=== PATIENT | male | born 1990 | race Caucasian/White ===

== ENCOUNTER → 2016-08-09 | Outpatient (CLI) | payer OTHER ==
[~2016-08-09] MED LIST: ACET-1256 PO; ARIP30TA3 PO; BENZ-88 PO; BENZ0.5T2 PO; CHLO100T8 PO; DIVA125T18 PO; DIVA500T5 PO; DOCU-94 PO; DOCU100C31 PO; IBUP200T80 PO; IMD/2 PO; MRLP527 PO; MULT-506 PO; NAPR-1169 PO; ONDA4TAB10 SL; OXYC-57 PO; POLY335019 PO; SENN1TAB77 PO; TOPI100T45 PO; [UNRECOGNIZED DRUG - CODE] PO; [UNRECOGNIZED DRUG - CODE] PO
[2016-08-09 13:14] LABS: BASO % 0.5 %; BASO ABS # 0.03 K/uL (0-0.2); COMPLETE YES; EOS % 1.7 %; HEMATOCRIT 47.2 % (42-52); IG% 0.2 %; LYMPH % 29.4 %; LYMPH ABS # 1.85 K/uL (1.2-3.4); MEAN CELL VOLUME 90.6 fL (80-100); MEAN CORPUSCULAR HEMOGLOBIN 31.1 pg (25-34); MEAN CORPUSCULAR HGB CONC 34.3 g/dl (32-36); MEAN PLATELET VOLUME 12.5 fL (7.4-10.4); MONO % 10.3 %; NEUT % 57.9 %; PLATELET COUNT 144 K/uL (130-400); RED BLOOD COUNT 5.21 M/uL (4.7-6.1); WHITE BLOOD COUNT 6.29 K/uL (4.8-10.8)
[2016-08-09 13:42] LABS: ALT/SGPT 29 U/L (12-78); AST/SGOT 19 U/L (15-37); BLOOD UREA NITROGEN 16 mg/dl (7-18); BUN/CREATININE RATIO 16.3 (10-20); CALCIUM 8.6 mg/dl (8.5-10.1); CARBON DIOXIDE 25 mmol/L (21-32); CHLORIDE 108 mmol/L (98-107); GLUCOSE 90 mg/dl (70-99); SODIUM 141 mmol/L (136-145)
[2016-08-09 13:50] LABS: ALB/GLOB RATIO 1.1 (0.9-2); ALKALINE PHOSPHATASE 39 U/L (45-117); CHOLESTEROL 150 mg/dl (0-200); CHOLESTEROL/HDL RATIO 3.1; ESTIMATED AVERAGE GLUCOSE 100 mg/dl; HA1C FLAG Normal (Normal); HDL CHOLESTEROL 49 mg/dl; LDL CHOLESTEROL CALCULATED 90 mg/dl; TRIGLYCERIDES 55 mg/dl (0-150); VERY LOW DENSITY LIPOPROT CALC 11 mg/dl
== END | disposition home or self-care (01) ==
LOC: C.LAB1850 11:38
PROVIDERS: ATTEND Urology
DX: Z79.899 Other long term (current) drug therapy (principal)

== ENCOUNTER 2016-09-09 13:48 | Emergency (ER) | payer OTHER ==
[~2016-09-09] VITALS: Ht 193 cm; Wt 96.1 kg
[~2016-09-09 13:48] MED LIST changes: -ACET-1256 PO; -BENZ-88 PO; -BENZ0.5T2 PO; +CGN1X PO; +CGN5X PO; -CHLO100T8 PO; -DIVA500T5 PO; -DOCU-94 PO; -DOCU100C31 PO; -IBUP200T80 PO; -IMD/2 PO; -MRLP527 PO; -MULT-506 PO; -NAPR-1169 PO; -ONDA4TAB10 SL; -OXYC-57 PO; -POLY335019 PO; -SENN1TAB77 PO; -[UNRECOGNIZED DRUG - CODE] PO
[2016-09-09 13:50] VITALS: TEMP 36.9; Ht 193 cm; Wt 96.1 kg
--- NOTE | 2016-09-09 14:38 | DIAGNOSTIC IMAGING REPORT ---
RIGHT FINGER(S) MIN 2 VIEWS ROUTINE CLINICAL HISTORY: eval for fx right 5th Right trauma COMPARISON: None. DISCUSSION: Nondisplaced cortical fracture base distal phalanx fifth finger. Mild soft tissue edema. All remaining osseous structures are unremarkable. IMPRESSION: Nondisplaced cortical fracture base distal phalanx right fifth finger Electronically signed by: Mu Harris M.D. 09/09/2016 2:37 PM Dictated Date/Time: 09/09/2016 2:36 PM
[2016-09-09] MEDS ORDERED: MULT-506 PO (14:47)
[2016-09-09] MEDS ORDERED: IBUP200T80 PO (15:01)
[2016-09-09 15:11] VITALS: BP 110/68; PULSE 82; O2SAT 98
--- NOTE | 2016-09-09 20:14 | EMERGENCY ROOM VISIT NOTE ---
History Report prepared by Maksimibe: Marion Menjivar Under the Supervision of: Dr. Karlos Salmon M.D. First contact with patient: 13:58 Chief Complaint: FINGER PAIN Stated Complaint: FINGER PAIN, FELL ON ICE History of Present Illness The patient is a 26 year old male who presents to the Emergency Room with complaints of right fifth digit pain that has been constant since a fall this morning around 9AM. The pain is worse with movement of the finger. The patient states that he slipped on ice and landed directly on his right arm. He did not hit his head. Since then, he has had finger pain but denies any other trauma from the accident. He does not have any other complaints. Source of History: patient Onset: 9AM Position: finger(s) (right fifth digit) Timing: constant Modifying Factors (Worsening): movement Review of Systems See HPI for pertinent positives & negatives. A total of 4 systems reviewed and were otherwise negative. Past Medical & Surgical Medical Problems: (1) Anxiety (2) Autistic disorder (3) Depression (4) Homicidal ideation (5) Hypothyroidism (6) Learning difficulties (7) Mental retardation (8) Suicidal ideation (9) Tonic-clonic epilepsy Family History FH: heart disease Hypertension Social History Smoking Status: Never Smoker Alcohol Use: none Drug Use: none Marital Status: single Housing Status: lives with family Occupation Status: unemployed, disabled Current/Historical Medications Scheduled Aripiprazole (Abilify), 30 MG PO QAM Benztropine Mesylate (Benztropine Mesylate), 0.5 MG PO QA Benztropine Mesylate (Benztropine Mesylate), 1 MG PO HS Chlorpromazine HCl (Chlorpromazine HCl), 100 MG PO QPM Divalproex Sodium (Depakote), 250 MG PO BID Multivitamin (Multivitamin), 1 TAB PO DAILY Topiramate (Topamax), 100 MG PO BID Scheduled PRN Ibuprofen (Ibu-200), 2 TAB PO Q6 PRN for Pain Allergies Coded Allergies: Phenytoin (Unverified Allergy, Mild, RASH, 09/09/16) Chocolate (Verified Allergy, Unknown, 09/09/16) Red Dye (Verified Allergy, Unknown, ., 09/09/16) Sulfa Drugs (Verified Allergy, Unknown, 09/09/16) Adhesives (Unverified Adverse Reaction, Unknown, RASH, 09/09/16) Physical Exam Vital Signs Date Time Temp Pulse Resp B/P Pulse Ox O2 Delivery O2 Flow Rate FiO2 09/09/16 15:11 82 110/68 98 Room Air 09/09/16 13:50 36.9 96 18 127/78 98 Room Air Physical Exam Constitutional: Vital signs reviewed. Musculoskeletal: No peripheral edema. No lower extremity tenderness. No CVA tenderness. No tenderness over the shoulder, elbow, or wrist. He had tenderness over the distal phalanx and DIP joint of the right fifth digit. Normal pulses and distal capillary refill. Normal flexion and extension of the fifth digit at the MCP, DIP and PIP. Integumentary: No cyanosis. No ecchymosis. Neurological: The patient is awake and alert. No focal deficits. Normal motor and sensation in the fingers. Psychiatric: Normal affect. Medical Decision & Procedures ER Provider Diagnostic Interpretation: X-ray results as stated below per interpretation by me and the radiologist: RIGHT FINGER(S) MIN 2 VIEWS ROUTINE CLINICAL HISTORY: eval for fx right 5th Right trauma COMPARISON: None. DISCUSSION: Nondisplaced cortical fracture base distal phalanx fifth finger. Mild soft tissue edema. All remaining osseous structures are unremarkable. IMPRESSION: Nondisplaced cortical fracture base distal phalanx right fifth finger Electronically signed by: Mu Harris M.D. 09/09/2016 2:37 PM Dictated Date/Time: 09/09/2016 2:36 PM ED Course 1400: The patient was evaluated in room D3. A complete history and physical exam was performed. 1455: I reassessed the patient and talked to him about test results. On reexamination, he had good tendon function throughout the joints of the fifth digit. The patient will be discharged home. Medical Decision This is a 26-year-old male who presents with a finger injury. Differential diagnosis includes fracture, dislocation, closed tendon injury. I did perform a limited focused review of portions of the patient's old chart on the electronic medical record. The patient has had no recent pertinent visits to this hospital. I did evaluate the patient as noted above. The patient has good tendon function and is neurovascularly intact. He is tender over the distal right fifth digit. He denies any other injuries and does not appear to have any other injuries on examination. I did order and personally review the patient' s right fifth digit x-rays as described above. He does have a distal phalanx fracture. I did discuss the test results with the patient and his family. He was placed in a metal finger splint. He was given a prescription for ibuprofen for pain. Impression Primary Impression: Fracture of distal phalanx of right little finger Scribe Attestation The scribe's documentation has been prepared under my direct and personally reviewed by me in its entirety. I confirm that the note above accurately reflects all work, treatment, procedures, and medical decision making performed by me. Departure Information Dispostion Home / Self-Care Prescriptions Ibuprofen (Ibu-200) 200 Mg Tab 2 TAB PO Q6 Y for Pain, #20 TAB Prov: Karlos Salmon M.D. 09/09/16 Referrals Rogelio Donaldson M.D. (PCP) Patient Instructions ED Fx Finger Closed, My [facility] Additional Instructions You have been examined and treated today on an emergency basis only. This is not a substitute for, or an effort to provide, complete comprehensive medical care. It is impossible to recognize and treat all injuries or illnesses in a single emergency department visit. It is therefore important that you follow up closely with your physician. Call as soon as possible for an appointment. Return for worsening symptoms or if you develop numbness or weakness in your finger any other concerning symptoms. Problem Qualifiers Primary Impression: Fracture of distal phalanx of right little finger Encounter type: initial encounter Fracture type: closed Fracture alignment : nondisplaced Qualified Codes: S62.666A - Nondisplaced fracture of distal phalanx of right little finger, initial encounter for closed fracture
== END 2016-09-09 15:18 | disposition home or self-care (01) ==
LOC: C.EDB 13:50 → C.EDD 15:18
DX: S62.666A Nondisplaced fracture of distal phalanx of right little finger, initial encounter for closed fracture (principal); W00.9XXA Unspecified fall due to ice and snow, initial encounter; F41.9 Anxiety disorder, unspecified; F84.0 Autistic disorder; F32.9 Major depressive disorder, single episode, unspecified; E03.9 Hypothyroidism, unspecified; F79 Unspecified intellectual disabilities; G40.409 Other generalized epilepsy and epileptic syndromes, not intractable, without status epilepticus; I10 Essential (primary) hypertension

== ENCOUNTER 2016-09-15 16:25 | Emergency (ER) | payer OTHER ==
[~2016-09-15] VITALS: Ht 193 cm; Wt 92.7 kg
[~2016-09-15 16:25] MED LIST changes: +IBUP200T80 PO; +MULT-506 PO
[2016-09-15 16:33] VITALS: Ht 193 cm; Wt 92.7 kg
[2016-09-15] MEDS ORDERED: KETOROLAC TROMETHAMINE 30 MG/ML VIAL IV STA (16:41)
[2016-09-15] MEDS ORDERED: SODIUM CHLORIDE 0.9% 1000ML 1,000 ML IV STA (16:41)
[2016-09-15] MEDS ORDERED: ONDANSETRON INJ 2 MG/ML 2 ML VIAL IV STA (16:41)
[2016-09-15] MEDS ORDERED: METOCLOPRAMIDE HCL INJ 5 MG/ML 2 ML VIAL IV PRN (16:45)
--- NOTE | 2016-09-15 16:52 | EMERGENCY ROOM VISIT NOTE ---
History Report prepared by Javed: Ryan Mcknight Under the Supervision of: Dr. Consuelo Layton M.D. First contact with patient: 16:39 Chief Complaint: VOMITING Stated Complaint: VOMITING,WEAK, SHIVERING, SHAKING History of Present Illness The patient is a 26 year old male who presents to the Emergency Room with complaints of multiple episodes of vomiting starting around 0800 this morning. The patient states that he was vomiting every 15 minutes. The patient additionally complains of diarrhea and abdominal pain. Source of History: patient Onset: 0800 Position: other (global) Quality: other (vomiting) Timing: other (every 15 mintues) Associated Symptoms: + abdominal pain, + diarrhea Review of Systems See HPI for pertinent positives & negatives. A total of 10 systems reviewed and were otherwise negative. Past Medical & Surgical Medical Problems: (1) Anxiety (2) Autistic disorder (3) Depression (4) Homicidal ideation (5) Hypothyroidism (6) Learning difficulties (7) Mental retardation (8) Suicidal ideation (9) Tonic-clonic epilepsy Family History FH: heart disease Hypertension Social History Smoking Status: Never Smoker Alcohol Use: none Drug Use: none Marital Status: single Housing Status: lives with family Occupation Status: unemployed, disabled Current/Historical Medications Scheduled Aripiprazole (Abilify), 30 MG PO QAM Benztropine Mesylate (Benztropine Mesylate), 0.5 MG PO QA Benztropine Mesylate (Benztropine Mesylate), 1 MG PO HS Chlorpromazine HCl (Chlorpromazine HCl), 100 MG PO QPM Chlorpromazine Hcl (Thorazine), 100 MG PO HS Divalproex Sodium (Depakote Delay Rel), 500 MG PO AMHS Multivitamin (Multivitamin), 1 TAB PO DAILY Ondasetron Odt (Zofran Odt), 4 MG SL Q6H Topiramate (Topamax), 100 MG PO BID Scheduled PRN Ibuprofen (Ibu-200), 2 TAB PO Q6 PRN for Pain Loperamide Hcl (Imodium), 2 MG PO UNKNOWN PRN for ALLERGIC REACTION Allergies Coded Allergies: Phenytoin (Verified Allergy, Mild, RASH, 09/15/16) Chocolate (Verified Allergy, Unknown, 09/09/16) Red Dye (Verified Allergy, Unknown, ., 09/09/16) Sulfa Drugs (Verified Allergy, Unknown, 09/09/16) Adhesives (Verified Adverse Reaction, Unknown, RASH, 09/15/16) Physical Exam Vital Signs Date Time Temp Pulse Resp B/P Pulse Ox O2 Delivery O2 Flow Rate FiO2 09/15/16 18:06 95 20 122/69 100 Room Air 09/15/16 16:33 104 16 119/67 98 Room Air Physical Exam CONSTITUTIONAL: Moderate distress. HEENT: No icterus, moist mucous membranes NECK: No meningismus, trachea is midline. CARDIOVASCULAR: Regular rate, normal perfusion RESPIRATORY: Unlabored breathing. Clear to auscultation. GASTROINTESTINAL: Diffuse abdominal tenderness. GENITOURINARY: No flank tenderness MUSCULOSKELETAL: Full range of motion NEUROLOGIC: No acute gross focal deficits. PSYCHIATRIC: Normal affect SKIN: Normal for ethnicity. Medical Decision & Procedures Laboratory Results 09/15/16 17:40 Red Blood Count 5.10, Mean Corpuscular Volume 92.0, Mean Corpuscular Hemoglobin 31.6, Mean Corpuscular Hemoglobin Concent 34.3, Mean Platelet Volume 12.7, Neutrophils (%) (Auto) 90.6, Lymphocytes (%) (Auto) 4.7, Monocytes (%) (Auto) 4.2, Eosinophils (%) (Auto) 0.1, Basophils (%) (Auto) 0.1, Neutrophils # (Auto) 9.29, Lymphocytes # (Auto) 0.48, Monocytes # (Auto) 0.43, Eosinophils # (Auto) 0.01, Basophils # (Auto) 0.01 09/15/16 17:40 Test 09/15/16 17:40 White Blood Count 10.25 K/uL (4.8-10.8) Red Blood Count 5.10 M/uL (4.7-6.1) Hemoglobin 16.1 g/dL (14.0-18.0) Hematocrit 46.9 % (42-52) Mean Corpuscular Volume 92.0 fL (80-100) Mean Corpuscular Hemoglobin 31.6 pg (25-34) Mean Corpuscular Hemoglobin Concent 34.3 g/dl (32-36) Platelet Count 107 K/uL (130-400) Mean Platelet Volume 12.7 fL (7.4-10.4) Neutrophils (%) (Auto) 90.6 % Lymphocytes (%) (Auto) 4.7 % Monocytes (%) (Auto) 4.2 % Eosinophils (%) (Auto) 0.1 % Basophils (%) (Auto) 0.1 % Neutrophils # (Auto) 9.29 K/uL (1.4-6.5) Lymphocytes # (Auto) 0.48 K/uL (1.2-3.4) Monocytes # (Auto) 0.43 K/uL (0.11-0.59) Eosinophils # (Auto) 0.01 K/uL (0-0.5) Basophils # (Auto) 0.01 K/uL (0-0.2) RDW Standard Deviation 44.2 fL (36.4-46.3) RDW Coefficient of Variation 13.2 % (11.5-14.5) Immature Granulocyte % (Auto) 0.3 % Immature Granulocyte # (Auto) 0.03 K/uL (0.00-0.02) Large Platelets 1+ Anion Gap 12.0 mmol/L (3-11) Est Creatinine Clear Calc Drug Dose 124.9 ml/min Estimated GFR () 106.8 Estimated GFR (Non- 92.2 BUN/Creatinine Ratio 22.4 (10-20) Calcium Level 8.6 mg/dl (8.5-10.1) Total Bilirubin 0.6 mg/dl (0.2-1) Direct Bilirubin 0.2 mg/dl (0-0.2) Aspartate Amino Transf (AST/SGOT) 22 U/L (15-37) Alanine Aminotransferase (ALT/SGPT) 27 U/L (12-78) Alkaline Phosphatase 39 U/L (45-117) Total Protein 7.5 gm/dl (6.4-8.2) Albumin 3.7 gm/dl (3.4-5.0) Lipase 160 U/L (73-393) Labs reviewed by ED physician. Medications Administered Medications (Trade) Dose Ordered Sig/Jose Alberto Route Start Time Stop Time Status Last Admin Dose Admin Sodium Chloride (Nss 1000ml) 1,000 ml @ 0 mls/hr Q0M STAT IV 09/15/16 16:41 09/15/16 16:44 DC 09/15/16 16:53 0 MLS/HR Ondansetron HCl (Zofran Inj) 4 mg NOW STAT IV 09/15/16 16:41 09/15/16 16:44 DC 09/15/16 16:57 4 MG Ketorolac Tromethamine (Toradol Inj) 30 mg NOW STAT IV 09/15/16 16:41 09/15/16 16:44 DC 09/15/16 16:58 30 MG Metoclopramide HCl (Reglan Inj) 10 mg Q6H PRN IV 09/15/16 16:45 10/15/16 16:44 09/15/16 18:03 10 MG ED Course 1639: Past medical records reviewed. The patient was evaluated in room C7. A complete history and physical examination was performed. 1641: Toradol Inj 30mg IV, Zofran Inj 4mg IV, Sodium Chloride 1000 ml @ 0 mls/ hr wide open IV 1645: Reglan Inj 10mg IV Medical Decision Differential diagnoses include but are not limited to; Gastroenteritis, pancreatitis, gall bladder disease, obstruction. 26-year-old presents into the emergency room and one day of vomiting and diarrhea with crampy abdominal pain. Moderate abdominal pain disproportionate to a obvious viral gastroenteritis was identified and subsequent CT scan was negative. Patient appeared well time of discharge 8pm. Zofran home pack and prescription. Impression Primary Impression: Gastroenteritis Scribe Attestation The scribe's documentation has been prepared under my direction and personally reviewed by me in its entirety. I confirm that the note above accurately reflects all work, treatment, procedures, and medical decision making performed by me. Departure Information Dispostion Home / Self-Care Prescriptions Ondasetron Odt (ZOFRAN ODT) 4 Mg Tab 4 MG SL Q6H for Nausea, #20 TAB Prov: Consuelo Layton MD 09/15/16 Referrals Rogelio Donaldson M.D. (PCP) Patient Instructions My [facility]
[2016-09-15] MEDS ORDERED: CHLO100T8 PO (17:58)
[2016-09-15] MEDS ORDERED: DIVA500T5 PO (17:58)
[2016-09-15] MEDS ORDERED: IMD/2 PO (18:02)
[2016-09-15 18:05] LABS: BUN/CREATININE RATIO 22.4 (10-20); CALCIUM 8.6 mg/dl (8.5-10.1); CREATININE 1.1 mg/dl (0.60-1.40); POTASSIUM 4.2 mmol/L (3.5-5.1)
[2016-09-15 18:26] LABS: BASO % 0.1 %; BASO ABS # 0.01 K/uL (0-0.2); COMPLETE YES; EOS % 0.1 %; HEMATOCRIT 46.9 % (42-52); IG% 0.3 %; LARGE PLATELETS 1+; LYMPH % 4.7 %; LYMPH ABS # 0.48 K/uL (1.2-3.4); MEAN CORPUSCULAR HEMOGLOBIN 31.6 pg (25-34); MEAN CORPUSCULAR HGB CONC 34.3 g/dl (32-36); MEAN PLATELET VOLUME 12.7 fL (7.4-10.4); MONO % 4.2 %; NEUT % 90.6 %; PLATELET COUNT 107 K/uL (130-400); WHITE BLOOD COUNT 10.25 K/uL (4.8-10.8)
[2016-09-15] MEDS ORDERED: OPTIRAY 320 IV PRN (19:00)
--- NOTE | 2016-09-15 19:45 | DIAGNOSTIC IMAGING REPORT ---
CT SCAN OF THE ABDOMEN AND PELVIS WITH IV CONTRAST CLINICAL HISTORY: Generalized abdominal pain. Vomiting and diarrhea. COMPARISON STUDY: Abdominal CT dated 11/19/2012. Abdominal radiographs dated . TECHNIQUE: Following the IV administration of 115 cc of Optiray 320, CT scan of the abdomen and pelvis is performed from the lung bases to the proximal femora. Images are reviewed in the axial, sagittal, and coronal planes. IV contrast was administered without complication. Automated dose control exposure was utilized. CT DOSE: 494.83 mGy.cm FINDINGS: Lung bases: The heart is normal in size and without pericardial effusion. The lung bases are clear noting dependent atelectasis. Liver: The contrast-enhanced liver is normal in size, contour, and attenuation. There is no intrahepatic biliary ductal dilatation. The hepatic veins and portal veins are patent. Gallbladder: Unremarkable. Spleen: Normal in size and attenuation. Pancreas: Unremarkable. Adrenal glands: Unremarkable. Kidneys: The contrast enhanced kidneys are normal in size and without hydronephrosis. The kidneys enhance symmetrically. Abdominal vasculature: The abdominal aorta is normal in course and caliber. Bowel: The small bowel and colon are normal in course and caliber. Liquid stool is noted in the colon. There is no colonic wall thickening or pericolonic inflammation. The appendix is well-visualized and normal. Peritoneum: There is no intraperitoneal free air or abdominal ascites. There is a small fat-containing umbilical hernia. Lymphadenopathy: None. Pelvic viscera: The bladder wall appears slightly thickened. The prostate and seminal vesicles are normal as visualized. Skeletal structures: No lytic or blastic lesions are seen. IMPRESSION: 1. Liquid stool is noted in the colon. There is no colonic wall thickening or pericolonic inflammation. Correlate clinically for evidence of a diarrheal illness. 2. There is nonspecific bladder wall thickening. Correlation with clinical findings and urinalysis will be required. Electronically signed by: Navjot Del Angel M.D. 09/15/2016 7:44 PM Dictated Date/Time: 09/15/2016 7:38 PM
[2016-09-15] MEDS ORDERED: ONDA4TAB10 SL (20:01)
[2016-09-15 20:14] VITALS: BP 126/68; PULSE 103; O2SAT 100
[2016-09-15] MEDS ORDERED: ONDANSETRON HOME PACK 4MG OD TAB PO ONE (20:15)
== END 2016-09-15 20:14 | disposition home or self-care (01) ==
LOC: C.EDB 16:26 → C.EDC 20:14
DX: K52.9 Noninfective gastroenteritis and colitis, unspecified (principal); E03.9 Hypothyroidism, unspecified; F32.9 Major depressive disorder, single episode, unspecified; F41.9 Anxiety disorder, unspecified; F79 Unspecified intellectual disabilities; G40.409 Other generalized epilepsy and epileptic syndromes, not intractable, without status epilepticus; F84.0 Autistic disorder; Z79.899 Other long term (current) drug therapy; Z88.2 Allergy status to sulfonamides; Z88.8 Allergy status to other drugs, medicaments and biological substances; Z91.018 Allergy to other foods; Z82.49 Family history of ischemic heart disease and other diseases of the circulatory system

== ENCOUNTER 2016-10-26 10:27 | Emergency (ER) | payer OTHER ==
[~2016-10-26] VITALS: Ht 193 cm; Wt 94.6 kg
[~2016-10-26 10:27] MED LIST changes: +CHLO100T8 PO; -DIVA125T18 PO; +DIVA500T5 PO; +IMD/2 PO; +ONDA4TAB10 SL
[2016-10-26 10:41] VITALS: TEMP 36.6; Ht 193 cm; Wt 94.6 kg
[2016-10-26] MEDS ORDERED: MoRPHine SULFATE 10 MG/ML CARP/VIAL IV STA (11:30)
[2016-10-26] MEDS ORDERED: METOCLOPRAMIDE HCL INJ 5 MG/ML 2 ML VIAL IV STA (11:30)
[2016-10-26] MEDS ORDERED: SODIUM CHLORIDE 0.9% 1000ML 1,000 ML IV STA (11:30)
[2016-10-26 11:33] LABS: URINE APPEARANCE TURBID (CLEAR); URINE BILIRUBIN NEG (NEG); URINE COLOR YELLOW; URINE EPITHELIAL CELL AUTO 0-5 /lpf (0-5); URINE NITRITE NEG (NEG); URINE SPECIFIC GRAVITY 1.017 (1.000-1.030); UROBILINOGEN POS (NEG)
[2016-10-26 11:40] LABS: MANUAL MICROSCOPIC REQUIRED? NO; REVIEW REQ? NO
[2016-10-26] MEDS ORDERED: OPTIRAY 320 IV PRN (11:45)
[2016-10-26 11:53] LABS: ISTAT CREATININE 1.1 mg/dl (0.6-1.3); ISTAT HEMOGLOBIN 13.9 g/dl (14.0-18.0); ISTAT IONIZED CALCIUM 1.26 mmol/l (1.12-1.32)
[2016-10-26 11:54] VITALS: O2SAT 99
--- NOTE | 2016-10-26 12:11 | EMERGENCY ROOM VISIT NOTE ---
History Report prepared by Javed: Celeste Miranda Under the Supervision of: Dr. Dillon Urena M.D. First contact with patient: 10:58 Chief Complaint: SEIZURE Stated Complaint: STOMACH ACHE, SEIZURE History of Present Illness The patient is a 26 year old male who presents to the Emergency Room from [facility] with complaints of constant left upper quadrant abdominal pain starting about 2-3 days ago. The patient also complains of nausea. He denies fevers, chills, chest pain, shortness of breath, urinary symptoms, or any other complaints. Source of History: patient Onset: about 2-3 days ago Position: abdomen (LUQ) Timing: constant Associated Symptoms: + nausea, No SOB, No chest pain, No fevers, No urinary symptoms Review of Systems See HPI for pertinent positives & negatives. A total of 10 systems reviewed and were otherwise negative. Past Medical & Surgical Medical Problems: (1) Anxiety (2) Autistic disorder (3) Depression (4) Homicidal ideation (5) Hypothyroidism (6) Learning difficulties (7) Mental retardation (8) Suicidal ideation (9) Tonic-clonic epilepsy Family History FH: heart disease Hypertension Social History Smoking Status: Never Smoker Alcohol Use: none Drug Use: none Marital Status: single Housing Status: lives with family Occupation Status: unemployed, disabled Current/Historical Medications Scheduled Aripiprazole (Abilify), 30 MG PO QAM Benztropine Mesylate (Benztropine Mesylate), 0.5 MG PO QA Benztropine Mesylate (Benztropine Mesylate), 1 MG PO HS Chlorpromazine HCl (Chlorpromazine HCl), 100 MG PO QPM Chlorpromazine Hcl (Thorazine), 100 MG PO HS Divalproex Sodium (Depakote Delay Rel), 500 MG PO AMHS Docusate Sodium (Colace), 1 CAP PO BID Multivitamin (Multivitamin), 1 TAB PO DAILY Ondasetron Odt (Zofran Odt), 4 MG SL Q6H Ondasetron Odt (Zofran Odt), 4 MG SL Q6H Polyethylene Glycol 3350 (Miralax), 17 GM PO DAILY Sennosides (Senokot), 8.6 MG PO HS Topiramate (Topamax), 100 MG PO BID Scheduled PRN Ibuprofen (Ibu-200), 2 TAB PO Q6 PRN for Pain Loperamide Hcl (Imodium), 2 MG PO UNKNOWN PRN for ALLERGIC REACTION Oxycodone/Acetaminophen 5MG/325MG (Percocet 5MG/325MG), 1-2 TAB PO Q4H PRN for Pain Allergies Coded Allergies: Phenytoin (Verified Allergy, Mild, RASH, 09/15/16) Chocolate (Verified Allergy, Unknown, 09/09/16) Red Dye (Verified Allergy, Unknown, ., 09/09/16) Sulfa Drugs (Verified Allergy, Unknown, 09/09/16) Adhesives (Verified Adverse Reaction, Unknown, RASH, 09/15/16) Physical Exam Vital Signs Date Time Temp Pulse Resp B/P Pulse Ox O2 Delivery O2 Flow Rate FiO2 10/26/16 13:57 79 20 120/68 98 10/26/16 12:55 79 18 125/73 98 Room Air 10/26/16 11:54 72 17 116/66 100 Room Air 10/26/16 11:54 99 Room Air 10/26/16 11:10 84 10/26/16 11:00 97 Room Air 10/26/16 10:41 36.6 106 18 122/78 97 Room Air Physical Exam GENERAL: Patient is a healthy-appearing well-nourished HEAD: Normocephalic atraumatic EYES: Ocular movements intact pupils equal and react to light OROPHARYNX mucous membranes are moist no exudates present no erythema or edema present NECK: Supple no nuchal rigidity CHEST: Good equal expansion LUNGS: Clear and equal to auscultation CARDIAC: Normal S1 and S2 ABDOMEN: Soft nontender no guarding BACK: No CVA tenderness EXTREMITIES: No pain upon palpation normal muscle strength in all groups no clubbing cyanosis or edema NEURO: Patient is following commands is answering questions appropriately. Alert and oriented x3 Cranial Nerves 2-12 grossly intact Medical Decision & Procedures ER Provider Diagnostic Interpretation: CT results as stated below per my review and radiologist interpretation: CT ABD/PELVIS IV CONTRAST ONLY CLINICAL HISTORY: Left upper quadrant abdominal pain. COMPARISON STUDY: 09/15/2016 TECHNIQUE: Following the IV administration of 116 mL of Optiray-320, CT scan of the abdomen and pelvis was performed from the lung bases to the proximal femurs. Images are reviewed in the axial, sagittal, and coronal planes. IV contrast was administered without complication. CT DOSE: 538.57 mGy.cm FINDINGS: Lower chest: There are mild bibasal atelectatic changes present. Liver: The contrast-enhanced liver is normal in size, contour, and attenuation. There is no intrahepatic biliary ductal dilatation. The hepatic veins and portal veins are patent. Gallbladder: Unremarkable. Spleen: Normal in size and attenuation. Pancreas: Unremarkable. Adrenal glands: Unremarkable. Kidneys: There is symmetric renal cortical enhancement. The kidneys are normal in size without hydronephrosis. Bowel: There are no transition zones indicate bowel obstruction. There is no evidence of acute appendicitis. There is no evidence of acute diverticulitis. There are fluid-filled small bowel loops with scattered air-fluid levels. There is fecal is age and of distal small bowel. There is borderline bowel wall thickening involving the terminal ileum. Peritoneum: There is no intraperitoneal free air or abdominal ascites. Vasculature: The abdominal aorta is normal in course and caliber. Adenopathy: None. Pelvic viscera: The bladder, and pelvic viscera are unremarkable. Skeletal structures: No destructive osseous lesions are seen. IMPRESSION: 1. Prominent fluid-filled distal loops of ileum with a small bowel feces sign. There are no transition zones to indicate a significant bowel obstruction. There is borderline bowel wall thickening involving the terminal ileum. The findings may represent a nonspecific enteritis 2. Normal appendix. No evidence of acute diverticulitis 3. No evidence of free air Electronically signed by: Dell Garnica M.D. 10/26/2016 1:07 PM Dictated Date/Time: 10/26/2016 1:00 PM Laboratory Results 10/26/16 11:00 Red Blood Count 4.80, Mean Corpuscular Volume 91.5, Mean Corpuscular Hemoglobin 31.3, Mean Corpuscular Hemoglobin Concent 34.2, Mean Platelet Volume 12.6, Neutrophils (%) (Auto) 52.1, Lymphocytes (%) (Auto) 32.1, Monocytes (%) (Auto) 13.6, Eosinophils (%) (Auto) 1.6, Basophils (%) (Auto) 0.4, Neutrophils # (Auto ) 2.96, Lymphocytes # (Auto) 1.82, Monocytes # (Auto) 0.77, Eosinophils # (Auto ) 0.09, Basophils # (Auto) 0.02 10/26/16 11:00 Test 10/26/16 10:55 10/26/16 11:00 10/26/16 11:31 10/26/16 11:37 Urine Color YELLOW Urine Appearance TURBID (CLEAR) Urine pH 7.0 (4.5-7.5) Urine Specific [place] 1.017 (1.000-1.030) Urine Protein NEG (NEG) Urine Glucose (UA) NEG (NEG) Urine Ketones NEG (NEG) Urine Occult Blood NEG (NEG) Urine Nitrite NEG (NEG) Urine Bilirubin NEG (NEG) Urine Urobilinogen POS (NEG) Urine Leukocyte Esterase NEG (NEG) Urine WBC (Auto) 0 /hpf (0-5) Urine RBC (Auto) 0-4 /hpf (0-4) Urine Hyaline Casts (Auto) 0 /lpf (0-5) Urine Epithelial Cells (Auto) 0-5 /lpf (0-5) Urine Bacteria (Auto) NEG (NEG) White Blood Count 5.67 K/uL (4.8-10.8) Red Blood Count 4.80 M/uL (4.7-6.1) Hemoglobin 15.0 g/dL (14.0-18.0) Hematocrit 43.9 % (42-52) Mean Corpuscular Volume 91.5 fL (80-100) Mean Corpuscular Hemoglobin 31.3 pg (25-34) Mean Corpuscular Hemoglobin Concent 34.2 g/dl (32-36) Platelet Count 109 K/uL (130-400) Mean Platelet Volume 12.6 fL (7.4-10.4) Neutrophils (%) (Auto) 52.1 % Lymphocytes (%) (Auto) 32.1 % Monocytes (%) (Auto) 13.6 % Eosinophils (%) (Auto) 1.6 % Basophils (%) (Auto) 0.4 % Neutrophils # (Auto) 2.96 K/uL (1.4-6.5) Lymphocytes # (Auto) 1.82 K/uL (1.2-3.4) Monocytes # (Auto) 0.77 K/uL (0.11-0.59) Eosinophils # (Auto) 0.09 K/uL (0-0.5) Basophils # (Auto) 0.02 K/uL (0-0.2) RDW Standard Deviation 45.1 fL (36.4-46.3) RDW Coefficient of Variation 13.5 % (11.5-14.5) Immature Granulocyte % (Auto) 0.2 % Immature Granulocyte # (Auto) 0.01 K/uL (0.00-0.02) Large Platelets 1+ Prothrombin Time 11.7 SECONDS (9.0-12.0) Prothromb Time International Ratio 1.1 (0.9-1.1) Activated Partial Thromboplast Time 31.0 SECONDS (21.0-31.0) Partial Thromboplastin Ratio 1.2 Est Creatinine Clear Calc Drug Dose 124.9 ml/min Estimated GFR () 106.8 Estimated GFR (Non- 92.2 BUN/Creatinine Ratio 14.8 (10-20) Calcium Level 8.7 mg/dl (8.5-10.1) Phosphorus Level 2.5 mg/dl (2.5-4.9) Magnesium Level 2.1 mg/dl (1.8-2.4) Thyroid Stimulating Hormone (TSH) 3.410 uIu/ml (0.300-4.500) Bedside Glucose 104 mg/dl (70-99) Bedside Hemoglobin 13.9 g/dl (14.0-18.0) Bedside Hematocrit 41 % (42-52) Bedside Sodium 145 mEq/L (135-144) Bedside Potassium 3.8 mEq/L (3.3-5.0) Bedside Chloride 109 mEq/L (101-112) Bedside Total CO2 23 mEq/l (24-31) Anion Gap 18.0 mmol/L (16-25) Bedside Blood Urea Nitrogen 17 mg/dl (7-18) Bedside Creatinine 1.1 mg/dl (0.6-1.3) Bedside Glucose (other) 103 mg/dl (70-99) Bedside Ionized Calcium (Paula) 1.26 mmol/l (1.12-1.32) Labs reviewed by ED physician. Medications Administered Medications (Trade) Dose Ordered Sig/Jose Alberto Route Start Time Stop Time Status Last Admin Dose Admin Sodium Chloride (Nss 1000ml) 1,000 ml @ 999 mls/hr Q1H1M STAT IV 10/26/16 11:30 10/26/16 12:30 DC 10/26/16 11:30 999 MLS/HR Metoclopramide HCl (Reglan Inj) 10 mg NOW STAT IV 10/26/16 11:30 10/26/16 11:32 DC 10/26/16 11:55 10 MG Morphine Sulfate (MoRPHine SULFATE INJ) 8 mg NOW STAT IV 10/26/16 11:30 10/26/16 11:32 DC 10/26/16 11:56 8 MG ECG Indication: abdominal pain Rate (beats per minute): 82 Rhythm: normal sinus Findings: no acute ischemic change, no ectopy ED Course 1058: Past medical records reviewed. The patient was evaluated in room C08. A complete history and physical examination was performed. 1130: Morphine Sulfate 8 mg IV, Reglan Inj 10 mg IV, Sodium Chloride 1000 ml @ 999 mls/hr IV 1325: Upon reexamination the patient is resting comfortably. I discussed results and treatment plan with the patient. He verbalizes agreement and understanding. The patient is ready for discharge. Medical Decision Differential diagnosis: Etiologies such as appendicitis, diverticulitis, PUD, biliary pathology, UTI, pancreatitis, obstruction, mesenteric ischemia, aortic pathology, infections, inflammatory bowel disease, renal colic, as well as others were entertained. This is a 26-year-old male who presents emergency department for left upper quadrant abdominal pain. Serial abdominal examinations were performed in the patient's emergency department and at no time did the patient exhibit a surgical abdomen. In addition the patient also has a normal white blood count. He has a normal renal profile normal liver profile normal lipase. I do believe that the patient is able to be discharged home. Impression Primary Impression: LUQ abdominal pain Scribe Attestation The scribe's documentation has been prepared under my direction and personally reviewed by me in its entirety. I confirm that the note above accurately reflects all work, treatment, procedures, and medical decision making performed by me. Departure Information Dispostion Home / Self-Care Prescriptions Polyethylene Glycol 3350 (MIRALAX) 1 Pow Pow 17 GM PO DAILY, #527 GM Prov: Dillon Urena MD 10/26/16 Docusate Sodium (COLACE) 100 Mg Cap 1 CAP PO BID for 10 Days, #20 CAP Prov: Dillon Urena MD 10/26/16 Sennosides (SENOKOT) 8.6 Mg Tab 8.6 MG PO HS for 10 Days, #10 TAB Prov: Dillon Urena MD 10/26/16 Ondasetron Odt (ZOFRAN ODT) 4 Mg Tab 4 MG SL Q6H for Nausea, #6 TAB Prov: Dillon Urena MD 10/26/16 Oxycodone/Acetaminophen 5MG/325MG (PERCOCET 5MG/325MG) Tab 1-2 TAB PO Q4H Y for Pain, #14 TAB Prov: Dillon Urena MD 10/26/16 Referrals Rogelio Donaldson M.D. (PCP) Forms HOME CARE DOCUMENTATION FORM, IMPORTANT VISIT INFORMATION Patient Instructions ED Diet Clear Liquid, My [facility] Additional Instructions Take 10 oz bottle of Miralax, add to 16 oz of gatorade, drink continuously until moving creamy stools Clear liquid diet next 48 hours You received narcotic or benzodiazepene medication while in the emergency room today. Do not drive, operate heavy machinery, or drink alcohol under the influence of this medication. Take 600 mg Ibuprofen every 6 hours Take Percocet for breakthrough pain You have been examined and treated today on an emergency basis only. This is not a substitute for, or an effort to provide, complete comprehensive medical care. It is impossible to recognize and treat all injuries or illnesses in a single emergency department visit. It is therefore important that you follow up closely with DR Donaldson. Call as soon as possible for an appointment. Thank you for your time and consideration. I look forward to speaking with you again soon. Please don't hesitate to call us if you have any questions.
[2016-10-26 12:14] LABS: HEMATOCRIT 43.9 % (42-52); MEAN CELL VOLUME 91.5 fL (80-100); MEAN CORPUSCULAR HEMOGLOBIN 31.3 pg (25-34); MEAN CORPUSCULAR HGB CONC 34.2 g/dl (32-36); MEAN PLATELET VOLUME 12.6 fL (7.4-10.4); PLATELET COUNT 109 K/uL (130-400); WHITE BLOOD COUNT 5.67 K/uL (4.8-10.8)
[2016-10-26 12:16] LABS: CREATININE 1.1 mg/dl (0.60-1.40)
[2016-10-26 12:21] LABS: POTASSIUM 3.8 mmol/L (3.5-5.1)
[2016-10-26 12:22] LABS: MAGNESIUM 2.1 mg/dl (1.8-2.4)
[2016-10-26 12:25] LABS: BUN/CREATININE RATIO 14.8 (10-20); CALCIUM 8.7 mg/dl (8.5-10.1); PHOSPHORUS 2.5 mg/dl (2.5-4.9); THYROID STIMULATING HORMONE 3.41 uIu/ml (0.300-4.500)
[2016-10-26 12:58] LABS: BASO % 0.4 %; BASO ABS # 0.02 K/uL (0-0.2); COMPLETE YES; EOS % 1.6 %; IG% 0.2 %; LARGE PLATELETS 1+; LYMPH % 32.1 %; LYMPH ABS # 1.82 K/uL (1.2-3.4); MONO % 13.6 %; NEUT % 52.1 %
--- NOTE | 2016-10-26 13:08 | DIAGNOSTIC IMAGING REPORT ---
CT ABD/PELVIS IV CONTRAST ONLY CLINICAL HISTORY: Left upper quadrant abdominal pain. COMPARISON STUDY: 09/15/2016 TECHNIQUE: Following the IV administration of 116 mL of Optiray-320, CT scan of the abdomen and pelvis was performed from the lung bases to the proximal femurs. Images are reviewed in the axial, sagittal, and coronal planes. IV contrast was administered without complication. CT DOSE: 538.57 mGy.cm FINDINGS: Lower chest: There are mild bibasal atelectatic changes present. Liver: The contrast-enhanced liver is normal in size, contour, and attenuation. There is no intrahepatic biliary ductal dilatation. The hepatic veins and portal veins are patent. Gallbladder: Unremarkable. Spleen: Normal in size and attenuation. Pancreas: Unremarkable. Adrenal glands: Unremarkable. Kidneys: There is symmetric renal cortical enhancement. The kidneys are normal in size without hydronephrosis. Bowel: There are no transition zones indicate bowel obstruction. There is no evidence of acute appendicitis. There is no evidence of acute diverticulitis. There are fluid-filled small bowel loops with scattered air-fluid levels. There is fecal is age and of distal small bowel. There is borderline bowel wall thickening involving the terminal ileum. Peritoneum: There is no intraperitoneal free air or abdominal ascites. Vasculature: The abdominal aorta is normal in course and caliber. Adenopathy: None. Pelvic viscera: The bladder, and pelvic viscera are unremarkable. Skeletal structures: No destructive osseous lesions are seen. IMPRESSION: 1. Prominent fluid-filled distal loops of ileum with a small bowel feces sign. There are no transition zones to indicate a significant bowel obstruction. There is borderline bowel wall thickening involving the terminal ileum. The findings may represent a nonspecific enteritis 2. Normal appendix. No evidence of acute diverticulitis 3. No evidence of free air Electronically signed by: Dell Garnica M.D. 10/26/2016 1:07 PM Dictated Date/Time: 10/26/2016 1:00 PM
[2016-10-26] MEDS ORDERED: OXYC-57 PO (13:24)
[2016-10-26] MEDS ORDERED: SENN1TAB77 PO (13:25)
[2016-10-26] MEDS ORDERED: DOCU-94 PO (13:25)
[2016-10-26] MEDS ORDERED: ONDA4TAB10 SL (13:25)
[2016-10-26] MEDS ORDERED: POLY335019 PO (13:26)
[2016-10-26 13:53] LABS: INR 1.1 (0.9-1.1); PARTIAL THROMBOPLASTIN RATIO 1.2; PROTHROMBIN TIME (PATIENT) 11.7 SECONDS (9.0-12.0)
[2016-10-26 13:57] VITALS: BP 120/68; PULSE 79; O2SAT 98
== END 2016-10-26 13:59 | disposition home or self-care (01) ==
LOC: C.EDB 10:29 → C.EDC 13:59
DX: R10.12 Left upper quadrant pain (principal); R11.0 Nausea; F84.0 Autistic disorder; F41.9 Anxiety disorder, unspecified; F32.9 Major depressive disorder, single episode, unspecified; E03.9 Hypothyroidism, unspecified; F79 Unspecified intellectual disabilities; G40.409 Other generalized epilepsy and epileptic syndromes, not intractable, without status epilepticus; Z82.49 Family history of ischemic heart disease and other diseases of the circulatory system

== ENCOUNTER → 2016-11-28 | Outpatient (CLI) | payer OTHER ==
[~2016-11-28] MED LIST changes: +ACET-1256 PO; +BENZ-88 PO; +BENZ0.5T2 PO; -CGN1X PO; -CGN5X PO; +DOCU100C31 PO; +MRLP527 PO; +NAPR-1169 PO; +OXYC-57 PO; +POLY335019 PO; +[UNRECOGNIZED DRUG - CODE] PO
[2016-11-28 09:58] LABS: HEMATOCRIT 45.8 % (42-52); MEAN CELL VOLUME 93.9 fL (80-100); MEAN CORPUSCULAR HEMOGLOBIN 31.1 pg (25-34); MEAN CORPUSCULAR HGB CONC 33.2 g/dl (32-36); RED BLOOD COUNT 4.88 M/uL (4.7-6.1); WHITE BLOOD COUNT 7.02 K/uL (4.8-10.8)
[2016-11-28 10:36] LABS: BASO % 0.3 %; BASO ABS # 0.02 K/uL (0-0.2); COMPLETE YES; EOS % 2.6 %; IG% 0.3 %; LYMPH % 18.4 %; LYMPH ABS # 1.29 K/uL (1.2-3.4); MEAN PLATELET VOLUME 11.5 fL (7.4-10.4); MONO % 12.5 %; NEUT % 65.9 %; PLATELET COUNT 98 K/uL (130-400)
== END | disposition home or self-care (01) ==
LOC: C.LAB1850 09:20
PROVIDERS: ATTEND Physician Assistant
DX: Z51.81 Encounter for therapeutic drug level monitoring (principal); Z79.899 Other long term (current) drug therapy

== ENCOUNTER 2016-12-16 17:37 | Emergency (ER) | payer OTHER ==
[~2016-12-16] VITALS: Ht 193 cm; Wt 96.3 kg
[~2016-12-16 17:37] MED LIST changes: -ACET-1256 PO; -DOCU100C31 PO; -MRLP527 PO; -NAPR-1169 PO; -[UNRECOGNIZED DRUG - CODE] PO
[2016-12-16 17:40] VITALS: TEMP 36.5; Ht 193 cm; Wt 96.3 kg
[2016-12-16] MEDS ORDERED: DIVA500T5 PO (17:57)
--- NOTE | 2016-12-16 18:14 | EMERGENCY ROOM VISIT NOTE ---
ED Visit Note First contact with patient: 17:46 I have seen and examined this patient with Andie Stewart and generally agree with the treatment plan as discussed. Problem List Medical Problems: (1) Anxiety Status: Chronic (2) Autistic disorder Status: Chronic (3) Depression Status: Chronic (4) Homicidal ideation Status: Resolved (5) Hypothyroidism Status: Chronic (6) Learning difficulties Status: Chronic (7) Mental retardation Status: Chronic (8) Suicidal ideation Status: Resolved (9) Tonic-clonic epilepsy Status: Chronic Current/Historical Medications Scheduled Aripiprazole (Abilify), 30 MG PO QAM Benztropine Mesylate (Benztropine Mesylate), 0.5 MG PO QA Benztropine Mesylate (Benztropine Mesylate), 1 MG PO HS Chlorpromazine HCl (Chlorpromazine HCl), 100 MG PO QPM Chlorpromazine Hcl (Thorazine), 100 MG PO HS Divalproex Sodium (Depakote Delay Rel), 1,000 MG PO QAM Divalproex Sodium (Depakote Delay Rel), 500 MG PO HS Multivitamin (Multivitamin), 1 TAB PO DAILY Polyethylene Glycol 3350 (Miralax), 17 GM PO DAILY Topiramate (Topamax), 100 MG PO BID Scheduled PRN Ibuprofen (Ibu-200), 2 TAB PO Q6 PRN for Pain Allergies Coded Allergies: Phenytoin (Verified Allergy, Mild, RASH, 12/16/16) Chocolate (Verified Allergy, Unknown, 12/16/16) Red Dye (Verified Allergy, Unknown, ., 12/16/16) Sulfa Drugs (Verified Allergy, Unknown, 12/16/16) Adhesives (Verified Adverse Reaction, Unknown, RASH, 12/16/16) Vital Signs Date Time Temp Pulse Resp B/P Pulse Ox O2 Delivery O2 Flow Rate FiO2 12/16/16 17:40 36.5 97 20 131/83 99 Room Air Departure Information Referrals Rogelio Donaldson M.D. (PCP) Patient Instructions My [facility]
--- NOTE | 2016-12-16 18:35 | DIAGNOSTIC IMAGING REPORT ---
LEFT FOOT 3 VIEWS HISTORY: Left foot pain. COMPARISON: None. FINDINGS: There is no fracture or dislocation. Soft tissues are unremarkable. No radiopaque foreign bodies. IMPRESSION: No fractures. Electronically signed by: Delfino Reyes M.D. 12/16/2016 6:33 PM Dictated Date/Time: 12/16/2016 6:32 PM
[2016-12-16] MEDS ORDERED: NAPR-1169 PO (19:36)
--- NOTE | 2016-12-16 19:36 | EMERGENCY ROOM VISIT NOTE ---
ED Visit Note First contact with patient: 17:46 CHIEF COMPLAINT: Foot pain HISTORY OF PRESENT ILLNESS: This 26-year-old male patient presents to the emergency department ambulatory complaining of pain in the left foot. The patient states that he has been standing a lot lately, and has pain in the bottom of the foot, especially when standing. The patient rates the pain as sharp and 8/10. The patient has taken ibuprofen with some relief of the pain. The patient is able to walk. No numbness or weakness. No ankle pain. The patient is able to move all of their toes and their ankle without pain. No previous injuries to this foot. REVIEW OF SYSTEMS: GENERAL: A 6 system review of systems was completed with positives and pertinent negatives in the HPI. ALLERGIES: Adhesives, chocolate, phenytoin, red dye, sulfa drugs MEDICATIONS: See med list PMH: See problem list SOCIAL HISTORY: The patient lives at [facility]. PHYSICAL EXAM: Vital Signs: Reviewed Nurse's notes, vital signs stable. GENERAL : This is a 26-year-old male, in no acute distress, but appears in pain, well- developed, well-nourished. MUSCULOSKELETAL: There is no visual deformity of the left foot. There is tenderness over the plantar fascia. There is no erythema or ecchymosis. There is no warmth. There is no tenderness over the lateral or medial malleolus. No tenderness of the tib/fib. The range of motion of the foot and ankle is full. There is no tenderness over the plantar fascia. The skin is intact and there are no lacerations or puncture wounds. Dorsalis pedis pulse 2+. Capillary refill less than 2 seconds. RADIOGRAPHIC FINDINGS: LEFT FOOT 3 VIEWS HISTORY: Left foot pain. COMPARISON: None. FINDINGS: There is no fracture or dislocation. Soft tissues are unremarkable. No radiopaque foreign bodies. IMPRESSION: No fractures. EMERGENCY DEPARTMENT COURSE: I examined the patient. An X-ray of the left foot was reviewed by myself and radiology and reveals no acute findings. Clinically , the patient appears to have a plantar fasciitis. He really placed on Naprosyn and follow-up with orthopedics as needed. The patient was placed in a postoperative shoe. The patient verbalized understanding of my assessment and treatment plan. The patient was discharged home in good condition. The patient was independently evaluated by Dr. Urena, ED attending physician , who agreed with my assessment and treatment plan. DIAGNOSIS: Plantar fasciitis Problem List Medical Problems: (1) Anxiety Status: Chronic (2) Autistic disorder Status: Chronic (3) Depression Status: Chronic (4) Homicidal ideation Status: Resolved (5) Hypothyroidism Status: Chronic (6) Learning difficulties Status: Chronic (7) Mental retardation Status: Chronic (8) Suicidal ideation Status: Resolved (9) Tonic-clonic epilepsy Status: Chronic Current/Historical Medications Scheduled Aripiprazole (Abilify), 30 MG PO QAM Benztropine Mesylate (Benztropine Mesylate), 0.5 MG PO QA Benztropine Mesylate (Benztropine Mesylate), 1 MG PO HS Chlorpromazine HCl (Chlorpromazine HCl), 100 MG PO QPM Chlorpromazine Hcl (Thorazine), 100 MG PO HS Divalproex Sodium (Depakote Delay Rel), 1,000 MG PO QAM Divalproex Sodium (Depakote Delay Rel), 500 MG PO HS Multivitamin (Multivitamin), 1 TAB PO DAILY Naproxen (Naprosyn), 500 MG PO BID Polyethylene Glycol 3350 (Miralax), 17 GM PO DAILY Topiramate (Topamax), 100 MG PO BID Scheduled PRN Ibuprofen (Ibu-200), 2 TAB PO Q6 PRN for Pain Allergies Coded Allergies: Phenytoin (Verified Allergy, Mild, RASH, 12/16/16) Chocolate (Verified Allergy, Unknown, 12/16/16) Red Dye (Verified Allergy, Unknown, ., 12/16/16) Sulfa Drugs (Verified Allergy, Unknown, 12/16/16) Adhesives (Verified Adverse Reaction, Unknown, RASH, 12/16/16) Vital Signs Date Time Temp Pulse Resp B/P Pulse Ox O2 Delivery O2 Flow Rate FiO2 12/16/16 19:50 75 16 131/71 100 12/16/16 17:40 36.5 97 20 131/83 99 Room Air Departure Information Impression Primary Impression: Plantar fasciitis of left foot Dispostion Home / Self-Care Condition GOOD Prescriptions Naproxen (Naprosyn) 500 Mg Tab 500 MG PO BID for 10 Days, #20 TAB Prov: Andie Bartlett ., FRANCISCO 12/16/16 Referrals Rogelio Donaldson M.D. (PCP) Patient Instructions My [facility] Additional Instructions You have been treated in the Emergency Department for foot pain. Naprosyn twice a day as prescribed. - Regular strength (325mg/tab) Tylenol (acetaminophen) 2 tabs every 4-6 hours as needed. Do not exceed 12 tablets in a 24 hour period. Avoid taking more than 4 grams (4000 mg) of Tylenol per day. This includes any other sources of acetaminophen you may take on a regular basis. If this is a recent injury (<24 hrs), ice can be applied to the area of pain for the first 3 days to help decrease pain and inflammation. Wear the boot for the next 1 week, then as needed. If the pain persists in 5-6 days, call orthopedics to schedule follow-up. Return to the Emergency Department if your current symptoms worsen despite treatment course outlined above, or if you develop any of the following symptoms : intractable pain despite aforementioned treatment course or new onset of numbness or tingling of the foot.
[2016-12-16 19:50] VITALS: BP 131/71; PULSE 75; O2SAT 100
== END 2016-12-16 19:50 | disposition home or self-care (01) ==
LOC: C.EDB 17:38 → C.EDD 19:50
DX: M72.2 Plantar fascial fibromatosis (principal); F41.9 Anxiety disorder, unspecified; F32.9 Major depressive disorder, single episode, unspecified; E03.9 Hypothyroidism, unspecified; G40.409 Other generalized epilepsy and epileptic syndromes, not intractable, without status epilepticus; F79 Unspecified intellectual disabilities; F84.0 Autistic disorder; Z79.899 Other long term (current) drug therapy; Z88.2 Allergy status to sulfonamides; Z88.8 Allergy status to other drugs, medicaments and biological substances; Z91.018 Allergy to other foods; Z91.09 Other allergy status, other than to drugs and biological substances

== ENCOUNTER 2017-02-17 17:09 | Emergency (ER) | payer OTHER ==
[~2017-02-17 17:09] MED LIST changes: -BENZ-88 PO; -BENZ0.5T2 PO; +CGN1X PO; +CGN5X PO; -IMD/2 PO; -ONDA4TAB10 SL; -OXYC-57 PO
[2017-02-17 17:14] VITALS: TEMP 36.3; Ht 193 cm
[2017-02-17] MEDS ORDERED: SODIUM CHLORIDE 0.9% 1000ML 1,000 ML IV STA (17:21)
[2017-02-17] MEDS ORDERED: KETOROLAC TROMETHAMINE 30 MG/ML VIAL IV STA (17:21)
[2017-02-17] MEDS ORDERED: METOCLOPRAMIDE HCL INJ 5 MG/ML 2 ML VIAL IV STA (17:21)
[2017-02-17 18:03] LABS: URINE APPEARANCE TURBID (CLEAR); URINE BILIRUBIN NEG (NEG); URINE COLOR YELLOW; URINE NITRITE NEG (NEG); URINE SPECIFIC GRAVITY 1.015 (1.000-1.030); UROBILINOGEN NEG (NEG)
[2017-02-17 18:04] LABS: MANUAL MICROSCOPIC REQUIRED? NO; REVIEW REQ? YES
[2017-02-17] MEDS ORDERED: ACET-1256 PO (18:17)
[2017-02-17 18:29] LABS: BASO % 0.9 %; BASO ABS # 0.06 K/uL (0-0.2); COMPLETE YES; EOS % 1.6 %; HEMATOCRIT 39.7 % (42-52); LYMPH % 34.3 %; MEAN CELL VOLUME 92.5 fL (80-100); MEAN CORPUSCULAR HEMOGLOBIN 32.2 pg (25-34); MEAN CORPUSCULAR HGB CONC 34.8 g/dl (32-36); MEAN PLATELET VOLUME 11.3 fL (7.4-10.4); MONO % 10.9 %; NEUT % 52.3 %; PLATELET COUNT 166 K/uL (130-400); RED BLOOD COUNT 4.29 M/uL (4.7-6.1); WHITE BLOOD COUNT 6.42 K/uL (4.8-10.8)
--- NOTE | 2017-02-17 18:39 | DIAGNOSTIC IMAGING REPORT ---
ABDOMEN 2VIEW W/PA CHEST RTN CLINICAL HISTORY: Pt c/o abd pain pain COMPARISON STUDY: No previous studies for comparison. FINDINGS: The soft tissues, psoas shadows, renal outlines and intestinal gas pattern appear normal. There is no evidence for bowel obstruction. There is no evidence for free intraperitoneal air. No abnormal abdominal calcifications are seen. A frontal view of the chest was performed and is unremarkable. Increase in fecal load within the a sending and descending colonic regions. No obstructive characteristics. IMPRESSION: 1. Negative chest. 2. Moderate increase in fecal load within the a sending as well as descending colonic regions suggesting fecal stasis The above report was generated using voice recognition software. It may contain grammatical, syntax or spelling errors. Electronically signed by: Mu Harris M.D. 02/17/2017 6:38 PM Dictated Date/Time: 02/17/2017 6:37 PM
[2017-02-17] MEDS ORDERED: MAGNESIUM CITRATE 296 ML/BTL PO STA (18:43)
[2017-02-17 18:44] LABS: ALT/SGPT 16 U/L (12-78); BLOOD UREA NITROGEN 12 mg/dl (7-18); BUN/CREATININE RATIO 9.8 (10-20); CALCIUM 8.2 mg/dl (8.5-10.1); CARBON DIOXIDE 23 mmol/L (21-32); CHLORIDE 112 mmol/L (98-107); GLUCOSE 99 mg/dl (70-99); POTASSIUM 3.5 mmol/L (3.5-5.1); SODIUM 144 mmol/L (136-145)
[2017-02-17 18:47] LABS: ALKALINE PHOSPHATASE 39 U/L (45-117); AST/SGOT 11 U/L (15-37)
--- NOTE | 2017-02-17 18:54 | EMERGENCY ROOM VISIT NOTE ---
History Report prepared by Javed: Damien Arvizu Under the Supervision of: Dr. Dillon Urena M.D. First contact with patient: 17:17 Chief Complaint: ABDOMINAL PAIN Stated Complaint: ABD PAIN History of Present Illness The patient is a 26 year old male who presents to the Emergency Room with complaints of constant centralized abdominal pain beginning today. He describes his pain as stabbing. He states that he has not defecated in two weeks. Per mother, the patient's urine has appeared "black". The patient denies any known fevers. Source of History: patient Onset: Today Position: abdomen (centralized) Quality: stabbing Timing: constant Associated Symptoms: + urinary symptoms (appears "black"), No fevers Review of Systems See HPI for pertinent positives & negatives. A total of 10 systems reviewed and were otherwise negative. Past Medical & Surgical Medical Problems: (1) Anxiety (2) Autistic disorder (3) Depression (4) Homicidal ideation (5) Hypothyroidism (6) Learning difficulties (7) Mental retardation (8) Suicidal ideation (9) Tonic-clonic epilepsy Family History FH: heart disease Hypertension Social History Smoking Status: Never Smoker Alcohol Use: none Drug Use: none Marital Status: single Housing Status: lives with family Occupation Status: unemployed, disabled Current/Historical Medications Scheduled Acetaminophen (Tylenol), 500 MG PO DIRECTED PER PKG Aripiprazole (Abilify), 30 MG PO QAM Benztropine Mesylate (Benztropine Mesylate), 0.5 MG PO QA Benztropine Mesylate (Benztropine Mesylate), 1 MG PO HS Chlorpromazine HCl (Chlorpromazine HCl), 100 MG PO QAM Chlorpromazine Hcl (Thorazine), 100 MG PO HS Multivitamin (Multivitamin), 2 TAB PO DAILY Polyethylene Glycol 3350 (Miralax), 17 GM PO DAILY Topiramate (Topamax), 100 MG PO BID Scheduled PRN Ibuprofen (Ibu-200), 2 TAB PO Q6 PRN for Pain Allergies Coded Allergies: Phenytoin (Verified Allergy, Mild, RASH, 12/16/16) Chocolate (Verified Allergy, Unknown, 12/16/16) Red Dye (Verified Allergy, Unknown, ., 12/16/16) Sulfa Drugs (Verified Allergy, Unknown, 12/16/16) Adhesives (Verified Adverse Reaction, Unknown, RASH, 12/16/16) Physical Exam Vital Signs Date Time Temp Pulse Resp B/P (MAP) Pulse Ox O2 Delivery O2 Flow Rate FiO2 02/17/17 17:14 36.3 91 20 114/73 97 Room Air Physical Exam GENERAL: Patient is a healthy-appearing well-nourished [] HEAD: Normocephalic atraumatic EYES: Ocular movements intact pupils equal and react to light OROPHARYNX mucous membranes are moist no exudates present no erythema or edema present NECK: Supple no nuchal rigidity CHEST: Good equal expansion LUNGS: Clear and equal to auscultation CARDIAC: Normal S1 and S2 ABDOMEN: Soft nontender no guarding BACK: No CVA tenderness EXTREMITIES: No pain upon palpation normal muscle strength in all groups no clubbing cyanosis or edema NEURO: Patient is following commands and answering questions appropriately. Alert and oriented x3 Cranial Nerves 2-12 grossly intact Medical Decision & Procedures ER Provider Diagnostic Interpretation: X-ray results as stated below per interpretation by me and the radiologist: ABDOMEN 2VIEW W/PA CHEST RTN FINDINGS: The soft tissues, psoas shadows, renal outlines and intestinal gas pattern appear normal. There is no evidence for bowel obstruction. There is no evidence for free intraperitoneal air. No abnormal abdominal calcifications are seen. A frontal view of the chest was performed and is unremarkable. Increase in fecal load within the a sending and descending colonic regions. No obstructive characteristics. IMPRESSION: 1. Negative chest. 2. Moderate increase in fecal load within the a sending as well as descending colonic regions suggesting fecal stasis The above report was generated using voice recognition software. It may contain grammatical, syntax or spelling errors. Electronically signed by: Mu Harris M.D. Laboratory Results 02/17/17 18:13 Red Blood Count 4.29, Mean Corpuscular Volume 92.5, Mean Corpuscular Hemoglobin 32.2, Mean Corpuscular Hemoglobin Concent 34.8, Mean Platelet Volume 11.3, Neutrophils (%) (Auto) 52.3, Lymphocytes (%) (Auto) 34.3, Monocytes (%) (Auto) 10.9, Eosinophils (%) (Auto) 1.6, Basophils (%) (Auto) 0.9, Neutrophils # (Auto ) 3.36, Lymphocytes # (Auto) 2.20, Monocytes # (Auto) 0.70, Eosinophils # (Auto ) 0.10, Basophils # (Auto) 0.06 02/17/17 18:13 Test 02/17/17 17:23 02/17/17 18:13 Urine Color YELLOW Urine Appearance TURBID (CLEAR) Urine pH 7.0 (4.5-7.5) Urine Specific [place] 1.015 (1.000-1.030) Urine Protein NEG (NEG) Urine Glucose (UA) NEG (NEG) Urine Ketones NEG (NEG) Urine Occult Blood NEG (NEG) Urine Nitrite NEG (NEG) Urine Bilirubin NEG (NEG) Urine Urobilinogen NEG (NEG) Urine Leukocyte Esterase TRACE (NEG) Urine WBC (Auto) 1-5 /hpf (0-5) Urine RBC (Auto) 0-4 /hpf (0-4) Urine Hyaline Casts (Auto) /lpf (0-5) Urine Epithelial Cells (Auto) 10-20 /lpf (0-5) Urine Bacteria (Auto) NEG (NEG) Urine Renal Epithelial Cells /lpf (0-5) Urine Crystals (NONE PRSENT) Urine Pathogenic Casts /lpf (0) White Blood Count 6.42 K/uL (4.8-10.8) Red Blood Count 4.29 M/uL (4.7-6.1) Hemoglobin 13.8 g/dL (14.0-18.0) Hematocrit 39.7 % (42-52) Mean Corpuscular Volume 92.5 fL (80-100) Mean Corpuscular Hemoglobin 32.2 pg (25-34) Mean Corpuscular Hemoglobin Concent 34.8 g/dl (32-36) Platelet Count 166 K/uL (130-400) Mean Platelet Volume 11.3 fL (7.4-10.4) Neutrophils (%) (Auto) 52.3 % Lymphocytes (%) (Auto) 34.3 % Monocytes (%) (Auto) 10.9 % Eosinophils (%) (Auto) 1.6 % Basophils (%) (Auto) 0.9 % Neutrophils # (Auto) 3.36 K/uL (1.4-6.5) Lymphocytes # (Auto) 2.20 K/uL (1.2-3.4) Monocytes # (Auto) 0.70 K/uL (0.11-0.59) Eosinophils # (Auto) 0.10 K/uL (0-0.5) Basophils # (Auto) 0.06 K/uL (0-0.2) RDW Standard Deviation 41.8 fL (36.4-46.3) RDW Coefficient of Variation 12.4 % (11.5-14.5) Immature Granulocyte % (Auto) 0.0 % Immature Granulocyte # (Auto) 0.00 K/uL (0.00-0.02) Anion Gap 9.0 mmol/L (3-11) Estimated GFR () 96.1 Estimated GFR (Non- 83.0 BUN/Creatinine Ratio 9.8 (10-20) Calcium Level 8.2 mg/dl (8.5-10.1) Total Bilirubin 0.4 mg/dl (0.2-1) Direct Bilirubin 0.1 mg/dl (0-0.2) Aspartate Amino Transf (AST/SGOT) 11 U/L (15-37) Alanine Aminotransferase (ALT/SGPT) 16 U/L (12-78) Alkaline Phosphatase 39 U/L (45-117) Total Protein 6.4 gm/dl (6.4-8.2) Albumin 3.4 gm/dl (3.4-5.0) Lipase 220 U/L (73-393) Labs reviewed by ED physician. Medications Administered Medications (Trade) Dose Ordered Sig/Jose Alberto Route Start Time Stop Time Status Last Admin Dose Admin Sodium Chloride 1,000 ml @ 999 mls/hr Q1H1M STAT IV 02/17/17 17:21 02/17/17 18:21 DC 02/17/17 18:01 999 MLS/HR Ketorolac Tromethamine (Toradol Inj) 30 mg NOW STAT IV 02/17/17 17:21 02/17/17 17:23 DC 02/17/17 18:01 30 MG Metoclopramide HCl (Reglan Inj) 10 mg NOW STAT IV 02/17/17 17:21 02/17/17 17:23 DC 02/17/17 18:01 10 MG ED Course 1719: Past medical records reviewed. The patient was evaluated in room C12B. A complete history and physical examination was performed. 1721: Ordered Reglan Inj 10 mg IV, Toradol Inj 30 mg IV, Sodium Chloride 1000 ml @ 999 mls/hr. 1843: Ordered Citrate of Magnesia Soln 296 mL PO. 1850: Upon reexamination the patient is resting comfortably. I discussed results and treatment plan with the patient. He verbalizes agreement and understanding. The patient is ready for discharge. Medical Decision Differential diagnosis: Etiologies such as appendicitis, diverticulitis, PUD, biliary pathology, UTI, pancreatitis, obstruction, mesenteric ischemia, aortic pathology, infections, inflammatory bowel disease, renal colic, as well as others were entertained. This is a 26-year-old male who presents emergency department complaining of abdominal pain. The patient is well-known to me and has already had 2 CAT scans for abdominal pain this year. Based on this and using shared medical decision making, we felt that the patient did not need any further imaging along with the patient's benign abdominal examination. In addition the patient does not have an elevation in his white blood count cell count. Serial abdominal examinations were performed on the patient in the emergency department and at no time did the patient exhibit abdominal tenderness or surgical abdomen. We are going to try magnesium citrate for the patient's constipation and I strongly recommended that the patient follow-up with gastroenterology. Patient and guardians were in agreement with the treatment plan. Impression Primary Impression: Constipation Scribe Attestation The scribe's documentation has been prepared under my direction and personally reviewed by me in its entirety. I confirm that the note above accurately reflects all work, treatment, procedures, and medical decision making performed by me. Departure Information Dispostion Home / Self-Care Referrals Rogelio Donaldson M.D. (PCP) Forms HOME CARE DOCUMENTATION FORM, IMPORTANT VISIT INFORMATION Patient Instructions ED Constipation, ED Constipation , [facility] Additional Instructions Follow up with Dr Stark Take 1/2 bottle of Mag Citrate Repeat second half in six hours CLear liquid diet next 48 hours You have been examined and treated today on an emergency basis only. This is not a substitute for, or an effort to provide, complete comprehensive medical care. It is impossible to recognize and treat all injuries or illnesses in a single emergency department visit. It is therefore important that you follow up closely with Dr Donaldson. Call as soon as possible for an appointment. Thank you for your time and consideration. I look forward to speaking with you again soon. Please don't hesitate to call us if you have any questions. Problem Qualifiers Primary Impression: Constipation Constipation type: unspecified constipation type Qualified Codes: K59.00 - Constipation, unspecified
[2017-02-17 19:10] VITALS: BP 124/73; PULSE 103; O2SAT 100
== END 2017-02-17 19:10 | disposition home or self-care (01) ==
LOC: C.EDB 17:12 → C.EDC 19:10
DX: K59.00 Constipation, unspecified (principal); F84.0 Autistic disorder; F79 Unspecified intellectual disabilities; G40.409 Other generalized epilepsy and epileptic syndromes, not intractable, without status epilepticus; Z82.49 Family history of ischemic heart disease and other diseases of the circulatory system; Z79.899 Other long term (current) drug therapy

== ENCOUNTER 2017-02-20 12:50 | Emergency (ER) | payer OTHER ==
[~2017-02-20 12:50] MED LIST changes: +ACET-1256 PO; -DIVA500T5 PO
[2017-02-20 12:57] VITALS: Ht 193 cm
[2017-02-20] MEDS ORDERED: SODIUM CHLORIDE 0.9% 1000ML 1,000 ML IV STA (13:19)
--- NOTE | 2017-02-20 13:44 | EMERGENCY ROOM VISIT NOTE ---
History First contact with patient: 13:02 Chief Complaint: CONSTIPATION Stated Complaint: CONSTIPATION History of Present Illness The patient is a 26 year old male who presents to the Emergency Room with complaints of constipation. The patient was seen here 3 days ago with same complaints. At that time, the patient did have a negative workup including abdominal x-ray with no obstruction. The patient was discharged with magnesium citrate and a clear liquid diet, which she has not been following. The patient states he was unable to tolerate magnesium citrate, so has not been taking this medication. He states "I don't do well with diets" this has been eating his normal regular food. The patient states since Saturday, he has had 2 Fleet enemas , and on Saturday he did have a small bowel movement. She is on Saturday, he did take 3 Dulcolax laxatives, however has not had a bowel movement since then. The patient does have history of constipation, and has been told to use MiraLAX in the past. The patient has not been taking this medication. He does report abdominal pain throughout his abdomen, which he rates as discomfort and a fullness sensation. The patient does rate his pain 10/10. The patient does report occasional burning with urination over the past few days. He denies polyuria or urinary frequency. The patient denies fever, chills, nausea, vomiting, diarrhea, body aches, or other associated symptoms. The patient has not followed up with his PCP, and states he was unaware that he was supposed to do this, despite previous instructions. Review of Systems A complete 10 point review of systems was reviewed with the patient with pertinent positives and negatives as per history of present illness. All else were negative. Past Medical/Surgical History Medical Problems: (1) Anxiety (2) Autistic disorder (3) Depression (4) Homicidal ideation (5) Hypothyroidism (6) Learning difficulties (7) Mental retardation (8) Suicidal ideation (9) Tonic-clonic epilepsy Family History FH: heart disease Hypertension Social History Smoking Status: Former Smoker Alcohol Use: none Drug Use: none Marital Status: single Housing Status: lives with family Occupation Status: unemployed, disabled Current/Historical Medications Scheduled Acetaminophen (Tylenol), 500 MG PO DIRECTED PER PKG Aripiprazole (Abilify), 30 MG PO QAM Benztropine Mesylate (Benztropine Mesylate), 0.5 MG PO QAM Benztropine Mesylate (Benztropine Mesylate), 1 MG PO HS Chlorpromazine HCl (Chlorpromazine HCl), 100 MG PO QAM Chlorpromazine Hcl (Thorazine), 100 MG PO HS Ibuprofen (Sm Ibuprofen), 200 MG PO UD Multivitamin (Multivitamin), 2 TAB PO QAM Topiramate (Topamax), 100 MG PO BID Scheduled PRN Polyethylene (Polyethylene Glycol 3350), 17 GM PO QAM PRN for Constipation Physical Exam Vital Signs Date Time Temp Pulse Resp B/P (MAP) Pulse Ox O2 Delivery O2 Flow Rate FiO2 02/20/17 15:29 37.0 78 20 129/83 100 Room Air 02/20/17 14:26 78 20 112/77 100 Room Air 02/20/17 12:57 37.0 99 16 103/66 98 Room Air Physical Exam VITALS: Vitals are noted on the nurse's note and reviewed by myself. Vital signs stable. GENERAL: 26 yo male, in no acute distress, nondiaphoretic, well-developed well- nourished. SKIN: The skin was without rashes, erythema, edema, or bruising. There is no tenting of the skin. Capillary reflex less than 2 seconds. HEAD: Normocephalic atraumatic. EARS: External auditory canals clear, tympanic membranes pearly peña without erythema or effusion bilaterally. EYES: Pupils equal round and reactive to light and accommodation. Conjunctivae without injection, sclerae without icterus. Extraocular movements intact. NOSE: Patent, turbinates without inflammation or discharge. No sinus tenderness. MOUTH: Mucous membranes moist. Tonsils are not enlarged. Pharynx without erythema or exudate. Uvula midline. Airway patent. Tongue does not deviate. NECK: Supple without nuchal rigidity. No lymphadenopathy. No thyromegaly. Cervical spine is nontender. No JVD. HEART: Regular rate and rhythm without murmurs gallops or rubs. LUNGS: Clear to auscultation bilaterally without wheezes, rales or rhonchi. No dullness to percussion. No retractions or accessory muscle use. ABDOMEN: Abdominal contour normal without pulsations or visible masses. Negative Lamberton's or Grimaldo Peoples's Signs. Positive bowel sounds x 4. Normal tympanic percussion. Mild tenderness noted on palpation throughout. Soft, without masses or organomegaly. Velazquez sign negative. No guarding or rebound tenderness. No ascites or hepatosplenomegaly noted. MUSCULOSKELETAL: No muscle atrophy, erythema, or edema noted. Full range of motion without joint tenderness in all extremities. No tenderness to palpation. Normal gait. Strength 5/5 throughout. NEURO: Patient was alert and oriented to person place and time. Normal sensation to light and sharp touch. Deep tendon reflexes 2+ throughout. No focal neurological deficits. Medical Decision & Procedures ER Provider Diagnostic Interpretation: X-Ray of abdomen was reviewed by myself and interpreted by radiologist. Results as follows: FINDINGS: The erect chest reveals no free air. There is no focal pulmonary consolidation. Erect and supine views the abdomen reveal moderate stool within the colon. There are no transition zones indicate bowel obstruction. There is no conventional radiographic evidence organomegaly. There are no abnormal abdominal calcifications. IMPRESSION: Moderate fecal retention, similar to the preceding study. No conventional radiographic evidence of bowel obstruction. No evidence of free air. Labs without leukocytosis, anemia, or thrombocytopenia. Lipase negative, and CMP without concern. Laboratory Results 02/20/17 13:50 Red Blood Count 4.96, Mean Corpuscular Volume 91.3, Mean Corpuscular Hemoglobin 30.6, Mean Corpuscular Hemoglobin Concent 33.6, Mean Platelet Volume 11.6, Neutrophils (%) (Auto) 70.3, Lymphocytes (%) (Auto) 20.4, Monocytes (%) (Auto) 7.9, Eosinophils (%) (Auto) 0.6, Basophils (%) (Auto) 0.5, Neutrophils # (Auto) 5.54, Lymphocytes # (Auto) 1.61, Monocytes # (Auto) 0.62, Eosinophils # (Auto) 0.05, Basophils # (Auto) 0.04 02/20/17 13:50 Test 02/20/17 13:50 White Blood Count 7.88 K/uL (4.8-10.8) Red Blood Count 4.96 M/uL (4.7-6.1) Hemoglobin 15.2 g/dL (14.0-18.0) Hematocrit 45.3 % (42-52) Mean Corpuscular Volume 91.3 fL (80-100) Mean Corpuscular Hemoglobin 30.6 pg (25-34) Mean Corpuscular Hemoglobin Concent 33.6 g/dl (32-36) Platelet Count 180 K/uL (130-400) Mean Platelet Volume 11.6 fL (7.4-10.4) Neutrophils (%) (Auto) 70.3 % Lymphocytes (%) (Auto) 20.4 % Monocytes (%) (Auto) 7.9 % Eosinophils (%) (Auto) 0.6 % Basophils (%) (Auto) 0.5 % Neutrophils # (Auto) 5.54 K/uL (1.4-6.5) Lymphocytes # (Auto) 1.61 K/uL (1.2-3.4) Monocytes # (Auto) 0.62 K/uL (0.11-0.59) Eosinophils # (Auto) 0.05 K/uL (0-0.5) Basophils # (Auto) 0.04 K/uL (0-0.2) RDW Standard Deviation 41.4 fL (36.4-46.3) RDW Coefficient of Variation 12.3 % (11.5-14.5) Immature Granulocyte % (Auto) 0.3 % Immature Granulocyte # (Auto) 0.02 K/uL (0.00-0.02) Anion Gap 7.0 mmol/L (3-11) Estimated GFR () 87.3 Estimated GFR (Non- 75.3 BUN/Creatinine Ratio 12.9 (10-20) Calcium Level 9.2 mg/dl (8.5-10.1) Total Bilirubin 0.3 mg/dl (0.2-1) Aspartate Amino Transf (AST/SGOT) 12 U/L (15-37) Alanine Aminotransferase (ALT/SGPT) 16 U/L (12-78) Alkaline Phosphatase 43 U/L (45-117) Total Protein 7.4 gm/dl (6.4-8.2) Albumin 3.8 gm/dl (3.4-5.0) Globulin 3.6 gm/dl (2.5-4.0) Albumin/Globulin Ratio 1.1 (0.9-2) Lipase 235 U/L (73-393) Thyroid Stimulating Hormone (TSH) 2.800 uIu/ml (0.300-4.500) Medications Administered Medications (Trade) Dose Ordered Sig/Jose Alberto Route Start Time Stop Time Status Last Admin Dose Admin Sodium Chloride 1,000 ml @ 999 mls/hr Q1H1M STAT IV 02/20/17 13:19 02/20/17 14:19 DC 02/20/17 14:28 999 MLS/HR Miscellaneous (Soap Suds Enema) 1 ea NOW STAT LA 02/20/17 14:41 02/20/17 14:43 DC 02/20/17 14:58 1 EA ED Course The patient was seen and evaluated as above. I did review his labs and abdominal x-ray, without acute findings. The patient was given 1 L NSS via IV. The patient continues to complain of abdominal pain and constipation, so soapsuds enema given to the patient by nursing staff. The patient did successfully have one large bowel movement, and does report complete resolution of his symptoms. I discussed discharge instructions with the patient, and he was discharged home in good condition. Medical Decision Throughout the course of the patient's care, I considered etiologies including: Bowel obstruction, chronic constipation, constipation related to medications, cholecystitis, appendicitis, diverticulitis, cholangitis, acute pancreatitis, acute gastroenteritis, malignancy, and others. Based on the patient's workup, I do suspect this is a flare-up of his chronic constipation, possibly related to medications. Medication Reconcilliation Current Medication List: was personally reviewed by me Blood Pressure Screening Patient's blood pressure: Low blood pressure Blood pressure disposition: Referred to PCP I did discuss with the patient his [id number] blood pressure. I encouraged him to continue to monitor and follow-up closely with his other providers. Impression Primary Impression: Constipation Departure Information Dispostion Home / Self-Care Condition GOOD Referrals Rogelio Donaldson M.D. (PCP) Nitin Newsome MD Patient Instructions ED Constipation, My [facility] Additional Instructions Please drink plenty of fluids. I do recommend a clear liquid diet for the next 24-48 hours. Eat a high fiber diet full of fresh fruits and vegetables. Please get regular exercise. Even walking regularly can help to keep the bowels active. Avoid foods which may worsen your constipation such as cheese and processed foods. Please use MiraLAX as directed. He may continue to take stool softeners OTC. Follow-up with your primary care provider in one to 2 days for further evaluation and management of your chronic constipation. Please also follow-up with your psychiatrist, if they are prescribing some of your medications. Sometimes, medications could be the cause of constipation. Please follow up with GI for further evaluation of your constipation. You have been provided with contact information for a local shipping and receiving associate. Return to the emergency department if you experience worsening constipation, abdominal pain, fever, chills, nausea, vomiting, or other concerning symptoms. Problem Qualifiers Primary Impression: Constipation Constipation type: unspecified constipation type Qualified Codes: K59.00 - Constipation, unspecified
[2017-02-20] MEDS ORDERED: MRLP527 PO (14:03)
[2017-02-20] MEDS ORDERED: [UNRECOGNIZED DRUG - CODE] PO (14:03)
[2017-02-20 14:04] LABS: BASO % 0.5 %; BASO ABS # 0.04 K/uL (0-0.2); COMPLETE YES; EOS % 0.6 %; HEMATOCRIT 45.3 % (42-52); IG% 0.3 %; LYMPH % 20.4 %; LYMPH ABS # 1.61 K/uL (1.2-3.4); MEAN CELL VOLUME 91.3 fL (80-100); MEAN CORPUSCULAR HEMOGLOBIN 30.6 pg (25-34); MEAN CORPUSCULAR HGB CONC 33.6 g/dl (32-36); MEAN PLATELET VOLUME 11.6 fL (7.4-10.4); MONO % 7.9 %; NEUT % 70.3 %; PLATELET COUNT 180 K/uL (130-400); RED BLOOD COUNT 4.96 M/uL (4.7-6.1); WHITE BLOOD COUNT 7.88 K/uL (4.8-10.8)
[2017-02-20 14:24] LABS: ALT/SGPT 16 U/L (12-78); BLOOD UREA NITROGEN 17 mg/dl (7-18); BUN/CREATININE RATIO 12.9 (10-20); CALCIUM 9.2 mg/dl (8.5-10.1); CARBON DIOXIDE 23 mmol/L (21-32); CHLORIDE 112 mmol/L (98-107); GLUCOSE 97 mg/dl (70-99); POTASSIUM 3.9 mmol/L (3.5-5.1); SODIUM 142 mmol/L (136-145)
--- NOTE | 2017-02-20 14:31 | DIAGNOSTIC IMAGING REPORT ---
ABDOMEN 2VIEW W/PA CHEST RTN CLINICAL HISTORY: constipation, abdominal pain COMPARISON STUDY: 02/17/2017 FINDINGS: The erect chest reveals no free air. There is no focal pulmonary consolidation. Erect and supine views the abdomen reveal moderate stool within the colon. There are no transition zones indicate bowel obstruction. There is no conventional radiographic evidence organomegaly. There are no abnormal abdominal calcifications. IMPRESSION: Moderate fecal retention, similar to the preceding study. No conventional radiographic evidence of bowel obstruction. No evidence of free air. Electronically signed by: Dell Garnica M.D. 02/20/2017 2:29 PM Dictated Date/Time: 02/20/2017 2:28 PM
[2017-02-20 14:35] LABS: ALB/GLOB RATIO 1.1 (0.9-2); ALKALINE PHOSPHATASE 43 U/L (45-117); AST/SGOT 12 U/L (15-37)
[2017-02-20] MEDS ORDERED: SOAP SUDS ENEMA PR STA (14:41)
[2017-02-20 15:29] VITALS: BP 129/83; PULSE 78; TEMP 37; O2SAT 100
== END 2017-02-20 15:35 | disposition home or self-care (01) ==
LOC: C.EDB 12:51
DX: K59.00 Constipation, unspecified (principal); F41.9 Anxiety disorder, unspecified; F84.0 Autistic disorder; F32.9 Major depressive disorder, single episode, unspecified; E03.9 Hypothyroidism, unspecified; F79 Unspecified intellectual disabilities; Z82.49 Family history of ischemic heart disease and other diseases of the circulatory system; Z87.891 Personal history of nicotine dependence

== ENCOUNTER → 2017-03-21 | Outpatient (CLI) | payer OTHER ==
[~2017-03-21] MED LIST changes: +DOCU100C31 PO; -IBUP200T80 PO; +IMD/2 PO; +MRLP527 PO; -POLY335019 PO; +[UNRECOGNIZED DRUG - CODE] PO
[2017-03-21 12:18] LABS: BASO % 0.8 %; BASO ABS # 0.04 K/uL (0-0.2); COMPLETE YES; EOS % 1.4 %; HEMATOCRIT 43.4 % (42-52); IG% 0.2 %; LYMPH % 28.9 %; LYMPH ABS # 1.49 K/uL (1.2-3.4); MEAN CELL VOLUME 91.6 fL (80-100); MEAN CORPUSCULAR HEMOGLOBIN 30.6 pg (25-34); MEAN CORPUSCULAR HGB CONC 33.4 g/dl (32-36); NEUT % 57.7 %; PLATELET COUNT 173 K/uL (130-400); RED BLOOD COUNT 4.74 M/uL (4.7-6.1); WHITE BLOOD COUNT 5.16 K/uL (4.8-10.8)
[2017-03-21 12:44] LABS: ESTIMATED AVERAGE GLUCOSE 94 mg/dl; HA1C FLAG Normal (Normal)
[2017-03-21 12:57] LABS: ALT/SGPT 23 U/L (12-78); BLOOD UREA NITROGEN 13 mg/dl (7-18); BUN/CREATININE RATIO 10.5 (10-20); CALCIUM 8.6 mg/dl (8.5-10.1); CARBON DIOXIDE 24 mmol/L (21-32); CHLORIDE 111 mmol/L (98-107); CHOLESTEROL 98 mg/dl (0-200); GLUCOSE 94 mg/dl (70-99); POTASSIUM 3.8 mmol/L (3.5-5.1); SODIUM 140 mmol/L (136-145)
[2017-03-21 13:06] LABS: ALB/GLOB RATIO 1.2 (0.9-2); ALKALINE PHOSPHATASE 42 U/L (45-117); AST/SGOT 16 U/L (15-37); CHOLESTEROL/HDL RATIO 3.3; HDL CHOLESTEROL 30 mg/dl; LDL CHOLESTEROL CALCULATED 44 mg/dl; TRIGLYCERIDES 118 mg/dl (0-150); VERY LOW DENSITY LIPOPROT CALC 24 mg/dl
== END | disposition home or self-care (01) ==
LOC: C.LABBFT 10:29
PROVIDERS: ATTEND Physician Assistant
DX: Z79.899 Other long term (current) drug therapy (principal)

== ENCOUNTER 2017-05-05 18:35 | Emergency (ER) | payer OTHER ==
[~2017-05-05] VITALS: Ht 190.5 cm; Wt 90.3 kg
[~2017-05-05 18:35] MED LIST changes: -DOCU100C31 PO; -IMD/2 PO
[2017-05-05 18:39] VITALS: TEMP 36.7; Ht 190.5 cm; Wt 90.3 kg
[2017-05-05] MEDS ORDERED: ACETAMINOPHEN 500 MG TAB PO STA (18:59)
[2017-05-05] MEDS ORDERED: SODIUM CHLORIDE 0.9% 1000ML 1,000 ML IV STA ×2 (18:59)
[2017-05-05] MEDS ORDERED: IBUPROFEN 600 MG TAB PO STA (18:59)
[2017-05-05] MEDS ORDERED: COUGH DROP (SUGAR FREE) LOZ 24 LOZ/1 BOX PO STA (18:59)
--- NOTE | 2017-05-05 19:03 | EMERGENCY ROOM VISIT NOTE ---
History Report prepared by Javed: Clayton Randall Under the Supervision of: Dr. Rico Jorge M.D. First contact with patient: 18:43 Chief Complaint: DIZZY Stated Complaint: DIZZY,LEMON,TOE AND HEART HURT History of Present Illness The patient is a 27 year old white male with a past medical history of autism and seizures who presents to the ED with a cc of dizziness beginning earlier today. Positive sore throat, chest pain, and left knee pain. Negative abdominal pain. Earlier today, the patient had two seizures, one of which resulting in a fall. Since then, he has been feeling lightheaded and dizzy. He states that he has been taking his medications and there have not been any changes to them. He did not take any medications prior to arrival. He notes that he has not been drinking enough water recently. Source of History: patient Onset: this morning Position: other (global) Symptom Intensity: moderate Quality: other (Dizziness) Timing: constant Associated Symptoms: + chest pain, No abdominal pain Note: He had two seizures today and is experiencing left knee pain. Review of Systems See HPI for pertinent positives and negatives. A total of ten systems were reviewed and were otherwise negative. Past Medical & Surgical Medical Problems: (1) Anxiety (2) Autistic disorder (3) Depression (4) Homicidal ideation (5) Hypothyroidism (6) Learning difficulties (7) Mental retardation (8) Suicidal ideation (9) Tonic-clonic epilepsy Family History FH: heart disease Hypertension Social History Smoking Status: Never Smoker Smokeless Tobacco Use: No Alcohol Use: none Drug Use: none Marital Status: single Housing Status: lives with family Occupation Status: employed, disabled Current/Historical Medications Scheduled Aripiprazole (Abilify), 30 MG PO QAM Benztropine Mesylate (Benztropine Mesylate), 0.5 MG PO QAM Benztropine Mesylate (Benztropine Mesylate), 1 MG PO HS Chlorpromazine HCl (Chlorpromazine HCl), 100 MG PO QAM Chlorpromazine Hcl (Thorazine), 100 MG PO HS Multivitamin (Multivitamin), 2 TAB PO QAM Topiramate (Topamax), 100 MG PO BID Scheduled PRN Docusate Sodium (Docusate Sodium), 1 CAP PO HS PRN for Constipation Ibuprofen (Sm Ibuprofen), 200 MG PO UD PRN for Pain Loperamide Hcl (Imodium), 2 MG PO HS PRN for Diarrhea Polyethylene (Polyethylene Glycol 3350), 17 GM PO QAM PRN for Constipation Allergies Coded Allergies: Phenytoin (Verified Allergy, Mild, RASH, 05/05/17) Chocolate (Verified Allergy, Unknown, 05/05/17) Red Dye (Verified Allergy, Unknown, ., 05/05/17) Sulfa Drugs (Verified Allergy, Unknown, 05/05/17) Adhesives (Verified Adverse Reaction, Unknown, RASH, 05/05/17) Physical Exam Vital Signs Date Time Temp Pulse Resp B/P (MAP) Pulse Ox O2 Delivery O2 Flow Rate FiO2 05/05/17 21:14 78 20 128/74 98 05/05/17 19:38 81 114/68 87 119/72 105 134/86 05/05/17 19:36 83 20 116/77 98 Room Air 05/05/17 19:21 94 05/05/17 19:18 98 Room Air 05/05/17 18:39 36.7 109 20 122/75 98 Room Air Physical Exam GENERAL: Awake, alert, well-appearing, NAD HENT: Normocephalic, atraumatic. Posterior oropharynx is clear without exudate or pharyngeal swelling. EYES: Normal conjunctiva. Sclera non-icteric. NECK: Supple. No nuchal rigidity. FROM. RESPIRATORY: CTAB, no rhonchi, wheezing, crackles CARDIAC: RRR, no MRG ABDOMEN: Soft, NTND, BS+ MSK: Trace reproducible chest pain, no LE edema. No obvious trauma to the chest. No crepitus or ecchymosis. Mild reproducible left anterior knee pain. NEURO: GCS 15, CN 2-12 intact, moves all 4s on command. 5/5 strength to all 4 extremities. SKIN: No rash or jaundice noted. Medical Decision & Procedures ER Provider Diagnostic Interpretation: Radiology results as stated below per my review and radiologist interpretation: CHEST ONE VIEW PORTABLE HISTORY: 27 years-old Male EVALUATE ALTERED MENTAL STATUS/WEAKNESS acute altered mental status with weakness COMPARISON: Chest radiograph 02/20/2017 TECHNIQUE: Portable upright AP view of the chest FINDINGS: Cardiomediastinal and hilar silhouettes are within normal limits. No pneumothorax, pleural effusion or focal airspace consolidation. Bones are grossly intact. IMPRESSION: No acute cardiopulmonary process. The above report was generated using voice recognition software. It may contain grammatical, syntax or spelling errors. Electronically signed by: Lincoln Carlson M.D. 05/05/2017 7:27 PM Dictated Date/Time: 05/05/2017 7:26 PM Laboratory Results 05/05/17 19:10 Red Blood Count 5.30, Mean Corpuscular Volume 88.5, Mean Corpuscular Hemoglobin 30.0, Mean Corpuscular Hemoglobin Concent 33.9, Mean Platelet Volume 11.9, Neutrophils (%) (Auto) 61.7, Lymphocytes (%) (Auto) 25.2, Monocytes (%) (Auto) 11.4, Eosinophils (%) (Auto) 1.0, Basophils (%) (Auto) 0.5, Neutrophils # (Auto ) 5.19, Lymphocytes # (Auto) 2.12, Monocytes # (Auto) 0.96, Eosinophils # (Auto ) 0.08, Basophils # (Auto) 0.04 05/05/17 19:10 Test 05/05/17 19:10 05/05/17 19:30 White Blood Count 8.41 K/uL (4.8-10.8) Red Blood Count 5.30 M/uL (4.7-6.1) Hemoglobin 15.9 g/dL (14.0-18.0) Hematocrit 46.9 % (42-52) Mean Corpuscular Volume 88.5 fL (80-100) Mean Corpuscular Hemoglobin 30.0 pg (25-34) Mean Corpuscular Hemoglobin Concent 33.9 g/dl (32-36) Platelet Count 182 K/uL (130-400) Mean Platelet Volume 11.9 fL (7.4-10.4) Neutrophils (%) (Auto) 61.7 % Lymphocytes (%) (Auto) 25.2 % Monocytes (%) (Auto) 11.4 % Eosinophils (%) (Auto) 1.0 % Basophils (%) (Auto) 0.5 % Neutrophils # (Auto) 5.19 K/uL (1.4-6.5) Lymphocytes # (Auto) 2.12 K/uL (1.2-3.4) Monocytes # (Auto) 0.96 K/uL (0.11-0.59) Eosinophils # (Auto) 0.08 K/uL (0-0.5) Basophils # (Auto) 0.04 K/uL (0-0.2) RDW Standard Deviation 40.3 fL (36.4-46.3) RDW Coefficient of Variation 12.6 % (11.5-14.5) Immature Granulocyte % (Auto) 0.2 % Immature Granulocyte # (Auto) 0.02 K/uL (0.00-0.02) Anion Gap 8.0 mmol/L (3-11) Est Creatinine Clear Calc Drug Dose 102.0 ml/min Estimated GFR () 86.7 Estimated GFR (Non- 74.8 BUN/Creatinine Ratio 9.5 (10-20) Calcium Level 9.4 mg/dl (8.5-10.1) Phosphorus Level 2.5 mg/dl (2.5-4.9) Magnesium Level 2.0 mg/dl (1.8-2.4) Thyroid Stimulating Hormone (TSH) 2.920 uIu/ml (0.300-4.500) Chemistry Specimen Hemolysis Bedside Troponin I < 0.030 ng/ml (0-0.045) Laboratory results reviewed by me Medications Administered Medications (Trade) Dose Ordered Sig/Jose Alberto Route Start Time Stop Time Status Last Admin Dose Admin Sodium Chloride 1,000 ml @ 999 mls/hr Q1H1M STAT IV 05/05/17 18:59 05/05/17 19:59 DC 05/05/17 19:32 999 MLS/HR Sodium Chloride 1,000 ml @ 999 mls/hr Q1H1M STAT IV 05/05/17 18:59 05/05/17 19:59 DC 05/05/17 19:32 999 MLS/HR Ibuprofen (Motrin Tab) 600 mg NOW STAT PO 05/05/17 18:59 05/05/17 19:02 DC 05/05/17 19:33 600 MG Acetaminophen (Tylenol Tab) 1,000 mg NOW STAT PO 05/05/17 18:59 05/05/17 19:02 DC 05/05/17 19:33 1,000 MG Menthol (Nice Liz) 1 liz NOW STAT PO 05/05/17 18:59 05/05/17 19:02 DC 05/05/17 19:33 1 LIZ ECG Indication: other (Dizzy) Rate (beats per minute): 83 Rhythm: normal sinus Findings: no ectopy, other (Normal intervals, normal axis, benign early repolarization, no other STS changes or t-wave inversions) ED Course 1842: The patient was evaluated in room A9B. A complete history and physical exam was performed. 2115: I reevaluated the patient. Discussed results and discharge instructions: He verbalized understanding and agreement. The patient is ready for discharge. Medical Decision The patient is a 27 year old white male with a past medical history of autism and seizures who presents to the ED with a cc of dizziness beginning earlier today. Positive sore throat, chest pain, and left knee pain. Negative abdominal pain. Differential diagnosis: Etiologies such as infection, hypoglycemia, electrolyte abnormalities, cardiac sources, intracerebral event, trauma, toxicologic, neurologic, as well as others were entertained. Patient was seen and evaluated at the bedside. Patient purportedly had questionable syncope versus seizure. 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 Patient does take Topamax Cogentin as well as Abilify. Patient states that he does not see a neurologist for management of seizures. 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 Patient does have some decreased sleep and does drink some caffeinated beverages but denies any alcohol, tobacco, or drugs. He states he has not missed any doses. Patient had blood work as well as an EKG and a chest x-ray that were completed. Patient also had a troponin. Patient's EKG troponin fairly unremarkable less likely ACS. Patient chest x- ray clear. Less likely P&A. Patient is Wells PE 1, low risk and tachycardia resolved w/ IVF and pain control. Patient was told to continue his medications and follow-up with his psychiatrist for medication management. Given the history of non-epileptiform seizures no additional medications were given at this time. Furthermore, patient has h/o of seizure like episodes and w/o focal neuro deficit, no CT was obtained at this time in light of no other presenting signs of obvious trauma to the head or neck. Patient was feeling much improved. Patient was told to work on his stress, avoid alcohol, tobacco, drugs, or stimulants. Patient was also told to improve sleep hygiene. Patient was also told not to drive. Patient was given strict follow-up, discharge, and return precautions and was discharged home. Medication Reconcilliation Current Medication List: was personally reviewed by me Blood Pressure Screening Patient's blood pressure: Normal blood pressure Blood pressure disposition: Did not require urgent referral Impression Primary Impression: Chest pain Additional Impressions: Seizure Sore throat Scribe Attestation The scribe's documentation has been prepared under my direction and personally reviewed by me in its entirety. I confirm that the note above accurately reflects all work, treatment, procedures, and medical decision making performed by me. Departure Information Dispostion Home / Self-Care Referrals Rogelio Donaldson M.D. (PCP) Forms HOME CARE DOCUMENTATION FORM, IMPORTANT VISIT INFORMATION Patient Instructions Chest Pain - [facility], Epilepsy How Seizures Affect Body, My [facility] Additional Instructions Please return to the emergency department if you have worsening or recurrent symptoms not amenable to at-home treatment. Please call for a follow-up appointment with her primary care physician. Please take your medications as prescribed. If you have other concerns and/or complaints please feel free to also call your primary care physician's office or return the ED for further evaluation, management, and treatment. You were found to have an elevated blood pressure today (>120 sytolic or >90 diastolic). Per medicare guidelines, you need to follow up with this blood pressure screening with your Primary Care Physician (PCP). For a new PCP call [phone]. You received narcotic or benzodiazepene medication while in the emergency room today. This is an addictive medication that may cause drowziness as well as constipation. Do not drive, operate heavy machinery, or drink alcohol under the influence of this medication. You may take 600 mg Ibuprofen every 6 hours as needed for pain with food for no more than 2 consecutive days. You may take tylenol 1000mg every 6 hours as needed for pain. You may take motrin and tylenol separately or at the same time. Consider docusate and senna to help w/ bowel movements. You can also try lactulose and/or enemas as needed for constipation. Consider leafy greens and a diet with more fiber. You have been examined and treated today on an emergency basis only. This is not a substitute for, or an effort to provide, complete comprehensive medical care. It is impossible to recognize and treat all injuries or illnesses in a single emergency department visit. It is therefore important that you follow up closely with [facility]. Call as soon as possible for an appointment. Thank you for your time and consideration. I look forward to speaking with you again soon. Please don't hesitate to call us if you have any questions. Problem Qualifiers Primary Impression: Chest pain Chest pain type: unspecified Qualified Codes: R07.9 - Chest pain, unspecified
[2017-05-05 19:18] VITALS: O2SAT 98
--- NOTE | 2017-05-05 19:28 | DIAGNOSTIC IMAGING REPORT ---
CHEST ONE VIEW PORTABLE HISTORY: 27 years-old Male EVALUATE ALTERED MENTAL STATUS/WEAKNESS acute altered mental status with weakness COMPARISON: Chest radiograph 02/20/2017 TECHNIQUE: Portable upright AP view of the chest FINDINGS: Cardiomediastinal and hilar silhouettes are within normal limits. No pneumothorax, pleural effusion or focal airspace consolidation. Bones are grossly intact. IMPRESSION: No acute cardiopulmonary process. The above report was generated using voice recognition software. It may contain grammatical, syntax or spelling errors. Electronically signed by: Lincoln Carlson M.D. 05/05/2017 7:27 PM Dictated Date/Time: 05/05/2017 7:26 PM
[2017-05-05 19:29] LABS: BASO % 0.5 %; BASO ABS # 0.04 K/uL (0-0.2); COMPLETE YES; HEMATOCRIT 46.9 % (42-52); IG% 0.2 %; LYMPH % 25.2 %; LYMPH ABS # 2.12 K/uL (1.2-3.4); MEAN CELL VOLUME 88.5 fL (80-100); MEAN CORPUSCULAR HGB CONC 33.9 g/dl (32-36); MEAN PLATELET VOLUME 11.9 fL (7.4-10.4); MONO % 11.4 %; NEUT % 61.7 %; PLATELET COUNT 182 K/uL (130-400); WHITE BLOOD COUNT 8.41 K/uL (4.8-10.8)
[2017-05-05] MEDS ORDERED: IMD/2 PO (19:31)
[2017-05-05] MEDS ORDERED: DOCU100C31 PO (19:31)
[2017-05-05 19:58] LABS: BUN/CREATININE RATIO 9.5 (10-20); CALCIUM 9.4 mg/dl (8.5-10.1); CREATININE 1.3 mg/dl (0.60-1.40); PHOSPHORUS 2.5 mg/dl (2.5-4.9); POTASSIUM 3.5 mmol/L (3.5-5.1); THYROID STIMULATING HORMONE 2.92 uIu/ml (0.300-4.500)
[2017-05-05 21:14] VITALS: BP 128/74; PULSE 78; O2SAT 98
== END 2017-05-05 21:16 | disposition home or self-care (01) ==
LOC: C.EDB 18:36 → C.EDA 21:16
DX: R07.9 Chest pain, unspecified (principal); R56.9 Unspecified convulsions; J02.9 Acute pharyngitis, unspecified; R41.9 Unspecified symptoms and signs involving cognitive functions and awareness; F84.0 Autistic disorder; F32.9 Major depressive disorder, single episode, unspecified; E03.9 Hypothyroidism, unspecified; F79 Unspecified intellectual disabilities; Z82.49 Family history of ischemic heart disease and other diseases of the circulatory system

== ENCOUNTER 2017-09-01 14:45 | Emergency (ER) | payer OTHER ==
[~2017-09-01] VITALS: Ht 193 cm; Wt 87.0 kg
[~2017-09-01 14:45] MED LIST changes: -ACET-1256 PO; +BENZ-88 PO; +BENZ0.5T2 PO; -CGN1X PO; -CGN5X PO; +DOCU100C31 PO; +IMD/2 PO
[2017-09-01 15:09] VITALS: TEMP 36.7; Ht 193 cm; Wt 87.0 kg
--- NOTE | 2017-09-01 16:12 | EMERGENCY ROOM VISIT NOTE ---
History Report prepared by Javed: Ryan Mcknight Under the Supervision of: Dr. Lisseth Diaz D.O. First contact with patient: 15:59 Chief Complaint: CONSTIPATION Stated Complaint: ABD PAIN, BOUND UP IN STOMACH? Nursing Triage Summary: patient c/o no bowel movement for 1 week. patient states he has been taking miralax for 2-3 days with no relief. patient lives in a snf. History of Present Illness The patient is a 27 year old male who presents to the Emergency Room with complaints of constant constipation for the past week. The patient states that he usually has a bowel movement daily. He additionally states that he has been having on and off upper abdominal pain and is becoming more frequent, and he has been nauseous. The patient states that he has been passing gas, and he has taken MiraLAX and Colace. He states that he notes that he has had something similar happen in the past, and he had an enema which helped. The patient denies any fevers. He additionally states that he had a recent medication change , though he is unsure which one. Source of History: patient Onset: a week ago Position: other (global) Quality: other (constipation) Timing: constant Associated Symptoms: + nausea, + abdominal pain, No fevers Review of Systems See HPI for pertinent positives & negatives. A total of 10 systems reviewed and were otherwise negative. Past Medical & Surgical Medical Problems: (1) Anxiety (2) Autistic disorder (3) Depression (4) Homicidal ideation (5) Hypothyroidism (6) Learning difficulties (7) Mental retardation (8) Suicidal ideation (9) Tonic-clonic epilepsy Family History FH: heart disease Hypertension Social History Smoking Status: Never Smoker Alcohol Use: none Drug Use: none Marital Status: single Housing Status: lives with family Occupation Status: employed, disabled Current/Historical Medications Scheduled Aripiprazole (Aripiprazole), 15 MG PO DAILY Benztropine Mesylate (Benztropine Mesylate), 1 MG PO HS Benztropine Mesylate (Cogentin), 0.5 MG PO QAM Chlorpromazine Hcl (Thorazine), 50 MG PO HS Fluoxetine HCl (Fluoxetine HCl), 10 MG PO DAILY Inulin (Fiber Choice), 3 GM PO DAILY Multivitamin (Multivitamin), 2 TAB PO QAM Topiramate (Topamax), 100 MG PO BID Scheduled PRN Docusate Sodium (Docusate Sodium), 1 CAP PO HS PRN for Constipation Fexofenadine HCl (Mucinex Allergy), 180 MG PO UD PRN for Allergic Reaction Loperamide Hcl (Imodium), 2 MG PO HS PRN for Diarrhea Ondasetron Odt (Zofran Odt), 4 MG SL UD PRN for Nausea Oxycodone/Acetaminophen 5MG/325MG (Percocet 5MG/325MG), 1 TABLET PO UD PRN for Pain Polyethylene (Polyethylene Glycol 3350), 17 GM PO QAM PRN for Constipation Sumatriptan Succinate (Imitrex), 100 MG PO PRN PRN for Migraine Allergies Coded Allergies: Phenytoin (Verified Allergy, Mild, RASH, 09/01/17) Chocolate (Verified Allergy, Unknown, 09/01/17) Red Dye (Verified Allergy, Unknown, ., 09/01/17) Sulfa Drugs (Verified Allergy, Unknown, 09/01/17) Adhesives (Verified Adverse Reaction, Unknown, RASH, 09/01/17) Physical Exam Vital Signs Date Time Temp Pulse Resp B/P (MAP) Pulse Ox O2 Delivery O2 Flow Rate FiO2 09/01/17 18:04 82 18 119/73 100 09/01/17 15:09 36.7 106 20 115/61 97 Room Air Physical Exam GENERAL: alert, well appearing, well nourished, no distress, non-toxic EYE EXAM: normal conjunctiva, PERRL and EOM's grossly intact OROPHARYNX: no exudate, no erythema, lips, buccal mucosa, and tongue normal and mucous membranes are dry NECK: supple, no nuchal rigidity, no adenopathy, non-tender LUNGS: Clear to auscultation. Normal chest wall mechanics HEART: no murmurs, S1 normal and S2 normal ABDOMEN: Mild upper abdominal discomfort with palpation. Dull to percussion. Not distended. abdomen soft, normo-active bowel sounds, no masses, no rebound or guarding. BACK: Back is symmetrical on inspection and there is no deformity, no midline tenderness, no CVA tenderness. SKIN: no rashes and no bruising UPPER EXTREMITIES: upper extremities are grossly normal. LOWER EXTREMITIES: No pitting edema. NEURO EXAM: Developmental delay but able to give history and answer questions. Normal sensorium, cranial nerves II-XII grossly intact, normal speech, no gross weakness of arms, no gross weakness of legs. Gross sensation intact. Medical Decision & Procedures ER Provider Diagnostic Interpretation: Radiology results have been interpreted by the radiologist and reviewed by me. KUB HISTORY: constipation COMPARISON: Chest and abdominal series 02/20/2017. FINDINGS: The bowel gas pattern is unremarkable. There are no dilated loops of small bowel to suggest an obstruction. No renal calculi. No ureteral calculi. No pneumoperitoneum or pneumatosis. Moderate to large amount well-formed throughout the colon. IMPRESSION: Moderate to large amount of well-formed stool seen throughout the colon. Electronically signed by: Delfino Reyes M.D. 09/01/2017 4:32 PM Dictated Date/Time: 09/01/2017 4:30 PM ED Course 1559: The patient was evaluated in room B3. A complete history and physical exam was performed. 1731: I went to reevaluate the patient, and he was in the bathroom. 1801: Upon reevaluation, the patient is feeling better. I discussed the findings and the treatment plan with the patient. He verbalizes agreement and understanding. He was discharged home. Medical Decision Differential diagnosis: Etiologies such as appendicitis, diverticulitis, PUD, biliary pathology, UTI, pancreatitis, obstruction, mesenteric ischemia, aortic pathology, infections, inflammatory bowel disease, renal colic, as well as others were entertained. Pt with hx of intermittent constipation. Pt with successful enema and feeling improved here. Doubt sbo, perf, occult infectious etiology, GI bleed, aaa. Pt well appearing here, VS stable. Medication Reconcilliation Current Medication List: was personally reviewed by me Blood Pressure Screening Patient's blood pressure: Normal blood pressure Impression Primary Impression: Constipation Scribe Attestation The scribe's documentation has been prepared under my direction and personally reviewed by me in its entirety. I confirm that the note above accurately reflects all work, treatment, procedures, and medical decision making performed by me. Departure Information Dispostion Home / Self-Care Referrals Rogelio Donaldson M.D. (PCP) Forms HOME CARE DOCUMENTATION FORM, IMPORTANT VISIT INFORMATION Patient Instructions ED Constipation, My [facility] Additional Instructions Please take any routine medications as prescribed. Please make sure you're drinking plenty of water and getting enough fiber in your diet to help prevent any recurrent constipation. If you have any recurrent abdominal pain, develop fevers, vomiting, noticed blood with the bowel movement, or you've any other new concerns, please return the emergency room. Problem Qualifiers Primary Impression: Constipation Constipation type: unspecified constipation type Qualified Codes: K59.00 - Constipation, unspecified
--- NOTE | 2017-09-01 16:33 | DIAGNOSTIC IMAGING REPORT ---
KUB HISTORY: constipation COMPARISON: Chest and abdominal series 02/20/2017. FINDINGS: The bowel gas pattern is unremarkable. There are no dilated loops of small bowel to suggest an obstruction. No renal calculi. No ureteral calculi. No pneumoperitoneum or pneumatosis. Moderate to large amount well-formed throughout the colon. IMPRESSION: Moderate to large amount of well-formed stool seen throughout the colon. Electronically signed by: Delfino Reyes M.D. 09/01/2017 4:32 PM Dictated Date/Time: 09/01/2017 4:30 PM
[2017-09-01] MEDS ORDERED: BENZ-89 PO (16:48)
[2017-09-01] MEDS ORDERED: FLUO10CA24 PO (16:48)
[2017-09-01] MEDS ORDERED: SUMA100T16 PO (16:48)
[2017-09-01] MEDS ORDERED: INUL1CHW2 PO (16:48)
[2017-09-01] MEDS ORDERED: ARIP1TAB16 PO (16:48)
[2017-09-01] MEDS ORDERED: OXYC-57 PO (16:48)
[2017-09-01] MEDS ORDERED: ONDA4TAB10 SL (16:48)
[2017-09-01] MEDS ORDERED: FEXO3TAB PO (16:48)
[2017-09-01] MEDS ORDERED: CHLO50TA6 PO (16:48)
[2017-09-01 18:04] VITALS: BP 119/73; PULSE 82; O2SAT 100
== END 2017-09-01 18:05 | disposition home or self-care (01) ==
LOC: C.EDB 14:46
DX: K59.00 Constipation, unspecified (principal); F41.9 Anxiety disorder, unspecified; F84.0 Autistic disorder; F32.9 Major depressive disorder, single episode, unspecified; E03.9 Hypothyroidism, unspecified; G40.409 Other generalized epilepsy and epileptic syndromes, not intractable, without status epilepticus; F79 Unspecified intellectual disabilities; Z82.49 Family history of ischemic heart disease and other diseases of the circulatory system; Z79.899 Other long term (current) drug therapy

== ENCOUNTER 2017-10-30 13:59 | Emergency (ER) | payer OTHER ==
[~2017-10-30] VITALS: Ht 193 cm; Wt 84.0 kg
[~2017-10-30 13:59] MED LIST changes: +ARIP1TAB16 PO; -ARIP30TA3 PO; +BENZ-89 PO; -BENZ0.5T2 PO; -CHLO100T8 PO; +CHLO50TA6 PO; +FEXO3TAB PO; +FLUO10CA24 PO; +INUL1CHW2 PO; +ONDA4TAB10 SL; +OXYC-57 PO; +SUMA100T16 PO; -[UNRECOGNIZED DRUG - CODE] PO; -[UNRECOGNIZED DRUG - CODE] PO
[2017-10-30 14:06] VITALS: TEMP 36.4; Ht 193 cm; Wt 84.0 kg
--- NOTE | 2017-10-30 15:02 | DIAGNOSTIC IMAGING REPORT ---
RIGHT KNEE 2 VIEWS CLINICAL HISTORY: Right knee injury. FINDINGS: AP and crosstable lateral views of the right knee are obtained. No prior studies are available for comparison at the time of dictation. The skeletal structures are well mineralized. No fracture is seen. The joint spaces of the knee are well-maintained. There is no large joint effusion. The overlying soft tissues are within normal limits. IMPRESSION: Unremarkable radiographic assessment of the right knee. Electronically signed by: Navjot Del Angel M.D. 10/30/2017 3:01 PM Dictated Date/Time: 10/30/2017 2:59 PM
[2017-10-30] MEDS ORDERED: ACETAMINOPHEN 325 MG TAB PO STA (15:22)
--- NOTE | 2017-10-30 15:39 | DIAGNOSTIC IMAGING REPORT ---
L KNEE 3 VIEWS CLINICAL HISTORY: injury trauma. Pain. COMPARISON: None. DISCUSSION: The bones and joint spaces appear intact. There is no evidence of fracture, dislocation or bony disease. There is no evidence for soft tissue swelling. IMPRESSION: Negative study. The above report was generated using voice recognition software. It may contain grammatical, syntax or spelling errors. Electronically signed by: Mu Harris M.D. 10/30/2017 3:38 PM Dictated Date/Time: 10/30/2017 3:37 PM
[2017-10-30 16:43] VITALS: BP 131/62; PULSE 76; O2SAT 95
--- NOTE | 2017-10-31 13:34 | EMERGENCY ROOM VISIT NOTE ---
ED Visit Note First contact with patient: 14:25 Chief Complaint: I fell and hurt my knees. History of Present Illness: Mr. Coppola is a 27-year-old white male who ambulates into the ED accompanied by his mobile worker complaining of bilateral anterior knee pain. Patient reports approximately 4 hours ago he tripped and fell while walking and landed on his knees he reports before the fall he was not experiencing lightheaded or dizziness and he did not strike his fall at the time of the injury. Currently he is complaining of bilateral anterior knee pain. He describes his pain as a burning sensation. He rates his discomfort 9/10. Pain is nonradiating. His pain worsens with palpation and knee flexion. Is not identified any alleviating factors related to the pain. He reports she has not had a medication for pain prior to arrival at the hospital. He denies any associated hip pain, thigh pain, lower leg pain, ankle pain, foot pain, leg weakness/numbness/tingling. Review of Systems: As noted above in history of present illness. Past Medical History: (1) Anxiety (2) Autistic disorder (3) Depression (4) Homicidal ideation (5) Hypothyroidism (6) Learning difficulties (7) Mental retardation/Autism (8) Suicidal ideation (9) Tonic-clonic epilepsy Current Medications: Medications Dose Route/Sig Max Daily Dose Days Date Category Dose Instructions Zofran Odt (Ondansetron HCl) 4 Mg Tab 4 Mg SL UD PRN 09/01/17 Reported Percocet 5MG/325MG (Oxycodone/Acetaminophen) Tab 1 Tablet PO UD PRN 09/01/17 Reported PAIN Mucinex Allergy (Fexofenadine HCl) 180 Mg Tab 180 Mg PO UD PRN 09/01/17 Reported Imitrex (Sumatriptan Succinate) 100 Mg Tab 100 Mg PO PRN PRN 09/01/17 Reported Fiber Choice (Inulin) 1.5 Gm Chw 3 Gm PO DAILY 09/01/17 Reported Thorazine (Chlorpromazine Hcl) 50 Mg Tab 50 Mg PO HS 09/01/17 Reported Cogentin (Benztropine Mesylate) 1 Mg Tab 0.5 Mg PO QAM 09/01/17 Reported Fluoxetine HCl 10 Mg Cap 10 Mg PO DAILY 09/01/17 Reported Aripiprazole 15 Mg Tab 15 Mg PO DAILY 1/28/18 Reported Imodium (Loperamide HCl) 2 Mg Cap 2 Mg PO HS PRN 05/05/17 Reported Docusate Sodium 100 Mg Cap 1 Cap PO HS PRN 05/05/17 Reported Polyethylene Glycol 3350 (Polyethylene) 527 Gm Soln 17 Gm PO QAM PRN 02/20/17 Reported Multivitamin (Multivitamins) Tab 2 Tab PO QAM 09/09/16 Reported Benztropine Mesylate 1 Mg Tab 1 Mg PO HS 02/25/16 Reported Topamax (Topiramate) 100 Mg Tab 100 Mg PO BID 11/06/13 Reported Allergies to Medications: Sulfa, phenytoin. Social History: Patient is not employed, he currently lives in a [place] [facility] and feels safe in his home environment; he admits to tobacco and alcohol use. Physical Examination: Vital Signs: Date Time Temp Pulse Resp B/P (MAP) Pulse Ox O2 Delivery O2 Flow Rate FiO2 10/30/17 16:43 76 18 131/62 95 10/30/17 14:06 36.4 85 20 108/70 94 GENERAL: 27-year-old male in mild distress due to pain, nontoxic-appearing, afebrile and hemodynamically stable. NEUROLOGICAL: Awake, alert and oriented to person, place and time. Answering questions appropriately and following commands. Normal gait. Good hand eye coordination. SKIN: Warm, dry and pink. Knees: Very superficial abrasion over the anterior aspect of both patellas. HEENT: Atraumatic and normocephalic. LOWER EXTREMITIES: No gross bony deformity. No shortening or malrotation. No tenderness in the hips, thighs, lower legs, ankles or feet. Mild tenderness over the both anterior patellas. I do not appreciate any bony deformity or crepitus. Negative patellar apprehension test. Negative ballottement test. No laxity of the collateral or cruciate ligaments. Full range of motion in flexion and extension of the knees against resistance. Moves all extremities well on command and with purpose. All distal neurovascular statuses are intact and equal bilaterally. ED Course: Patient is assessed as noted above. Patient's medication list was reviewed. Patient was given 650 mg of acetaminophen by mouth and ice for pain. Left Knee X-Rays: Were read by myself and the radiologist showing no acute fractures or joint effusions. Right Knee X-Rays: Were read by myself and the radiologist showing no acute fractures or joint effusions. Patient was given a walker for ambulatory assistance. Patient and mobile worker were educated about today's findings and instructed on his treatment plan; they verbalized understanding and agreement with this plan. Clinical Impression: Fall. Bilateral knee pain. Disposition: Patient discharged home in stable condition; prior to departure he was reassessed and subjectively reported he was feeling better and rated his discomfort 6/10. Plan: Comfort measures including 650 mg of acetaminophen, rest, ice and walker use were discussed with the patient and his helper. Was encouraged that the patient be followed up with orthopedic physician if no better in 6-7 days. Was encouraged that the patient be brought back to the emergency department for worsening/uncontrolled pain, uncontrolled swelling, complaints of leg weakness/ numbness/tingling or any new/concerning symptoms.
== END 2017-10-30 16:44 | disposition home or self-care (01) ==
LOC: C.EDB 14:01 → C.EDD 16:44
DX: M25.561 Pain in right knee (principal); M25.562 Pain in left knee; W01.198A Fall on same level from slipping, tripping and stumbling with subsequent striking against other object, initial encounter; Y93.01 Activity, walking, marching and hiking; Y99.8 Other external cause status; F84.0 Autistic disorder; F32.9 Major depressive disorder, single episode, unspecified; G40.409 Other generalized epilepsy and epileptic syndromes, not intractable, without status epilepticus; Z72.0 Tobacco use; Z88.2 Allergy status to sulfonamides; Z88.8 Allergy status to other drugs, medicaments and biological substances; Z79.899 Other long term (current) drug therapy

== ENCOUNTER 2018-03-23 17:28 | Emergency (ER) | payer OTHER ==
[~2018-03-23] VITALS: Ht 190.5 cm; Wt 89.3 kg
[2018-03-23] MEDS ORDERED: SODIUM CHLORIDE 0.9% 1000ML 1,000 ML IV STA (17:39)
[2018-03-23] MEDS ORDERED: KETOROLAC TROMETHAMINE 30 MG/ML VIAL IV STA (17:39)
[2018-03-23 17:40] VITALS: Ht 190.5 cm; Wt 89.3 kg
--- NOTE | 2018-03-23 17:48 | EMERGENCY ROOM VISIT NOTE ---
History Report prepared by Javed: Sultana Porter Under the Supervision of: Dr. Prieto Wang D.O. First contact with patient: 17:31 Stated Complaint: SORE THROAT / [place] History of Present Illness The patient is a 27 year old male who presents to the Emergency Room with complaints of worsening sore throat starting 3 days ago. The patient states that sometimes the pain becomes so bad he feels like he is going to vomit, but doesn't. He reports that when that happens it feels like there is hot lava in his throat. He reports that when he touches his throat, it hurts worse. The patient complains of intermittent headache. He notes that he has still been able to eat and drink. He notes that he had ear pain, but no longer does. The patient denies cough, runny nose, abdominal pain, vomiting, nausea, urinary symptoms, chest pain, and fever. Source of History: patient Onset: 3 days ago Position: throat Quality: other (sore, like lava) Timing: worsening Modifying Factors (Worsening): other (touch) Associated Symptoms: + headache (intermittent), No fevers, No cough, No chest pain, No nausea, No vomiting, No abdominal pain, No urinary symptoms Note: The patient complains of feeling like he is going to vomit. The patient denies ear pain and a runny nose. Review of Systems See HPI for pertinent positives & negatives. A total of 10 systems reviewed and were otherwise negative. Past Medical & Surgical Medical Problems: (1) Anxiety (2) Autistic disorder (3) Depression (4) Homicidal ideation (5) Hypothyroidism (6) Learning difficulties (7) Mental retardation (8) Suicidal ideation (9) Tonic-clonic epilepsy Family History FH: heart disease Hypertension Social History Smoking Status: Never Smoker Alcohol Use: none Drug Use: none Marital Status: single Housing Status: assisted living Occupation Status: employed, disabled Current/Historical Medications Scheduled Aripiprazole (Aripiprazole), 15 MG PO DAILY Benztropine Mesylate (Benztropine Mesylate), 1 MG PO HS Benztropine Mesylate (Cogentin), 0.5 MG PO QAM Chlorpromazine Hcl (Thorazine), 50 MG PO HS Fluoxetine HCl (Fluoxetine HCl), 10 MG PO DAILY Inulin (Fiber Choice), 3 GM PO DAILY Multivitamin (Multivitamin), 2 TAB PO QAM Penicillin V Potassium (Veetids), 500 MG PO BID Topiramate (Topamax), 100 MG PO BID Scheduled PRN Docusate Sodium (Docusate Sodium), 1 CAP PO HS PRN for Constipation Fexofenadine HCl (Mucinex Allergy), 180 MG PO UD PRN for Allergic Reaction Loperamide Hcl (Imodium), 2 MG PO HS PRN for Diarrhea Ondasetron Odt (Zofran Odt), 4 MG SL UD PRN for Nausea Oxycodone/Acetaminophen 5MG/325MG (Percocet 5MG/325MG), 1 TABLET PO UD PRN for Pain Polyethylene (Polyethylene Glycol 3350), 17 GM PO QAM PRN for Constipation Sumatriptan Succinate (Imitrex), 100 MG PO PRN PRN for Migraine Allergies Coded Allergies: Phenytoin (Verified Allergy, Mild, RASH, 01/14/18) Chocolate (Verified Allergy, Unknown, 01/14/18) Red Dye (Verified Allergy, Unknown, ., 01/14/18) Sulfa Drugs (Verified Allergy, Unknown, 01/14/18) Adhesives (Verified Adverse Reaction, Unknown, RASH, 01/14/18) Physical Exam Vital Signs Date Time Temp Pulse Resp B/P (MAP) Pulse Ox O2 Delivery O2 Flow Rate FiO2 03/23/18 19:24 37.1 79 18 137/79 98 03/23/18 17:40 37.0 71 20 119/90 99 Room Air 03/23/18 17:40 Room Air 99 Physical Exam GENERAL: Sitting up in bed, no acute distress, nontoxic, talking in full sentences. EYE EXAM: normal conjunctiva. OROPHARYNX: Posterior oropharynx is erythematous with exudates. Lips, buccal mucosa, and tongue normal and mucous membranes are moist NECK: supple, no nuchal rigidity, non-tender, positive anterior cervical lymphadenopathy. LUNGS: Clear to auscultation. Normal chest wall mechanics HEART: no murmurs, S1 normal and S2 normal ABDOMEN: abdomen soft, non-tender, normo-active bowel sounds, no masses, no rebound or guarding. BACK: Back is symmetrical on inspection and there is no deformity, no midline tenderness, no CVA tenderness. SKIN: no rashes and no bruising UPPER EXTREMITIES: upper extremities are grossly normal. LOWER EXTREMITIES: No pitting edema. NEURO EXAM: Cranial nerves II-XII grossly intact, normal speech, no gross weakness of arms, no gross weakness of legs. Oriented to person, place, and time. Appears autistic. Medical Decision & Procedures Laboratory Results 03/23/18 17:45 Red Blood Count 4.94, Mean Corpuscular Volume 88.7, Mean Corpuscular Hemoglobin 30.8, Mean Corpuscular Hemoglobin Concent 34.7, Mean Platelet Volume 12.2, Neutrophils (%) (Auto) 69.6, Lymphocytes (%) (Auto) 20.0, Monocytes (%) (Auto) 9.3, Eosinophils (%) (Auto) 0.6, Basophils (%) (Auto) 0.3, Neutrophils # (Auto) 6.46, Lymphocytes # (Auto) 1.86, Monocytes # (Auto) 0.86, Eosinophils # (Auto) 0.06, Basophils # (Auto) 0.03 03/23/18 17:45 Test 03/23/18 17:45 03/23/18 18:00 White Blood Count 9.29 K/uL (4.8-10.8) Red Blood Count 4.94 M/uL (4.7-6.1) Hemoglobin 15.2 g/dL (14.0-18.0) Hematocrit 43.8 % (42-52) Mean Corpuscular Volume 88.7 fL (80-100) Mean Corpuscular Hemoglobin 30.8 pg (25-34) Mean Corpuscular Hemoglobin Concent 34.7 g/dl (32-36) Platelet Count 160 K/uL (130-400) Mean Platelet Volume 12.2 fL (7.4-10.4) Neutrophils (%) (Auto) 69.6 % Lymphocytes (%) (Auto) 20.0 % Monocytes (%) (Auto) 9.3 % Eosinophils (%) (Auto) 0.6 % Basophils (%) (Auto) 0.3 % Neutrophils # (Auto) 6.46 K/uL (1.4-6.5) Lymphocytes # (Auto) 1.86 K/uL (1.2-3.4) Monocytes # (Auto) 0.86 K/uL (0.11-0.59) Eosinophils # (Auto) 0.06 K/uL (0-0.5) Basophils # (Auto) 0.03 K/uL (0-0.2) RDW Standard Deviation 42.4 fL (36.4-46.3) RDW Coefficient of Variation 13.1 % (11.5-14.5) Immature Granulocyte % (Auto) 0.2 % Immature Granulocyte # (Auto) 0.02 K/uL (0.00-0.02) Anion Gap 7.0 mmol/L (3-11) Est Creatinine Clear Calc Drug Dose 109.6 ml/min Estimated GFR () 94.5 Estimated GFR (Non- 81.6 BUN/Creatinine Ratio 15.7 (10-20) Calcium Level 8.8 mg/dl (8.5-10.1) Total Bilirubin 0.3 mg/dl (0.2-1) Direct Bilirubin 0.1 mg/dl (0-0.2) Aspartate Amino Transf (AST/SGOT) 21 U/L (15-37) Alanine Aminotransferase (ALT/SGPT) 21 U/L (12-78) Alkaline Phosphatase 57 U/L (45-117) Total Protein 7.9 gm/dl (6.4-8.2) Albumin 4.0 gm/dl (3.4-5.0) Lipase 260 U/L (73-393) Urine Color YELLOW Urine Appearance CLEAR (CLEAR) Urine pH 5.5 (4.5-7.5) Urine Specific [place] 1.013 (1.000-1.030) Urine Protein NEG (NEG) Urine Glucose (UA) NEG (NEG) Urine Ketones NEG (NEG) Urine Occult Blood NEG (NEG) Urine Nitrite NEG (NEG) Urine Bilirubin NEG (NEG) Urine Urobilinogen NEG (NEG) Urine Leukocyte Esterase NEG (NEG) Urine WBC (Auto) 1-5 /hpf (0-5) Urine RBC (Auto) 0-4 /hpf (0-4) Urine Hyaline Casts (Auto) 0 /lpf (0-5) Urine Epithelial Cells (Auto) 0-5 /lpf (0-5) Urine Bacteria (Auto) NEG (NEG) Laboratory results per my review. Medications Administered Medications (Trade) Dose Ordered Sig/Jose Alberto Route Start Time Stop Time Status Last Admin Dose Admin Sodium Chloride 1,000 ml @ 999 mls/hr Q1H1M STAT IV 03/23/18 17:39 8/19/18 18:39 DC 03/23/18 17:58 999 MLS/HR Ketorolac Tromethamine (Toradol Inj) 30 mg NOW STAT IV 03/23/18 17:39 03/23/18 17:40 DC 03/23/18 17:58 30 MG Penicillin V Potassium (Veetids Tab) 500 mg NOW ONCE PO 03/23/18 19:00 03/23/18 19:01 DC 03/23/18 19:11 500 MG ED Course ED COURSE: Vital signs were reviewed and showed that they were normal. The patients medical record was reviewed The above diagnostic studies were performed and reviewed. ED treatments and interventions as stated above. 173: The patient was evaluated in room C11B. A complete history and physical examination was performed. 173: Ordered Toradol Inj 30 mg IV, NSS 1000 ml @ 999 mls/hr IV. 1859: Upon reevaluation, the patient is resting comfortably and feels better. I discussed my findings with the patient and he understands and agrees with the treatment plan. Based on the patients age, coexisting illnesses, exam and lab findings the decision to treat as an outpatient was made. The patient remained stable while under my care. The patient appeared well at the time of discharge. 1900: Ordered Penicillin V Potassium 500 mg PO. Medical Decision Differential diagnosis includes etiologies such as viral syndrome, tonsillitis, streptococcal pharyngitis, mononucleosis, peritonsillar abscess, retropharyngeal abscess, otitis, pneumonia, influenza, as well as others were entertained. Patient is a 27-year-old male who presents the ER for sore throat. He notes this is been present for the past 3 days. He has no other complaints. He is eating and drinking. No fevers. No cough or runny nose. On exam he does have positive lymphadenopathy. CBC along with BMP, LFTs, bilirubin lipase is unremarkable. Rapid strep was negative. Patient was updated at bedside. He was given fluids and Toradol. He did have improvement of the sore throat. He was given penicillin and discharged follow-up with PCP as outpatient. Discussed with Pt concerning signs and symptoms to watch out for. Pt was instructed to follow up with their PCP and discussed with the patient their option to return to the ED at anytime for persistent or worsening symptoms. The appropriate anticipatory guidance and out-patient management, including indications for return to the emergency department, were explained at length to the patient and understood. Medication Reconcilliation Current Medication List: was personally reviewed by me Blood Pressure Screening Patient's blood pressure: Normal blood pressure Blood pressure disposition: Did not require urgent referral Impression Primary Impression: Sore throat Scribe Attestation The scribe's documentation has been prepared under my direction and personally reviewed by me in its entirety. I confirm that the note above accurately reflects all work, treatment, procedures, and medical decision making performed by me. Departure Information Dispostion Home / Self-Care Prescriptions Penicillin V Potassium (Veetids) 500 Mg Tab 500 MG PO BID, #20 TAB Prov: Prieto Wang, DO 03/23/18 Referrals No Doctor, Assigned (PCP) Forms HOME CARE DOCUMENTATION FORM, IMPORTANT VISIT INFORMATION Additional Instructions Please follow up with your primary care doctor with in the next 24 hours. Any worsening of your symptoms, please return to the ED immediately. This includes any fevers greater than 100.4, worsening pain, chest pain, shortness breath, persistent nausea, vomiting, unable to eat or drink, or any other concerning signs or symptoms from your standpoint. Please take antibiotics as prescribed.
[2018-03-23 17:59] LABS: BASO % 0.3 %; BASO ABS # 0.03 K/uL (0-0.2); EOS % 0.6 %; EOS ABS # 0.06 K/uL (0-0.5); HEMATOCRIT 43.8 % (42-52); HEMOGLOBIN 15.2 g/dL (14.0-18.0); IG# 0.02 K/uL (0.00-0.02); LYMPH ABS # 1.86 K/uL (1.2-3.4); MEAN CELL VOLUME 88.7 fL (80-100); MEAN CORPUSCULAR HEMOGLOBIN 30.8 pg (25-34); MEAN CORPUSCULAR HGB CONC 34.7 g/dl (32-36); MEAN PLATELET VOLUME 12.2 fL (7.4-10.4); MONO % 9.3 %; MONO ABS # 0.86 K/uL (0.11-0.59); NEUT % 69.6 %; NEUT ABS # 6.46 K/uL (1.4-6.5); PLATELET COUNT 160 K/uL (130-400); RED CELL DISTRIBUTION WIDTH CV 13.1 % (11.5-14.5); RED CELL DISTRIBUTION WIDTH SD 42.4 fL (36.4-46.3); WHITE BLOOD COUNT 9.29 K/uL (4.8-10.8)
[2018-03-23 18:30] LABS: CALCIUM 8.8 mg/dl (8.5-10.1); CREATININE 1.21 mg/dl (0.60-1.40); POTASSIUM 3.7 mmol/L (3.5-5.1); TOTAL PROTEIN 7.9 gm/dl (6.4-8.2)
[2018-03-23] MEDS ORDERED: PENI-82 PO (18:59)
[2018-03-23] MEDS ORDERED: PENICILLIN V POTASSIUM 250 MG TAB PO ONE (19:00)
[2018-03-23 19:24] VITALS: BP 137/79; PULSE 79; TEMP 37.1; O2SAT 98
== END 2018-03-23 19:30 | disposition home or self-care (01) ==
LOC: EDBD 17:28 → C.EDC 17:29
DX: J02.9 Acute pharyngitis, unspecified (principal); F41.9 Anxiety disorder, unspecified; F84.0 Autistic disorder; F32.9 Major depressive disorder, single episode, unspecified; E03.9 Hypothyroidism, unspecified; F79 Unspecified intellectual disabilities; G40.909 Epilepsy, unspecified, not intractable, without status epilepticus; Z82.49 Family history of ischemic heart disease and other diseases of the circulatory system; Z79.899 Other long term (current) drug therapy; Z88.2 Allergy status to sulfonamides; Z91.048 Other nonmedicinal substance allergy status; Z91.018 Allergy to other foods; Z88.8 Allergy status to other drugs, medicaments and biological substances

== ENCOUNTER 2019-05-05 17:28 | Inpatient (IN) ==
[2019-05-05] MEDS ORDERED: ACETAMINOPHEN 1,000 MG/100 ML VIAL IV STA (18:28)
[2019-05-05] MEDS ORDERED: cefTRIAXone SODIUM 2,000 MG/70 ML BAG IV STA (18:28)
[2019-05-05] MEDS ORDERED: SODIUM CHLORIDE 0.9% 1000ML 1,000 ML IV ONE (18:28)
--- NOTE | 2019-05-05 19:12 | XRay Report ---
XR chest 1V portable CLINICAL HISTORY: Fever. Evaluate for pneumonia. COMPARISON STUDY: Chest x-ray May 05, 2017. FINDINGS: Lung volumes are normal. Lungs are clear. There is no pneumothorax or pleural effusion. Car diac size is normal. Mediastinal contours are normal. There is no evidence for pulmonary edema. IMPRESSION: No acute cardiopulmonary findings. Electronically signed by: Torsten Flores M.D. 05/05/2019 7:11 PM
[2019-05-05 19:21] LABS: Appearance Urine Cloudy (Clear); Bacteria Urine Automated Negative (Negative); Bilirubin Urine Negative (Negative); Blood Urine Negative (Negative); Cast Urine Automated 0 /lpf (0-5); Color Urine Yellow; Glucose Urine UA Negative (Negative); Ketones Urine Negative (Negative); Leukocyte Esterase Urine Negative (Negative); Nitrite Urine Negative (Negative); Protein Urine Negative (Negative); RBC Urine Automated 0-4 /hpf (0-4); Urobilinogen Urine Negative (Negative)
[2019-05-05] MEDS ORDERED: DEXTROSE 50% 50 ML SYRINGE IV ONE ×2 (19:23→19:24)
[2019-05-05 19:56] LABS: Hematocrit (blood only) 42.9 % (42-52); Hemoglobin 14.7 g/dL (14.0-18.0); Mean Corpuscular Hgb Conc 34.3 g/dL (32-36); Mean Corpuscular Volume 90.5 fL (80-100); Mean Platelet Volume 12.4 fL (7.4-10.4); Platelet Count 143 K/uL (130-400); RDW Standard Deviation 43.3 fL (36.4-46.3); Red Blood Count 4.74 M/uL (4.7-6.1); White Blood Count 13.39 K/uL (4.8-10.8)
[2019-05-05 20:11] LABS: INR 1.1 (0.9-1.1); Partial Thromboplastin Time 27.3 Seconds (21.0-31.0); Prothrombin Time 11.5 Seconds (9.0-12.0)
[2019-05-05 20:15] LABS: Basophils # (auto) 0.03 K/uL (0-0.2); Basophils % (auto) 0.2 %; Eosinophils # (auto) 0.03 K/uL (0-0.5); Eosinophils % (auto) 0.2 %; Immature Granulocytes # (auto) 0.02 K/uL (0.00-0.02); Immature Granulocytes % (auto) 0.1 %; Lymphocytes # (auto) 0.86 K/uL (1.2-3.4); Lymphocytes % (auto) 6.4 %; Monocytes # (auto) 1.24 K/uL (0.11-0.59); Monocytes % (auto) 9.3 %; Neutrophils # (auto) 11.21 K/uL (1.4-6.5); Neutrophils % (auto) 83.8 %
[2019-05-05 20:21] LABS: Alanine Aminotransferase 22 U/L (12-78); Albumin Level 4.1 gm/dl (3.4-5.0); Aspartate Aminotransferase 19 U/L (15-37); BUN Creatinine Ratio 9.6 (10-20); Bilirubin Direct 0.2 mg/dl (0-0.2); Blood Urea Nitrogen 13 mg/dl (7-18); Calcium 8.8 mg/dl (8.5-10.1); Carbon Dioxide 23 mmol/L (21-32); Chloride 108 mmol/L (98-107); Est GFR (African American) 83.1; Est GFR (Non-African American) 71.7; Glucose 98 mg/dl (70-99); Lipase 168 U/L (73-393); Magnesium 1.8 mg/dl (1.8-2.4); Potassium 3.3 mmol/L (3.5-5.1); Sodium 138 mmol/L (136-145)
[2019-05-05 20:24] LABS: Alkaline Phosphatase 64 U/L (45-117); Bilirubin,Total 0.6 mg/dl (0.2-1); Creatine Kinase 162 U/L (39-308); Total Protein 7.2 gm/dl (6.4-8.2)
[2019-05-05 20:25] LABS: Influenza A virus by PCR Neg for Influ A (Neg); Influenza B virus by PCR Neg for Influ B (Neg)
[2019-05-05 20:36] LABS: Lyme Ab IgG w/WB Rflx Negative (Negative); Lyme Ab IgM w/WB Rflx Negative (Negative)
[2019-05-05] MEDS ORDERED: IOVERSOL 100ml IV PRN (21:17)
--- NOTE | 2019-05-05 21:55 | CT Scan Report ---
CT OF THE HEAD WITHOUT CONTRAST CLINICAL HISTORY: Headache. Seizure. COMPARISON STUDY: Head CT June 22, 2018. TECHNIQUE: Helical axial images of the head were obtained without IV contrast. Automated exposure con trol was utilized for the study. A dose lowering technique was utilized adhering to the principles o f ALARA. FINDINGS: No acute intracranial hemorrhage, midline shift or mass effect is present. The ventricular system is unremarkable. The basilar cisterns are patent. Bilateral basal ganglia calcification is unc hanged. No extra-axial collections are present. There are no findings to suggest acute dural sinus th rombosis or acute territorial infarct. No significant calvarial abnormalities are present. Visualized portions of the sinuses and mastoid air cells are clear. IMPRESSION: No acute intracranial findings. No change in appearance of the brain. Electronically signed by: Torsten Flores M.D. 05/05/2019 9:54 PM
--- NOTE | 2019-05-05 22:17 | CT Scan Report ---
CT OF THE ABDOMEN AND PELVIS WITH CONTRAST CLINICAL HISTORY: Left lower quadrant pain. Fever. COMPARISON STUDY: CT of the abdomen and pelvis January 14, 2018. TECHNIQUE: Following IV administration of 89 mL of Optiray-320, axial images of the abdomen and pelvi s were obtained from the lung bases to the proximal femurs. Images were reviewed in the axial, sagitt al, and coronal planes. IV contrast was administered without complication. Automated exposure contro l was utilized for the study. A dose lowering technique was utilized adhering to the principles of A TIGRE. CT DOSE: 1224.94 mGy.cm FINDINGS: No pneumatosis, free air or portal venous gas is present. There is bilateral gynecomastia. The liver, spleen, adrenal glands, kidneys and pancreas are normal. There is no biliary or pancreatic ductal dilatation. A 4 mm left renal calculus is noted. There are no ureteral calculi. There is no h ydronephrosis or hydroureter. Bladder is moderately distended. A moderate amount stool within the col on is noted. The right colon is fluid-filled. Small bowel is fluid-filled. There is no evidence for a bowel obstruction. No lymphadenopathy or ascites is noted. There are no suspicious osseous lesions. The appendix is normal. Major vasculature is patent. IMPRESSION: 1. Normal appendix. No bowel obstruction. 2. Moderate amount of stool within the colon. 3. Fluid-filled small bowel and right colon with no evidence for a bowel obstruction. 4. Moderate distention of the bladder. Electronically signed by: Torsten Flores M.D. 05/05/2019 10:16 PM
[2019-05-05] MEDS ORDERED: BENZTROPINE MESYLATE 1 MG TAB PO SCH (23:47)
[2019-05-05] MEDS ORDERED: CHLORPROMAZINE HCL 25 MG TABLET PO SCH (23:47)
[2019-05-06] MEDS: TOPIRAMATE 100 MG TAB PO SCH ×2 (01:15→09:17)
--- NOTE | 2019-05-06 01:44 | Emergency Department Note ---
Entered by Cecy Brannon acting as a scribe for aRy Perez History of Present Illness General Chief complaint: Seizure Stated complaint: SEIZURE, DEHYDRATED Time Seen by Provider: 05/05/19 18:22 Source: patient and family History of Present Illness Provider complaint: seizure Onset (ago): hour(s) ([employer]) Location: head Severity: similar to prior episodes Maximum Pain Intensity: 9 Relieved By: + none Associated symptoms: + headaches and + other (+abdominal pain) The patient is a 29 year old male who presents to the Emergency Room with complaints of reported seizure prior to arrival. She reports that the patient has a history of seizures and usually loses consciousness and shakes during his episodes. She mentions that the patient is from [employer]. The patient notes that he was at work today and was trying to walk home to his ride when he lied on the grass and started shaking. He states he thinks he had a seizure. He states he was outside in the heat working and thinks he is dehydrated. He states he has not urinated yet today. 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 Currently, the patient is reporting headache as well as left lower quadrant abdominal pain. No nausea or vomiting. No urinary incontinence. No bite of tongue. Home Medications Home Medications Medication Instructions Recorded Confirmed Type aripiprazole 15 mg PO QAM 06/22/18 05/05/19 History benztropine 0.5 mg PO QAM 06/22/18 05/05/19 History benztropine 1 mg PO HS 06/22/18 05/05/19 History docusate sodium 100 mg PO BID 06/22/18 05/05/19 History fluoxetine 10 mg PO QAM 06/22/18 05/05/19 History multivitamin 2 tab PO QAM 06/22/18 05/05/19 History polyethylene glycol 3350 [Miralax] 17 g PO QAM PRN 06/22/18 05/05/19 History topiramate 100 mg PO BID 06/22/18 05/05/19 History ibuprofen 200 mg PO QID PRN 08/17/18 05/05/19 History omeprazole 20 mg capsule,delayed 20 mg PO QAM #90 cap 06/27/19 10/01/19 Rx release acetaminophen 500 mg PO Q6H PRN 05/05/19 05/05/19 History chlorpromazine 50 mg PO HS 05/05/19 05/05/19 History inulin [Fiber Gummies] 4 g PO QAM 05/05/19 05/05/19 History Allergies Allergy/AdvReac Type Severity Reaction Status Date / Time phenytoin Allergy Mild RASH Verified 05/05/19 18:49 cat dander Allergy Unknown Allergy Verified 05/05/19 19:00 type symptoms chocolate flavor Allergy Unknown Unknown Verified 05/05/19 18:49 dog dander Allergy Unknown Allergy Verified 05/05/19 19:00 type symptoms red dye Allergy Unknown Unknown Verified 05/05/19 18:49 Sulfa (Sulfonamide Allergy Unknown Unknown Verified 05/05/19 18:49 Antibiotics) adhesive AdvReac Unknown RASH Verified 05/05/19 18:49 Past Med/Surg History Medical History Autistic disorder (Chronic 11/23/12) Hypothyroidism (Chronic) Learning difficulties (Chronic 11/23/12) Mental retardation (Chronic 05/12/13) 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 and A total of 10 systems reviewed and were otherwise negative Physical Exam Vital Signs Vital Signs - 24 hr 05/05/19 17:49 05/05/19 19:28 05/05/19 19:40 Temperature 38.1 C H Temperature Source Oral Sepsis Recent Fever Within 48 Hours No Sepsis New/Unexplained Change in Mental Status No Sepsis Action Taken by Nursing No Action Required Pulse Rate 95 H Pulse Rate [Left] 93 H Respiratory Rate 20 27 H Respiratory Effort / Characteristics Non-Labored Spontaneous Non-Labored Respiratory Depth Normal Normal Respiratory Pattern Regular Regular Blood Pressure 112/70 Blood Pressure [Right Arm] 124/73 Blood Pressure Mean 84 Blood Pressure Mean [Right Arm] 90 Blood Pressure Position Sitting Pulse Oximetry 99 95 98 Oxygen Delivery Method Room Air Room Air Room Air 05/05/19 19:42 05/05/19 20:39 05/05/19 21:49 Temperature Temperature Source Sepsis Recent Fever Within 48 Hours Sepsis New/Unexplained Change in Mental Status Sepsis Action Taken by Nursing Pulse Rate Pulse Rate [Left] 100 H 91 H Respiratory Rate 20 20 Respiratory Effort / Characteristics Non-Labored Non-Labored Respiratory Depth Normal Normal Respiratory Pattern Regular Regular Blood Pressure Blood Pressure [Right Arm] 131/62 112/45 L Blood Pressure Mean Blood Pressure Mean [Right Arm] 85 67 Blood Pressure Position Pulse Oximetry 95 99 96 Oxygen Delivery Method Room Air Room Air Room Air 05/05/19 22:24 05/05/19 22:39 05/05/19 23:21 Temperature 36.8 C Temperature Source Oral Sepsis Recent Fever Within 48 Hours Sepsis New/Unexplained Change in Mental Status Sepsis Action Taken by Nursing Pulse Rate Pulse Rate [Left] 91 H 87 Respiratory Rate 25 H 20 Respiratory Effort / Characteristics Non-Labored Respiratory Depth Normal Respiratory Pattern Regular Blood Pressure Blood Pressure [Right Arm] 119/67 113/66 Blood Pressure Mean Blood Pressure Mean [Right Arm] 84 81 Blood Pressure Position Pulse Oximetry 98 100 Oxygen Delivery Method Room Air Room Air Physical Exam GENERAL: He is oriented to person, place, and time. He appears well-developed and well-nourished. He does not appear distressed. ____ HENT: Exam performed. - Head: Normocephalic and atraumatic. - Right Ear: External ear normal. No mastoid tenderness. - Left Ear: External ear normal. No mastoid tenderness. - Mouth/Throat: Dry mucous membranes. No evidence of tongue bite. The oropharynx is clear. No trismus in the jaw. No dental abscesses or uvula swelling. No oropharyngeal exudate or tonsillar abscesses. ____ EYES: Conjunctivae and EOM are normal. Pupils are equal, round, and reactive to light. Right eye exhibits no discharge. Left eye exhibits no discharge. No scleral icterus. ____ NECK: Normal range of motion. Neck supple. No JVD present. No spinous process tenderness present. No carotid bruit present. No rigidity. No tracheal deviation and normal range of motion present. No Brudzinski's sign and no Kernig's sign noted. ____ CV: Normal rate, regular rhythm, normal heart sounds and intact distal pulses. There is no peripheral edema. Palpable radial pulses bue. ____ PULM/CHEST: Effort normal and breath sounds normal. No respiratory distress. No stridor. He has no wheezes. He has no rales. - Chest Wall: He exhibits no tenderness. ____ ABD: The abdomen is soft. Bowel sounds are normal. He has no distension. No mass is present. Pain on palpation of left lower quadrant. There is no rebound, no guarding, no Velazquez's sign and no tenderness at McBurney's point. Rovsig negative MUSC/SKEL: Normal range of motion. There is no peripheral edema, tenderness or deformity. LYMPH: No cervical adenopathy. ____ NEURO: He is alert and oriented to person, place, and time. He has normal st rength. No cranial nerve deficit or sensory deficit. Coordination and gait normal. GCS eye subscore is 4. GCS verbal subscore is 5. GCS motor subscore is 6. cerbellar tests wnl. ____ SKIN: Skin is warm and dry. He is not diaphoretic. ____ PSYCH: Baseline mental status. He has a normal mood and affect. His behavior is normal. Judgment and thought content normal. ____ Course 1822: The patient was evaluated in room A2, and a complete history and physical examination were performed. The patient was found to be febrile in the emergency department. Currently, the patient is not displaying any meningeal signs. Given the patient's fever, reported headache, and left lower quadrant abdominal pain, Rocephin 2 g was implemented empirically. It is thought extremely low likelihood that the patient has meningitis given his physical exam findings. Patient's mother has a video of the patient displaying which she reports to be seizure-like activity while he was waiting in the waiting room for bed in our emergency department during this time of extreme volume and extreme acuity. On the video on the patient's mother cell phone, the patient was s haking his head but not having any tonic-clonic movements. 191: Patient's glucose was found to be low. Patient was given 1 amp of D50. Patient reports he did not eat anything today. It is unclear if the patient truly had any seizures today, however his hypoglycemia could be a possible reason for seizure. 2014: I reevaluated the patient and he reports that he feeling better at 1 amp of D50. He is currently laughing with his parents at bedside watching television. On repeat physical exam there are no meningeal signs. No pain on palpation of the abdomen. The patient has not had a seizure in the ED. 2144: I was called to bedside by the nursing staff. The patient's family stated that the patient was having a seizure. On arrival, the patient was shaking his head side to side and saying "no". I applied noxious stimuli to the patient and he immediately stopped shaking his head and said, "what is going on". It is not thought that the patient had a seizure at this time. 2254: Upon reevaluation, the patient's vital signs are stable, labs are within normal limits with the exception of mild leukocytosis of 13.39. Imagining are within normal limits. The patient will be admitted to the hospital service, for the possibility of seizure. It is unclear if the patient truly had a seizure today given that the videos that the mother showed and his behavior in the emergency department that the family was concerned about a seizure did not appear to be a true seizure. The patient's symptoms stopped when noxious stimuli were pointed to him in the emergency department. The reported seizure today was resolved without pharmaceutical intervention. It is thought that the patient's initial reported possible seizure was due to hypoglycemia which was corrected in the ED. Rocephin 2g was given to the patient empirically. The patient is currently in no abdominal pain or has a headache. Given the patient's physical exam findings consistent with no meningeal signs throughout his emergency department stay, the resolvment of his headache, is feeling better after receiving 1 amp of D50, no true seizure in the emergency department, it is not thought that the patient is currently suffering from meningitis or encephalitis. I discussed the patient's case with Dr. Munguia- [facility] ist, who will evaluate for admission. Administered Medications Benztropine Mesylate (Cogentin) 1 mg PO HS PINKY Stop: 06/04/19 23:46 Last Admin: 05/06/19 01:14 Dose: 1 mg Documented by: [id number] Chlorpromazine HCl (Thorazine) 50 mg PO HS PINKY Stop: 06/04/19 23:46 Last Admin: 05/06/19 01:13 Dose: 50 mg Documented by: [id number] Ioversol (Optiray 320 100ml) 89 ml IV ONCE PRN PRN Reason: Interaction Checking Stop: 05/09/19 21:16 Last Admin: 05/05/19 21:17 Dose: 89 ml Documented by: [id number] Topiramate (Topamax) 100 mg PO BID PINKY Stop: 06/04/19 23:46 Last Admin: 05/06/19 01:15 Dose: 100 mg Documented by: [id number] Discontinued Medications Dextrose (Dextrose 50%) 50 ml IV NOW ONE Stop: 05/05/19 19:24 Last Admin: 05/05/19 19:33 Dose: 50 ml Documented by: [id number] Dextrose (Dextrose 50%) Confirm Administered Dose 50 ml IV .STK-MED ONE Stop: 05/05/19 19:25 Last Admin: 05/05/19 19:34 Dose: Not Given Documented by: [id number] Ceftriaxone Sodium (Rocephin) 2,000 mg in 70 mls @ 140 mls/hr IV NOW STA Stop: 05/05/19 18:57 Last Infusion: 05/05/19 20:52 Dose: 0 mls/hr Documented by: [id number] Admin: 05/05/19 20:20 Dose: 140 mls/hr Documented by: [id number] Sodium Chloride (Nss 1000ml) 1,000 mls @ 999 mls/hr IV .Q1H1M ONE Stop: 05/05/19 19:28 Last Infusion: 05/05/19 20:52 Dose: 0 mls/hr Documented by: [id number] Admin: 05/05/19 19:38 Dose: 999 mls/hr Documented by: [id number] Acetaminophen (Ofirmev) 1,000 mg in 100 mls @ 400 mls/hr IV NOW STA Stop: 05/05/19 18:42 Last Infusion: 05/05/19 20:52 Dose: 0 mls/hr Documented by: [id number] Admin: 05/05/19 19:45 Dose: 400 mls/hr Documented by: [id number] Medical Decision Making Medical Records Attestation: I reviewed the patient's medical records. Home Medications Current Medication List: was personally reviewed by me Laboratory Data Attestation: I reviewed the patient's lab results. Result diagrams: 05/05/19 19:29 05/05/19 19:29 Lab Results 05/05/19 05/05/19 05/05/19 Range/Units 19:00 19:08 19:25 WBC (4.8-10.8) K/uL RBC (4.7-6.1) M/uL Hgb (14.0-18.0) g/dL Hct (42-52) % MCV (80-100) fL MCH (25-34) pg MCHC (32-36) g/dL RDW Std Deviation (36.4-46.3) fL RDW Coeff of Abilio (11.5-14.5) % Plt Count (130-400) K/uL MPV (7.4-10.4) fL Immature Gran % (Auto) % Neut % (Auto) % Lymph % (Auto) % [place] % (Auto) % Eos % (Auto) % Baso % (Auto) % Immature Gran # (Auto) (0.00-0.02) K/uL Neut # (Auto) (1.4-6.5) K/uL Lymph # (Auto) (1.2-3.4) K/uL [place] # (Auto) (0.11-0.59) K/uL Eos # (Auto) (0-0.5) K/uL Baso # (Auto) (0-0.2) K/uL PT (9.0-12.0) Seconds INR (0.9-1.1) APTT (21.0-31.0) Seconds PTT Ratio Sodium (136-145) mmol/L Potassium (3.5-5.1) mmol/L Chloride (98-107) mmol/L Carbon Dioxide (21-32) mmol/L Anion Gap (3-11) BUN (7-18) mg/dl Creatinine (0.6-1.4) mg/dl Est Cr Clr Drug Dosing Est GFR ( Amer) Est GFR (Non-Af Amer) BUN/Creatinine Ratio (10-20) Glucose (70-99) mg/dl POC Glucose 58 L* (70-99) Lactate (0.4-2.0) mmol/L Calcium (8.5-10.1) mg/dl Magnesium (1.8-2.4) mg/dl Total Bilirubin (0.2-1) mg/dl Direct Bilirubin (0-0.2) mg/dl AST (15-37) U/L ALT (12-78) U/L Alkaline Phosphatase (45-117) U/L Total Creatine Kinase (39-308) U/L Total Protein (6.4-8.2) gm/dl Albumin (3.4-5.0) gm/dl Lipase (73-393) U/L Urine Color Yellow Urine Appearance Cloudy A (Clear) Urine pH 7.0 (4.5-7.5) Ur Specific [place] 1.020 (1.000-1.030) Urine Protein Negative (Negative) Urine Glucose (UA) Negative (Negative) Urine Ketones Negative (Negative) Urine Blood Negative (Negative) Urine Nitrite Negative (Negative) Urine Bilirubin Negative (Negative) Urine Urobilinogen Negative (Negative) Ur Leukocyte Esterase Negative (Negative) Urine WBC (Auto) 1-5 (0-5) /hpf Urine RBC (Auto) 0-4 (0-4) /hpf U Hyaline Cast (Auto) 0 (0-5) /lpf U Epithel Cells (Auto) 5-10 H (0-5) /lpf Urine Bacteria (Auto) Negative (Negative) Lyme Disease IgG Ab (Negative) Lyme Disease IgM Ab (Negative) Influenza Type A (PCR) Neg for Influ A (Neg) Influenza Type B (PCR) Neg for Influ B (Neg) 05/05/19 05/05/19 05/05/19 Range/Units 19:29 19:29 19:29 WBC 13.39 H (4.8-10.8) K/uL RBC 4.74 (4.7-6.1) M/uL Hgb 14.7 (14.0-18.0) g/dL Hct 42.9 (42-52) % MCV 90.5 (80-100) fL MCH 31.0 (25-34) pg MCHC 34.3 (32-36) g/dL RDW Std Deviation 43.3 (36.4-46.3) fL RDW Coeff of Abilio 13.0 (11.5-14.5) % Plt Count 143 (130-400) K/uL MPV 12.4 H (7.4-10.4) fL Immature Gran % (Auto) 0.1 % Neut % (Auto) 83.8 % Lymph % (Auto) 6.4 % [place] % (Auto) 9.3 % Eos % (Auto) 0.2 % Baso % (Auto) 0.2 % Immature Gran # (Auto) 0.02 (0.00-0.02) K/uL Neut # (Auto) 11.21 H (1.4-6.5) K/uL Lymph # (Auto) 0.86 L (1.2-3.4) K/uL [place] # (Auto) 1.24 H (0.11-0.59) K/uL Eos # (Auto) 0.03 (0-0.5) K/uL Baso # (Auto) 0.03 (0-0.2) K/uL PT 11.5 (9.0-12.0) Seconds INR 1.1 (0.9-1.1) APTT 27.3 (21.0-31.0) Seconds PTT Ratio 1.0 Sodium 138 (136-145) mmol/L Potassium 3.3 L (3.5-5.1) mmol/L Chloride 108 H (98-107) mmol/L Carbon Dioxide 23 (21-32) mmol/L Anion Gap 7.0 (3-11) BUN 13 (7-18) mg/dl Creatinine 1.33 (0.6-1.4) mg/dl Est Cr Clr Drug Dosing Not Reportable Est GFR ( Amer) 83.1 Est GFR (Non-Af Amer) 71.7 BUN/Creatinine Ratio 9.6 L (10-20) Glucose 98 (70-99) mg/dl POC Glucose (70-99) Lactate (0.4-2.0) mmol/L Calcium 8.8 (8.5-10.1) mg/dl Magnesium 1.8 (1.8-2.4) mg/dl Total Bilirubin 0.6 (0.2-1) mg/dl Direct Bilirubin 0.2 (0-0.2) mg/dl AST 19 (15-37) U/L ALT 22 (12-78) U/L Alkaline Phosphatase 64 (45-117) U/L Total Creatine Kinase 162 (39-308) U/L Total Protein 7.2 (6.4-8.2) gm/dl Albumin 4.1 (3.4-5.0) gm/dl Lipase 168 (73-393) U/L Urine Color Urine Appearance (Clear) Urine pH (4.5-7.5) Ur Specific [place] (1.000-1.030) Urine Protein (Negative) Urine Glucose (UA) (Negative) Urine Ketones (Negative) Urine Blood (Negative) Urine Nitrite (Negative) Urine Bilirubin (Negative) Urine Urobilinogen (Negative) Ur Leukocyte Esterase (Negative) Urine WBC (Auto) (0-5) /hpf Urine RBC (Auto) (0-4) /hpf U Hyaline Cast (Auto) (0-5) /lpf U Epithel Cells (Auto) (0-5) /lpf Urine Bacteria (Auto) (Negative) Lyme Disease IgG Ab (Negative) Lyme Disease IgM Ab (Negative) Influenza Type A (PCR) (Neg) Influenza Type B (PCR) (Neg) 05/05/19 05/05/19 05/05/19 Range/Units 19:29 19:29 19:52 WBC (4.8-10.8) K/uL RBC (4.7-6.1) M/uL Hgb (14.0-18.0) g/dL Hct (42-52) % MCV (80-100) fL MCH (25-34) pg MCHC (32-36) g/dL RDW Std Deviation (36.4-46.3) fL RDW Coeff of Abilio (11.5-14.5) % Plt Count (130-400) K/uL MPV (7.4-10.4) fL Immature Gran % (Auto) % Neut % (Auto) % Lymph % (Auto) % [place] % (Auto) % Eos % (Auto) % Baso % (Auto) % Immature Gran # (Auto) (0.00-0.02) K/uL Neut # (Auto) (1.4-6.5) K/uL Lymph # (Auto) (1.2-3.4) K/uL [place] # (Auto) (0.11-0.59) K/uL Eos # (Auto) (0-0.5) K/uL Baso # (Auto) (0-0.2) K/uL PT (9.0-12.0) Seconds INR (0.9-1.1) APTT (21.0-31.0) Seconds PTT Ratio Sodium (136-145) mmol/L Potassium (3.5-5.1) mmol/L Chloride (98-107) mmol/L Carbon Dioxide (21-32) mmol/L Anion Gap (3-11) BUN (7-18) mg/dl Creatinine (0.6-1.4) mg/dl Est Cr Clr Drug Dosing Est GFR ( Amer) Est GFR (Non-Af Amer) BUN/Creatinine Ratio (10-20) Glucose (70-99) mg/dl POC Glucose 139 H (70-99) Lactate 1.4 (0.4-2.0) mmol/L Calcium (8.5-10.1) mg/dl Magnesium (1.8-2.4) mg/dl Total Bilirubin (0.2-1) mg/dl Direct Bilirubin (0-0.2) mg/dl AST (15-37) U/L ALT (12-78) U/L Alkaline Phosphatase (45-117) U/L Total Creatine Kinase (39-308) U/L Total Protein (6.4-8.2) gm/dl Albumin (3.4-5.0) gm/dl Lipase (73-393) U/L Urine Color Urine Appearance (Clear) Urine pH (4.5-7.5) Ur Specific [place] (1.000-1.030) Urine Protein (Negative) Urine Glucose (UA) (Negative) Urine Ketones (Negative) Urine Blood (Negative) Urine Nitrite (Negative) Urine Bilirubin (Negative) Urine Urobilinogen (Negative) Ur Leukocyte Esterase (Negative) Urine WBC (Auto) (0-5) /hpf Urine RBC (Auto) (0-4) /hpf U Hyaline Cast (Auto) (0-5) /lpf U Epithel Cells (Auto) (0-5) /lpf Urine Bacteria (Auto) (Negative) Lyme Disease IgG Ab Negative (Negative) Lyme Disease IgM Ab Negative (Negative) Influenza Type A (PCR) (Neg) Influenza Type B (PCR) (Neg) Imaging Data Radiologist's Impression: Radiology results as stated below per my review and the radiologist's interpretation: CT OF THE ABDOMEN AND PELVIS WITH CONTRAST CLINICAL HISTORY: Left lower quadrant pain. Fever. COMPARISON STUDY: CT of the abdomen and pelvis January 14, 2018. TECHNIQUE: Following IV administration of 89 mL of Optiray-320, axial images of the abdomen and pelvis were obtained from the lung bases to the proximal femurs. Images were reviewed in the axial, sagittal, and coronal planes. IV contrast was administered without complication. Automated exposure control was utilized for the study. A dose lowering technique was utilized adhering to the principles of ALARA. CT DOSE: 1224.94 mGy.cm FINDINGS: No pneumatosis, free air or portal venous gas is present. There is bilateral gynecomastia. The liver, spleen, adrenal glands, kidneys and pancreas are normal. There is no biliary or pancreatic ductal dilatation. A 4 mm left renal calculus is noted. There are no ureteral calculi. There is no hydronephrosis or hydroureter. Bladder is moderately distended. A moderate amou nt stool within the colon is noted. The right colon is fluid-filled. Small bowel is fluid-filled. There is no evidence for a bowel obstruction. No lymphadenopathy or ascites is noted. There are no suspicious osseous lesions. The appendix is normal. Major vasculature is patent. IMPRESSION: 1. Normal appendix. No bowel obstruction. 2. Moderate amount of stool within the colon. 3. Fluid-filled small bowel and right colon with no evidence for a bowel obstruction. 4. Moderate distention of the bladder. Electronically signed by: Torsten Flores M.D. 05/05/2019 10:[address] OF THE HEAD WITHOUT CONTRAST CLINICAL HISTORY: Headache. Seizure. COMPARISON STUDY: Head CT June 22, 2018. TECHNIQUE: Helical axial images of the head were obtained without IV contrast. Automated exposure control was utilized for the study. A dose lowering techniqu e was utilized adhering to the principles of ALARA. FINDINGS: No acute intracranial hemorrhage, midline shift or mass effect is present. The ventricular system is unremarkable. The basilar cisterns are patent. Bilateral basal ganglia calcification is unchanged. No extra-axial collections are present. There are no findings to suggest acute dural sinus thrombosis or acute territorial infarct. No significant calvarial abnormalities are present. Visualized portions of the sinuses and mastoid air cells are clear. IMPRESSION: No acute intracranial findings. No change in appearance of the brain. Electronically signed by: Torsten Flores M.D. 05/05/2019 9:54 PM XR chest 1V portable CLINICAL HISTORY: Fever. Evaluate for pneumonia. COMPARISON STUDY: Chest x-ray May 05, 2017. FINDINGS: Lung volumes are normal. Lungs are clear. There is no pneumothorax or pleural effusion. Cardiac size is normal. Mediastinal contours are normal. There is no evidence for pulmonary edema. IMPRESSION: No acute cardiopulmonary findings. Electronically signed by: Torsten Flores M.D. 05/05/2019 7:11 PM ECG Data Attestation: I personally reviewed and interpreted this ECG as follows: Indication: weakness Rate (beats per minute): 89 Rhythm: sinus rhythm Findings: + other ([place] QR and QTC are within normal limits); no ST depression and no ST elevation Blood Pressure Blood Pressure Findings: Normal blood pressure Blood Pressure Disposition: did not require urgent referral MDM Narrative 1823: The patient was evaluated in room A2, and a complete history and physical examination were performed. The patient was found to be febrile in the emergency department. Currently, the patient is not displaying any meningeal signs. Given the patient's fever, reported headache, and left lower quadrant abdominal pain, Rocephin 2 g was implemented empirically. It is thought extremely low likelihood that the patient has meningitis given his physical exam findings. Patient's mother has a video of the patient displaying which she reports to be seizure-like activity while he was waiting in the waiting room for bed in our emergency department during this time of extreme volume and extreme acuity. On the video on the patient's mother cell phone, the patient was shaking his head but not having any tonic-clonic movements. 1914: Patient's glucose was found to be low. Patient was given 1 amp of D50. Patient reports he did not eat anything today. It is unclear if the patient truly had any seizures today, however his hypoglycemia could be a possible reason for seizure. 2014: I reevaluated the patient and he reports that he feeling better at 1 amp of D50. He is currently laughing with his parents at bedside watching television. On repeat physical exam there are no meningeal signs. No pain on palpation of the abdomen. The patient has not had a seizure in the ED. 2144: I was called to bedside by the nursing staff. The patient's family stated that the patient was having a seizure. On arrival, the patient was shaking his head side to side and saying "no". I applied noxious stimuli to the patient and he immediately stopped shaking his head and said, "what is going on". It is not thought that the patient had a seizure at this time. 2255: Upon reevaluation, the patient's vital signs are stable, labs are within normal limits with the exception of mild leukocytosis of 13.39. Imagining are within normal limits. The patient will be admitted to the hospital service, for the possibility of seizure. It is unclear if the patient truly had a seizure today given that the videos that the mother showed and his behavior in the emergency department that the family was concerned about a seizure did not gildardo ear to be a true seizure. The patient's symptoms stopped when noxious stimuli were pointed to him in the emergency department. The reported seizure today was resolved without pharmaceutical intervention. It is thought that the patient's initial reported possible seizure was due to hypoglycemia which was corrected in the ED. Rocephin 2g was given to the patient empirically. The patient is current ly in no abdominal pain or has a headache. Given the patient's physical exam findings consistent with no meningeal signs throughout his emergency department stay, the resolvment of his headache, is feeling better after receiving 1 amp of D50, no true seizure in the emergency department, it is not thought that the patient is currently suffering from meningitis or encephalitis. I discussed the patient's case with Dr. Munguia- [facility] Hospitalist, who will evaluate for admission. Impression & Plan Hypoglycemia, Autistic disorder Discharge Plan Visit Data *Final* Discharge Date/Time: 05/06/19 00:22 Chief Complaint: Seizure Stated Complaint: SEIZURE, DEHYDRATED ED Provider: Ray Perez Discharge Problem: Hypoglycemia, Autistic disorder Patient Disposition: Admitted As Inpatient Discharge Instructions Interventions: ED Discharge Assessment Last Done: 05/06/19 00:22 The scribe's documentation has been prepared under my direction and personally reviewed by me in its entirety. I confirm that the note above accurately reflects all work, treatment, procedures, and medical decision making performed by me.
[2019-05-06] MEDS ORDERED: ACETAMINOPHEN 325 MG TAB PO PRN (02:53)
--- NOTE | 2019-05-06 03:12 | History & Physical Report ---
Date of Service May 06, 2019 Assessment & Plan (1) Hypoglycemia: Admit to tele Give D5 IVF overnight check BMP in am (2) Dehydration: IVF will be given overnight. (3) Seizure-like activity: I do not know if patient had seizure or not. Given that he remembers the event without losing consciousness I doubt, however he does appear dehydrated and did have low sugar which could predispose him to seizure breakthrough. (4) Autistic disorder: Patient is at baseline. (5) Tonic-clonic epilepsy: Continue topiramate (6) Headache: I see no signs of meningitis or encephalitis. CT head was negative Patient is at baseline mentation Headache has resolved completely Initially had elevated temp to 38.1 but was only one documented that was high. He was given dose of Rocephin in the ED, I did not feel there was evidence to continue at this time. History of Present Illness 29 y/o male presented to the ED concerned that he had a seizure. The patient reports a history of seizure disorder. He explains that he was walking home to which it was "very hot" when he felt need to lay on grass and proceeded to shake. He remembers shaking and does not report losing consciousness. He had no loss of bowel or bladder function, no N/V, and did not bite tongue. He felt that he was dehydrated. Upon evaluation in the ED his sugar was low at 58. There was no witness to the seizure activity only the patients report. Primary Care Provider: JILLIAN Olivarez Allergies Allergy/AdvReac Type Severity Reaction Status Date / Time phenytoin Allergy Mild RASH Verified 05/05/19 18:49 cat dander Allergy Unknown Allergy Verified 05/05/19 19:00 type symptoms chocolate flavor Allergy Unknown Unknown Verified 05/05/19 18:49 dog dander Allergy Unknown Allergy Verified 05/05/19 19:00 type symptoms red dye Allergy Unknown Unknown Verified 05/05/19 18:49 Sulfa (Sulfonamide Allergy Unknown Unknown Verified 05/05/19 18:49 Antibiotics) adhesive AdvReac Unknown RASH Verified 05/05/19 18:49 Home Medications Home Medications Medication Instructions Recorded Confirmed Type aripiprazole 15 mg PO QAM 06/22/18 05/05/19 History benztropine 0.5 mg PO QAM 06/22/18 05/05/19 History benztropine 1 mg PO HS 06/22/18 05/05/19 History docusate sodium 100 mg PO BID 06/22/18 05/05/19 History fluoxetine 10 mg PO QAM 06/22/18 05/05/19 History multivitamin 2 tab PO QAM 06/22/18 05/05/19 History polyethylene glycol 3350 [Miralax] 17 g PO QAM PRN 06/22/18 05/05/19 History topiramate 100 mg PO BID 06/22/18 05/05/19 History ibuprofen 200 mg PO QID PRN 08/17/18 05/05/19 History omeprazole 20 mg capsule,delayed 20 mg PO QAM #90 cap 01/29/19 05/05/19 Rx release acetaminophen 500 mg PO Q6H PRN 05/05/19 05/05/19 History chlorpromazine 50 mg PO HS 05/05/19 05/05/19 History inulin [Fiber Gummies] 4 g PO QAM 05/05/19 05/05/19 History Past Med/Surg History Medical History Autistic disorder (Chronic 11/23/12) Hypothyroidism (Chronic) Learning difficulties (Chronic 11/23/12) Mental retardation (Chronic 05/12/13) Tonic-clonic epilepsy (Chronic 11/23/12) Family History Other FH: brain cancer Social History Preferred Language: Irish Osha Inspector Required: No Beliefs That Will Affect Care: None marital status: Single Current Living Situation: Personal Care Facility Current Living Situation Comment: with 2 roommates current occupation: Volunte[employer] Other Information That Helps Us Care for You: No Feels Safe at Home: Yes Safety Concerns: Feels Safe At This Time Smoking Status: Never smoker Hx Alcohol Use: No Hx Substance Use: No Review of Systems Review of Systems: NEEDS EDITING Constitutional- no fever reported; no weight loss Eyes- no acute visual changes ENT- no sinus drainage; no pharyngitis Pulmonary- no cough, no wheezing, no shortness of breath Cardiac- no chest pain, no palpitations, no orthopnea, no dependent edema GI- no nausea, no vomiting, no diarrhea. - no dysuria, no hematuria Musculoskeletal- no arthralgias, no myalgias Derm- no rashes, no new skin lesions, no changing skin lesions Hematologic- no unusual bruising, no unusual bleeding Lymphatics- no adenopathy Endocrine- no polyuria or polydipsia; no heat or cold intolerance Neuro- + mild headache upon arrival to the ED had since resolved. no focal neurologic symptoms Psych- no anxiety, no depression Physical Exam Physical Exam: NEEDS EDITING General- adult, male, NAD Head- atraumatic Eyes- PERRL, EOMI, anicteric ENT- oropharynx clear, lips are dry and cracked. Neck- supple, no meningeal signs, no JVD, no adenopathy, no thyromegaly. Lungs- clear to auscultation, No rales, rhonchi or wheezes. Heart- regular rhythm; no murmur, no gallop. Abdomen- normal bowel sounds, soft, nontender. Extremities- no pretibial edema, no calf tenderness; peripheral pulses intact Neuro- alert, oriented x 3; PERRL, EOMI; Non-focal, creative guru II-XII grossly intact. Skin- warm & dry Results & Data Vital Signs (Past 12 Hours) Vital Signs Temp Pulse Pulse Resp BP BP Pulse Ox 05/06/19 01:00 37.0 C 75 84 16 100/67 98 05/06/19 00:22 81 20 113/67 100 05/05/19 23:21 87 20 113/66 100 05/05/19 22:39 36.8 C 05/05/19 22:24 91 H 25 H 119/67 98 05/05/19 21:49 91 H 20 112/45 L 96 05/05/19 20:39 100 H 20 131/62 99 05/05/19 19:42 95 05/05/19 19:40 98 05/05/19 19:28 93 H 27 H 124/73 95 05/05/19 17:49 38.1 C H 95 H 20 112/70 99 Laboratory Results Laboratory Results WBC 13.39 K/uL (4.8-10.8) H 05/05/19 19:29 RBC 4.74 M/uL (4.7-6.1) 05/05/19 19:29 Hgb 14.7 g/dL (14.0-18.0) 05/05/19: Hct 42.9 % (42-52) 05/05/19: MCV 90.5 fL (80-100) 05/05/19 19: MCH 31.0 pg (25-34) 05/05/19: MCHC 34.3 g/dL (32-36) 05/05/19: RDW Std Deviation 43.3 fL (36.4-46.3) 05/05/19: RDW Coeff of Abilio 13.0 % (11.5-14.5) 05/05/19 Plt Count 143 K/uL (130-400) 05/05/19 MPV 12.4 fL (7.4-10.4) H 05/05/19: Immature Gran % (Auto) 0.1 % 05/05/19 Neut % (Auto) 83.8 % 05/05/19: Lymph % (Auto) 6.4 % 05/05/19: [place] % (Auto) 9.3 % 05/05/19: Eos % (Auto) 0.2 % 05/05/19 Baso % (Auto) 0.2 % 05/05/19 Immature Gran # (Auto) 0.02 K/uL (0.00-0.02) 05/05/19 Neut # (Auto) 11.21 K/uL (1.4-6.5) H 05/05/19: Lymph # (Auto) 0.86 K/uL (1.2-3.4) L 05/05/19: [place] # (Auto) 1.24 K/uL (0.11-0.59) H 05/05/19: Eos # (Auto) 0.03 K/uL (0-0.5) 05/05/19 Baso # (Auto) 0.03 K/uL (0-0.2) 05/05/19: PT 11.5 Seconds (9.0-12.0) 05/05/19: INR 1.1 (0.9-1.1) 05/05/19 19: APTT 27.3 Seconds (21.0-31.0) 05/05/19: PTT Ratio 1.0 05/05/19 19: Sodium 138 mmol/L (136-145) 05/05/19 19: Potassium 3.3 mmol/L (3.5-5.1) L 05/05/19: Chloride 108 mmol/L (98-107) H 05/05/19: Carbon Dioxide 23 mmol/L (21-32) 05/05/19: Anion Gap 7.0 (3-11) 05/05/19: BUN 13 mg/dl (7-18) 05/05/19: Creatinine 1.33 mg/dl (0.6-1.4) 05/05/19: Est Cr Clr Drug Dosing Not Reportable 05/05/19: Est GFR ( Amer) 83.1 05/05/19: Est GFR (Non-Af Amer) 71.7 05/05/19: BUN/Creatinine Ratio 9.6 (10-20) L 05/05/19 19: Glucose 98 mg/dl (70-99) 05/05/19: POC Glucose 88 (70-99) 05/06/19 00:50 Lactate 1.4 mmol/L (0.4-2.0) 05/05/19: Calcium 8.8 mg/dl (8.5-10.1) 05/05/19: Magnesium 1.8 mg/dl (1.8-2.4) 05/05/19: Total Bilirubin 0.6 mg/dl (0.2-1) 05/05/19: Direct Bilirubin 0.2 mg/dl (0-0.2) 05/05/19 19: AST 19 U/L (15-37) 05/05/19: ALT 22 U/L (12-78) 05/05/19: Alkaline Phosphatase 64 U/L (45-117) 05/05/19 19: Total Creatine Kinase 162 U/L (39-308) 05/05/19: Total Protein 7.2 gm/dl (6.4-8.2) 05/05/19: Albumin 4.1 gm/dl (3.4-5.0) 05/05/19: Lipase 168 U/L (73-393) 05/05/19: Urine Color Yellow 05/05/19 19: Urine Appearance Cloudy (Clear) A 05/05/19 19: Urine pH 7.0 (4.5-7.5) 05/05/19: Ur Specific [place] 1.020 (1.000-1.030) 05/05/19 19: Urine Protein Negative (Negative) 05/05/19: Urine Glucose (UA) Negative (Negative) 05/05/19: Urine Ketones Negative (Negative) 05/05/19: Urine Blood Negative (Negative) 05/05/19: Urine Nitrite Negative (Negative) 05/05/19: Urine Bilirubin Negative (Negative) 05/05/19: Urine Urobilinogen Negative (Negative) 05/05/19: Ur Leukocyte Esterase Negative (Negative) 05/05/19 19: Urine WBC (Auto) 1-5 /hpf (0-5) 05/05/19: Urine RBC (Auto) 0-4 /hpf (0-4) 05/05/19: U Hyaline Cast (Auto) 0 /lpf (0-5) 05/05/19 19: U Epithel Cells (Auto) 5-10 /lpf (0-5) H 05/05/19: Urine Bacteria (Auto) Negative (Negative) 05/05/19 19: Lyme Disease IgG Ab Negative (Negative) 05/05/19: Lyme Disease IgM Ab Negative (Negative) 05/05/19 19: Influenza Type A (PCR) Neg for Influ A (Neg) 05/05/19 19: Influenza Type B (PCR) Neg for Influ B (Neg) 05/05/19 19: Code Status & VTE Plan VTE Prophylaxis Plan VTE Prophylaxis will be ordered: Yes PG Care Time/CCT Total # of Minutes Spent Total Time Spent: 55 Total Time Spent with Patient: Total time spent is greater than 50% in coordination of care (as documented) at patient's floor/unit and/or counseling patient:
[2019-05-06] MEDS: D5W AND 1/2NSS + 20MEQ KCL 20 MEQ/1,000 ML BAG IV SCH ×2 (03:38→12:24)
[2019-05-06] MEDS ORDERED: PANTOprazole 40 MG TAB PO SCH (09:00)
[2019-05-06] MEDS ORDERED: DOCUSATE SODIUM 100 MG CAP PO SCH (09:00)
[2019-05-06] MEDS ORDERED: ARIPiprazole 15 MG TAB PO SCH (09:00)
[2019-05-06] MEDS ORDERED: MAGNESIUM OXIDE 400 MG TAB PO SCH (09:00)
[2019-05-06] MEDS ORDERED: FLUOXETINE HCL 10 MG CAP PO SCH (09:00)
[2019-05-06] MEDS ORDERED: BENZTROPINE MESYLATE 1 MG TAB PO SCH (09:00)
[2019-05-06] MEDS: POTASSIUM CHLORIDE 10 MEQ TABCR PO SCH ×3 (09:17→18:06)
--- NOTE | 2019-05-06 11:42 | Discharge Summary ---
Date of Service May 06, 2019 Admission HPI Per Admitting Provider 29 y/o male presented to the ED concerned that he had a seizure. The patient reports a history of seizure disorder. He explains that he was walking home to which it was "very hot" when he felt need to lay on grass and proceeded to shake. He remembers shaking and does not report losing consciousness. He had no loss of bowel or bladder function, no N/V, and did not bite tongue. He felt that he was dehydrated. Upon evaluation in the ED his sugar was low at 58. There was no witness to the seizure activity only the patients report. Primary Care Provider: JILLIAN Olivarez Admission Exam Per Admitting Provider General- adult, male, NAD Head- atraumatic Eyes- PERRL, EOMI, anicteric ENT- oropharynx clear, lips are dry and cracked. Neck- supple, no meningeal signs, no JVD, no adenopathy, no thyromegaly. Lungs- clear to auscultation, No rales, rhonchi or wheezes. Heart- regular rhythm; no murmur, no gallop. Abdomen- normal bowel sounds, soft, nontender. Extremities- no pretibial edema, no calf tenderness; peripheral pulses intact Neuro- alert, oriented x 3; PERRL, EOMI; Non-focal, inside upholsterer II-XII grossly intact. Skin- warm & dry Principal Diagnosis Dehydration Discharge Exam General: A&Ox3. NAD. Cooperative. Cranial nerves grossly intact. Skin warm and dry. HEENT: Atraumatic, normocephalic. Pulm: CTAB A&P. -wheezes, -rales, -rhonchi. Symmetrical chest rise. No increased work of breathing. No respiratory distress. Cardiac: RRR, -mrg. Radial pulses intact and symmetrical. Abdominal: Nontender, nondistended, soft. BS present. Discharge Data Allergies Allergy/AdvReac Type Severity Reaction Status Date / Time phenytoin Allergy Mild RASH Verified 05/05/19 18:49 cat dander Allergy Unknown Allergy Verified 05/05/19 19:00 type symptoms chocolate flavor Allergy Unknown Unknown Verified 05/05/19 18:49 dog dander Allergy Unknown Allergy Verified 05/05/19 19:00 type symptoms red dye Allergy Unknown Unknown Verified 05/05/19 18:49 Sulfa (Sulfonamide Allergy Unknown Unknown Verified 05/05/19 18:49 Antibiotics) adhesive AdvReac Unknown RASH Verified 05/05/19 18:49 Consultations 05/05/19 22:52 ED Decision to Admit Stat Ordered Studies 05/05/19 18:28 CT abd pelvis IV con only Stat CT head/brain wo con Stat Hospital Course (1) Seizure-like activity: Yehuda is a 29-year-old male with a past medical history of tonic-clonic epilepsy and autistic disorder who presented to the emergency department with concerns that he had a seizure. Seizure-like activity Yehuda presented to the emergency room with concern for having a seizure. He reported that when he was walking home he felt very hot, and felt need to lay on the grass and had a shaking episode during which she did not lose consciousness, did not have loss of bladder or bladder function, did not bite his tongue, and did not feel he had focal or generalized weakness afterwards. Forwarded to the emergency physician that he was working outside in the heat, and also smoke something with a coworker which he thought was a menthol cigarette but was unsure. On arrival to the emergency department he was hypoglycemic. He was treated with IV fluids and dextrose, and clinically improved. Head CT showed no acute intracranial findings.EKG showed a normal sinus rhythm. History of seizures Yehuda has a past medical history of tonic-clonic seizures with no recent seizures in the past few months. He was continued on his prior to admission topiramate in addition to aripiprazole, benztropine, chlorpromazine, and fluoxe milli during admission. He did not have any observable seizure activity during admission treated for his to admission seizure-like activity as noted above. Leukocytosis Yehuda had a leukocytosis to 13.4 without bandemia and a temperature of 38.1 degrees on admission. His temperature resolved with IV fluid support and following a single empiric dose of Rocephin in the emergency department. Blood cultures were drawn and were negative at time of discharge. Chest x-ray and CT of the abdomen and pelvis did not show any acute findings or changes suspicious for infectious etiology. He did not have any recurrent fevers over admission. Lyme serology was drawn, IgG antibody was negative with Western blot pending. He was negative for influenza. Discharged with further follow-up to his primary care physician.It was thought that his leukocytosis was secondary to demargination versus viral etiology. He appeared clinically well and in no distress at time of discharge with stable vitals. DVT prophylaxis: Early ambulation/SCDs were used for DVT prophylaxis. Pharmacologic prophylaxis was deferred. (2) Dehydration: (3) Hypoglycemia: (4) Autistic disorder: (5) Headache: Total Time Total Time Spent Total Time Spent (In Minutes): Less than 30 Discharge Plan Discharge Items Patient Disposition: Home - Self-Care Reason For Visit: SEIZURE, FEBRILE ILLNESS Discharge Diagnosis: Hypoglycemia Volume Depletion Activity: Resume your previous activity Non-emergency contact: Primary Care Provider Call non-emergency contact if: you have any medication questions Follow-up/Referrals: Carolyn Casas CRNP [Primary Care Provider] - Diet: Regular Addtl Attending Provider Instructions: You were seen in the hospital for concern of seizure-like activity. He did not show any signs of seizures during your admission, and had no loss of consciousness or incontinence. It is unlikely that your presentation was due to a seizure. Your blood sugar was noted to be low at 58 and you are mildly dehydrated. He felt clinically improved with IV fluids and additional sugar overnight. We will follow back to her normal baseline, and if not had medication changes made at this time. Your chest x-ray and CAT scan of your abdomen and pelvis did not show any signs of infection. Your CAT scan of your head did not show any concerning changes. You have not had any medication changes at this time. A follow-up appointment is being scheduled for you with your primary care provider Carolyn Casas. You should receive a call to confirm your appointment within 48 hours. If you do not receive a call, or need to cancel/change your appointment, please call her office at [phone]. If you develop any fevers, chills, sweats, abdominal pain, nausea, vomiting, diarrhea, inability to tolerate food or drink, passing out or nearly passing out, episodes of shaking, episodes of weakness, urinary or bladder incontinence, chest pain, chest pressure, shortness of breath, difficulty breathing or other concerning symptoms please contact your primary care provider, or call 911 for transport to an evaluation in the emergency department if you are very concerned. Pending Studies at Discharge: No Stand-Alone Forms: My [facility] Medications and DC Order Prescriptions: Continued omeprazole 20 mg capsule,delayed release(DR/EC) 20 mg PO QAM Qty: 90 RF: 3 ibuprofen 200 mg Tablet 200 mg PO QID PRN (Reason: Fever Or Pain) RF: 0 multivitamin Tablet 2 tab PO QAM RF: 0 benztropine 1 mg tablet 0.5 mg PO QAM RF: 0 benztropine 1 mg tablet 1 mg PO HS RF: 0 fluoxetine 10 mg capsule 10 mg PO QAM RF: 0 polyethylene glycol 3350 [Miralax] 17 gram/dose Powder 17 g PO QAM PRN (Reason: Constipation) RF: 0 topiramate 100 mg tablet 100 mg PO BID RF: 0 docusate sodium 100 mg Tablet 100 mg PO BID RF: 0 aripiprazole 15 mg tablet 15 mg PO QAM RF: 0 chlorpromazine 50 mg tablet 50 mg PO HS RF: 0 Fiber Gummies 2 gram Tablet,Chewable 4 g PO QAM RF: 0 acetaminophen 500 mg Tablet 500 mg PO Q6H PRN (Reason: Fever Or Pain) RF: 0 Discharge Orders: Discharge Order (Routine); Ordered 05/06/19 Ordered By: Grant Mcknight Admission Data Admit Date/Time: 05/05/19 23:47 Attending Provider: Prieto Richardson Admit Provider: Cristo Pabon Primary Care Provider: Carolyn Casas I Other Providers: Cristo Pabon Other Interventions: Discharge Summary Assessment (RN) Last Done: 05/06/19 15:53 DC Date/Time DO NOT enter until pt leaves facility: 05/06/19 18:08 Supervising Physician Co-Signing Physician Notes I personally examined the patient and verified all zheng points of history and exam, discussed case, and agree with decision making with Dr Mcknight. Feeling better and wants to go home. Vitals noted, in general he is awake and alert pleasant no distress. HEENT normal cephalic atraumatic mucous membranes moist. Breathing unlabored no accessory muscle use good effort. Weakness/dehydration/hypoglycemiaappears to have all related to poor oral intake and exertion. Improved with IV fluids. Discussed appropriate hydration standards. Stable for home. Resident Activity Tracking Resident Involvement: Resident Care Provided Care Provided: Adult Hospital Medicine
[2019-05-06 14:24] LABS: Amphetamines+Metham, Urine Neg (Neg); Barbiturates, Urine Neg (Neg); Benzodiazepine, Urine Neg (Neg); Cocaine, Urine Neg (Neg); MDMA (Ecstacy), Urine Neg (Neg); Methadone, Urine Neg (Neg); Opiate, Urine Neg (Neg); Phencyclidine, Urine Neg (Neg)
[2019-05-13 20:21] LABS: 18KDIGG Band REACTIVE (NONREACTIVE); 23KDIGG Band NONREACTIVE (NONREACTIVE); 23KDIGM Band NONREACTIVE (NONREACTIVE); 28KDIGG Band NONREACTIVE (NONREACTIVE); 30KDIGG Band REACTIVE (NONREACTIVE); 39KDIGG Band NONREACTIVE (NONREACTIVE); 39KDIGM Band NONREACTIVE (NONREACTIVE); 41KDIGG Band REACTIVE (NONREACTIVE); 41KDIGM Band REACTIVE (NONREACTIVE); 45KDIGG Band REACTIVE (NONREACTIVE); 58KDIGG Band NONREACTIVE (NONREACTIVE); 66KDIGG Band NONREACTIVE (NONREACTIVE); 93KDIGG Band NONREACTIVE (NONREACTIVE); Lyme Antibodies, WB IgG NEGATIVE (NEGATIVE); Lyme Antibodies, WB IgM NEGATIVE (NEGATIVE)
== END 2019-05-06 18:08 | disposition home or self-care (01) | DRG 641 ==
LOC: ED 17:28 → 2N 23:47 → SUATTDRO 23:47 → 2N 05-06 00:22

== ENCOUNTER 2022-02-01 01:42 | Observation (INO) ==
[2022-02-01] MEDS ORDERED: ONDANSETRON INJ 2 MG/ML 2 ML VIAL ONE (02:35)
[2022-02-01] MEDS ORDERED: MoRPHine SULFATE 4 MG/ML 1 ML CARP\\VIAL ONE (02:35)
[2022-02-01] MEDS ORDERED: SODIUM CHLORIDE 0.9% 1000ML 1,000 ML IV STA (02:59)
[2022-02-01] MEDS ORDERED: MoRPHine SULFATE 4 MG/ML 1 ML CARP\\VIAL IV STA (02:59)
[2022-02-01] MEDS ORDERED: ONDANSETRON INJ 2 MG/ML 2 ML VIAL IV STA (02:59)
--- NOTE | 2022-02-01 03:02 | Emergency Department Note ---
Impression & Plan Acute appendicitis ADMIT ED Provider Note HPI: The patient is a 31-year-old male with history of autism spectrum disorder, schizoaffective disorder, presents the emergency department chief complaint of abdominal pain. Patient states that earlier today he developed some mid abdominal pain, states he had an episode of diarrhea. Patient denies any vomiting, states he has had some nausea. On arrival to the ED the patient is hemodynamically stable, he is in no acute distress on my initial evaluation. ROS: -GI: Abdominal pain *10 point review systems was conducted and is otherwise negative unless stated above *Outpatient medications and allergy history reviewed PE: General: Alert, NAD HEENT: Normocephalic, atraumatic Eyes: Extraocular eye movement is intact, no scleral erythema Pulmonary: Clear to auscultation bilaterally, no wheezing Cardio: Regular rate and rhythm GI: Abdomen is soft, mild tenderness to palpation over the mid abdomen without guarding or rigidity : No suprapubic tenderness MSK: No evidence of trauma or malformation of the extremities, no edema Skin: No evidence of rash Neuro: Alert, no focal deficits Psychiatric: Cooperative CT ABDOMEN & PELVIS With Contrast: Limited exam given bone algorithm sagittal reformatted images. The appendix measures up to 9 mm in length (series 2 image 65). Findings may relate to acute appendicitis. No evidence of perforation. Consider correlation with physical exam and laboratory values. No evidence of bowel obstruction. No other acute findings. Radiologist:Keisha Richmond MD Study ready at 03:22 and initial results transmitted at 03:33 youth nutritional monitor: - An order was placed for continuous cardiac monitoring - Patient was noted to be in sinus rhythm with rate of 59 Medical Decision Making: Patient presented to the emergency department abdominal pain, CT imaging of the abdomen pelvis shows evidence of appendicitis. Patient does not have any evidence of peritonitis on my exam but he does have tenderness in the mid abdomen to palpation. No leukocytosis. Patient is hemodynamically stable. Patient was given morphine and IV fluids here in the ED for his symptoms and on my reassessment he states he is feeling improved. I did discuss the case with the on-call general surgery midlevel provider, Virgil Gunderson, who did evaluate the patient at the bedside and patient will be admitted to the surgical service for definitive care. Patient is in agreement to the above plan he was admitted in stable condition. Patient was ordered ceftriaxone, maintenance fluids, and made n.p.o. while in the ED. Patient was admitted to the surgical service of Dr. Glover in stable condition with plan for operative intervention in the morning. Diagnosis: 1. Acute appendicitis 2. Nausea 3. 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 Learning difficulties (11/23/12) Mental retardation (05/12/13) Migraine Mild intellectual disability Schizoaffective disorder Seizure disorder per pt, was diagnosed as pseudo seizure > last one over a year, no longer has to see neuro Split urinary stream Surgical History History of esophagogastroduodenoscopy (EGD) [place] teeth removed Family History Mother Breast cancer Brother FH: brain cancer Grandmother Dementia Other Diabetes Hypertension Denies family history of Ovarian cancer Prostate cancer Lung cancer Colorectal cancer Social History Smoking Status: Never smoker Second Hand Exposure: No; Hx Alcohol Use: No Hx Substance Use: No Preferred Language: Slovenian Communication Ability: Effective Visual Impairment: Limited Hearing Ability: Normal 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 Beliefs That Will Affect Care: None marital status: Single Current Living Situation: Personal Care Facility Current Living Situation Comment: with 2 roommates current occupational status: unemployed current occupation: Volunteers Feels Safe at Home: Yes Childhood Exposure to Second-Hand Smoke: No caffeine: Yes Dental Care, Regularly: Yes Physical Activity Frequency: Daily Seatbelt Use: always Sunscreen Use: Yes Assistive Devices: Glasses Allergies Allergies Allergy/AdvReac Type Severity Reaction Status Date / Time phenytoin Allergy Mild RASH Verified 02/01/22 03:03 cat dander Allergy Unknown Allergy Verified 02/01/22 03:03 type symptoms chocolate flavor Allergy Unknown Unknown Verified 02/01/22 03:03 dog dander Allergy Unknown Allergy Verified 02/01/22 03:03 type symptoms red dye Allergy Unknown Unknown Verified 02/01/22 03:03 Sulfa (Sulfonamide Allergy Unknown Unknown Verified 02/01/22 03:03 Antibiotics) adhesive AdvReac Mild RASH Verified 02/01/22 03:03 polyester fibers AdvReac Unknown Unknown Verified 02/01/22 03:03 Home Meds Home Medications Medication Instructions Recorded Confirmed acetaminophen 500 mg tablet 500 mg PO Q6H PRN 05/05/19 02/01/22 polyethylene glycol 3350 17 17 g PO DAILY PRN 08/16/20 02/01/22 gram/dose oral powder (Miralax) chlorhexidine gluconate 0.12 % 15 ml PO 3XWK 07/05/21 02/01/22 mouthwash aripiprazole 10 mg tablet (Abilify) 10 mg PO HS tab 09/27/21 02/01/22 fluoride (sodium) 1.1 % dental 1 applic DENTAL 3XWK g 09/27/21 02/01/22 cream fluoxetine 20 mg capsule 40 mg PO QAM cap 09/27/21 02/01/22 hydroxyzine HCl 25 mg tablet 50 mg PO HS tab 09/27/21 02/01/22 topiramate 100 mg tablet 100 mg PO BID 09/27/21 02/01/22 multivitamin 1 tab PO PM 10/30/21 02/01/22 pantoprazole 40 mg tablet,delayed 40 mg PO QAM 10/30/21 02/01/22 release (Protonix) Results & Data (ED) Vital Signs Vital Signs - 24 hr 02/01/22 01:51 02/01/22 02:14 02/01/22 03:01 Temperature 36.5 C 36.9 C Temperature Source Temporal Artery Scan Oral Pulse Rate 92 H 72 Pulse Rate [Finger] 72 Pulse Rhythm Regular Pulse Rhythm [Finger] Regular Pulse Strength [Finger] Normal Respiratory Rate 20 18 16 Respiratory Effort / Characteristics Non-Labored Spontaneous Respiratory Depth Normal Respiratory Pattern Regular Blood Pressure 115/73 Blood Pressure [Right Arm] 122/65 Blood Pressure Mean 87 Blood Pressure Mean [Right Arm] 84 Blood Pressure Position [Right Arm] Semi-fowlers Pulse Oximetry 96 97 97 Oxygen Delivery Method Room Air Room Air Room Air Sepsis Recent Fever Within 48 Hours No Sepsis New/Unexplained Change in Mental Status No Sepsis Action Taken by Nursing No Action Required Laboratory Data Result diagrams: 02/01/22 02:15 02/01/22 02:15 Lab Results 02/01/22 02/01/22 02/01/22 Range/Units 02:15 02:15 02:15 WBC Cancelled RBC Cancelled Hgb Cancelled Hct Cancelled MCV Cancelled MCH Cancelled MCHC Cancelled RDW Std Deviation Cancelled RDW Coeff of Abilio Cancelled Plt Count Cancelled MPV Cancelled Immature Gran % (Auto) % Neut % (Auto) % Lymph % (Auto) % [place] % (Auto) % Eos % (Auto) % Baso % (Auto) % Neut # (Auto) (1.4-6.5) K/uL Lymph # (Auto) (1.2-3.4) K/uL [place] # (Auto) (0.11-0.59) K/uL Eos # (Auto) (0-0.5) K/uL Baso # (Auto) (0-0.2) K/uL Immature Gran # (Auto) (0.00-0.02) K/uL Absolute Nucleated RBC Cancelled Nucleated RBC % (auto) Cancelled Platelet Estimate Cancelled Sodium Cancelled Potassium Cancelled Chloride Cancelled Carbon Dioxide Cancelled Anion Gap Cancelled BUN Cancelled Creatinine Cancelled Est Cr Clr Drug Dosing Cancelled Est GFR ( Amer) Cancelled Est GFR (Non-Af Amer) Cancelled BUN/Creatinine Ratio Cancelled Glucose Cancelled Calcium Cancelled Total Bilirubin Cancelled AST Cancelled ALT Cancelled Alkaline Phosphatase Cancelled Total Protein Cancelled Albumin Cancelled Globulin Cancelled Albumin/Globulin Ratio Cancelled Lipase Cancelled Urine Color Cancelled Urine Appearance Cancelled Urine pH Cancelled Ur Specific Corea Cancelled Urine Protein Cancelled Urine Glucose (UA) Cancelled Urine Ketones Cancelled Urine Blood Cancelled Urine Nitrite Cancelled Urine Bilirubin Cancelled Urine Urobilinogen Cancelled Ur Leukocyte Esterase Cancelled Urine WBC (Auto) Cancelled Urine RBC (Auto) Cancelled U Hyaline Cast (Auto) Cancelled U Epithel Cells (Auto) Cancelled Urine Bacteria (Auto) Cancelled Ur Renal Epithelial Cell Cancelled Urine Crystals Cancelled Calcium Oxalate Crystal Cancelled Uric Acid Crystals Cancelled Triple Phos Crystals Cancelled Other Crystals Cancelled Amorphous Sediment Cancelled Granular Casts Cancelled Waxy Casts Cancelled RBC Casts Cancelled WBC Casts Cancelled Other Casts Cancelled Urine Mucus Cancelled Urine Other Cancelled Urine Trichomonas Cancelled Urine Yeast Cancelled Urine Sperm Cancelled Ur Oval Fat Bodies Cancelled 02/01/22 02/01/22 02/01/22 Range/Units 02:15 02:15 02:21 WBC 6.22 RBC 4.94 Hgb 14.9 Hct 43.2 MCV 87.4 MCH 30.2 MCHC 34.5 RDW Std Deviation 42.4 RDW Coeff of Abilio 13.2 Plt Count 176 MPV 12.0 H Immature Gran % (Auto) 0.0 % Neut % (Auto) 44.5 % Lymph % (Auto) 42.8 % [place] % (Auto) 10.5 % Eos % (Auto) 1.6 % Baso % (Auto) 0.6 % Neut # (Auto) 2.77 (1.4-6.5) K/uL Lymph # (Auto) 2.66 (1.2-3.4) K/uL [place] # (Auto) 0.65 H (0.11-0.59) K/uL Eos # (Auto) 0.10 (0-0.5) K/uL Baso # (Auto) 0.04 (0-0.2) K/uL Immature Gran # (Auto) 0.00 (0.00-0.02) K/uL Absolute Nucleated RBC 0.00 Nucleated RBC % (auto) 0.0 Platelet Estimate Sodium 138 Potassium 3.3 L Chloride 107 Carbon Dioxide 22 Anion Gap 9 BUN 17 Creatinine 1.34 Est Cr Clr Drug Dosing 95.5 Est GFR ( Amer) 81.2 Est GFR (Non-Af Amer) 70.1 BUN/Creatinine Ratio 12.7 Glucose 90 Calcium 8.8 Total Bilirubin 0.7 AST 17 ALT 16 Alkaline Phosphatase 52 Total Protein 7.0 Albumin 4.2 Globulin 2.8 Albumin/Globulin Ratio 1.5 Lipase 62 Urine Color Cancelled Urine Appearance Cancelled Urine pH Cancelled Ur Specific [place] Cancelled Urine Protein Cancelled Urine Glucose (UA) Cancelled Urine Ketones Cancelled Urine Blood Cancelled Urine Nitrite Cancelled Urine Bilirubin Cancelled Urine Urobilinogen Cancelled Ur Leukocyte Esterase Cancelled Urine WBC (Auto) Cancelled Urine RBC (Auto) Cancelled U Hyaline Cast (Auto) Cancelled U Epithel Cells (Auto) Cancelled Urine Bacteria (Auto) Cancelled Ur Renal Epithelial Cell Cancelled Urine Crystals Cancelled Calcium Oxalate Crystal Cancelled Uric Acid Crystals Cancelled Triple Phos Crystals Cancelled Other Crystals Cancelled Amorphous Sediment Cancelled Granular Casts Cancelled Waxy Casts Cancelled RBC Casts Cancelled WBC Casts Cancelled Other Casts Cancelled Urine Mucus Cancelled Urine Other Cancelled Urine Trichomonas Cancelled Urine Yeast Cancelled Urine Sperm Cancelled Ur Oval Fat Bodies Cancelled 02/01/22 Range/Units 02:21 WBC RBC Hgb Hct MCV MCH MCHC RDW Std Deviation RDW Coeff of Abilio Plt Count MPV Immature Gran % (Auto) % Neut % (Auto) % Lymph % (Auto) % [place] % (Auto) % Eos % (Auto) % Baso % (Auto) % Neut # (Auto) (1.4-6.5) K/uL Lymph # (Auto) (1.2-3.4) K/uL [place] # (Auto) (0.11-0.59) K/uL Eos # (Auto) (0-0.5) K/uL Baso # (Auto) (0-0.2) K/uL Immature Gran # (Auto) (0.00-0.02) K/uL Absolute Nucleated RBC Nucleated RBC % (auto) Platelet Estimate Sodium Potassium Chloride Carbon Dioxide Anion Gap BUN Creatinine Est Cr Clr Drug Dosing Est GFR ( Amer) Est GFR (Non-Af Amer) BUN/Creatinine Ratio Glucose Calcium Total Bilirubin AST ALT Alkaline Phosphatase Total Protein Albumin Globulin Albumin/Globulin Ratio Lipase Urine Color Yellow Urine Appearance Clear Urine pH 6.0 Ur Specific [place] 1.018 Urine Protein Negative Urine Glucose (UA) Negative Urine Ketones Negative Urine Blood Negative Urine Nitrite Negative Urine Bilirubin Negative Urine Urobilinogen Negative Ur Leukocyte Esterase Negative Urine WBC (Auto) Urine RBC (Auto) U Hyaline Cast (Auto) U Epithel Cells (Auto) Urine Bacteria (Auto) Ur Renal Epithelial Cell Urine Crystals Calcium Oxalate Crystal Uric Acid Crystals Triple Phos Crystals Other Crystals Amorphous Sediment Granular Casts Waxy Casts RBC Casts WBC Casts Other Casts Urine Mucus Urine Other Urine Trichomonas Urine Yeast Urine Sperm Ur Oval Fat Bodies Administered Medications Sodium Chloride (Nss 1000ml) 1,000 mls @ 80 mls/hr IV .[id number] PINKY Stop: 03/03/22 03:44 Last Admin: 02/01/22 03:56 Dose: 80 mls/hr Documented by: [id number] Discontinued Medications Sodium Chloride (Nss 1000ml) 1,000 mls @ 999 mls/hr IV .[id number] STA Stop: 02/01/22 03:59 Last Infusion: 02/01/22 03:56 Dose: 0 mls/hr Documented by: [id number] Admin: 02/01/22 02:24 Dose: 999 mls/hr Documented by: [id number] Ioversol (Optiray 320 100ml) 100 ml IV ONCE ONE Stop: 02/01/22 03:15 Last Admin: 02/01/22 03:14 Dose: 93 ml Documented by: [id number] Morphine Sulfate (Morphine Sulfate 4 Mg/Ml 1 Ml Carp\Vial) Confirm Administered Dose 4 mg .ROUTE .STK-MED ONE Stop: 02/01/22 02:36 Last Admin: 02/01/22 02:38 Dose: 4 mg Documented by: [id number] Morphine Sulfate (Morphine Sulfate 4 Mg/Ml 1 Ml Carp\Vial) 4 mg IV NOW STA Stop: 02/01/22 03:00 Last Admin: 02/01/22 03:18 Dose: Not Given Documented by: [id number] Ondansetron HCl (Ondansetron Inj 2 Mg/Ml 2 Ml Vial) Confirm Administered Dose 4 mg .ROUTE .STK-MED ONE Stop: 02/01/22 02:36 Last Admin: 02/01/22 02:36 Dose: 4 mg Documented by: [id number] Ondansetron HCl (Ondansetron Inj 2 Mg/Ml 2 Ml Vial) 4 mg IV NOW STA Stop: 02/01/22 03:00 Last Admin: 02/01/22 03:18 Dose: Not Given Documented by: [id number] Discharge Plan Visit Data Chief Complaint: Abdominal Pain Stated Complaint: STOMACH PAIN ED Provider: Mu Barry Discharge Problem: Acute appendicitis Forms Stand Alone Forms: [facility] Prescriptions Prescriptions: No Action topiramate 100 mg tablet 100 mg PO BID RF: 0 hydroxyzine HCl 25 mg tablet 50 mg PO HS RF: 0 aripiprazole [Abilify] 10 mg tablet 10 mg PO HS RF: 0 fluoride (sodium) 1.1 % cream 1 applic dental 3XWK RF: 0 polyethylene glycol 3350 [Miralax] 17 gram/dose powder 17 g PO DAILY PRN (Reason: Constipation) RF: 0 fluoxetine 20 mg capsule 40 mg PO QAM RF: 0 acetaminophen 500 mg Tablet 500 mg PO Q6H PRN (Reason: Fever Or Pain) RF: 0 chlorhexidine gluconate 0.12 % mouthwash 15 ml PO 3XWK RF: 0 pantoprazole [Protonix] 40 mg tablet,delayed release (DR/EC) 40 mg PO QAM RF: 0 multivitamin Tablet 1 tab PO PM RF: 0 Referrals Referrals: Clyde Gomez DO [Primary Care Provider] - Discharge Problem: Acute appendicitis Qualifiers: Acute appendicitis type: unspecified acute appendicitis type Qualified Code(s): K35.80 - Unspecified acute appendicitis
[2022-02-01 03:11] LABS: Basophils # (auto) 0.04 K/uL (0-0.2); Basophils % (auto) 0.6 %; Eosinophils % (auto) 1.6 %; Hematocrit (blood only) 43.2 % (42-52); Hemoglobin 14.9 g/dL (14.0-18.0); Lymphocytes # (auto) 2.66 K/uL (1.2-3.4); Lymphocytes % (auto) 42.8 %; Mean Corpuscular Hemoglobin 30.2 pg (25-34); Mean Corpuscular Hgb Conc 34.5 g/dL (32-36); Mean Corpuscular Volume 87.4 fL (80-100); Monocytes # (auto) 0.65 K/uL (0.11-0.59); Monocytes % (auto) 10.5 %; Neutrophils # (auto) 2.77 K/uL (1.4-6.5); Neutrophils % (auto) 44.5 %; Platelet Count 176 K/uL (130-400); RDW Coefficient of Variation 13.2 % (11.5-14.5); RDW Standard Deviation 42.4 fL (36.4-46.3); Red Blood Count 4.94 M/uL (4.7-6.1); White Blood Count 6.22 K/uL (4.8-10.8)
[2022-02-01] MEDS ORDERED: OPTIRAY 320 100ml IV ONE (03:14)
[2022-02-01 03:15] LABS: Appearance Urine Clear (Clear); Bilirubin Urine Negative (Negative); Blood Urine Negative (Negative); Color Urine Yellow; Glucose Urine UA Negative (Negative); Ketones Urine Negative (Negative); Leukocyte Esterase Urine Negative (Negative); Nitrite Urine Negative (Negative); Protein Urine Negative (Negative); Specific Gravity Urine 1.018 (1.000-1.030); Urobilinogen Urine Negative (Negative)
[2022-02-01 03:26] LABS: Albumin Globulin Ratio 1.5 (0.9-2); Albumin Level 4.2 gm/dl (3.4-5.0); BUN Creatinine Ratio 12.7 (10-20); Bilirubin,Total 0.7 mg/dl (0.2-1.0); Calcium 8.8 mg/dl (8.5-10.1); Creatinine Clr Calc Pharmacy 95.5 ml/min; Est GFR (African American) 81.2 ml/min; Est GFR (Non-African American) 70.1 ml/min; Globulin 2.8 gm/dl (2.5-4.0); Potassium 3.3 mmol/L (3.5-5.1)
[2022-02-01] MEDS ORDERED: cefTRIAXone SODIUM 1,000 MG/50 ML BAG IV STA (03:38)
[2022-02-01] MEDS ORDERED: SODIUM CHLORIDE 0.9% 1000ML 1,000 ML IV SCH (03:45)
--- NOTE | 2022-02-01 04:00 | History & Physical Report ---
Date of Service February 01, 2022 Assessment & Plan (1) Acute appendicitis: Plan: Due to the patient's imaging and clinical presentation he will be admitted to the hospital proceeding as follows: Analgesics we provided Antiemetics will be provided We will hydrate with IV fluids, supplementing his potassium We will continue antibiotics. He has received Rocephin in the emergency department We will implement n.p.o. status, except for meds We will tenably planning on appendectomy with Dr. Glover on 02/01/2022. I discussed this with the patient and he is in agreement. I have outlined the risks, benefits, and expected postoperative course -This patient does have autism disorder. I did contact the [facility] and spoke with staff member, Kailee. The patient does note that he makes his own medical decisions and this was verified with the staff at his [facility]. I did attempt to call the patient's parents at his request, however no answer was at the phone number provided. We will use SCDs for DVT prevention no chemical means due to planned surgery He will be a level 1 full code History of Present Illness Chief Complaint: Abdominal pain Primary Care Provider: Clyde Gomez DO This is a 31-year-old male who presents to the emergency department secondary to abdominal pain that began yesterday. He notes that the pain has been present for less than 24 hours. Patient notes that the pain is located in the right lower quadrant without radiation. He notes that the pain is worse with movement such as running. He also notes that the pain was worse on the drive into the hospital. He notes that the pain is improved with lying still and also with medicines that were administered in the emergency department. He denies any fevers, shakes, or chills. He denies any nausea or vomiting. Patient notes that he has never had any abdominal surgery before. His most recent oral intake was at approximately 5:00 PM on 01/31/2022. In the emergency department the patient had a CT scan of the abdomen and pelvis that showed his appendix was dilated to approximately 9 mm. This was concerning for acute appendicitis but no abscess or perforation was noted. Labs including CBC were white blood cell count, hemoglobin, hematocrit, and platelet count were all normal. Chemistry profile showed sodium was normal. His potassium was slightly low at 3.3. His BUN and creatinine were 17 and 1.3 which were both normal. There is no elevation of LFTs or lipase. Urinalysis was not indicative of infection. Patient had received 4 mg of morphine in the emergency department and his pain had markedly improved with this modality. He was in no distress at the time of my interview. Allergies Allergy/AdvReac Type Severity Reaction Status Date / Time phenytoin Allergy Mild RASH Verified 02/01/22 03:03 cat dander Allergy Unknown Allergy Verified 02/01/22 03:03 type symptoms chocolate flavor Allergy Unknown Unknown Verified 02/01/22 03:03 dog dander Allergy Unknown Allergy Verified 02/01/22 03:03 type symptoms red dye Allergy Unknown Unknown Verified 02/01/22 03:03 Sulfa (Sulfonamide Allergy Unknown Unknown Verified 02/01/22 03:03 Antibiotics) adhesive AdvReac Mild RASH Verified 02/01/22 03:03 polyester fibers AdvReac Unknown Unknown Verified 02/01/22 03:03 Home Medications Medication Instructions Recorded Confirmed Type acetaminophen 500 mg tablet 500 mg PO Q6H PRN 05/05/19 02/01/22 History polyethylene glycol 3350 17 17 g PO DAILY PRN 08/16/20 02/01/22 History gram/dose oral powder (Miralax) chlorhexidine gluconate 0.12 % 15 ml PO 3XWK 07/05/21 02/01/22 History mouthwash aripiprazole 10 mg tablet (Abilify) 10 mg PO HS tab 09/27/21 02/01/22 History fluoride (sodium) 1.1 % dental 1 applic DENTAL 3XWK g 09/27/21 02/01/22 History cream fluoxetine 20 mg capsule 40 mg PO QAM cap 09/27/21 02/01/22 History hydroxyzine HCl 25 mg tablet 50 mg PO HS tab 09/27/21 02/01/22 History topiramate 100 mg tablet 100 mg PO BID 09/27/21 02/01/22 History multivitamin 1 tab PO PM 10/30/21 02/01/22 History pantoprazole 40 mg tablet,delayed 40 mg PO QAM 10/30/21 02/01/22 History release (Protonix) Past Med/Surg History Medical History Anxiety Autistic spectrum disorder Chronic constipation Depression History of suicidal ideation 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 Learning difficulties (11/23/12) Mental retardation (05/12/13) Migraine Mild intellectual disability Schizoaffective disorder Seizure disorder per pt, was diagnosed as pseudo seizure > last one over a year, no longer has to see neuro Split urinary stream Surgical History History of esophagogastroduodenoscopy (EGD) [place] teeth removed Family History Mother Breast cancer Brother FH: brain cancer Grandmother Dementia Other Diabetes Hypertension Denies family history of Ovarian cancer Prostate cancer Lung cancer Colorectal cancer Social History Smoking Status: Never smoker Second Hand Exposure: No; Hx Alcohol Use: No Hx Substance Use: No Preferred Language: Setswana Communication Ability: Effective Visual Impairment: Limited Hearing Ability: Normal 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 Beliefs That Will Affect Care: None marital status: Single Current Living Situation: Other Current Living Situation Comment: independtly lives with roommate current occupational status: unemployed current occupation: Volunteers Feels Safe at Home: Yes Safety Concerns: Feels Safe At This Time Childhood Exposure to Second-Hand Smoke: No caffeine: Yes Dental Care, Regularly: Yes Physical Activity Frequency: Daily Seatbelt Use: always Sunscreen Use: Yes Assistive Devices: Glasses Review of Systems Constitutional: no fever and no chills Eyes: no eye pain Ear, Nose, Mouth, Throat: no ear pain Respiratory: no cough and no dyspnea Cardiovascular: no chest pain Gastrointestinal: + abdominal pain; no nausea and no vomiting Genitourinary: no dysuria Musculoskeletal: no back pain Integumentary: no rash Neurologic: no localized weakness Physical Exam Constitutional: WD/WN, vitals as above Eyes: no conjunctival abnormality ENMT: Ears: no hearing impairment and no external ear abnormality Mouth: no oropharynx abnormality Neck: trachea midline Respiratory: normal respiratory effort; no respiratory distress and no labored breathing Cardiovascular: Rate/Rhythm: regular rate and regular rhythm Gastrointestinal (Abdomen): Abdomen is soft, nonrigid, and nondistended. There is no rebound tenderness or guarding. Patient did have minimal pain in the right lower quadrant of his abdomen with palpation, however he did recently receive 4 mg of intravenous morphine. Musculoskeletal: No calf tenderness Skin: no rashes Neurologic: moves all extremities Psychiatric: Orientation: alert and oriented x 3 Affect: + flat affect Results & Data Results & Data ([facility]) Vital Signs (Past 12 Hours) Vital Signs Temp Pulse Pulse Resp BP BP Pulse Ox 02/01/22 03:01 72 16 97 02/01/22 02:14 36.9 C 72 18 122/65 97 02/01/22 01:51 36.5 C 92 H 20 115/73 96 Supervising Physician Co-Signing Physician Notes Patient discussed with Virgil Gunderson overnight, agree with above. Please see today's progress note for further details. PG Care Time/CCT Total # of Minutes Spent Total Time Spent with Patient: Total time spent is greater than 50% in coordination of care (as documented) at patient's floor/unit and/or counseling patient: Coding Level of Care Code INT OBSERVATION CARE 70M LVL 3 Diagnoses Acute appendicitis K35.80 Acute appendicitis type: unspecified acute appendicitis type (1) Acute appendicitis Acute appendicitis type: unspecified acute appendicitis type Qualified Code(s): K35.80 - Unspecified acute appendicitis
[2022-02-01] MEDS ORDERED: ONDANSETRON INJ 2 MG/ML 2 ML VIAL IV PRN (04:11)
[2022-02-01] MEDS ORDERED: MoRPHine SULFATE 2 MG/ML CARP IV PRN (04:11)
[2022-02-01] MEDS ORDERED: ACETAMINOPHEN 1,000 MG/100 ML VIAL IV PRN (04:11)
[2022-02-01] MEDS ORDERED: POTASSIUM CHLORIDE 10 MEQ in LACTATED RINGER'S 1,000 ML IV SCH (06:00)
--- NOTE | 2022-02-01 07:29 | CT Scan Report ---
CT SCAN OF THE ABDOMEN AND PELVIS WITH IV CONTRAST CLINICAL HISTORY: Right lower quadrant abdominal pain. COMPARISON STUDY: Abdominal CT dated 04/19/2020. TECHNIQUE: Following the IV administration of 93 cc of Optiray 320, CT scan of the abdomen and pelvi s is performed from the lung bases to the proximal femora. Images are reviewed in the axial, sagittal , and coronal planes. IV contrast was administered without complication. A dose lowering technique wa s utilized adhering to the principles of ALARA. FINDINGS: Lung bases: The heart is top normal in size and without pericardial effusion. The lung bases are alisa r noting mild bibasilar atelectasis. Liver: The contrast-enhanced liver is normal in size, contour, and attenuation. There is no intrahepa tic biliary ductal dilatation. The hepatic veins and portal veins are patent. Gallbladder: Unremarkable. Spleen: Normal in size and attenuation. Pancreas: Unremarkable. Adrenal glands: Unremarkable. Kidneys: The contrast enhanced kidneys are normal in size and without hydronephrosis. The kidneys enh ance symmetrically. Abdominal vasculature: The abdominal aorta is normal in course and caliber. Bowel: There are mildly distended and fluid-filled loops of small bowel in the pelvis with no evidenc e of high-grade obstruction. The appendix is mildly distended measuring up to 8 mm. Gas is seen throu ghout and there is no surrounding inflammation. Peritoneum: There is no intraperitoneal free air or abdominal ascites. Lymphadenopathy: None. Pelvic viscera: The bladder is decompressed and appears circumferentially thick walled. The prostate and seminal vesicles are normal as visualized. Skeletal structures: No lytic or blastic lesions are seen. IMPRESSION: 1. There are mildly distended and fluid-filled loops of small bowel in the pelvis with no CT evidence of high-grade obstruction. Findings suggest a nonspecific enteritis and clinical correlation will be required. 2. The appendix is mildly dilated measuring up to 8 mm. Gas is seen throughout the appendix and there is no surrounding inflammation. There is no convincing CT evidence of acute appendicitis. 3. The bladder wall appears circumferentially thickened. Correlate with clinical findings and urinaly sis. ACT 112: Negative or not required by law. Electronically signed by: Navjot Del Angel M.D. 02/01/2022 7:27 AM
[2022-02-01] MEDS: cefOXitin 2,000 MG in DEXTROSE 5% 50 ML IV SCH ×2 (07:51→11:59)
--- NOTE | 2022-02-01 08:22 | Anesthesiology Consultation ---
Date of Service February 01, 2022 Assessment & Plan (1) Encounter for pre-operative examination: Chart Review Chart Review: Acceptable Risk for Surgery and Patient NOT seen in Pre Admission Testing History Surgery Operation Date: 02/01/22 09:20 Proposed Procedures p Laparoscopic Appendectomy Possible Open - Yehuda Glover DO, FACS Height/Weight Height: 6 ft 3 in Weight: 92.9 kg Allergies Allergy/AdvReac Type Severity Reaction Status Date / Time phenytoin Allergy Mild RASH Verified 02/01/22 03:03 cat dander Allergy Unknown Allergy Verified 02/01/22 03:03 type symptoms chocolate flavor Allergy Unknown Unknown Verified 02/01/22 03:03 dog dander Allergy Unknown Allergy Verified 02/01/22 03:03 type symptoms red dye Allergy Unknown Unknown Verified 02/01/22 03:03 Sulfa (Sulfonamide Allergy Unknown Unknown Verified 02/01/22 03:03 Antibiotics) adhesive AdvReac Mild RASH Verified 02/01/22 03:03 polyester fibers AdvReac Unknown Unknown Verified 02/01/22 03:03 Medications Home Medications Medication Instructions Recorded Confirmed Last Taken acetaminophen 500 mg tablet 500 mg PO Q6H PRN 05/05/19 02/01/22 Unknown polyethylene glycol 3350 17 17 g PO DAILY PRN 08/16/20 02/01/22 Unknown gram/dose oral powder (Miralax) chlorhexidine gluconate 0.12 % 15 ml PO 3XWK 07/05/21 02/01/22 10/29/21 mouthwash aripiprazole 10 mg tablet (Abilify) 10 mg PO HS tab 09/27/21 02/01/22 01/31/22 fluoride (sodium) 1.1 % dental 1 applic DENTAL 3XWK g 09/27/21 02/01/22 10/31/21 cream fluoxetine 20 mg capsule 40 mg PO QAM cap 09/27/21 02/01/22 01/31/22 hydroxyzine HCl 25 mg tablet 50 mg PO HS tab 09/27/21 02/01/22 01/31/22 topiramate 100 mg tablet 100 mg PO BID 09/27/21 02/01/22 01/31/22 multivitamin 1 tab PO PM 10/30/21 02/01/22 01/31/22 pantoprazole 40 mg tablet,delayed 40 mg PO QAM 03/02/01/22 01/31/22 release (Protonix) Active Medications Generic Name Dose Route Start Last Admin Trade Name Freq PRN Reason Stop Dose Admin Potassium Chloride 10 meq/ 1,005 mls @ 75 mls/hr 02/01/22 06:00 02/01/22 07:51 Lactated Ringer's IV 03/03/22 05:59 75 mls/hr .[id number] PINKY Administration Cefoxitin Sodium 2,000 mg/ 60 mls @ 100 mls/hr 02/01/22 06:30 02/01/22 07:51 Dextrose IV 02/11/22 06:29 100 mls/hr Q6H PINKY Administration Protocol NPO Date Last Intake of Fluids: 02/01/22 Time Last Intake of Fluids: 00:00 Date Last Intake of Solids: 01/31/22 Time Last Intake of Solids: 20:00 Past Medical History Medical History Anxiety Autistic spectrum disorder Chronic constipation Depression History of suicidal ideation 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 Learning difficulties (11/23/12) Mental retardation (05/12/13) Migraine Mild intellectual disability Schizoaffective disorder Seizure disorder per pt, was diagnosed as pseudo seizure > last one over a year, no longer has to see neuro Split urinary stream Past Family History Family History Mother Breast cancer Brother FH: brain cancer Grandmother Dementia Other Diabetes Hypertension Denies family history of Ovarian cancer Prostate cancer Lung cancer Colorectal cancer Past Surgical History Surgical History History of esophagogastroduodenoscopy (EGD) [place] teeth removed Social History Smoking Status: Never smoker Hx Alcohol Use: No Hx Substance Use: No substance use type: does not use Physical Exam Vital Signs Last Vital Signs Temp 36.6 C 02/01/22 06:00 Pulse 63 02/01/22 06:00 Resp 15 02/01/22 06:00 BP 105/63 02/01/22 06:00 Pulse Ox 97 02/01/22 06:00 Testing Laboratory Results 02/01/22 02:15 02/01/22 02:15 Urine Color Cancelled 02/01/22 02:21 Urine Color Yellow 02/01/22 02:21 Urine Appearance Cancelled 02/01/22 02:21 Urine Appearance Clear (Clear) 02/01/22 02:21 Urine pH 6.0 (4.5-7.5) 02/01/22 02:21 Urine pH Cancelled 02/01/22 02:21 Ur Specific [place] 1.018 (1.000-1.030) 02/01/22 02:21 Ur Specific [place] Cancelled 02/01/22 02:21 Urine Protein Cancelled 02/01/22 02:21 Urine Protein Negative (Negative) 02/01/22 02:21 Urine Glucose (UA) Cancelled 02/01/22 02:21 Urine Glucose (UA) Negative (Negative) 02/01/22 02:21 Urine Ketones Cancelled 02/01/22 02:21 Urine Ketones Negative (Negative) 02/01/22 02:21 Urine Nitrite Cancelled 02/01/22 02:21 Urine Nitrite Negative (Negative) 02/01/22 02:21 Ur Leukocyte Esterase Cancelled 02/01/22 02:21 Ur Leukocyte Esterase Negative (Negative) 02/01/22 02:21 Urine WBC (Auto) Cancelled 02/01/22 02:21 Urine RBC (Auto) Cancelled 02/01/22 02:21 U Hyaline Cast (Auto) Cancelled 02/01/22 02:21 U Epithel Cells (Auto) Cancelled 02/01/22 02:21 Urine Bacteria (Auto) Cancelled 02/01/22 02:21
[2022-02-01] MEDS ORDERED: FLUoxetine HCL 20 MG CAP PO SCH (09:00)
[2022-02-01] MEDS ORDERED: TOPIRAMATE 100 MG TAB PO SCH (09:00)
[2022-02-01] MEDS ORDERED: PANTOprazole 40 MG TAB PO SCH (09:00)
--- NOTE | 2022-02-01 14:04 | Surgery Progress Note ---
Date of Service February 01, 2022 Assessment & Plan (1) Enteritis: Plan: 31-year-old male with likely enteritis. The CT scan was reviewed by our radiologist this morning and they felt it was more consistent with an enteritis and not with an acute appendicitis. He has absolutely no tenderness in his right lower quadrant and his history seems to fit an enteritis. At this point we will advance his diet and allow him to be discharged home with return precautions. He was educated on the signs and symptoms of appendicitis and told to return if these develop. No need for additional antibiotics at this time. Follow-up with PCP as needed. No surgical intervention indicated Advance diet as tolerated Discharge this afternoon or tomorrow (2) Autistic spectrum disorder: Admission and Anticipated Discharge Date Admission Date: February 01, 2022 Subjective 31-year-old male admitted overnight for concern for appendicitis. He endorses a history of diarrhea over the past 24 hours along with abdominal cramping. This is now resolved. He states he has no pain. Physical Exam Constitutional: WD/WN, vitals as above Respiratory: normal respiratory effort, lungs clear to auscultation Cardiovascular: RRR, no murmur, no edema Gastrointestinal (Abdomen): normal bowel sounds, soft, nontender, no hepatosplenomegaly Results & Data ([facility]) Vital Signs (Past 12 Hours) Vital Signs Temp Pulse Pulse Resp BP Pulse Ox 02/01/22 13:57 36.3 C L 58 L 17 101/63 96 02/01/22 08:19 36.6 C 56 L 17 95/56 L 96 02/01/22 06:00 36.6 C 63 15 105/63 97 02/01/22 05:27 47 L 12 107/63 96 02/01/22 04:33 70 14 109/43 L 97 02/01/22 03:01 72 16 97 02/01/22 02:14 36.9 C 72 18 122/65 97 Diagnostic Findings I personally reviewed and interpreted the CT scan. There were multiple loops of fluid-filled bowel and the appendix is slightly dilated with no periappendiceal inflammation, though it does measure greater than 6 mm in size. There is fluid throughout the appendix along with a small amount of air. This could be consistent with an enteritis versus appendicitis. CT SCAN OF THE ABDOMEN AND PELVIS WITH IV CONTRAST CLINICAL HISTORY: Right lower quadrant abdominal pain. COMPARISON STUDY: Abdominal CT dated 04/19/2020. TECHNIQUE: Following the IV administration of 93 cc of Optiray 320, CT scan of the abdomen and pelvis is performed from the lung bases to the proximal femora. Images are reviewed in the axial, sagittal, and coronal planes. IV contrast was administered without complication. A dose lowering technique was utilized adhering to the principles of ALARA. FINDINGS: Lung bases: The heart is top normal in size and without pericardial effusion. The lung bases are clear noting mild bibasilar atelectasis. Liver: The contrast-enhanced liver is normal in size, contour, and attenuation. There is no intrahepatic biliary ductal dilatation. The hepatic veins and portal veins are patent. Gallbladder: Unremarkable. Spleen: Normal in size and attenuation. Pancreas: Unremarkable. Adrenal glands: Unremarkable. Kidneys: The contrast enhanced kidneys are normal in size and without hydronephrosis. The kidneys enhance symmetrically. Abdominal vasculature: The abdominal aorta is normal in course and caliber. Bowel: There are mildly distended and fluid-filled loops of small bowel in the pelvis with no evidence of high-grade obstruction. The appendix is mildly distended measuring up to 8 mm. Gas is seen throughout and there is no surrounding inflammation. Peritoneum: There is no intraperitoneal free air or abdominal ascites. Lymphadenopathy: None. Pelvic viscera: The bladder is decompressed and appears circumferentially thick walled. The prostate and seminal vesicles are normal as visualized. Skeletal structures: No lytic or blastic lesions are seen. IMPRESSION: 1. There are mildly distended and fluid-filled loops of small bowel in the pelvis with no CT evidence of high-grade obstruction. Findings suggest a nonspecific enteritis and clinical correlation will be required. 2. The appendix is mildly dilated measuring up to 8 mm. Gas is seen throughout the appendix and there is no surrounding inflammation. There is no convincing CT evidence of acute appendicitis. 3. The bladder wall appears circumferentially thickened. Correlate with clinical findings and urinalysis. PG Care Time/CCT Total # of Minutes Spent Total Time Spent with Patient: Total time spent is greater than 50% in coordination of care (as documented) at patient's floor/unit and/or counseling patient: Coding Level of Care Code 40072 Subseq Obs Care Lvl 2 Diagnoses Enteritis K52.9 Autistic spectrum disorder F84.0
--- NOTE | 2022-02-01 15:05 | Discharge Summary ---
Date of Service February 01, 2022 Admission HPI Per Admitting Provider This is a 31-year-old male who presents to the emergency department secondary to abdominal pain that began yesterday. He notes that the pain has been present for less than 24 hours. Patient notes that the pain is located in the right lower quadrant without radiation. He notes that the pain is worse with movement such as running. He also notes that the pain was worse on the drive into the hospital. He notes that the pain is improved with lying still and also with medicines that were administered in the emergency department. He denies any fevers, shakes, or chills. He denies any nausea or vomiting. Patient notes that he has never had any abdominal surgery before. His most recent oral intake was at approximately 5:00 PM on 01/31/2022. In the emergency department the patient had a CT scan of the abdomen and pelvis that showed his appendix was dilated to approximately 9 mm. This was concerning for acute appendicitis but no abscess or perforation was noted. Labs including CBC were white blood cell count, hemoglobin, hematocrit, and platelet count were all normal. Chemistry profile showed sodium was normal. His potassium was slightly low at 3.3. His BUN and creatinine were 17 and 1.3 which were both normal. There is no elevation of LFTs or lipase. Urinalysis was not indicative of infection. Patient had received 4 mg of morphine in the emergency department and his pain had markedly improved with this modality. He was in no distress at the time of my interview. Principal Diagnosis Enteritis Discharge Exam Constitutional WD/WN, vitals as above Gastrointestinal (Abdomen) normal bowel sounds, soft, nontender, no hepatosplenomegaly Discharge Data Allergies Allergy/AdvReac Type Severity Reaction Status Date / Time phenytoin Allergy Mild RASH Verified 02/01/22 03:03 cat dander Allergy Unknown Allergy Verified 02/01/22 03:03 type symptoms chocolate flavor Allergy Unknown Unknown Verified 02/01/22 03:03 dog dander Allergy Unknown Allergy Verified 02/01/22 03:03 type symptoms red dye Allergy Unknown Unknown Verified 02/01/22 03:03 Sulfa (Sulfonamide Allergy Unknown Unknown Verified 02/01/22 03:03 Antibiotics) adhesive AdvReac Mild RASH Verified 02/01/22 03:03 polyester fibers AdvReac Unknown Unknown Verified 02/01/22 03:03 Consultations 02/01/22 04:18 ED Decision to Admit Stat Procedures Performed Operation Date: 02/01/22 09:20 <No data on this case meets the specified criteria> Ordered Studies 02/01/22 02:59 CT abd pelvis IV con only Urgent Hospital Course (1) Enteritis: 31 y/o male presented to the ER overnight with abdominal pain and diarrhea. White count was 5,000 and initial read of CT suggested possible acute appendicitis. His pain had improved when seen by surgery and he was admitted to the surgical floor for overnight observation to rule out appendicitis. CT was read in house as enteritis with a slightly enlarged appendix (8 mm) but no convincing evidence of appendicitis. His white count remained normal and he was nontender on exam in the morning. He was able to tolerate a diet and was stable for discharge home later in the afternoon. Total Time Total Time Spent Total Time Spent (In Minutes): 15 Discharge Plan Discharge Items Patient Disposition: Home - Self-Care Reason For Visit: APPY Discharge Diagnosis: abdominal pain enteritis Activity: Per Instructions section Lifting: Gradually increase as tolerated Bathing: No limitations Exercise/Sports: Rest today Driving/Machine Use: Resume 1 day after discharge Non-emergency contact: Primary Care Provider Call non-emergency contact if: you have any medication questions, your symptoms worsen, your pain is worsening, you have a fever and your temperature is above 101.5 Follow-up/Referrals: Yehuda Glover DO, KATJA [Physician] - (You do not need to follow up with us in clinic. You may call with any questions/concerns) Clyde Gomez DO [Primary Care Provider] - Diet: Regular Addtl Attending Provider Instructions: Return to the Emergency department if you have return of abdominal pain, fever, or nausea/vomiting. Pending Studies at Discharge: No Stand-Alone Forms: My [employer].MOTORS, Smoking Cessation Medications and DC Order Prescriptions: Continued topiramate 100 mg tablet 100 mg PO BID RF: 0 hydroxyzine HCl 25 mg tablet 50 mg PO HS RF: 0 aripiprazole [Abilify] 10 mg tablet 10 mg PO HS RF: 0 fluoride (sodium) 1.1 % cream 1 applic dental 3XWK RF: 0 polyethylene glycol 3350 [Miralax] 17 gram/dose powder 17 g PO DAILY PRN (Reason: Constipation) RF: 0 fluoxetine 20 mg capsule 40 mg PO QAM RF: 0 acetaminophen 500 mg Tablet 500 mg PO Q6H PRN (Reason: Fever Or Pain) RF: 0 chlorhexidine gluconate 0.12 % mouthwash 15 ml PO 3XWK RF: 0 pantoprazole [Protonix] 40 mg tablet,delayed release (DR/EC) 40 mg PO QAM RF: 0 multivitamin Tablet 1 tab PO PM RF: 0 Discharge Orders: Discharge Order (Routine); Ordered 02/01/22 Ordered By: Terrell Goncalves Jr Admission Data Admit Date/Time: 02/01/22 04:15 Attending Provider: Yehuda Glover Admit Provider: Yehuda Glover Primary Care Provider: Clyde Gomez Other Providers: Yehuda Glover Coding Level of Care Code D/C DAY MANAGEMENT <30 MINS Diagnoses Enteritis K52.9
[2022-02-01] MEDS ORDERED: ARIPiprazole 10 MG TAB PO SCH (21:00)
[2022-02-01] MEDS ORDERED: hydrOXYzine HCl 25 MG TAB PO SCH (21:00)
== END 2022-02-01 18:06 | disposition home or self-care (01) ==
LOC: 3N 01:42 → ED 01:42 → 3N 05:28

== ENCOUNTER 2022-05-26 20:57 | Inpatient (IN) ==
[2022-05-26 21:47] LABS: Basophils # (auto) 0.04 K/uL (0-0.2); Basophils % (auto) 0.8 %; Eosinophils # (auto) 0.11 K/uL (0-0.50); Eosinophils % (auto) 2.1 %; Hematocrit (blood only) 44.3 % (40.1-51.0); Hemoglobin 14.9 g/dl (14.0-18.0); Immature Granulocytes # (auto) 0.01 K/uL (0.00-0.02); Immature Granulocytes % (auto) 0.2 %; Lymphocytes % (auto) 34.7 %; Mean Corpuscular Hemoglobin 29.7 pg (25.0-34.0); Mean Corpuscular Hgb Conc 33.6 g/dL (32.0-36.0); Mean Corpuscular Volume 88.2 fL (80.0-100.0); Mean Platelet Volume 11.9 fL (9.4-12.4); Monocytes # (auto) 0.57 K/uL (0.24-0.82); Neutrophils # (auto) 2.65 K/uL (1.4-6.5); Neutrophils % (auto) 51.2 %; Platelet Count 178 K/uL (130-400); RDW Coefficient of Variation 13.4 % (11.5-14.5); RDW Standard Deviation 43.2 fL (36.4-46.3); Red Blood Count 5.02 M/uL (4.63-6.08); White Blood Count 5.18 K/ul (4.8-10.8)
--- NOTE | 2022-05-26 21:50 | Emergency Department Note ---
Impression & Plan Depression with suicidal ideation ED Provider Note NAME: LANA WAGNER AGE: 32 SEX: M : 1990 ARRIVES VIA: Ambulance INFORMANT: Patient, ED PROVIDER(S): Rico Jorge MD Chief Complaint: Mental wellness concern, referral from crisis HPI: Patient was a crisis referral due to concern for thoughts of self-harm as the patient had iterated that he was going to get a knife and consider stabbing himself. The patient states that he does superficially cut his arms every so often. The patient denies any current SI HI or AVH. The patient states that his sleep and appetite have been poor. The patient is not employed and not in school. Patient denies any current access to guns. Patient states that he only intermittently takes his medications. Patient denies any other exacerbating or remitting factors. He does admit to being more depressed. ROS: See HPI for pertinent positives and negatives. A total of 10 systems were reviewed and otherwise negative. Past medical history: See below Surgical history: See below Social history: See below Physical Exam: GENERAL: NAD, wearing a mask, non-toxic. EYE EXAM: Normal conjunctiva. PERRL, no anisocoria and EOM's grossly intact w/o pain. NECK: Supple, no nuchal rigidity, no adenopathy, non-tender. No signs of meningismus. FROM of the neck with good chin to chest and neck extension. No stridor. LUNGS: Clear to auscultation. Normal chest wall mechanics. HEART: NSR, no MRG. ABDOMEN: Abdomen soft, non-tender, normo-active bowel sounds, no masses, no rebound or guarding. BACK: No CVA TTP. SKIN: No rashes and no bruising. UPPER EXTREMITIES: Upper extremities are grossly normal. LOWER EXTREMITIES: Grossly normal, no edema. NEURO EXAM: A&O x3, cranial nerves II-XII grossly intact, normal speech, moves all 4 extremities. Psych: Depressed mood, denies current SI HI or AVH. Differential diagnoses: Mood disorder, infection, hypoglycemia, electrolyte abnormalities, cardiac sources, intracerebral event, toxicologic, trauma, neurologic, as well as other pathologies. Course: Patient was seen and evaluated the bedside. Full history physical exam was performed. MDM: Patient was seen due to concern for mental wellness. Patient did have bladder completed was the medically cleared seen and evaluated by the psych outpatient case manager and referral was made. Patient was accepted to [facility] for inpatient behavioral health treatment. 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 Learning difficulties (11/23/12) Mental retardation (05/12/13) Migraine Mild intellectual disability Schizoaffective disorder Seizure disorder per pt, was diagnosed as pseudo seizure > last one over a year, no longer has to see neuro Split urinary stream Surgical History History of esophagogastroduodenoscopy (EGD) [place] teeth removed Family History Mother Breast cancer Brother FH: brain cancer Grandmother Dementia Other Diabetes Hypertension Denies family history of Ovarian cancer Prostate cancer Lung cancer Colorectal cancer Social History Smoking Status: Never smoker Second Hand Exposure: No; Hx Alcohol Use: No Hx Substance Use: No Preferred Language: Hebrew Communication Ability: Effective Visual Impairment: Limited Hearing Ability: Normal Artificial Foliage Arranger Required: No Beliefs That Will Affect Care: None marital status: Single Current Living Situation: Other Current Living Situation Comment: independtly lives with roommate current occupational status: unemployed current occupation: Volunte[employer] Feels Safe at Home: Yes Childhood Exposure to Second-Hand Smoke: No caffeine: Yes Dental Care, Regularly: Yes Physical Activity Frequency: Daily Seatbelt Use: always Sunscreen Use: Yes Assistive Devices: None Allergies Allergies Allergy/AdvReac Type Severity Reaction Status Date / Time phenytoin Allergy Mild RASH Verified 02/02/22 00:50 cat dander Allergy Unknown Allergy Verified 02/02/22 00:50 type symptoms chocolate flavor Allergy Unknown Unknown Verified 02/02/22 00:50 dog dander Allergy Unknown Allergy Verified 02/02/22 00:50 type symptoms red dye Allergy Unknown Unknown Verified 02/02/22 00:50 Sulfa (Sulfonamide Allergy Unknown Unknown Verified 02/02/22 00:50 Antibiotics) adhesive AdvReac Mild RASH Verified 02/02/22 00:50 polyester fibers AdvReac Unknown Unknown Verified 02/02/22 00:50 Home Meds Home Medications Medication Instructions Recorded Confirmed acetaminophen 500 mg tablet 500 mg PO Q6H PRN Fever Or Pain 05/05/19 05/26/22 polyethylene glycol 3350 17 17 g PO DAILY PRN Constipation 08/16/20 05/26/22 gram/dose oral powder (Miralax) chlorhexidine gluconate 0.12 % 15 ml PO 3XWK 07/05/21 05/26/22 mouthwash aripiprazole 10 mg tablet (Abilify) 10 mg PO HS 09/27/21 05/26/22 fluoride (sodium) 1.1 % dental 1 applic dental 3XWK 09/27/21 05/26/22 cream fluoxetine 20 mg capsule 40 mg PO QAM 09/27/21 05/26/22 hydroxyzine HCl 25 mg tablet 50 mg PO HS 09/27/21 05/26/22 topiramate 100 mg tablet 100 mg PO BID 09/27/21 05/26/22 multivitamin 1 tab PO PM 10/30/21 05/26/22 Previous Rx's Medication Instructions Recorded pantoprazole 40 mg tablet,delayed 40 mg PO QAM #30 tabs 03/13/22 release (Protonix) Results & Data (ED) Vital Signs Vital Signs - 24 hr 05/26/22 20:50 05/26/22 20:50 05/26/22 22:06 Temperature 36.9 C Temperature Source Oral Pulse Rate [Finger] 55 L Pulse Rhythm [Finger] Regular Pulse Strength [Finger] Normal Respiratory Rate 16 20 Respiratory Effort / Characteristics Non-Labored Non-Labored Non-Labored Spontaneous Respiratory Depth Normal Normal Normal Respiratory Pattern Regular Blood Pressure [Right Arm] 112/55 L Blood Pressure Mean [Right Arm] 74 Blood Pressure Position [Right Arm] Lying Pulse Oximetry 97 Oxygen Delivery Method Room Air Sepsis Recent Fever Within 48 Hours No Sepsis New/Unexplained Change in Mental Status No Sepsis Action Taken by Nursing No Action Required 05/26/22 23:28 Temperature 36.6 C Temperature Source Oral Pulse Rate [Finger] 53 L Pulse Rhythm [Finger] Regular Pulse Strength [Finger] Normal Respiratory Rate 21 Respiratory Effort / Characteristics Non-Labored Spontaneous Respiratory Depth Normal Respiratory Pattern Regular Blood Pressure [Right Arm] 109/60 Blood Pressure Mean [Right Arm] 76 Blood Pressure Position [Right Arm] Lying Pulse Oximetry 98 Oxygen Delivery Method Room Air Sepsis Recent Fever Within 48 Hours Sepsis New/Unexplained Change in Mental Status Sepsis Action Taken by [place] Medications Current Medication List: was personally reviewed by me Laboratory Data Attestation: I reviewed the patient's lab results. Result diagrams: 05/26/22 21:11 05/26/22 21:11 Lab Results 05/26/22 05/26/22 05/26/22 Range/Units 21:11 21:11 21:11 WBC 5.18 (4.8-10.8) K/ul RBC 5.02 (4.63-6.08) M/uL Hgb 14.9 (14.0-18.0) g/dl Hct 44.3 (40.1-51.0) % MCV 88.2 (80.0-100.0) fL MCH 29.7 (25.0-34.0) pg MCHC 33.6 (32.0-36.0) g/dL RDW Std Deviation 43.2 (36.4-46.3) fL RDW Coeff of Abilio 13.4 (11.5-14.5) % Plt Count 178 (130-400) K/uL MPV 11.9 (9.4-12.4) fL Immature Gran % (Auto) 0.2 % Neut % (Auto) 51.2 % Lymph % (Auto) 34.7 % [place] % (Auto) 11.0 % Eos % (Auto) 2.1 % Baso % (Auto) 0.8 % Neut # (Auto) 2.65 (1.4-6.5) K/uL Lymph # (Auto) 1.80 (1.2-3.4) K/uL [place] # (Auto) 0.57 (0.24-0.82) K/uL Eos # (Auto) 0.11 (0-0.50) K/uL Baso # (Auto) 0.04 (0-0.2) K/uL Immature Gran # (Auto) 0.01 (0.00-0.02) K/uL Sodium 136 (136-145) mmol/L Potassium 3.5 (3.5-5.1) mmol/L Chloride 107 (98-107) mmol/L Carbon Dioxide 21 (21-32) mmol/L Anion Gap 8 (3-11) BUN 13 (6-23) mg/dl Creatinine 1.14 (0.6-1.4) mg/dl Est Cr Clr Drug Dosing 111.2 ml/min Est GFR ( Amer) 98.1 ml/min Est GFR (Non-Af Amer) 84.6 ml/min BUN/Creatinine Ratio 11.4 (10-20) Glucose 86 (70-99(Fasting)) mg/dl Calcium 8.8 (8.5-10.1) mg/dl Total Bilirubin 0.7 (0.2-1.0) mg/dl AST 19 (13-39) U/L ALT 16 (7-52) U/L Alkaline Phosphatase 56 (34-104) U/L Total Protein 7.4 (6.0-8.3) gm/dl Albumin 4.3 (3.4-5.0) gm/dl Globulin 3.1 (2.5-4.0) gm/dl Albumin/Globulin Ratio 1.4 (0.9-2) TSH 3.005 (0.300-4.500) uIu/ml Urine Color Urine Appearance (Clear) Urine pH (4.5-7.5) Ur Specific [place] (1.000-1.030) Urine Protein (Negative) Urine Glucose (UA) (Negative) Urine Ketones (Negative) Urine Blood (Negative) Urine Nitrite (Negative) Urine Bilirubin (Negative) Urine Urobilinogen (Negative) Ur Leukocyte Esterase (Negative) Salicylates (3.0-30) mg/dl Urine Opiates Screen (Neg) Ur Methadone, Qual (Neg) Acetaminophen (10-30) ug/ml Urine Barbiturates (Neg) Ur Phencyclidine (PCP) (Neg) U Amphetamin/Meth Scrn (Neg) MDMA (Ecstasy) Screen (Neg) U Benzodiazepines Scrn (Neg) Ur Cocaine Metabolite (Neg) U Marijuana (THC) Screen (Neg) Ethyl Alcohol mg/dL (<10.0) mg/dl SARS-CoV-2, RNA, NAAT (NEGATIVE) 05/26/22 05/26/22 05/26/22 Range/Units 21:11 21:11 21:11 WBC (4.8-10.8) K/ul RBC (4.63-6.08) M/uL Hgb (14.0-18.0) g/dl Hct (40.1-51.0) % MCV (80.0-100.0) fL MCH (25.0-34.0) pg MCHC (32.0-36.0) g/dL RDW Std Deviation (36.4-46.3) fL RDW Coeff of Abilio (11.5-14.5) % Plt Count (130-400) K/uL MPV (9.4-12.4) fL Immature Gran % (Auto) % Neut % (Auto) % Lymph % (Auto) % [place] % (Auto) % Eos % (Auto) % Baso % (Auto) % Neut # (Auto) (1.4-6.5) K/uL Lymph # (Auto) (1.2-3.4) K/uL [place] # (Auto) (0.24-0.82) K/uL Eos # (Auto) (0-0.50) K/uL Baso # (Auto) (0-0.2) K/uL Immature Gran # (Auto) (0.00-0.02) K/uL Sodium (136-145) mmol/L Potassium (3.5-5.1) mmol/L Chloride (98-107) mmol/L Carbon Dioxide (21-32) mmol/L Anion Gap (3-11) BUN (6-23) mg/dl Creatinine (0.6-1.4) mg/dl Est Cr Clr Drug Dosing ml/min Est GFR ( Amer) ml/min Est GFR (Non-Af Amer) ml/min BUN/Creatinine Ratio (10-20) Glucose (70-99(Fasting)) mg/dl Calcium (8.5-10.1) mg/dl Total Bilirubin (0.2-1.0) mg/dl AST (13-39) U/L ALT (7-52) U/L Alkaline Phosphatase (34-104) U/L Total Protein (6.0-8.3) gm/dl Albumin (3.4-5.0) gm/dl Globulin (2.5-4.0) gm/dl Albumin/Globulin Ratio (0.9-2) TSH (0.300-4.500) uIu/ml Urine Color Yellow Urine Appearance Clear (Clear) Urine pH 5.5 (4.5-7.5) Ur Specific [place] 1.020 (1.000-1.030) Urine Protein Negative (Negative) Urine Glucose (UA) Negative (Negative) Urine Ketones Negative (Negative) Urine Blood Negative (Negative) Urine Nitrite Negative (Negative) Urine Bilirubin Negative (Negative) Urine Urobilinogen Negative (Negative) Ur Leukocyte Esterase Negative (Negative) Salicylates < 3.0 L (3.0-30) mg/dl Urine Opiates Screen (Neg) Ur Methadone, Qual (Neg) Acetaminophen < 3 L (10-30) ug/ml Urine Barbiturates (Neg) Ur Phencyclidine (PCP) (Neg) U Amphetamin/Meth Scrn (Neg) MDMA (Ecstasy) Screen (Neg) U Benzodiazepines Scrn (Neg) Ur Cocaine Metabolite (Neg) U Marijuana (THC) Screen (Neg) Ethyl Alcohol mg/dL < 10.0 (<10.0) mg/dl SARS-CoV-2, RNA, NAAT (NEGATIVE) 05/26/22 05/26/22 Range/Units 21:11 21:11 WBC (4.8-10.8) K/ul RBC (4.63-6.08) M/uL Hgb (14.0-18.0) g/dl Hct (40.1-51.0) % MCV (80.0-100.0) fL MCH (25.0-34.0) pg MCHC (32.0-36.0) g/dL RDW Std Deviation (36.4-46.3) fL RDW Coeff of Abilio (11.5-14.5) % Plt Count (130-400) K/uL MPV (9.4-12.4) fL Immature Gran % (Auto) % Neut % (Auto) % Lymph % (Auto) % [place] % (Auto) % Eos % (Auto) % Baso % (Auto) % Neut # (Auto) (1.4-6.5) K/uL Lymph # (Auto) (1.2-3.4) K/uL [place] # (Auto) (0.24-0.82) K/uL Eos # (Auto) (0-0.50) K/uL Baso # (Auto) (0-0.2) K/uL Immature Gran # (Auto) (0.00-0.02) K/uL Sodium (136-145) mmol/L Potassium (3.5-5.1) mmol/L Chloride (98-107) mmol/L Carbon Dioxide (21-32) mmol/L Anion Gap (3-11) BUN (6-23) mg/dl Creatinine (0.6-1.4) mg/dl Est Cr Clr Drug Dosing ml/min Est GFR ( Amer) ml/min Est GFR (Non-Af Amer) ml/min BUN/Creatinine Ratio (10-20) Glucose (70-99(Fasting)) mg/dl Calcium (8.5-10.1) mg/dl Total Bilirubin (0.2-1.0) mg/dl AST (13-39) U/L ALT (7-52) U/L Alkaline Phosphatase (34-104) U/L Total Protein (6.0-8.3) gm/dl Albumin (3.4-5.0) gm/dl Globulin (2.5-4.0) gm/dl Albumin/Globulin Ratio (0.9-2) TSH (0.300-4.500) uIu/ml Urine Color Urine Appearance (Clear) Urine pH (4.5-7.5) Ur Specific [place] (1.000-1.030) Urine Protein (Negative) Urine Glucose (UA) (Negative) Urine Ketones (Negative) Urine Blood (Negative) Urine Nitrite (Negative) Urine Bilirubin (Negative) Urine Urobilinogen (Negative) Ur Leukocyte Esterase (Negative) Salicylates (3.0-30) mg/dl Urine Opiates Screen Neg (Neg) Ur Methadone, Qual Neg (Neg) Acetaminophen (10-30) ug/ml Urine Barbiturates Neg (Neg) Ur Phencyclidine (PCP) Neg (Neg) U Amphetamin/Meth Scrn Neg (Neg) MDMA (Ecstasy) Screen Neg (Neg) U Benzodiazepines Scrn Neg (Neg) Ur Cocaine Metabolite Neg (Neg) U Marijuana (THC) Screen Neg (Neg) Ethyl Alcohol mg/dL (<10.0) mg/dl SARS-CoV-2, RNA, NAAT NEGATIVE (NEGATIVE) Discharge Plan Visit Data Chief Complaint: Mental Health Evaluation ED Provider: Rico Jorge Discharge Problem: Depression with suicidal ideation Discharge Instructions Interventions: ED Discharge Assessment Last Done: 05/27/22 00:20
[2022-05-26 21:51] LABS: Appearance Urine Clear (Clear); Bilirubin Urine Negative (Negative); Blood Urine Negative (Negative); Color Urine Yellow; Glucose Urine UA Negative (Negative); Ketones Urine Negative (Negative); Leukocyte Esterase Urine Negative (Negative); Nitrite Urine Negative (Negative); Protein Urine Negative (Negative); Urobilinogen Urine Negative (Negative); pH Urine 5.5 (4.5-7.5)
[2022-05-26 22:09] LABS: Acetaminophen < 3 ug/ml (10-30); Albumin Globulin Ratio 1.4 (0.9-2); Albumin Level 4.3 gm/dl (3.4-5.0); BUN Creatinine Ratio 11.4 (10-20); Bilirubin,Total 0.7 mg/dl (0.2-1.0); Calcium 8.8 mg/dl (8.5-10.1); Creatinine Clr Calc Pharmacy 111.2 ml/min; Est GFR (African American) 98.1 ml/min; Est GFR (Non-African American) 84.6 ml/min; Globulin 3.1 gm/dl (2.5-4.0); Potassium 3.5 mmol/L (3.5-5.1); Salicylate < 3.0 mg/dl (3.0-30); Total Protein 7.4 gm/dl (6.0-8.3)
[2022-05-26 22:10] LABS: Amphetamines+Metham, Urine Neg (Neg); Barbiturates, Urine Neg (Neg); Benzodiazepine, Urine Neg (Neg); Cocaine, Urine Neg (Neg); MDMA (Ecstacy), Urine Neg (Neg); Methadone, Urine Neg (Neg); Opiate, Urine Neg (Neg); Phencyclidine, Urine Neg (Neg)
[2022-05-26] MEDS ORDERED: hydrOXYzine HCl 25 MG TAB PO PRN ×2 (23:50)
[2022-05-26] MEDS ORDERED: BISMUTH SUBSALICYLATE LIQD 236 ML PO PRN (23:50)
[2022-05-26] MEDS ORDERED: ALUMINUM/MAGNESIUM SUSP 30 ML UDC PO PRN (23:50)
[2022-05-26] MEDS ORDERED: MAGNESIUM HYDROXIDE SUSP 30 ML UDC PO PRN (23:50)
[2022-05-26] MEDS ORDERED: SODIUM CHLORIDE 0.65% NA SOLN 45 ML (OCEAN) PRN (23:50)
[2022-05-26] MEDS ORDERED: ACETAMINOPHEN 325 MG TAB PO PRN (23:50)
[2022-05-27] MEDS ORDERED: ACETAMINOPHEN 500 MG TAB PO PRN (00:06)
[2022-05-27] MEDS ORDERED: POLYETHYLENE (MIRALAX) 17 GM PACK PO PRN (00:06)
[2022-05-27] MEDS ORDERED: FLUORIDE 1.1% DT SCH (00:15)
[2022-05-27] MEDS ORDERED: TOPIRAMATE 100 MG TAB PO SCH (09:00)
[2022-05-27] MEDS ORDERED: FLUoxetine HCL 20 MG CAP PO SCH (09:00)
[2022-05-27] MEDS ORDERED: Flu Vaccine (Fluarix) 0.5mL SYR (Standard Dose) IM ONE (09:00)
[2022-05-27] MEDS ORDERED: PANTOprazole 40 MG TAB PO SCH (09:00)
--- NOTE | 2022-05-27 12:26 | History & Physical ---
Date of Service May 27, 2022 Impression / Recommendations Impression 32 yo male with longstanding diagnosis of autism if not schizoaffective disorder presents with seasonal mood changes in the context of ongoing grief and med non compliance rendering him intermittently suicidal, urge to cut self (hx of such behavior), and unable to care for self in supervised living setting. 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 The patient will participate in group, recreational, and milieu therapies and will be offe red additional individual and family sessions as clinically appropriate. Risks/benefits/alternatives reviewed re: restart of current medications. Discussion included but not limited to monitoring with atypicals, he declines fasting labs given hard stick/sensory issues and prefers to address on outpatient basis. He states he is not interested in a long acting injectable. Reviewed that meds will be retitrated given not on starting doses. Inventory Assets Strengths: help seeking, engaged in regular care/services Needs: improve coping skills, med compliance Suicide Risk Level Suicide Risk Level: Moderate (q15 min suicide checks) (prior attempts, hx of cutting, hx of impulse control issues and intellectual disability) Risk Factors Assessment Male: Yes : Yes Do You Have Access To A Gun?: No Health Problems: Yes Mental Health Diagnoses: Yes Substance Use Disorders: No Previous Attempt: Yes Previous Psychiatric Hospitalization: Yes Protective Factors Assessment Employed: No Supportive Family: Yes Psychiatric History Identifying Data LANA WAGNER is a 32-year-old M who currently lives in [place], has a history of schizoaffective and autism do diagnoses, and was admitted on 05/26/22 23:50 on a 201 voluntary commitment for urges to self-injure. Chief Complaint "I'm just sleeping all the time and not myself." History of Present Illness Patient resides in an independent living apartment supervised by Dylan Crenshaw for the past 6 yrs (hx of [facility] placement and prior inpatient care [facility] 2014). He feels that in general his meds work "pretty well" for him but fall is typically harder for him as the anniversary of loss of his brother and grandmother. Other stressors include that he would like to work but he "can't find anything" though is on SSI. He cooks for himself and relates reasonably well to his 2 roommates (has own room as sensitive to noise). He has a history of seizures but hasn't none for "I can't remember its been so long." He adds that he started not to care for himself as well about a month ago and stopped taking his medications other than did doses with a staff member prior to heading to ED for assessment last pm. He had held a butter knife to his forearm/wrist and has a history of superficial cutting. He felt overwhelmed but reportedly did not want to but worried that he could not keep himself safe. He denied any recent manic symptoms or psychosis and confirmed that last [facility] admission was his last inpatient stay. He is otherwise followed by Irena for outpatient care and denies any recent med changes. Past Psychiatric History Current Psychiatric Diagnosis: schizoaffective disorder, ID, ASD Outpatient Services: no current therapy, CM with [facility] Previous Psych Admissions: [facility] 2014 for SI with previous admit 2013 as well as [facility] Do You Have Access To A Gun?: No Describe Attempts in the Past: hx of multiple prior to 2014 by cutting Past Medication Trials: Abilify, Celexa, thorazine, Depakote, topamax, Zyprexa, trazodone, Prozac Past Head Trauma/Neuro History History of Concussion/Seizure: Yes (seizure) Allergies Allergy/AdvReac Type Severity Reaction Status Date / Time phenytoin Allergy Mild RASH Verified 02/02/22 00:50 cat dander Allergy Unknown Allergy Verified 02/02/22 00:50 type symptoms chocolate flavor Allergy Unknown Unknown Verified 02/02/22 00:50 dog dander Allergy Unknown Allergy Verified 02/02/22 00:50 type symptoms red dye Allergy Unknown Unknown Verified 02/02/22 00:50 Sulfa (Sulfonamide Allergy Unknown Unknown Verified 02/02/22 00:50 Antibiotics) adhesive AdvReac Mild RASH Verified 02/02/22 00:50 polyester fibers AdvReac Unknown Unknown Verified 02/02/22 00:50 Home Medications Medication Instructions Recorded Confirmed Type acetaminophen 500 mg tablet 500 mg PO Q6H PRN Fever Or Pain 05/05/19 05/26/22 History polyethylene glycol 3350 17 17 g PO DAILY PRN Constipation 08/16/20 05/26/22 History gram/dose oral powder (Miralax) chlorhexidine gluconate 0.12 % 15 ml PO 3XWK 07/05/21 05/26/22 History mouthwash aripiprazole 10 mg tablet (Abilify) 10 mg PO HS 09/27/21 05/26/22 History fluoride (sodium) 1.1 % dental 1 applic dental 3XWK 09/27/21 05/26/22 History cream fluoxetine 20 mg capsule 40 mg PO QAM 09/27/21 05/26/22 History hydroxyzine HCl 25 mg tablet 50 mg PO HS 09/27/21 05/26/22 History topiramate 100 mg tablet 100 mg PO BID 09/27/21 05/26/22 History multivitamin 1 tab PO PM 10/30/21 05/26/22 History pantoprazole 40 mg tablet,delayed 40 mg PO QAM #30 tabs 03/13/22 05/26/22 Rx release (Protonix) Family History Family History of: Depression and Anxiety Family Mental Health History Comment: parents with depression and anxiety Alcohol History Hx of Alcohol Use Over the Past 12 Months: No AUDIT Total Score: 0 Smoking Use Have You Smoked or Used Tobacco Products in the Last 30 Days: No Smoking Status: Never smoker Smoking packs per day: 0 Substance History Hx of Prescription Med Misuse Over the Past 12 Months: No Hx of Over the Counter Med Misuse Over the Past 12 Months: No Hx of Inhalent Misuse Over the Past 12 Months: No Hx of Organic Substance Use Over the Past 12 Months: No Hx of Illegal Substances/Street Drug Use Over Past 12 Months: No Problems as a Result of Past Substance Use: None Identified Personal History Living Arrangements: Apartment Highest Grade Completed: High School Graduate Highest Grade Completed Comment: special ed Employment Status: Disabled Marital Status: Single Number Of Children: 0 Beliefs That Will Affect Care: None Current Legal Problems: No Hx Traumatic Life Events: Yes (loss) Patient History Medical History Acute appendicitis Anxiety Autistic spectrum disorder Chronic constipation Depression Encounter for pre-operative examination Enteritis History of suicidal ideation 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 Learning difficulties (11/23/12) Mental retardation (05/12/13) Migraine Mild intellectual disability Schizoaffective disorder Seizure disorder per pt, was diagnosed as pseudo seizure > last one over a year, no longer has to see neuro Split urinary stream Surgical History History of esophagogastroduodenoscopy (EGD) [place] teeth removed Family History Mother Breast cancer Brother FH: brain cancer Grandmother Dementia Other Diabetes Hypertension Denies family history of Ovarian cancer Prostate cancer Lung cancer Colorectal cancer Social History Smoking Status: Never smoker Second Hand Exposure: No; Hx Alcohol Use: No Hx Substance Use: No Preferred Language: Hungarian Communication Ability: limited Visual Impairment: Limited Hearing Ability: Normal 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 Beliefs That Will Affect Care: None marital status: Single Current Living Situation: Other Current Living Situation Comment: independtly lives with roommate current occupational status: unemployed current occupation: Volunte[employer] Feels Safe at Home: Declines to Answer Childhood Exposure to Second-Hand Smoke: No caffeine: Yes Dental Care, Regularly: Yes Physical Activity Frequency: Daily Seatbelt Use: always Sunscreen Use: Yes Assistive Devices: None Review of Systems Review of Systems: All systems reviewed & are unremarkable except as noted in HPI & below Physical Exam Psychiatric: Orientation: alert and oriented x 3 Apperance: appropriately dressed and appropriately groomed Eye Contact: good eye contact Motor Behavior: no abnormal motor movements Speech: normal rate/rhythm/volume of speech Affect: + depressed affect Mood: + depressed mood Thought Process: + concrete thought process Thought Content: reality based without delusions Suicidal Thoughts: denies suicidal thoughts (but extremely hopelss, not functioning in independent living) Homicidal Thoughts: denies homicidal thoughts Hallucinations: no auditory hallucinations and no visual hallucinations Cognition: attention grossly intact and language grossly intact Estimated Intelligence: consistent with education level Insight: + limited insight Judgement: + limited judgement Vital Signs (Past 24 Hours): Last Vital Signs Temp 36.2 C L 05/27/22 06:29 Pulse 75 05/27/22 06:30 Resp 16 05/27/22 06:29 BP 101/62 05/27/22 06:30 Pulse Ox 98 05/27/22 00:26 O2 Del Method 05/27/22 00:26 Exam Statement: A physical exam was performed in the ED by Dr. Jorge for the purposes of medical clearance. I accept that physical as correct and adequate for the purposes of the inpatient physical exam. Results & Data ([facility]) Laboratory Results Laboratory Results - last 24 hr 05/26/22 05/26/22 05/26/22 21:11 21:11 21:11 WBC 5.18 RBC 5.02 Hgb 14.9 Hct 44.3 MCV 88.2 MCH 29.7 MCHC 33.6 RDW Std Deviation 43.2 RDW Coeff of Abilio 13.4 Plt Count 178 MPV 11.9 Immature Gran % (Auto) 0.2 Neut % (Auto) 51.2 Lymph % (Auto) 34.7 Mcmullen % (Auto) 11.0 Eos % (Auto) 2.1 Baso % (Auto) 0.8 Neut # (Auto) 2.65 Lymph # (Auto) 1.80 Mcmullen # (Auto) 0.57 Eos # (Auto) 0.11 Baso # (Auto) 0.04 Immature Gran # (Auto) 0.01 Sodium 136 Potassium 3.5 Chloride 107 Carbon Dioxide 21 Anion Gap 8 BUN 13 Creatinine 1.14 Est Cr Clr Drug Dosing 111.2 Est GFR ( Amer) 98.1 Est GFR (Non-Af Amer) 84.6 BUN/Creatinine Ratio 11.4 Glucose 86 Calcium 8.8 Total Bilirubin 0.7 AST 19 ALT 16 Alkaline Phosphatase 56 Total Protein 7.4 Albumin 4.3 Globulin 3.1 Albumin/Globulin Ratio 1.4 TSH 3.005 Urine Color Urine Appearance Urine pH Ur Specific [place] Urine Protein Urine Glucose (UA) Urine Ketones Urine Blood Urine Nitrite Urine Bilirubin Urine Urobilinogen Ur Leukocyte Esterase Salicylates Urine Opiates Screen Ur Methadone, Qual Acetaminophen Urine Barbiturates Ur Phencyclidine (PCP) U Amphetamin/Meth Scrn MDMA (Ecstasy) Screen U Benzodiazepines Scrn Ur Cocaine Metabolite U Marijuana (THC) Screen Ethyl Alcohol mg/dL SARS-CoV-2, RNA, NAAT 05/26/22 05/26/22 05/26/22 21:11 21:11 21:11 WBC RBC Hgb Hct MCV MCH MCHC RDW Std Deviation RDW Coeff of Abilio Plt Count MPV Immature Gran % (Auto) Neut % (Auto) Lymph % (Auto) Mcmullen % (Auto) Eos % (Auto) Baso % (Auto) Neut # (Auto) Lymph # (Auto) Mcmullen # (Auto) Eos # (Auto) Baso # (Auto) Immature Gran # (Auto) Sodium Potassium Chloride Carbon Dioxide Anion Gap BUN Creatinine Est Cr Clr Drug Dosing Est GFR ( Amer) Est GFR (Non-Af Amer) BUN/Creatinine Ratio Glucose Calcium Total Bilirubin AST ALT Alkaline Phosphatase Total Protein Albumin Globulin Albumin/Globulin Ratio TSH Urine Color Yellow Urine Appearance Clear Urine pH 5.5 Ur Specific [place] 1.020 Urine Protein Negative Urine Glucose (UA) Negative Urine Ketones Negative Urine Blood Negative Urine Nitrite Negative Urine Bilirubin Negative Urine Urobilinogen Negative Ur Leukocyte Esterase Negative Salicylates < 3.0 L Urine Opiates Screen Ur Methadone, Qual Acetaminophen < 3 L Urine Barbiturates Ur Phencyclidine (PCP) U Amphetamin/Meth Scrn MDMA (Ecstasy) Screen U Benzodiazepines Scrn Ur Cocaine Metabolite U Marijuana (THC) Screen Ethyl Alcohol mg/dL < 10.0 SARS-CoV-2, RNA, NAAT 05/26/22 05/26/22 21:11 21:11 WBC RBC Hgb Hct MCV MCH MCHC RDW Std Deviation RDW Coeff of Abilio Plt Count MPV Immature Gran % (Auto) Neut % (Auto) Lymph % (Auto) Mcmullen % (Auto) Eos % (Auto) Baso % (Auto) Neut # (Auto) Lymph # (Auto) Mcmullen # (Auto) Eos # (Auto) Baso # (Auto) Immature Gran # (Auto) Sodium Potassium Chloride Carbon Dioxide Anion Gap BUN Creatinine Est Cr Clr Drug Dosing Est GFR ( Amer) Est GFR (Non-Af Amer) BUN/Creatinine Ratio Glucose Calcium Total Bilirubin AST ALT Alkaline Phosphatase Total Protein Albumin Globulin Albumin/Globulin Ratio TSH Urine Color Urine Appearance Urine pH Ur Specific [place] Urine Protein Urine Glucose (UA) Urine Ketones Urine Blood Urine Nitrite Urine Bilirubin Urine Urobilinogen Ur Leukocyte Esterase Salicylates Urine Opiates Screen Neg Ur Methadone, Qual Neg Acetaminophen Urine Barbiturates Neg Ur Phencyclidine (PCP) Neg U Amphetamin/Meth Scrn Neg MDMA (Ecstasy) Screen Neg U Benzodiazepines Scrn Neg Ur Cocaine Metabolite Neg U Marijuana (THC) Screen Neg Ethyl Alcohol mg/dL SARS-CoV-2, RNA, NAAT NEGATIVE Current Inpatient Medications Current Inpatient Medications: Current Inpatient Medications Acetaminophen (Acetaminophen 325 Mg Tab) 650 mg PO Q4H PRN PRN Reason: Headache or Minor Fever Stop: 06/25/22 23:49 Al Hydrox/Mg Hydrox/Simethicone (Aluminum/Magnesium Susp 30 Ml Udc) 30 ml PO Q4H PRN PRN Reason: GI Upset Stop: 06/25/22 23:49 Bismuth Subsalicylate (Bismuth Subsalicylate Liqd 236 Ml) 15 ml PO PRN PRN PRN Reason: Loose Stool Stop: 06/25/22 23:49 Hydroxyzine HCl (Hydroxyzine Hcl 25 Mg Tab) 50 mg PO HSZ PRN PRN Reason: Insomnia Stop: 06/25/22 23:49 Hydroxyzine HCl (Hydroxyzine Hcl 25 Mg Tab) 25 mg PO Q4H PRN PRN Reason: Anxiety Stop: 06/25/22 23:49 Magnesium Hydroxide (Magnesium Hydroxide Susp 30 Ml Udc) 30 ml PO DAILY PRN PRN Reason: Constipation Stop: 06/25/22 23:49 Sodium Chloride (Sodium Chloride 0.65% Na Soln 45 Ml ([place])) 1 - 2 sprays NA PRN PRN PRN Reason: Nasal Dryness/Congestion Stop: 06/25/22 23:49
[2022-05-27] MEDS: TOPIRAMATE 50 MG TAB PO SCH ×2 (14:37→21:28)
[2022-05-27] MEDS: PANTOprazole 40 MG TAB PO SCH (14:37)
[2022-05-27] MEDS: FLUoxetine HCL 20 MG CAP PO SCH (14:37)
[2022-05-27] MEDS ORDERED: NON-FORMULARY MEDICATION (Multivitamin Tablet) PO SCH (21:00)
[2022-05-27] MEDS ORDERED: hydrOXYzine HCl 25 MG TAB PO SCH (21:00)
[2022-05-27] MEDS ORDERED: ARIPiprazole 10 MG TAB PO SCH (21:00)
[2022-05-27] MEDS: hydrOXYzine HCl 25 MG TAB PO SCH (21:29)
[2022-05-27] MEDS ORDERED: ARIPiprazole 5 MG TAB PO SCH (22:00)
[2022-05-28] MEDS: FLUoxetine HCL 20 MG CAP PO SCH (09:03)
[2022-05-28] MEDS: PANTOprazole 40 MG TAB PO SCH (09:04)
[2022-05-28] MEDS: POLYETHYLENE (MIRALAX) 17 GM PACK PO SCH (09:04)
[2022-05-28] MEDS: TOPIRAMATE 50 MG TAB PO SCH (09:04)
[2022-05-28] MEDS: CHLORHEXIDINE GLUCONATE 0.12% 480 ML MT SCH (11:19)
--- NOTE | 2022-05-28 11:28 | Psychiatric Progress Note ---
Date of Service May 28, 2022 Impression / Recommendations Impression 32 yo male with longstanding diagnosis of autism if not schizoaffective disorder presents with seasonal mood changes in the context of ongoing grief and med non compliance rendering him intermittently suicidal, urge to cut self (hx of such behavior), and unable to care for self in supervised living setting. 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 05/27/22: The patient was admitted to the [facility] ([facility] health unit) on q15 min checks (behavioral with suicide precautions) for safety. The patient will participate in group, recreational, and milieu therapies and will be offered additional individual and family sessions as clinically appropriate. Risks/benefits/alternatives reviewed re: restart of current medications. Discussion included but not limited to monitoring with atypicals, he declines fasting labs given hard stick/sensory issues and prefers to address on outpatient basis. He states he is not interested in a long acting injectable. Reviewed that meds will be retitrated given not on starting doses. Inventory Assets Strengths: help seeking, engaged in regular care/services Needs: improve coping skills, med compliance Suicide Risk Level Suicide Risk Level: Moderate (q15 min suicide checks) (prior attempts, hx of cutting, hx of impulse control issues and intellectual disability) Risk Factors Assessment Male: Yes : Yes Do You Have Access To A Gun?: No Health Problems: Yes Mental Health Diagnoses: Yes Substance Use Disorders: No Previous Attempt: Yes Previous Psychiatric Hospitalization: Yes Protective Factors Assessment Employed: No Supportive Family: Yes Interval History Identifying Information LANA WAGNER is a 32-year-old M who currently lives in [place], has a history of schizoaffective and autism do diagnoses, and was admitted on 05/26/22 23:50 on a 201 voluntary commitment for urges to self-injure. Chief Complaint "I'm just tired with life still". Review of Systems Sleep Information Total Hours of Sleep: 8.75 Meal Information Percent Meal Consumed - Breakfast: 100 Percent Meal Consumed - Lunch: 75 Percent Meal Consumed - Dinner: 100 Nutrition Comment: sleeping Subjective Subjective Patient was seen & assessed and interval progress reviewed with treatment team. Patient has been cooperative with unit routines, restarted medication without incident. Told staff he wished he could get gender reassignment surgery just to get more attention. Physical Exam Psychiatric Orientation: alert and oriented x 3 Apperance: appropriately dressed and appropriately groomed Eye Contact: good eye contact Motor Behavior: no abnormal motor movements Speech: normal rate/rhythm/volume of speech Affect: + depressed affect Mood: + depressed mood Thought Process: + concrete thought process Thought Content: reality based without delusions Suicidal Thoughts: denies suicidal thoughts (but extremely hopelss, not functioning in independent living) Homicidal Thoughts: denies homicidal thoughts Hallucinations: no auditory hallucinations and no visual hallucinations Cognition: attention grossly intact and language grossly intact Estimated Intelligence: consistent with education level Insight: + limited insight Judgement: + limited judgement Vital Signs (Past 24 Hours) Last Vital Signs Temp 36.6 C 05/28/22 06:44 Pulse 73 05/28/22 06:44 Resp 16 05/28/22 06:44 BP 111/66 05/28/22 06:44 Pulse Ox 98 05/27/22 00:26 O2 Del Method 05/27/22 00:26 Results & Data ([facility]) Current Inpatient Medications Current Inpatient Medications: Current Inpatient Medications Acetaminophen (Acetaminophen 325 Mg Tab) 650 mg PO Q4H PRN PRN Reason: Headache or Minor Fever Stop: 06/25/22 23:49 Al Hydrox/Mg Hydrox/Simethicone (Aluminum/Magnesium Susp 30 Ml Udc) 30 ml PO Q4H PRN PRN Reason: GI Upset Stop: 06/25/22 23:49 Aripiprazole (Aripiprazole 10 Mg Tab) 10 mg PO HS PINKY Stop: 06/27/22 21:59 Bismuth Subsalicylate (Bismuth Subsalicylate Liqd 236 Ml) 15 ml PO PRN PRN PRN Reason: Loose Stool Stop: 06/25/22 23:49 Chlorhexidine Gluconate (Chlorhexidine Gluconate 0.12% 480 Ml) 15 ml MT [id number] PINKY Stop: 06/27/22 10:59 Last Admin: 05/28/22 11:19 Dose: 15 ml Fluoxetine HCl (Fluoxetine Hcl 20 Mg Cap) 20 mg PO ONE ONE Stop: 05/28/22 11:31 Fluoxetine HCl (Fluoxetine Hcl 20 Mg Cap) 40 mg PO QAM PINKY Stop: 06/28/22 08:59 Hydroxyzine HCl (Hydroxyzine Hcl 25 Mg Tab) 50 mg PO HSZ PRN PRN Reason: Insomnia Stop: 06/25/22 23:49 Hydroxyzine HCl (Hydroxyzine Hcl 25 Mg Tab) 25 mg PO Q4H PRN PRN Reason: Anxiety Stop: 06/25/22 23:49 Hydroxyzine HCl (Hydroxyzine Hcl 25 Mg Tab) 50 mg PO HS PINKY Stop: 06/26/22 21:59 Last Admin: 05/27/22 21:29 Dose: 50 mg Magnesium Hydroxide (Magnesium Hydroxide Susp 30 Ml Udc) 30 ml PO DAILY PRN PRN Reason: Constipation Stop: 06/25/22 23:49 Pantoprazole Sodium (Pantoprazole 40 Mg Tab) 40 mg PO QAM PINKY Stop: 06/26/22 12:29 Last Admin: 05/28/22 09:04 Dose: 40 mg Polyethylene Glycol (Polyethylene (Miralax) 17 Gm Pack) 17 gm PO DAILY PINKY Stop: 06/27/22 08:59 Last Admin: 05/28/22 09:04 Dose: 17 gm Prazosin HCl (Prazosin Hcl 1 Mg Cap) 1 mg PO HS PINKY Stop: 06/27/22 21:59 Sodium Chloride (Sodium Chloride 0.65% Na Soln 45 Ml ([place])) 1 - 2 sprays NA PRN PRN PRN Reason: Nasal Dryness/Congestion Stop: 06/25/22 23:49 Topiramate (Topiramate 100 Mg Tab) 100 mg PO BID PINKY Stop: 06/27/22 20:59 Mental Health & Subst Abuse Tx Therapist Name of Therapist: None Delivery Analyst Name of Delivery Analyst: "I don't remember"
[2022-05-28] MEDS ORDERED: FLUoxetine HCL 20 MG CAP PO ONE (11:30)
[2022-05-28] MEDS ORDERED: FLUARIX QUADRIVALENT 0.5 ML SYR IM ONE (14:05)
[2022-05-28] MEDS ORDERED: ARIPiprazole 10 MG TAB PO SCH (22:00)
[2022-05-28] MEDS: PRAZOSIN HCL 1 MG CAP PO SCH (22:08)
[2022-05-28] MEDS: hydrOXYzine HCl 25 MG TAB PO SCH (22:09)
[2022-05-28] MEDS: TOPIRAMATE 100 MG TAB PO SCH (22:09)
[2022-05-29] MEDS: POLYETHYLENE (MIRALAX) 17 GM PACK PO SCH (08:36)
[2022-05-29] MEDS: PANTOprazole 40 MG TAB PO SCH (08:36)
[2022-05-29] MEDS: TOPIRAMATE 100 MG TAB PO SCH ×2 (08:36→20:55)
[2022-05-29] MEDS ORDERED: FLUoxetine HCL 20 MG CAP PO SCH (09:00)
--- NOTE | 2022-05-29 13:18 | Psychiatric Progress Note ---
Date of Service May 29, 2022 Impression / Recommendations Impression 32 yo male with longstanding diagnosis of autism if not schizoaffective disorder presents with seasonal mood changes in the context of ongoing grief and med non compliance rendering him intermittently suicidal, urge to cut self (hx of such behavior), and unable to care for self in supervised living setting. 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 05/28/22: continue retitration of outpatient meds (increased Abilify, Prozac, topamax, resume prazosin). 05/27/22: The patient was admitted to the [facility] ([facility]) on q15 min checks (behavioral with suicide precautions) for safety. The patient will participate in group, recreational, and milieu therapies and will be offered additional individual and family sessions as clinically appropriate. Risks/benefits/alternatives reviewed re: restart of current medications. Discussion included but not limited to monitoring with atypicals, he declines fasting labs given hard stick/sensory issues and prefers to address on outpatient basis. He states he is not interested in a long acting injectable. Reviewed that meds will be retitrated given not on starting doses. Inventory Assets Strengths: help seeking, engaged in regular care/services Needs: improve coping skills, med compliance Suicide Risk Level Suicide Risk Level: Moderate (q15 min suicide checks) (prior attempts, hx of cutting, hx of impulse control issues and intellectual disability) Risk Factors Assessment Male: Yes : Yes Do You Have Access To A Gun?: No Health Problems: Yes Mental Health Diagnoses: Yes Substance Use Disorders: No Previous Attempt: Yes Previous Psychiatric Hospitalization: Yes Protective Factors Assessment Employed: No Supportive Family: Yes Interval History Identifying Information LANA WAGNER is a 32-year-old M who currently lives in [place], has a history of schizoaffective and autism do diagnoses, and was admitted on 05/26/22 23:50 on a 201 voluntary commitment for urges to self-injure. Chief Complaint "I'm feeling better being around people." Review of Systems Sleep Information Total Hours of Sleep: 9 Meal Information Percent Meal Consumed - Breakfast: 100 Percent Meal Consumed - Lunch: 90 Percent Meal Consumed - Dinner: 75 Nutrition Comment: sleeping Subjective Subjective Patient was seen & assessed and interval progress reviewed with nursing and social work. still low periods of day like last pm rated mood 4 and unneeded. Today is interacting with rec therapist and able to list a variety of community activities that he is involved in. Physical Exam Psychiatric Orientation: alert and oriented x 3 Apperance: appropriately dressed and appropriately groomed Eye Contact: good eye contact Motor Behavior: no abnormal motor movements Speech: normal rate/rhythm/volume of speech Affect: euthymic affect Mood: + depressed mood Thought Process: + concrete thought process Thought Content: reality based without delusions Suicidal Thoughts: denies suicidal thoughts Homicidal Thoughts: denies homicidal thoughts Hallucinations: no auditory hallucinations and no visual hallucinations Cognition: attention grossly intact and language grossly intact Estimated Intelligence: consistent with education level Insight: + limited insight Judgement: + limited judgement Vital Signs (Past 24 Hours) Last Vital Signs Temp 36.3 C L 05/29/22 06:38 Pulse 71 05/29/22 06:38 Resp 16 05/29/22 06:38 BP 92/57 L 05/29/22 06:38 Pulse Ox 98 05/27/22 00:26 O2 Del Method 05/27/22 00:26 Results & Data (U) Current Inpatient Medications Current Inpatient Medications: Current Inpatient Medications Acetaminophen (Acetaminophen 325 Mg Tab) 650 mg PO Q4H PRN PRN Reason: Headache or Minor Fever Stop: 06/25/22 23:49 Al Hydrox/Mg Hydrox/Simethicone (Aluminum/Magnesium Susp 30 Ml Udc) 30 ml PO Q4H PRN PRN Reason: GI Upset Stop: 06/25/22 23:49 Aripiprazole (Aripiprazole 15 Mg Tab) 15 mg PO HS PINKY Stop: 06/28/22 21:59 Bismuth Subsalicylate (Bismuth Subsalicylate Liqd 236 Ml) 15 ml PO PRN PRN PRN Reason: Loose Stool Stop: 06/25/22 23:49 Chlorhexidine Gluconate (Chlorhexidine Gluconate 0.12% 480 Ml) 15 ml MT [id number] PINKY Stop: 06/27/22 10:59 Last Admin: 05/28/22 11:19 Dose: 15 ml Fluoxetine HCl (Fluoxetine Hcl 20 Mg Cap) 60 mg PO QAM [facility] Stop: 06/29/22 08:59 Hydroxyzine HCl (Hydroxyzine Hcl 25 Mg Tab) 50 mg PO HSZ PRN PRN Reason: Insomnia Stop: 06/25/22 23:49 Hydroxyzine HCl (Hydroxyzine Hcl 25 Mg Tab) 25 mg PO Q4H PRN PRN Reason: Anxiety Stop: 06/25/22 23:49 Hydroxyzine HCl (Hydroxyzine Hcl 25 Mg Tab) 50 mg PO HS PINKY Stop: 06/26/22 21:59 Last Admin: 05/28/22 22:09 Dose: 50 mg Magnesium Hydroxide (Magnesium Hydroxide Susp 30 Ml Udc) 30 ml PO DAILY PRN PRN Reason: Constipation Stop: 06/25/22 23:49 Pantoprazole Sodium (Pantoprazole 40 Mg Tab) 40 mg PO QAM PINKY Stop: 06/26/22 12:29 Last Admin: 05/29/22 08:36 Dose: 40 mg Polyethylene Glycol (Polyethylene (Miralax) 17 Gm Pack) 17 gm PO DAILY PINKY Stop: 06/27/22 08:59 Last Admin: 05/29/22 08:36 Dose: 17 gm Prazosin HCl (Prazosin Hcl 1 Mg Cap) 1 mg PO HS PINKY Stop: 06/27/22 21:59 Last Admin: 05/28/22 22:08 Dose: 1 mg Sodium Chloride (Sodium Chloride 0.65% Na Soln 45 Ml ([place])) 1 - 2 sprays NA PRN PRN PRN Reason: Nasal Dryness/Congestion Stop: 06/25/22 23:49 Topiramate (Topiramate 100 Mg Tab) 100 mg PO BID PINKY Stop: 06/27/22 20:59 Last Admin: 05/29/22 08:36 Dose: 100 mg Mental Health & Subst Abuse Tx Psychiatrist Name of Psychiatrist: Della Brush Psychiatrist's Psychiatric Appointment Comment: [address] [place], [place] Therapist Name of Therapist: None Harm Reduction Worker Name of Harm Reduction Worker: JAMES Madden Phone Number for Harm Reduction Worker: [phone] Post Discharge Appointments Primary Care Physician Name Of Family Doctor: ROBERT Gomez Freelance Graphic Designer Name of Freelance Graphic Designer: Vipin Saleh
[2022-05-29] MEDS: PRAZOSIN HCL 1 MG CAP PO SCH (20:55)
[2022-05-29] MEDS: ARIPiprazole 15 MG TAB PO SCH (20:56)
[2022-05-29] MEDS: hydrOXYzine HCl 25 MG TAB PO SCH (20:56)
[2022-05-30] MEDS: PANTOprazole 40 MG TAB PO SCH (09:08)
[2022-05-30] MEDS: TOPIRAMATE 100 MG TAB PO SCH ×2 (09:10→21:47)
[2022-05-30] MEDS: FLUoxetine HCL 20 MG CAP PO SCH (09:10)
[2022-05-30] MEDS: CHLORHEXIDINE GLUCONATE 0.12% 480 ML MT SCH (09:14)
[2022-05-30] MEDS: POLYETHYLENE (MIRALAX) 17 GM PACK PO SCH (09:16)
--- NOTE | 2022-05-30 12:17 | Psychiatric Progress Note ---
Date of Service May 30, 2022 Impression / Recommendations Impression 32 yo male with longstanding diagnosis of autism if not schizoaffective disorder presents with seasonal mood changes in the context of ongoing grief and med non compliance rendering him intermittently suicidal, urge to cut self (hx of such behavior), and unable to care for self in supervised living setting. 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 05/29/22: continue current med titration and rx plan. 05/28/22: continue retitration of outpatient meds (increased Abilify, Prozac, topamax, resume prazosin). 05/27/22: The patient was admitted to the [facility] ([facility] mental health unit) on q15 min checks (behavioral with suicide precautions) for safety. The patient will participate in group, recreational, and milieu therapies and will be offered additional individual and family sessions as clinically appropriate. Risks/benefits/alternatives reviewed re: restart of current medications. Discussion included but not limited to monitoring with atypicals, he declines fasting labs given hard stick/sensory issues and prefers to address on outpatient basis. He states he is not interested in a long acting injectable. Reviewed that meds will be retitrated given not on starting doses. Inventory Assets Strengths: help seeking, engaged in regular care/services Needs: improve coping skills, med compliance Suicide Risk Level Suicide Risk Level: Moderate (q15 min suicide checks) (prior attempts, hx of cutting, hx of impulse control issues and intellectual disability) Risk Factors Assessment Male: Yes : Yes Do You Have Access To A Gun?: No Health Problems: Yes Mental Health Diagnoses: Yes Substance Use Disorders: No Previous Attempt: Yes Previous Psychiatric Hospitalization: Yes Protective Factors Assessment Employed: No Supportive Family: Yes Interval History Identifying Information LANA WAGNER is a 32-year-old M who currently lives in [place], has a history of schizoaffective and autism do diagnoses, and was admitted on 05/26/22 23:50 on a 201 voluntary commitment for urges to self-injure. Chief Complaint "I like interacting with more people" Review of Systems Sleep Information Total Hours of Sleep: 6 Sleep Comments: pt given vistaril per rn. pt on q-15 minute checks Meal Information Percent Meal Consumed - Breakfast: 100 Percent Meal Consumed - Lunch: 0 Percent Meal Consumed - Dinner: 90 Subjective Subjective Patient was seen & assessed and interval progress reviewed with treatment team. Ongoing improvement. Continues to ask questions re: therapy for gender concerns. Plans to discuss with CM. Physical Exam Psychiatric Orientation: alert and oriented x 3 Apperance: appropriately dressed and appropriately groomed Eye Contact: good eye contact Motor Behavior: no abnormal motor movements Speech: normal rate/rhythm/volume of speech Affect: euthymic affect Mood: + depressed mood Thought Process: + concrete thought process Thought Content: reality based without delusions Suicidal Thoughts: denies suicidal thoughts Homicidal Thoughts: denies homicidal thoughts Hallucinations: no auditory hallucinations and no visual hallucinations Cognition: attention grossly intact and language grossly intact Estimated Intelligence: consistent with education level Insight: + limited insight Judgement: + limited judgement Vital Signs (Past 24 Hours) Last Vital Signs Temp 36.5 C 05/30/22 06:53 Pulse 84 05/30/22 06:53 Resp 16 05/30/22 06:53 BP 100/65 05/30/22 06:53 Pulse Ox 98 05/27/22 00:26 O2 Del Method 05/27/22 00:26 Results & Data ([facility]) Current Inpatient Medications Current Inpatient Medications: Current Inpatient Medications Acetaminophen (Acetaminophen 325 Mg Tab) 650 mg PO Q4H PRN PRN Reason: Headache or Minor Fever Stop: 06/25/22 23:49 Al Hydrox/Mg Hydrox/Simethicone (Aluminum/Magnesium Susp 30 Ml Udc) 30 ml PO Q4H PRN PRN Reason: GI Upset Stop: 06/25/22 23:49 Aripiprazole (Aripiprazole 15 Mg Tab) 15 mg PO HS PINKY Stop: 06/28/22 21:59 Last Admin: 05/29/22 20:56 Dose: 15 mg Bismuth Subsalicylate (Bismuth Subsalicylate Liqd 236 Ml) 15 ml PO PRN PRN PRN Reason: Loose Stool Stop: 06/25/22 23:49 Chlorhexidine Gluconate (Chlorhexidine Gluconate 0.12% 480 Ml) 15 ml MT [id number]@0900 PINKY Stop: 06/27/22 10:59 Last Admin: 05/30/22 09:14 Dose: 15 ml Fluoxetine HCl (Fluoxetine Hcl 20 Mg Cap) 60 mg PO QAM PINK[facility] Stop: 06/29/22 08:59 Last Admin: 05/30/22 09:10 Dose: 60 mg Hydroxyzine HCl (Hydroxyzine Hcl 25 Mg Tab) 50 mg PO HSZ PRN PRN Reason: Insomnia Stop: 06/25/22 23:49 Hydroxyzine HCl (Hydroxyzine Hcl 25 Mg Tab) 25 mg PO Q4H PRN PRN Reason: Anxiety Stop: 06/25/22 23:49 Hydroxyzine HCl (Hydroxyzine Hcl 25 Mg Tab) 50 mg PO HS PINKY Stop: 06/26/22 21:59 Last Admin: 05/29/22 20:56 Dose: 50 mg Magnesium Hydroxide (Magnesium Hydroxide Susp 30 Ml Udc) 30 ml PO DAILY PRN PRN Reason: Constipation Stop: 06/25/22 23:49 Pantoprazole Sodium (Pantoprazole 40 Mg Tab) 40 mg PO QAM PINKY Stop: 06/26/22 12:29 Last Admin: 05/30/22 09:08 Dose: 40 mg Polyethylene Glycol (Polyethylene (Miralax) 17 Gm Pack) 17 gm PO DAILY PINKY Stop: 06/27/22 08:59 Last Admin: 05/30/22 09:16 Dose: 17 gm Prazosin HCl (Prazosin Hcl 1 Mg Cap) 1 mg PO HS PINKY Stop: 06/27/22 21:59 Last Admin: 05/29/22 20:55 Dose: 1 mg Sodium Chloride (Sodium Chloride 0.65% Na Soln 45 Ml ([place])) 1 - 2 sprays NA PRN PRN PRN Reason: Nasal Dryness/Congestion Stop: 06/25/22 23:49 Topiramate (Topiramate 100 Mg Tab) 100 mg PO BID PINKY Stop: 06/27/22 20:59 Last Admin: 05/30/22 09:10 Dose: 100 mg Mental Health & Subst Abuse Tx Psychiatrist Name of Psychiatrist: Della Bruhs Psychiatrist's Psychiatric Appointment Comment: [address] [place], [place] Therapist Name of Therapist: None Senior Government Program Analyst Name of Senior Government Program Analyst: JAMES Madden Phone Number for Senior Government Program Analyst: [phone] Case Management Appointment Comment: will follow up as scheduled Post Discharge Appointments Primary Care Physician Name Of Family Doctor: SALVADOR Finney [facility] Date of Appointment with PCP: 06/04/22 Time of Appointment with PCP: 2 p.m Provider Appointment Comment: [address], [place] [address] Auger Press Operator Name of Auger Press Operator: Vipin Saleh Contact Information Discharge Discharge Address: [facility] [address] [place] [address]
[2022-05-30] MEDS: PRAZOSIN HCL 1 MG CAP PO SCH (21:47)
[2022-05-30] MEDS: ARIPiprazole 15 MG TAB PO SCH (21:47)
[2022-05-30] MEDS: hydrOXYzine HCl 25 MG TAB PO SCH (21:47)
[2022-05-31] MEDS: TOPIRAMATE 100 MG TAB PO SCH (08:39)
[2022-05-31] MEDS: PANTOprazole 40 MG TAB PO SCH (08:39)
[2022-05-31] MEDS: FLUoxetine HCL 20 MG CAP PO SCH (08:39)
[2022-05-31] MEDS: POLYETHYLENE (MIRALAX) 17 GM PACK PO SCH (08:42)
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
== END 2022-05-31 14:23 | disposition home or self-care (01) | DRG 881 ==
LOC: ED 20:57 → 3S 23:50

== ENCOUNTER 2022-07-15 12:42 | Inpatient (IN) ==
[2022-07-15] MEDS ORDERED: SODIUM CHLORIDE 0.9% 1000ML 1,000 ML IV STA (12:55)
[2022-07-15] MEDS ORDERED: ONDANSETRON INJ 2 MG/ML 2 ML VIAL IV STA (12:55)
--- NOTE | 2022-07-15 12:58 | Emergency Department Note ---
Impression & Plan Acute dehydration, Abdominal pain, RLQ, Nausea & vomiting, Overdose by ingestion ED Provider Note NAME: LANA WAGNER AGE: 32 SEX: M : 1990 ARRIVES VIA: Ambulance INFORMANT: Patient, ED PROVIDER(S): Rico Jorge MD Chief Complaint: Nausea vomiting, possible overdose, SI, abdominal pain HPI: Patient presents due to concern for feeling generally unwell after playing p[place], hockey at the [employer] today. The patient felt right lower quadrant pain associated nausea and vomiting. Patient states that he also tried to harm himself by drinking [place] last evening. The patient states that he might of had a quarter of a bottle of aerosolized spray mixed with water. Patient states that he did this with the intent to kill himself. No HI or AVH. The patient does not employed. Patient feels as though nobody cares about him. Patient denies any tobacco or drug use but did drink 2 pinto bombs last evening. Patient has had a prior history of SI. Patient states that he has a planned overdose on alcohol, medications or hand soap. When asked what kind of soap he says [place]. ROS: See HPI for pertinent positives and negatives. A total of 10 systems were reviewed and otherwise negative. Past medical history: See below Surgical history: See below Social history: See below Physical Exam: GENERAL: NAD, wearing a mask, non-toxic. EYE EXAM: Normal conjunctiva. PERRL, no anisocoria and EOM's grossly intact w/o pain. NECK: Supple, no nuchal rigidity, no adenopathy, non-tender. No signs of meningismus. FROM of the neck with good chin to chest and neck extension. No stridor. LUNGS: Clear to auscultation. Normal chest wall mechanics. HEART: NSR, no MRG. ABDOMEN: Abdomen soft, right lower quadrant pain, normo-active bowel sounds, no masses, no rebound or guarding. BACK: No CVA TTP. SKIN: No rashes and no bruising. UPPER EXTREMITIES: Upper extremities are grossly normal. LOWER EXTREMITIES: Grossly normal, no edema. NEURO EXAM: A&O x3, cranial nerves II-XII grossly intact, normal speech, moves all 4 extremities. Psych: Positive SI, negative HI or AVH. Differential diagnoses: Appendicitis, testicular torsion, infections, diverticulitis, UTI, obstruction, mesenteric ischemia, aortic pathology, inflammatory bowel disease, renal colic, PUD, pancreatitis, biliary pathology, hernia, volvulus, constipation, as well as other pathologies. Course: Patient was seen and evaluated the bedside. Full history physical exam was performed. Imaging Studies: See Below Cardiac monitoring: An order was placed for continuous cardiac monitoring. The monitor shows a rate of 92 with sinus rhythm. MDM: Patient presented due to concern for nausea vomiting abdominal pain as well as psych issues. Poison control was called. The patient did have blood work completed along with CT abdomen pelvis tox screen was given IV fluids and Zofran. Poison control recommended supportive care and stated that he could have some associated nausea vomiting and occasionally larger overdoses can develop some associated laxative effects. Normal white count H&H and platelet count. Kidney function with prerenal azotemia.Patient's blood work shows patient did receive IV fluids. Calcium borderline elevated 10.6. TSH elevated but free T4 normal. Urinalysis with no evidence of blood or infection. UDS negative with negative alcohol salicylate and Tylenol. COVID-negative CT abdomen pelvis shows no bowel obstruction or thickening. The patient may have gastroenteritis. Subcentimeter appendicolith without CT evidence of acute appendicitis. Patient was evaluated by psych piano case maker referral was made to S. and the patient was admitted for voluntary inpatient treatment. 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 Learning difficulties (11/23/12) Mental retardation (05/12/13) Migraine Mild intellectual disability Schizoaffective disorder Schizoaffective disorder Seizure disorder per pt, was diagnosed as pseudo seizure > last one over a year, no longer has to see neuro Split urinary stream Surgical History History of esophagogastroduodenoscopy (EGD) [place] teeth removed Family History Mother Breast cancer Brother FH: brain cancer Grandmother Dementia Other Diabetes Hypertension Denies family history of Ovarian cancer Prostate cancer Lung cancer Colorectal cancer Social History Smoking Status: Never smoker Second Hand Exposure: No; Hx Alcohol Use: No Hx Substance Use: No Preferred Language: French Communication Ability: limited Visual Impairment: Limited Hearing Ability: Normal Can Top Setter Required: No Beliefs That Will Affect Care: None marital status: Single Current Living Situation: Other Current Living Situation Comment: independtly lives with roommate current occupational status: unemployed current occupation: Volunte[employer] Feels Safe at Home: Yes Childhood Exposure to Second-Hand Smoke: No caffeine: Yes Dental Care, Regularly: Yes Physical Activity Frequency: Daily Seatbelt Use: always Sunscreen Use: Yes Assistive Devices: None Allergies Allergies Allergy/AdvReac Type Severity Reaction Status Date / Time phenytoin Allergy Mild RASH Verified 07/15/22 15:34 cat dander Allergy Unknown Allergy Verified 07/15/22 15:34 type symptoms chocolate flavor Allergy Unknown Unknown Verified 07/15/22 15:34 dog dander Allergy Unknown Allergy Verified 07/15/22 15:34 type symptoms red dye Allergy Unknown Unknown Verified 07/15/22 15:34 Sulfa (Sulfonamide Allergy Unknown Unknown Verified 07/15/22 15:34 Antibiotics) adhesive AdvReac Mild RASH Verified 07/15/22 15:34 polyester fibers AdvReac Unknown Unknown Verified 07/15/22 15:34 Home Meds Home Medications Medication Instructions Recorded Confirmed acetaminophen 500 mg tablet 500 mg PO Q6H PRN Fever Or Pain 05/05/19 07/15/22 polyethylene glycol 3350 17 17 g PO DIRECTED PRN 08/16/20 07/15/22 gram/dose oral powder (Miralax) Constipation chlorhexidine gluconate 0.12 % 15 ml PO 3XWK 07/05/21 07/15/22 mouthwash fluoxetine 20 mg capsule 20 mg PO QAM 09/27/21 07/15/22 hydroxyzine HCl 25 mg tablet 50 mg PO HS 09/27/21 07/15/22 topiramate 100 mg tablet 100 mg PO BID 09/27/21 07/15/22 multivitamin 1 tab PO DAILY 10/30/21 07/15/22 aripiprazole 15 mg tablet (Abilify) 15 mg PO HS 05/27/22 07/15/22 fluoride (sodium) 1.1 % dental 1 applic dental BID 05/28/22 07/15/22 cream (SF 5000 Plus) fluoxetine 40 mg capsule 40 mg PO DAILY 05/28/22 07/15/22 prazosin 1 mg capsule 1 mg PO HS 05/28/22 07/15/22 Previous Rx's Medication Instructions Recorded pantoprazole 40 mg tablet,delayed 40 mg PO QAM #30 tabs 03/13/22 release (Protonix) Results & Data (ED) Vital Signs Vital Signs - 24 hr 07/15/22 12:52 07/15/22 12:57 07/15/22 13:00 Temperature 36.7 C Temperature Source Oral Pulse Rate 91 H 85 Pulse Rate from SpO2 Sensor 84 Pulse Rhythm Regular Pulse Strength Normal Respiratory Rate 20 19 Respiratory Effort / Characteristics Non-Labored Spontaneous Respiratory Depth Normal Respiratory Pattern Regular Blood Pressure 138/75 119/80 Blood Pressure Mean 96 93 Blood Pressure Position Sitting Pulse Oximetry 95 95 Oxygen Delivery Method Room Air Sepsis Recent Fever Within 48 Hours No Sepsis New/Unexplained Change in Mental Status N/A Sepsis Action Taken by Nursing No Action Required 07/15/22 13:00 07/15/22 13:30 07/15/22 13:30 Temperature Temperature Source Pulse Rate 89 77 Pulse Rate from SpO2 Sensor 91 H 78 Pulse Rhythm Pulse Strength Respiratory Rate 20 19 Respiratory Effort / Characteristics Respiratory Depth Respiratory Pattern Blood Pressure 116/75 Blood Pressure Mean 88 Blood Pressure Position Pulse Oximetry 96 95 Oxygen Delivery Method Sepsis Recent Fever Within 48 Hours Sepsis New/Unexplained Change in Mental Status Sepsis Action Taken by Nursing 07/15/22 14:00 07/15/22 14:00 07/15/22 14:30 Temperature Temperature Source Pulse Rate 78 Pulse Rate from SpO2 Sensor Pulse Rhythm Pulse Strength Respiratory Rate 24 Respiratory Effort / Characteristics Respiratory Depth Respiratory Pattern Blood Pressure 120/70 114/67 Blood Pressure Mean 86 82 Blood Pressure Position Pulse Oximetry Oxygen Delivery Method Sepsis Recent Fever Within 48 Hours Sepsis New/Unexplained Change in Mental Status Sepsis Action Taken by Nursing 07/15/22 14:30 Temperature Temperature Source Pulse Rate 69 Pulse Rate from SpO2 Sensor Pulse Rhythm Pulse Strength Respiratory Rate 19 Respiratory Effort / Characteristics Respiratory Depth Respiratory Pattern Blood Pressure Blood Pressure Mean Blood Pressure Position Pulse Oximetry Oxygen Delivery Method Sepsis Recent Fever Within 48 Hours Sepsis New/Unexplained Change in Mental Status Sepsis Action Taken by [facility] Medications Current Medication List: was personally reviewed by me Laboratory Data Attestation: I reviewed the patient's lab results. Result diagrams: 07/15/22 13:05 07/15/22 13:05 Lab Results 07/15/22 07/15/22 07/15/22 Range/Units 13:05 13:05 13:05 WBC 10.61 (4.8-10.8) K/ul RBC 5.35 (4.63-6.08) M/uL Hgb 16.0 (14.0-18.0) g/dl POC Hgb (14.0-18.0) g/dl Hct 46.0 (40.1-51.0) % POC Hct (42-52) % MCV 86.0 (80.0-100.0) fL MCH 29.9 (25.0-34.0) pg MCHC 34.8 (32.0-36.0) g/dL RDW Std Deviation 41.4 (36.4-46.3) fL RDW Coeff of Abilio 13.2 (11.5-14.5) % Plt Count 212 (130-400) K/uL MPV 11.7 (9.4-12.4) fL Immature Gran % (Auto) 0.3 % Neut % (Auto) 75.2 % Lymph % (Auto) 12.9 % [place] % (Auto) 10.0 % Eos % (Auto) 0.8 % Baso % (Auto) 0.8 % Neut # (Auto) 7.97 H (1.4-6.5) K/uL Lymph # (Auto) 1.37 (1.2-3.4) K/uL [place] # (Auto) 1.06 H (0.24-0.82) K/uL Eos # (Auto) 0.09 (0-0.50) K/uL Baso # (Auto) 0.09 (0-0.2) K/uL Immature Gran # (Auto) 0.03 H (0.00-0.02) K/uL POC Sodium (135-144) mmol/L Sodium 137 (136-145) mmol/L POC Potassium (3.3-5.0) mmol/L Potassium 4.5 (3.5-5.1) mmol/L POC Chloride (101-112) mmol/L Chloride 105 (98-107) mmol/L Carbon Dioxide 21 (21-32) mmol/L POC Total CO2 (24-31) mmol/L Anion Gap 11 (3-11) POC Anion Gap (16-25) mmol/L POC BUN (7-18) mg/dl BUN 26 H (6-23) mg/dl Creatinine 1.21 (0.6-1.4) mg/dl POC Creatinine (0.6-1.3) mg/dl Est Cr Clr Drug Dosing Not Reportable Est GFR ( Amer) 91.3 ml/min Est GFR (Non-Af Amer) 78.7 ml/min BUN/Creatinine Ratio 21.5 H (10-20) Glucose 92 (70-99(Fasting)) mg/dl POC Glucose (other) (70-99) mg/dl Calcium 10.6 H (8.5-10.1) mg/dl POC Ioniz Calcium Paula (1.12-1.32) mmol/l Total Bilirubin 0.4 (0.2-1.0) mg/dl AST 24 (13-39) U/L ALT 16 (7-52) U/L Alkaline Phosphatase 61 (34-104) U/L Total Protein 7.5 (6.0-8.3) gm/dl Albumin 4.7 (3.4-5.0) gm/dl Globulin 2.8 (2.5-4.0) gm/dl Albumin/Globulin Ratio 1.7 (0.9-2) Lipase 67 (11-82) U/L TSH 5.464 H (0.300-4.500) uIu/ml Free T4 0.95 (0.61-1.60) ng/dl Urine Color Urine Appearance (Clear) Urine pH (4.5-7.5) Ur Specific [place] (1.000-1.030) Urine Protein (Negative) Urine Glucose (UA) (Negative) Urine Ketones (Negative) Urine Blood (Negative) Urine Nitrite (Negative) Urine Bilirubin (Negative) Urine Urobilinogen (Negative) Ur Leukocyte Esterase (Negative) Salicylates (3.0-30) mg/dl Urine Opiates Screen (Neg) Ur Methadone, Qual (Neg) Acetaminophen (10-30) ug/ml Urine Barbiturates (Neg) Ur Phencyclidine (PCP) (Neg) U Amphetamin/Meth Scrn (Neg) MDMA (Ecstasy) Screen (Neg) U Benzodiazepines Scrn (Neg) Ur Cocaine Metabolite (Neg) U Marijuana (THC) Screen (Neg) Ethyl Alcohol mg/dL (<10.0) mg/dl SARS-CoV-2, RNA, NAAT (NEGATIVE) 07/15/22 07/15/22 07/15/22 Range/Units 13:05 13:05 13:11 WBC (4.8-10.8) K/ul RBC (4.63-6.08) M/uL Hgb (14.0-18.0) g/dl POC Hgb 16.3 (14.0-18.0) g/dl Hct (40.1-51.0) % POC Hct 48 (42-52) % MCV (80.0-100.0) fL MCH (25.0-34.0) pg MCHC (32.0-36.0) g/dL RDW Std Deviation (36.4-46.3) fL RDW Coeff of Abilio (11.5-14.5) % Plt Count (130-400) K/uL MPV (9.4-12.4) fL Immature Gran % (Auto) % Neut % (Auto) % Lymph % (Auto) % [place] % (Auto) % Eos % (Auto) % Baso % (Auto) % Neut # (Auto) (1.4-6.5) K/uL Lymph # (Auto) (1.2-3.4) K/uL [place] # (Auto) (0.24-0.82) K/uL Eos # (Auto) (0-0.50) K/uL Baso # (Auto) (0-0.2) K/uL Immature Gran # (Auto) (0.00-0.02) K/uL POC Sodium 139 (135-144) mmol/L Sodium (136-145) mmol/L POC Potassium 4.3 (3.3-5.0) mmol/L Potassium (3.5-5.1) mmol/L POC Chloride 106 (101-112) mmol/L Chloride (98-107) mmol/L Carbon Dioxide (21-32) mmol/L POC Total CO2 21 L (24-31) mmol/L Anion Gap (3-11) POC Anion Gap 17.0 (16-25) mmol/L POC BUN 26 H (7-18) mg/dl BUN (6-23) mg/dl Creatinine (0.6-1.4) mg/dl POC Creatinine 1.4 H (0.6-1.3) mg/dl Est Cr Clr Drug Dosing Est GFR ( Amer) ml/min Est GFR (Non-Af Amer) ml/min BUN/Creatinine Ratio (10-20) Glucose (70-99(Fasting)) mg/dl POC Glucose (other) 94 (70-99) mg/dl Calcium (8.5-10.1) mg/dl POC Ioniz Calcium Paula 1.39 H (1.12-1.32) mmol/l Total Bilirubin (0.2-1.0) mg/dl AST (13-39) U/L ALT (7-52) U/L Alkaline Phosphatase (34-104) U/L Total Protein (6.0-8.3) gm/dl Albumin (3.4-5.0) gm/dl Globulin (2.5-4.0) gm/dl Albumin/Globulin Ratio (0.9-2) Lipase (11-82) U/L TSH (0.300-4.500) uIu/ml Free T4 (0.61-1.60) ng/dl Urine Color Urine Appearance (Clear) Urine pH (4.5-7.5) Ur Specific [place] (1.000-1.030) Urine Protein (Negative) Urine Glucose (UA) (Negative) Urine Ketones (Negative) Urine Blood (Negative) Urine Nitrite (Negative) Urine Bilirubin (Negative) Urine Urobilinogen (Negative) Ur Leukocyte Esterase (Negative) Salicylates < 3.0 L (3.0-30) mg/dl Urine Opiates Screen (Neg) Ur Methadone, Qual (Neg) Acetaminophen < 3 L (10-30) ug/ml Urine Barbiturates (Neg) Ur Phencyclidine (PCP) (Neg) U Amphetamin/Meth Scrn (Neg) MDMA (Ecstasy) Screen (Neg) U Benzodiazepines Scrn (Neg) Ur Cocaine Metabolite (Neg) U Marijuana (THC) Screen (Neg) Ethyl Alcohol mg/dL < 10.0 (<10.0) mg/dl SARS-CoV-2, RNA, NAAT (NEGATIVE) 07/15/22 07/15/22 07/15/22 Range/Units 13:26 14:55 14:55 WBC (4.8-10.8) K/ul RBC (4.63-6.08) M/uL Hgb (14.0-18.0) g/dl POC Hgb (14.0-18.0) g/dl Hct (40.1-51.0) % POC Hct (42-52) % MCV (80.0-100.0) fL MCH (25.0-34.0) pg MCHC (32.0-36.0) g/dL RDW Std Deviation (36.4-46.3) fL RDW Coeff of Abilio (11.5-14.5) % Plt Count (130-400) K/uL MPV (9.4-12.4) fL Immature Gran % (Auto) % Neut % (Auto) % Lymph % (Auto) % [place] % (Auto) % Eos % (Auto) % Baso % (Auto) % Neut # (Auto) (1.4-6.5) K/uL Lymph # (Auto) (1.2-3.4) K/uL [place] # (Auto) (0.24-0.82) K/uL Eos # (Auto) (0-0.50) K/uL Baso # (Auto) (0-0.2) K/uL Immature Gran # (Auto) (0.00-0.02) K/uL POC Sodium (135-144) mmol/L Sodium (136-145) mmol/L POC Potassium (3.3-5.0) mmol/L Potassium (3.5-5.1) mmol/L POC Chloride (101-112) mmol/L Chloride (98-107) mmol/L Carbon Dioxide (21-32) mmol/L POC Total CO2 (24-31) mmol/L Anion Gap (3-11) POC Anion Gap (16-25) mmol/L POC BUN (7-18) mg/dl BUN (6-23) mg/dl Creatinine (0.6-1.4) mg/dl POC Creatinine (0.6-1.3) mg/dl Est Cr Clr Drug Dosing Est GFR ( Amer) ml/min Est GFR (Non-Af Amer) ml/min BUN/Creatinine Ratio (10-20) Glucose (70-99(Fasting)) mg/dl POC Glucose (other) (70-99) mg/dl Calcium (8.5-10.1) mg/dl POC Ioniz Calcium Paula (1.12-1.32) mmol/l Total Bilirubin (0.2-1.0) mg/dl AST (13-39) U/L ALT (7-52) U/L Alkaline Phosphatase (34-104) U/L Total Protein (6.0-8.3) gm/dl Albumin (3.4-5.0) gm/dl Globulin (2.5-4.0) gm/dl Albumin/Globulin Ratio (0.9-2) Lipase (11-82) U/L TSH (0.300-4.500) uIu/ml Free T4 (0.61-1.60) ng/dl Urine Color Yellow Urine Appearance Clear (Clear) Urine pH 5.0 (4.5-7.5) Ur Specific [place] 1.027 (1.000-1.030) Urine Protein Negative (Negative) Urine Glucose (UA) Negative (Negative) Urine Ketones Negative (Negative) Urine Blood Negative (Negative) Urine Nitrite Negative (Negative) Urine Bilirubin Negative (Negative) Urine Urobilinogen Negative (Negative) Ur Leukocyte Esterase Negative (Negative) Salicylates (3.0-30) mg/dl Urine Opiates Screen Neg (Neg) Ur Methadone, Qual Neg (Neg) Acetaminophen (10-30) ug/ml Urine Barbiturates Neg (Neg) Ur Phencyclidine (PCP) Neg (Neg) U Amphetamin/Meth Scrn Neg (Neg) MDMA (Ecstasy) Screen Neg (Neg) U Benzodiazepines Scrn Neg (Neg) Ur Cocaine Metabolite Neg (Neg) U Marijuana (THC) Screen Neg (Neg) Ethyl Alcohol mg/dL (<10.0) mg/dl SARS-CoV-2, RNA, NAAT NEGATIVE (NEGATIVE) Administered Medications Discontinued Medications Sodium Chloride (Nss 1000ml) 1,000 mls @ 999 mls/hr IV .Q1H1M STA Stop: 07/15/22 13:55 Last Infusion: 07/15/22 15:25 Dose: 0 mls/hr Documented By: Admin: 07/15/22 13:22 Dose: 999 mls/hr Documented By: CGK Ioversol (Optiray 350 100ml) 89 ml IV ONCE ONE Stop: 07/15/22 13:41 Last Admin: 07/15/22 13:42 Dose: 89 ml Documented By: MARY KATE Ondansetron HCl (Ondansetron Inj 2 Mg/Ml 2 Ml Vial) 4 mg IV NOW STA Stop: 07/15/22 12:56 Last Admin: 07/15/22 13:22 Dose: 4 mg Documented By: LORAINE Imaging Data Radiologist's Impression: Abdomen/Pelvis CT 07/15/22 12:[address] WITH IV CONTRAST CT DOSE: 595.65 mGy.cm HISTORY: Acute right lower quadrant abdominal pain with nausea and vomiting. RLQ pain, vomiting TECHNIQUE: Multiaxial CT images of the abdomen and pelvis were performed following the IV administration of 89 cc of Optiray, A dose lowering technique was utilized adhering to the principles of ALARA. COMPARISON STUDY: CT 02/02/2022 FINDINGS: Clear lung bases. No pneumatosis or pneumoperitoneum. Unremarkable spleen, pancreas, adrenal glands, contracted gallbladder and liver. Patency of the hepatic and portal veins. Unremarkable kidneys. Distended urinary bladder with mild nonspecific circumferential urinary bladder wall thickening. Aorta and IVC are unremarkable. No lymphadenopathy. Mild distention of the fluid-filled stomach. No bowel obstruction or bowel wall thickening. Mild to moderate colonic fecal retention. Subcentimeter appendicolith. No CT evidence of acute appendicitis. No ascites or mesenteric inflammation. Nondilated small bowel air-fluid levels are likely physiologic. U nremarkable soft tissues. No acute fracture. IMPRESSION: 1. No bowel obstruction or bowel wall thickening. 2. Distended air and fluid-filled stomach with nondilated fluid-filled loops of small bowel. With the patient history of nausea and vomiting, a nonspecific gastroenteritis may be considered. 3. Subcentimeter appendicolith without CT evidence of acute appendicitis. ACT 112: Negative or not required by law. The above report was generated using voice recognition software. It may contain grammatical, syntax or spelling errors. Electronically signed by: Clark Carlson M.D. 07/15/2022 2:14 PM Discharge Plan Visit Data Chief Complaint: GI Assessment Stated Complaint: STOMACH PAIN, HEADACHE, MHID ED Provider: Rico Jorge Discharge Problem: Acute dehydration, Abdominal pain, RLQ, Nausea & vomiting, Overdose by ingestion Patient Disposition: Admitted As Inpatient Discharge Instructions Interventions: ED Discharge Assessment Last Done: 07/15/22 18:33
[2022-07-15 13:17] LABS: Basophils # (auto) 0.09 K/uL (0-0.2); Basophils % (auto) 0.8 %; Eosinophils # (auto) 0.09 K/uL (0-0.50); Eosinophils % (auto) 0.8 %; Immature Granulocytes # (auto) 0.03 K/uL (0.00-0.02); Immature Granulocytes % (auto) 0.3 %; Lymphocytes # (auto) 1.37 K/uL (1.2-3.4); Lymphocytes % (auto) 12.9 %; Mean Corpuscular Hemoglobin 29.9 pg (25.0-34.0); Mean Corpuscular Hgb Conc 34.8 g/dL (32.0-36.0); Mean Platelet Volume 11.7 fL (9.4-12.4); Monocytes # (auto) 1.06 K/uL (0.24-0.82); Neutrophils # (auto) 7.97 K/uL (1.4-6.5); Neutrophils % (auto) 75.2 %; Platelet Count 212 K/uL (130-400); RDW Coefficient of Variation 13.2 % (11.5-14.5); RDW Standard Deviation 41.4 fL (36.4-46.3); Red Blood Count 5.35 M/uL (4.63-6.08); White Blood Count 10.61 K/ul (4.8-10.8)
[2022-07-15 13:24] LABS: iSTAT Creatinine 1.4 mg/dl (0.6-1.3); iSTAT Hemoglobin 16.3 g/dl (14.0-18.0); iSTAT Ionized Calcium 1.39 mmol/l (1.12-1.32); iSTAT Potassium 4.3 mmol/L (3.3-5.0)
[2022-07-15 13:39] LABS: Alanine Aminotransferase 16 U/L (7-52); Albumin Globulin Ratio 1.7 (0.9-2); Albumin Level 4.7 gm/dl (3.4-5.0); Alkaline Phosphatase 61 U/L (34-104); Anion Gap 11 (3-11); Aspartate Aminotransferase 24 U/L (13-39); BUN Creatinine Ratio 21.5 (10-20); Bilirubin,Total 0.4 mg/dl (0.2-1.0); Blood Urea Nitrogen 26 mg/dl (6-23); Calcium 10.6 mg/dl (8.5-10.1); Carbon Dioxide 21 mmol/L (21-32); Chloride 105 mmol/L (98-107); Est GFR (African American) 91.3 ml/min; Est GFR (Non-African American) 78.7 ml/min; Globulin 2.8 gm/dl (2.5-4.0); Glucose 92 mg/dl (70-99(Fasting)); Lipase 67 U/L (11-82); Potassium 4.5 mmol/L (3.5-5.1); Sodium 137 mmol/L (136-145); Total Protein 7.5 gm/dl (6.0-8.3)
[2022-07-15] MEDS ORDERED: OPTIRAY 350 100ml IV ONE (13:40)
[2022-07-15 13:41] LABS: Acetaminophen < 3 ug/ml (10-30); Salicylate < 3.0 mg/dl (3.0-30)
[2022-07-15 13:53] LABS: Thyroid Stimulating Hormone 5.464 uIu/ml (0.300-4.500)
--- NOTE | 2022-07-15 14:17 | CT Scan Report ---
ABDOMEN AND PELVIS CT WITH IV CONTRAST CT DOSE: 595.65 mGy.cm HISTORY: Acute right lower quadrant abdominal pain with nausea and vomiting. RLQ pain, vomiting TECHNIQUE: Multiaxial CT images of the abdomen and pelvis were performed following the IV administrat ion of 89 cc of Optiray, A dose lowering technique was utilized adhering to the principles of ALARA. COMPARISON STUDY: CT 02/02/2022 FINDINGS: Clear lung bases. No pneumatosis or pneumoperitoneum. Unremarkable spleen, pancreas, adrena l glands, contracted gallbladder and liver. Patency of the hepatic and portal veins. Unremarkable kid neys. Distended urinary bladder with mild nonspecific circumferential urinary bladder wall thickening . Aorta and IVC are unremarkable. No lymphadenopathy. Mild distention of the fluid-filled stomach. No bowel obstruction or bowel wall thickening. Mild to m oderate colonic fecal retention. Subcentimeter appendicolith. No CT evidence of acute appendicitis. N o ascites or mesenteric inflammation. Nondilated small bowel air-fluid levels are likely physiologic. Unremarkable soft tissues. No acute fracture. IMPRESSION: 1. No bowel obstruction or bowel wall thickening. 2. Distended air and fluid-filled stomach with nondilated fluid-filled loops of small bowel. With the patient history of nausea and vomiting, a nonspecific gastroenteritis may be considered. 3. Subcentimeter appendicolith without CT evidence of acute appendicitis. ACT 112: Negative or not required by law. The above report was generated using voice recognition software. It may contain grammatical, syntax o r spelling errors. Electronically signed by: Clark Carlson M.D. 07/15/2022 2:14 PM
[2022-07-15 14:30] LABS: T4 Free Thyroxine 0.95 ng/dl (0.61-1.60)
[2022-07-15 15:11] LABS: Appearance Urine Clear (Clear); Bilirubin Urine Negative (Negative); Blood Urine Negative (Negative); Color Urine Yellow; Glucose Urine UA Negative (Negative); Ketones Urine Negative (Negative); Leukocyte Esterase Urine Negative (Negative); Nitrite Urine Negative (Negative); Protein Urine Negative (Negative); Specific Gravity Urine 1.027 (1.000-1.030); Urobilinogen Urine Negative (Negative)
[2022-07-15 15:41] LABS: Amphetamines+Metham, Urine Neg (Neg); Barbiturates, Urine Neg (Neg); Benzodiazepine, Urine Neg (Neg); Cocaine, Urine Neg (Neg); MDMA (Ecstacy), Urine Neg (Neg); Methadone, Urine Neg (Neg); Opiate, Urine Neg (Neg); Phencyclidine, Urine Neg (Neg)
[2022-07-15] MEDS ORDERED: hydrOXYzine HCl 25 MG TAB PO PRN ×2 (17:00)
[2022-07-15] MEDS ORDERED: ACETAMINOPHEN 325 MG TAB PO PRN (17:00)
[2022-07-15] MEDS ORDERED: SODIUM CHLORIDE 0.65% NA SOLN 45 ML (OCEAN) PRN (17:00)
[2022-07-15] MEDS ORDERED: ALUMINUM/MAGNESIUM SUSP 30 ML UDC PO PRN (17:00)
[2022-07-15] MEDS ORDERED: BISMUTH SUBSALICYLATE LIQD 236 ML PO PRN (17:00)
[2022-07-15] MEDS ORDERED: MAGNESIUM HYDROXIDE SUSP 30 ML UDC PO PRN (17:00)
[2022-07-15] MEDS ORDERED: ARIPiprazole 5 MG TAB PO PRN (17:54)
--- NOTE | 2022-07-16 09:58 | History & Physical ---
Date of Service July 16, 2022 Impression / Recommendations Impression 32 year old man with a history of schizoaffective disorder, ASD, depression and seizure disorder with recent inpatient admission in May 2022 who was admitted for worsening depression and rehearsal behavior of gargling [place] in context of stopping his medication last week and feeling romantically and socially isolated. He is deemed unstable and requires psychiatric hospitalization for diagnostic clarification, safety and stabilization, medication management and development of further coping skills. MNPR due to ASD, intrusive with peers (1) Major depressive disorder, recurrent episode: (2) Autistic spectrum disorder: (3) Seizure disorder: (4) Schizoaffective disorder: Plan 07/16/22: The patient was admitted to the [facility] ([facility]) on q15 min checks (behavioral with suicide precautions) for safety. The patient will participate in group, recreational, and milieu therapies and will be offered additional individual and family sessions as clinically appropriate. -Verify recent medications and consider alternative antidepressant options given repeat admission Inventory Assets Strengths: supportive parents, significant outpatient supports/providers, willing to get treatment Needs: safety and stabilization, medication re-initiation/adjustment, additional coping skills, increased outpatient services Suicide Risk Level Suicide Risk Level: High-Moderate (q15 min suicide checks) (High-Moderate due to severe depression with suicide rehearsal behaviors prior to admission but feels safe in the hospital, able to safety contract and agrees to let nursing/staff know should they develop plan, intent or feel unable to remain safe. ) Risk Factors Assessment Male: Yes : Yes Do You Have Access To A Gun?: No Health Problems: Yes Mental Health Diagnoses: Yes Substance Use Disorders: No Previous Attempt: Yes Family History of Suicide: No Previous Psychiatric Hospitalization: Yes Protective Factors Assessment Employed: No Stable Relationships: Yes Supportive Family: Yes Good Rapport with Provider: Yes Psychiatric History Identifying Data LANA WAGNER is a 32-year-old M who currently lives in [place] at a [facility], has a history of schizoaffective disorder, ASD with intelletual disability and depression, and was admitted on 07/15/22 17:00 on a 201 voluntary commitment for worsening depression and suicide rehearsal behavior of drinking [place]. Chief Complaint "I need some assistance with my thoughts". History of Present Illness Lana was admitted to [facility] in May 2022 and re-presents following suicide rehearsal behavior of gargling [place] and then presenting to the ED for sto mach pain. He states "I just feel all alone and like no one cares or understood me" noting this has been happening a lot lately especially over the last month but increasing over the last week. He cannot identify any particular acute stressors or precipitants. He gargled [place] because "I was tired of living" but denies that he drank it noting that his brother might be gone but still loves him so he's a reason for living and helped him choose to spit out the [place]. States he also drank two pinto bombs earlier that evening "because I was tired of people judging me that I'm not good enough for this world" thinking this might help his mood but notes this is likely why he ended up gargling the [place] "my thought process wasn't good that night". He wishes he had a girlfriend and this makes him feel lonely. He stopped his medications a week ago because "I was feeling alone as always". Can't recall his medications but doesn't feel like they were helping. He wishes that medications could help him "think better and not feel so alone and think there's positive stuff in the world I could live for". He can't identify anything he likes to do. Does engage in activities like [employer], plays hockey every two weeks. No longer does psych rehab or [facility]. He feels it's "boring" where he lives so he ends up sleeping a lot. He feels like he sleeps "all the time". Denies any recent self-harm. Denies any hx of eating disorder. Past Psychiatric History Current Psychiatric Diagnosis: schizoaffective disorder, ID, ASD Outpatient Services: psychiatry at [facility] [facility] with Saniya Brush, LUZMA Madden, Peer support through [facility] with HALLEY Saleh CM, Autism child support case officer [place] with Analia Previous Psych Admissions: [facility] May 2022, [facility] Aug 2014 for SI, [facility] in 2013 as well as past admissions at the [facility] Do You Have Access To A Gun?: No History of Previous Suicide Attempt: Yes Describe Attempts in the Past: estimates 20 past attempts, states he usually drinks soap or cuts Past Medication Trials: He's unable to recall, per chart review discharged in May 2022 on: Topimax 100mg BID, Prozac 60mg qd, Abilify 15mg qhs, prazosin 1mg hs Previously also took: Abilify, Celexa, thorazine, Depakote, topamax, Zyprexa, trazodone, Prozac Past Head Trauma/Neuro History History of Concussion/Seizure: Yes hx of seizures, last a few years ago Allergies Allergy/AdvReac Type Severity Reaction Status Date / Time phenytoin Allergy Mild RASH Verified 07/15/22 15:34 cat dander Allergy Unknown Allergy Verified 07/15/22 15:34 type symptoms chocolate flavor Allergy Unknown Unknown Verified 07/15/22 15:34 dog dander Allergy Unknown Allergy Verified 07/15/22 15:34 type symptoms red dye Allergy Unknown Unknown Verified 07/15/22 15:34 Sulfa (Sulfonamide Allergy Unknown Unknown Verified 07/15/22 15:34 Antibiotics) adhesive AdvReac Mild RASH Verified 07/15/22 15:34 polyester fibers AdvReac Unknown Unknown Verified 07/15/22 15:34 Home Medications Medication Instructions Recorded Confirmed Type acetaminophen 500 mg tablet 500 mg PO Q6H PRN Fever Or Pain 05/05/19 07/15/22 History polyethylene glycol 3350 17 17 g PO DIRECTED PRN 08/16/20 07/15/22 History gram/dose oral powder (Miralax) Constipation chlorhexidine gluconate 0.12 % 15 ml PO 3XWK 07/05/21 07/15/22 History mouthwash fluoxetine 20 mg capsule 20 mg PO QAM 09/27/21 07/15/22 History hydroxyzine HCl 25 mg tablet 50 mg PO HS 09/27/21 07/15/22 History topiramate 100 mg tablet 100 mg PO BID 09/27/21 07/15/22 History multivitamin 1 tab PO DAILY 10/30/21 07/15/22 History pantoprazole 40 mg tablet,delayed 40 mg PO QAM #30 tabs 03/13/22 07/15/22 Rx release (Protonix) aripiprazole 15 mg tablet (Abilify) 15 mg PO HS 05/27/22 07/15/22 History fluoride (sodium) 1.1 % dental 1 applic dental BID 05/28/22 07/15/22 History cream (SF 5000 Plus) fluoxetine 40 mg capsule 40 mg PO DAILY 05/28/22 07/15/22 History prazosin 1 mg capsule 1 mg PO HS 05/28/22 07/15/22 History Family History Family History of: Depression and Anxiety Family Mental Health History Comment: parents with depression and anxiety Alcohol History Hx of Alcohol Use Over the Past 12 Months: Yes (Occasional) AUDIT Total Score: 1 typically doesn't drink alcohol Smoking Use Have You Smoked or Used Tobacco Products in the Last 30 Days: No Smoking Status: Never smoker Substance History Hx of Prescription Med Misuse Over the Past 12 Months: No Hx of Over the Counter Med Misuse Over the Past 12 Months: No Hx of Inhalent Misuse Over the Past 12 Months: No Hx of Organic Substance Use Over the Past 12 Months: No Hx of Illegal Substances/Street Drug Use Over Past 12 Months: No Problems as a Result of Past Substance Use: None Identified Personal History Living Arrangements: Apartment Childhood: Grew up in [place]. His parents are supportive. 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 Learning difficulties (11/23/12) Mental retardation (05/12/13) Migraine Mild intellectual disability Schizoaffective disorder Schizoaffective disorder Schizoaffective disorder Seizure disorder per pt, was diagnosed as pseudo seizure > last one over a year, no longer has to see neuro Split urinary stream Surgical History History of esophagogastroduodenoscopy (EGD) [place] teeth removed Family History Mother Breast cancer Brother FH: brain cancer Grandmother Dementia Other Diabetes Hypertension Denies family history of Ovarian cancer Prostate cancer Lung cancer Colorectal cancer Social History Smoking Status: Never smoker Second Hand Exposure: No; Hx Alcohol Use: No Hx Substance Use: No Preferred Language: Azeri Communication Ability: limited Visual Impairment: Limited Hearing Ability: Normal Bank Clerk Required: No Beliefs That Will Affect Care: None marital status: Single Current Living Situation: Other Current Living Situation Comment: independtly lives with roommate current occupational status: unemployed current occupation: Volunteers Feels Safe at Home: Yes Childhood Exposure to Second-Hand Smoke: No caffeine: Yes Dental Care, Regularly: Yes Physical Activity Frequency: Daily Seatbelt Use: always Sunscreen Use: Yes Assistive Devices: None Review of Systems Review of Systems: All systems reviewed & are unremarkable except as noted in HPI & below (still has stomach discomfort and LEMON) Physical Exam Psychiatric: Orientation: alert and oriented x 3 Apperance: appropriately dressed and appropriately groomed Eye Contact: + fair eye contact Motor Behavior: no abnormal motor movements Speech: normal rate/rhythm/volume of speech Affect: + depressed affect Mood: + depressed mood Thought Process: + concrete thought process Thought Content: reality based without delusions Suicidal Thoughts: denies suicidal plan and denies suicidal intent; + reports suicidal thoughts (intermittent passive thoughts and rehearsal behavior prior to admission) Homicidal Thoughts: denies homicidal thoughts Hallucinations: no auditory hallucinations and no visual hallucinations Cognition: recent memory grossly intact, remote memory grossly intact, attention grossly intact and language grossly intact Estimated Intelligence: consistent with education level Insight: + limited insight Judgement: + limited judgement Vital Signs (Past 24 Hours): Last Vital Signs Temp 36.3 C L 07/16/22 06:40 Pulse 81 07/16/22 06:41 Resp 16 07/16/22 06:40 BP 91/58 L 07/16/22 06:41 Pulse Ox 95 07/15/22 13:30 O2 Del Method 07/15/22 12:52 Exam Statement: A physical exam was performed in the ED by Dr. Jorge for the purposes of medical clearance. I accept that physical as correct and adequate for the purposes of the inpatient physical exam. Results & Data ([facility]) Laboratory Results Laboratory Results - last 24 hr 07/15/22 07/15/22 07/15/22 13:05 13:05 13:05 WBC 10.61 RBC 5.35 Hgb 16.0 POC Hgb Hct 46.0 POC Hct MCV 86.0 MCH 29.9 MCHC 34.8 RDW Std Deviation 41.4 RDW Coeff of Abilio 13.2 Plt Count 212 MPV 11.7 Immature Gran % (Auto) 0.3 Neut % (Auto) 75.2 Lymph % (Auto) 12.9 Clark % (Auto) 10.0 Eos % (Auto) 0.8 Baso % (Auto) 0.8 Neut # (Auto) 7.97 H Lymph # (Auto) 1.37 Clark # (Auto) 1.06 H Eos # (Auto) 0.09 Baso # (Auto) 0.09 Immature Gran # (Auto) 0.03 H POC Sodium Sodium 137 POC Potassium Potassium 4.5 POC Chloride Chloride 105 Carbon Dioxide 21 POC Total CO2 Anion Gap 11 POC Anion Gap POC BUN BUN 26 H Creatinine 1.21 POC Creatinine Est Cr Clr Drug Dosing Not Reportable Est GFR ( Amer) 91.3 Est GFR (Non-Af Amer) 78.7 BUN/Creatinine Ratio 21.5 H Glucose 92 POC Glucose (other) Calcium 10.6 H POC Ioniz Calcium Paula Total Bilirubin 0.4 AST 24 ALT 16 Alkaline Phosphatase 61 Total Protein 7.5 Albumin 4.7 Globulin 2.8 Albumin/Globulin Ratio 1.7 Lipase 67 TSH 5.464 H Free T4 0.95 Urine Color Urine Appearance Urine pH Ur Specific [place] Urine Protein Urine Glucose (UA) Urine Ketones Urine Blood Urine Nitrite Urine Bilirubin Urine Urobilinogen Ur Leukocyte Esterase Salicylates Urine Opiates Screen Ur Methadone, Qual Acetaminophen Urine Barbiturates Ur Phencyclidine (PCP) U Amphetamin/Meth Scrn MDMA (Ecstasy) Screen U Benzodiazepines Scrn Ur Cocaine Metabolite U Marijuana (THC) Screen Ethyl Alcohol mg/dL SARS-CoV-2, RNA, NAAT 07/15/22 07/15/22 07/15/22 13:05 13:05 13:11 WBC RBC Hgb POC Hgb 16.3 Hct POC Hct 48 MCV MCH MCHC RDW Std Deviation RDW Coeff of Abilio Plt Count MPV Immature Gran % (Auto) Neut % (Auto) Lymph % (Auto) Clark % (Auto) Eos % (Auto) Baso % (Auto) Neut # (Auto) Lymph # (Auto) Clark # (Auto) Eos # (Auto) Baso # (Auto) Immature Gran # (Auto) POC Sodium 139 Sodium POC Potassium 4.3 Potassium POC Chloride 106 Chloride Carbon Dioxide POC Total CO2 21 L Anion Gap POC Anion Gap 17.0 POC BUN 26 H BUN Creatinine POC Creatinine 1.4 H Est Cr Clr Drug Dosing Est GFR ( Amer) Est GFR (Non-Af Amer) BUN/Creatinine Ratio Glucose POC Glucose (other) 94 Calcium POC Ioniz Calcium Paula 1.39 H Total Bilirubin AST ALT Alkaline Phosphatase Total Protein Albumin Globulin Albumin/Globulin Ratio Lipase TSH Free T4 Urine Color Urine Appearance Urine pH Ur Specific [place] Urine Protein Urine Glucose (UA) Urine Ketones Urine Blood Urine Nitrite Urine Bilirubin Urine Urobilinogen Ur Leukocyte Esterase Salicylates < 3.0 L Urine Opiates Screen Ur Methadone, Qual Acetaminophen < 3 L Urine Barbiturates Ur Phencyclidine (PCP) U Amphetamin/Meth Scrn MDMA (Ecstasy) Screen U Benzodiazepines Scrn Ur Cocaine Metabolite U Marijuana (THC) Screen Ethyl Alcohol mg/dL < 10.0 SARS-CoV-2, RNA, NAAT 07/15/22 07/15/22 07/15/22 13:26 14:55 14:55 WBC RBC Hgb POC Hgb Hct POC Hct MCV MCH MCHC RDW Std Deviation RDW Coeff of Abilio Plt Count MPV Immature Gran % (Auto) Neut % (Auto) Lymph % (Auto) Clark % (Auto) Eos % (Auto) Baso % (Auto) Neut # (Auto) Lymph # (Auto) Clark # (Auto) Eos # (Auto) Baso # (Auto) Immature Gran # (Auto) POC Sodium Sodium POC Potassium Potassium POC Chloride Chloride Carbon Dioxide POC Total CO2 Anion Gap POC Anion Gap POC BUN BUN Creatinine POC Creatinine Est Cr Clr Drug Dosing Est GFR ( Amer) Est GFR (Non-Af Amer) BUN/Creatinine Ratio Glucose POC Glucose (other) Calcium POC Ioniz Calcium Paula Total Bilirubin AST ALT Alkaline Phosphatase Total Protein Albumin Globulin Albumin/Globulin Ratio Lipase TSH Free T4 Urine Color Yellow Urine Appearance Clear Urine pH 5.0 Ur Specific [place] 1.027 Urine Protein Negative Urine Glucose (UA) Negative Urine Ketones Negative Urine Blood Negative Urine Nitrite Negative Urine Bilirubin Negative Urine Urobilinogen Negative Ur Leukocyte Esterase Negative Salicylates Urine Opiates Screen Neg Ur Methadone, Qual Neg Acetaminophen Urine Barbiturates Neg Ur Phencyclidine (PCP) Neg U Amphetamin/Meth Scrn Neg MDMA (Ecstasy) Screen Neg U Benzodiazepines Scrn Neg Ur Cocaine Metabolite Neg U Marijuana (THC) Screen Neg Ethyl Alcohol mg/dL SARS-CoV-2, RNA, NAAT NEGATIVE Current Inpatient Medications Current Inpatient Medications: Current Inpatient Medications Acetaminophen (Acetaminophen 325 Mg Tab) 650 mg PO Q4H PRN PRN Reason: Headache or Minor Fever Stop: 08/14/22 16:59 Al Hydrox/Mg Hydrox/Simethicone (Aluminum/Magnesium Susp 30 Ml Udc) 30 ml PO Q4H PRN PRN Reason: GI Upset Stop: 08/14/22 16:59 Aripiprazole (Aripiprazole 5 Mg Tab) 2.5 mg PO BID PRN PRN Reason: Anxiety/Agitation Stop: 08/14/22 17:53 Bismuth Subsalicylate (Bismuth Subsalicylate Liqd 236 Ml) 15 ml PO PRN PRN PRN Reason: Loose Stool Stop: 08/14/22 16:59 Hydroxyzine HCl (Hydroxyzine Hcl 25 Mg Tab) 50 mg PO HSZ PRN PRN Reason: Insomnia Stop: 08/14/22 16:59 Hydroxyzine HCl (Hydroxyzine Hcl 25 Mg Tab) 25 mg PO Q4H PRN PRN Reason: Anxiety Stop: 08/14/22 16:59 Magnesium Hydroxide (Magnesium Hydroxide Susp 30 Ml Udc) 30 ml PO DAILY PRN PRN Reason: Constipation Stop: 08/14/22 16:59 Sodium Chloride (Sodium Chloride 0.65% Na Soln 45 Ml ([place])) 1 - 2 sprays NA PRN PRN PRN Reason: Nasal Dryness/Congestion Stop: 08/14/22 16:59
[2022-07-17] MEDS ORDERED: POLYETHYLENE (MIRALAX) 17 GM PACK PO PRN (09:46)
[2022-07-17] MEDS: PANTOprazole 40 MG TAB PO SCH (10:39)
[2022-07-17] MEDS: TOPIRAMATE 100 MG TAB PO SCH ×2 (10:39→21:22)
[2022-07-17] MEDS: SERTRALINE HCL 50 MG TABLET PO SCH (14:31)
--- NOTE | 2022-07-17 18:54 | Psychiatric Progress Note ---
Date of Service July 17, 2022 Impression / Recommendations Impression 32 year old man with a history of DMDD, ASD, depression and seizure disorder with recent inpatient admission in May 2022 who was admitted for worsening depression and rehearsal behavior of deangelo Baltazar in context of stopping his medication last week and feeling romantically and socially isolated. He is deemed unstable and requires psychiatric hospitalization for diagnostic clarification, safety and stabilization, medication management and development of further coping skills. MNPR due to ASD, intrusive with peers 07/17/22: Ongoing depression but improving with structured setting and socializa tion with peers, willing to restart medications. Reviewed [facility] records, history of medication non-adherence. Per [facility] has current diagnoses of DMDD, ASD with intellectual disability. No documentation regarding concerns for perez or schizoaffective disorder. Will avoid restarting abilify or alternative mood stabilization or antipsychotic given reports of hypersomnolence. Collateral from [facility] notable for periods of significant hypersomnia and increase in SI and impulsive behaviors like drinking soap over the last few months. Given increased impulsivity clonidine may offer some benefit. Has not responded well to fluoxetine at max dose so consider alternative SSRI. Left message with his [facility] provider. Discussed medication treatment options in detail with Lana. Discussed risks, benefits and alternatives. Lana consented to restarting topiramate for seizures and starting sertraline for depression and clonidine as off-label for impulsivity and off-label for nightmares. Reviewed side effects including but not limited to: GI, LEMON, sexual side effects with sertraline and dizziness, low BP, falls with clonidine. (1) Major depressive disorder, recurrent episode: (2) Autistic spectrum disorder: (3) Seizure disorder: (4) DMDD (disruptive mood dysregulation disorder): Plan 07/17/22: Start sertraline 25mg qd, clonidine 0.1mg qhs. 07/16/22: The patient was [facility] ([facility] inpatient mental health unit) on q15 min checks (behavioral with suicide precautions) for safety. The patient will participate in group, recreational, and milieu therapies and will be offered additional individual and family sessions as clinically appropriate. -Verify recent medications and consider alternative antidepressant options given repeat admission Inventory Assets Strengths: supportive parents, significant outpatient supports/providers, willing to get treatment Needs: safety and stabilization, medication re-initiation/adjustment, additional coping skills, increased outpatient services Suicide Risk Level Suicide Risk Level: High-Moderate (q15 min suicide checks) (High-Moderate due to severe depression with suicide rehearsal behaviors prior to admission but feels safe in the hospital, able to safety contract and agrees to let nursing/staff know should they develop plan, intent or feel unable to remain safe. ) Risk Factors Assessment Male: Yes : Yes Do You Have Access To A Gun?: No Health Problems: Yes Mental Health Diagnoses: Yes Substance Use Disorders: No Previous Attempt: Yes Family History of Suicide: No Previous Psychiatric Hospitalization: Yes Protective Factors Assessment Employed: No Stable Relationships: Yes Supportive Family: Yes Good Rapport with Provider: Yes Interval History Identifying Information LANA WAGNER is a 32-year-old M who currently lives in [place] at a [facility], has a history of DMDD, ASD with intellectual disability and depression, and was admitted on 07/15/22 17:00 on a 201 voluntary commitment for worsening depression and suicide rehearsal behavior of drinking [place] Delaney. Chief Complaint "I'm better than yesterday". Review of Systems Sleep Information Total Hours of Sleep: 6 Meal Information Percent Meal Consumed - Breakfast: 100 Percent Meal Consumed - Lunch: 100 Percent Meal Consumed - Dinner: 100 Subjective Subjective Patient was seen & assessed and interval progress reviewed with treatment team nursing and social work. Engaging in groups. Feels his mood is a bit better today which he attributes to the "support" and likes being around other people. Reviewed his medications and he wants to restart some of them and agrees to clonidine and sertraline trial. Physical Exam Psychiatric Orientation: alert and oriented x 3 Apperance: appropriately dressed and appropriately groomed Eye Contact: + fair eye contact Motor Behavior: no abnormal motor movements Speech: normal rate/rhythm/volume of speech Affect: + depressed affect Mood: + depressed mood Thought Process: + concrete thought process Thought Content: reality based without delusions Suicidal Thoughts: denies suicidal plan and denies suicidal intent; + reports suicidal thoughts (intermittent passive thoughts and rehearsal behavior prior to admission) Homicidal Thoughts: denies homicidal thoughts Hallucinations: no auditory hallucinations and no visual hallucinations Cognition: recent memory grossly intact, remote memory grossly intact, attention grossly intact and language grossly intact Estimated Intelligence: consistent with education level Insight: + limited insight Judgement: + limited judgement Vital Signs (Past 24 Hours) Last Vital Signs Temp 36.6 C 07/17/22 06:44 Pulse 83 07/17/22 06:46 Resp 16 07/17/22 06:44 BP 101/67 07/17/22 06:46 Pulse Ox 95 07/15/22 13:30 O2 Del Method 07/15/22 12:52 Results & Data ([facility]) Current Inpatient Medications Current Inpatient Medications: Current Inpatient Medications Acetaminophen (Acetaminophen 325 Mg Tab) 650 mg PO Q4H PRN PRN Reason: Headache or Minor Fever Stop: 08/14/22 16:59 Al Hydrox/Mg Hydrox/Simethicone (Aluminum/Magnesium Susp 30 Ml Udc) 30 ml PO Q4H PRN PRN Reason: GI Upset Stop: 08/14/22 16:59 Aripiprazole (Aripiprazole 5 Mg Tab) 2.5 mg PO BID PRN PRN Reason: Anxiety/Agitation Stop: 08/14/22 17:53 Bismuth Subsalicylate (Bismuth Subsalicylate Liqd 236 Ml) 15 ml PO PRN PRN PRN Reason: Loose Stool Stop: 08/14/22 16:59 Clonidine HCl (Clonidine Hcl 0.1 Mg Tab) 0.1 mg PO HS PINKY Stop: 08/16/22 21:59 Hydroxyzine HCl (Hydroxyzine Hcl 25 Mg Tab) 50 mg PO HSZ PRN PRN Reason: Insomnia Stop: 08/14/22 16:59 Hydroxyzine HCl (Hydroxyzine Hcl 25 Mg Tab) 25 mg PO Q4H PRN PRN Reason: Anxiety Stop: 08/14/22 16:59 Magnesium Hydroxide (Magnesium Hydroxide Susp 30 Ml Udc) 30 ml PO DAILY PRN PRN Reason: Constipation Stop: 08/14/22 16:59 Multivitamins (Multivitamin Tab) 1 tab PO DAILY PINKY Stop: 08/17/22 08:59 Pantoprazole Sodium (Pantoprazole 40 Mg Tab) 40 mg PO QAM PINKY Stop: 08/16/22 09:59 Last Admin: 07/17/22 10:39 Dose: 40 mg Polyethylene Glycol (Polyethylene (Miralax) 17 Gm Pack) 17 gm PO DAILY PRN PRN Reason: Constipation Stop: 08/16/22 09:45 Sertraline HCl (Sertraline Hcl 50 Mg Tablet) 25 mg PO QAM PINKY Stop: 08/16/22 13:59 Last Admin: 07/17/22 14:31 Dose: 25 mg Sodium Chloride (Sodium Chloride 0.65% Na Soln 45 Ml ([place])) 1 - 2 sprays NA PRN PRN PRN Reason: Nasal Dryness/Congestion Stop: 08/14/22 16:59 Topiramate (Topiramate 100 Mg Tab) 100 mg PO BID PINKY Stop: 08/16/22 09:59 Last Admin: 07/17/22 10:39 Dose: 100 mg Mental Health & Subst Abuse Tx Psychiatrist Name of Psychiatrist: Della Brush Psychiatrist's Date of Appointment with Psychiatrist: 08/29/21 Time of Appointment with Psychiatrist: 1:30 PM Psychiatric Appointment Comment: [address] [place] [address] Shotweld Operator Name of Shotweld Operator: Dylan Madden Phone Number for Shotweld Operator: [phone] Post Discharge Appointments [facility] Provider Appointment Comment: [address] [place] [address] Orthodontist Assistant Name of Orthodontist Assistant: Vipin Saleh Phone Number of Orthodontist Assistant: [phone] Contact Information Discharge Discharge Address: [address], [place] [address]
[2022-07-17] MEDS ORDERED: PRAZOSIN HCL 1 MG CAP PO SCH (22:00)
[2022-07-17] MEDS ORDERED: cloNIDine HCL 0.1 MG TAB PO SCH (22:00)
[2022-07-18] MEDS: PANTOprazole 40 MG TAB PO SCH (09:10)
[2022-07-18] MEDS: MULTIVITAMIN TAB PO SCH (09:10)
[2022-07-18] MEDS: SERTRALINE HCL 50 MG TABLET PO SCH (09:11)
[2022-07-18] MEDS: TOPIRAMATE 100 MG TAB PO SCH ×2 (09:11→21:17)
--- NOTE | 2022-07-18 11:12 | Psychiatric Progress Note ---
Date of Service July 18, 2022 Impression / Recommendations Impression 32 year old man with a history of DMDD, ASD, depression and seizure disorder with recent inpatient admission in May 2022 who was admitted for worsening depression and rehearsal behavior of deangelo Baltazar in context of stopping his medication last week and feeling romantically and socially isolated. He is deemed unstable and requires psychiatric hospitalization for diagnostic clarification, safety and stabilization, medication management and development of further coping skills. 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 Tolerating initiation of sertraline. Discussed with his outpatient [facility] provider Saniya Brush. BP has been too low to get clonidine nor prazosin. Discussed medication treatment options in detail with Lana to help with impulsivity and sleep. Discussed risks, benefits and alternatives. Lana consented to restarting abilify for impulsivity and to help with sleep, with goal of low dose to avoid daytime sedation. Reviewed side effects including but not limited to: movement (TD, NMS), cardiac (QTc prolongation), and metabolic (stroke, insulin resistance) and AIMS done with score of 0. He declines blood work to assess fasting glucose and lipid panel due to fear of needles, but agrees he would be willing for future monitoring outside the hospital if he finds the abilify helpful and remains on this longer-term. (1) Major depressive disorder, recurrent episode: (2) Autistic spectrum disorder: (3) Seizure disorder: (4) DMDD (disruptive mood dysregulation disorder): Plan 07/18/22: Stop clonidine, start abilify 2.5mg qhs. Continue sertraline 25mg qd. 07/17/22: Start sertraline 25mg qd, clonidine 0.1mg qhs. 07/16/22: The patient was admitted to the [facility] ([facility] mental health unit) on q15 min checks (behavioral with suicide precautions) for safety. The patient will participate in group, recreational, and milieu therapies and will be offered additional individual and family sessions as clinically appropriate. -Verify recent medications and consider alternative antidepressant options given repeat admission Inventory Assets Strengths: supportive parents, significant outpatient supports/providers, willing to get treatment Needs: safety and stabilization, medication re-initiation/adjustment, additional coping skills, increased outpatient services Suicide Risk Level Suicide Risk Level: Moderate (q15 min suicide checks) (severe depression with suicide rehearsal behaviors prior to admission but mood improving, denies SI and feels safe in the hospital, able to safety contract and agrees to let nursing/staff know should they develop plan, intent or feel unable to remain safe. ) Risk Factors Assessment Male: Yes : Yes Do You Have Access To A Gun?: No Health Problems: Yes Mental Health Diagnoses: Yes Substance Use Disorders: No Previous Attempt: Yes Family History of Suicide: No Previous Psychiatric Hospitalization: Yes Protective Factors Assessment Employed: No Stable Relationships: Yes Supportive Family: Yes Good Rapport with Provider: Yes Interval History Identifying Information LANA WAGNER is a 32-year-old M who currently lives in [place] at a [facility], has a history of DMDD, ASD with intellectual disability and depression, and was admitted on 07/15/22 17:00 on a 201 voluntary commitment for worsening depression and suicide rehearsal behavior of drinking [place] Delaney. Chief Complaint "I'm here". Review of Systems Sleep Information Total Hours of Sleep: 8 Meal Information Percent Meal Consumed - Breakfast: 100 Percent Meal Consumed - Lunch: 100 Percent Meal Consumed - Dinner: 100 Subjective Subjective Patient was seen & assessed and interval progress reviewed with treatment team nursing and social work. 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 Today laughing and enjoying groups but more depressed at times intermittently. Tells me he feels his mood is improving due to feeling less lonely. Reviewed recent ingestions at the [facility], he attributed this to "being lonely". Feels loneliness is improving as he now wants to get a job, re-engage with [employer] and maybe "join a local theater group". Reviewed alternative options for nightmares and impulsivity given his BP has been too low to get clonidine nor prazosin. Physical Exam Psychiatric Orientation: alert and oriented x 3 Apperance: appropriately dressed and appropriately groomed Eye Contact: + fair eye contact Motor Behavior: no abnormal motor movements Speech: normal rate/rhythm/volume of speech Affect: + depressed affect Mood: + depressed mood Thought Process: + concrete thought process Thought Content: reality based without delusions Suicidal Thoughts: denies suicidal thoughts, denies suicidal plan and denies suicidal intent Homicidal Thoughts: denies homicidal thoughts Hallucinations: no auditory hallucinations and no visual hallucinations Cognition: recent memory grossly intact, remote memory grossly intact, attention grossly intact and language grossly intact Estimated Intelligence: consistent with education level Insight: + limited insight Judgement: + limited judgement Vital Signs (Past 24 Hours) Last Vital Signs Temp 36.5 C 07/18/22 06:45 Pulse 86 07/18/22 06:46 Resp 16 07/18/22 06:45 BP 88/56 L 07/18/22 06:46 Pulse Ox 95 07/15/22 13:30 O2 Del Method 07/15/22 12:52 Results & Data ([facility]) Current Inpatient Medications Current Inpatient Medications: Current Inpatient Medications Acetaminophen (Acetaminophen 325 Mg Tab) 650 mg PO Q4H PRN PRN Reason: Headache or Minor Fever Stop: 08/14/22 16:59 Al Hydrox/Mg Hydrox/Simethicone (Aluminum/Magnesium Susp 30 Ml Udc) 30 ml PO Q4H PRN PRN Reason: GI Upset Stop: 08/14/22 16:59 Aripiprazole (Aripiprazole 5 Mg Tab) 2.5 mg PO BID PRN PRN Reason: Anxiety/Agitation Stop: 08/14/22 17:53 Aripiprazole (Aripiprazole 5 Mg Tab) 2.5 mg PO HS PINKY Stop: 08/17/22 21:59 Bismuth Subsalicylate (Bismuth Subsalicylate Liqd 236 Ml) 15 ml PO PRN PRN PRN Reason: Loose Stool Stop: 08/14/22 16:59 Hydroxyzine HCl (Hydroxyzine Hcl 25 Mg Tab) 50 mg PO HSZ PRN PRN Reason: Insomnia Stop: 08/14/22 16:59 Hydroxyzine HCl (Hydroxyzine Hcl 25 Mg Tab) 25 mg PO Q4H PRN PRN Reason: Anxiety Stop: 08/14/22 16:59 Magnesium Hydroxide (Magnesium Hydroxide Susp 30 Ml Udc) 30 ml PO DAILY PRN PRN Reason: Constipation Stop: 08/14/22 16:59 Multivitamins (Multivitamin Tab) 1 tab PO DAILY PINKY Stop: 08/17/22 08:59 Last Admin: 07/18/22 09:10 Dose: 1 tab Pantoprazole Sodium (Pantoprazole 40 Mg Tab) 40 mg PO QAM PINK[facility] Stop: 08/16/22 09:59 Last Admin: 07/18/22 09:10 Dose: 40 mg Polyethylene Glycol (Polyethylene (Miralax) 17 Gm Pack) 17 gm PO DAILY PRN PRN Reason: Constipation Stop: 08/16/22 09:45 Sertraline HCl (Sertraline Hcl 50 Mg Tablet) 25 mg PO QAM PINKY Stop: 08/16/22 13:59 Last Admin: 07/18/22 09:11 Dose: 25 mg Sodium Chloride (Sodium Chloride 0.65% Na Soln 45 Ml ([place])) 1 - 2 sprays NA PRN PRN PRN Reason: Nasal Dryness/Congestion Stop: 08/14/22 16:59 Topiramate (Topiramate 100 Mg Tab) 100 mg PO BID PINKY Stop: 08/16/22 09:59 Last Admin: 07/18/22 09:11 Dose: 100 mg Mental Health & Subst Abuse Tx Psychiatrist Name of Psychiatrist: Della Brush Psychiatrist's Date of Appointment with Psychiatrist: 08/29/21 Time of Appointment with Psychiatrist: 1:30 PM Psychiatric Appointment Comment: [address] [place] [address] Egg Separator Name of Egg Separator: Dylan Madden Phone Number for Egg Separator: [phone] Post Discharge Appointments Primary Care Physician Name Of Family Doctor: GERIG Primary Care Provider Appointment Comment: [address], [place] [address] News Commentator Name of News Commentator: Vipin Saleh Phone Number of News Commentator: [phone] Contact Information Discharge Discharge Address: [facility] [address], [place] [place] [address], [place] [address]
[2022-07-18] MEDS: ARIPiprazole 5 MG TAB PO SCH (21:15)
[2022-07-19] MEDS: SERTRALINE HCL 50 MG TABLET PO SCH (10:32)
[2022-07-19] MEDS: PANTOprazole 40 MG TAB PO SCH (10:33)
[2022-07-19] MEDS: TOPIRAMATE 100 MG TAB PO SCH (10:33)
[2022-07-19] MEDS: MULTIVITAMIN TAB PO SCH (10:33)
--- NOTE | 2022-07-19 11:45 | Psychiatric Progress Note ---
Date of Service July 19, 2022 Impression / Recommendations Impression 32 year old man with a history of DMDD, ASD, depression and seizure disorder with recent inpatient admission in May 2022 who was admitted for worsening depression and rehearsal behavior of gargling [place] Delaney in context of stopping his medication last week and feeling romantically and socially isolated. He is deemed unstable and requires psychiatric hospitalization for diagnostic clarification, safety and stabilization, medication management and development of further coping skills. 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 (1) Major depressive disorder, recurrent episode: (2) Autistic spectrum disorder: (3) Seizure disorder: (4) DMDD (disruptive mood dysregulation disorder): Plan 07/19/22: Continue with current medications and tx plan. 07/18/22: Stop clonidine, start abilify 2.5mg qhs. Continue sertraline 25mg qd. 07/17/22: Start sertraline 25mg qd, clonidine 0.1mg qhs. 07/16/22: The patient was admitted to the [facility] ([facility] mental health unit) on q15 min checks (behavioral with suicide precautions) for safety. The patient will participate in group, recreational, and milieu therapies and will be offered additional individual and family sessions as clinically appropriate. -Verify recent medications and consider alternative antidepressant options given repeat admission Inventory Assets Strengths: supportive parents, significant outpatient supports/providers, willing to get treatment Needs: safety and stabilization, medication re-initiation/adjustment, additional coping skills, increased outpatient services Suicide Risk Level Suicide Risk Level: Moderate (q15 min suicide checks) (severe depression with suicide rehearsal behaviors prior to admission but mood improving, denies SI and feels safe in the hospital, able to safety contract and agrees to let nursing /staff know should they develop plan, intent or feel unable to remain safe. ) Risk Factors Assessment Male: Yes : Yes Do You Have Access To A Gun?: No Health Problems: Yes Mental Health Diagnoses: Yes Substance Use Disorders: No Previous Attempt: Yes Family History of Suicide: No Previous Psychiatric Hospitalization: Yes Protective Factors Assessment Employed: No Stable Relationships: Yes Supportive Family: Yes Good Rapport with Provider: Yes Interval History Identifying Information LANA WAGNER is a 32-year-old M who currently lives in [place] at a [facility], has a history of DMDD, ASD with intellectual disability and depression, and was admitted on 07/15/22 17:00 on a 201 voluntary commitment for worsening depression and suicide rehearsal behavior of drinking [place] Delaney. Chief Complaint "I slept better". Review of Systems Sleep Information Total Hours of Sleep: 6.75 Meal Information Percent Meal Consumed - Breakfast: 100 Percent Meal Consumed - Lunch: 100 Percent Meal Consumed - Dinner: 100 Subjective Subjective Patient was seen & assessed and interval progress reviewed with treatment team nursing and social work. Today reports his mood is "happy and tired". Slept better last night and denies any nightmares. He's unclear if he feels more tired because of abilify or if this is similar to his baseline fatigue. Awake this morning and engaging in groups. No side effects from sertraline or his other medications. Physical Exam Psychiatric Orientation: alert and oriented x 3 Apperance: appropriately dressed and appropriately groomed Eye Contact: + fair eye contact Motor Behavior: no abnormal motor movements Speech: normal rate/rhythm/volume of speech Affect: + labile affect Mood: + depressed mood Thought Process: + concrete thought process Thought Content: reality based without delusions Suicidal Thoughts: denies suicidal thoughts, denies suicidal plan and denies suicidal intent Homicidal Thoughts: denies homicidal thoughts Hallucinations: no auditory hallucinations and no visual hallucinations Cognition: recent memory grossly intact, remote memory grossly intact, attention grossly intact and language grossly intact Estimated Intelligence: + below average estimated intelligence Insight: + limited insight Judgement: + limited judgement Vital Signs (Past 24 Hours) Last Vital Signs Temp 36.3 C L 07/19/22 06:41 Pulse 80 07/19/22 06:45 Resp 16 07/19/22 06:45 BP 111/74 07/19/22 06:45 Pulse Ox 95 07/15/22 13:30 O2 Del Method 07/15/22 12:52 Results & Data ([facility]) Current Inpatient Medications Current Inpatient Medications: Current Inpatient Medications Acetaminophen (Acetaminophen 325 Mg Tab) 650 mg PO Q4H PRN PRN Reason: Headache or Minor Fever Stop: 08/14/22 16:59 Al Hydrox/Mg Hydrox/Simethicone (Aluminum/Magnesium Susp 30 Ml Udc) 30 ml PO Q4H PRN PRN Reason: GI Upset Stop: 08/14/22 16:59 Aripiprazole (Aripiprazole 5 Mg Tab) 2.5 mg PO BID PRN PRN Reason: Anxiety/Agitation Stop: 08/14/22 17:53 Aripiprazole (Aripiprazole 5 Mg Tab) 2.5 mg PO HS PINKY Stop: 08/17/22 21:59 Last Admin: 07/18/22 21:15 Dose: 2.5 mg Bismuth Subsalicylate (Bismuth Subsalicylate Liqd 236 Ml) 15 ml PO PRN PRN PRN Reason: Loose Stool Stop: 08/14/22 16:59 Hydroxyzine HCl (Hydroxyzine Hcl 25 Mg Tab) 50 mg PO HSZ PRN PRN Reason: Insomnia Stop: 08/14/22 16:59 Hydroxyzine HCl (Hydroxyzine Hcl 25 Mg Tab) 25 mg PO Q4H PRN PRN Reason: Anxiety Stop: 08/14/22 16:59 Magnesium Hydroxide (Magnesium Hydroxide Susp 30 Ml Udc) 30 ml PO DAILY PRN PRN Reason: Constipation Stop: 08/14/22 16:59 Multivitamins (Multivitamin Tab) 1 tab PO DAILY PINKY Stop: 08/17/22 08:59 Last Admin: 07/19/22 10:33 Dose: 1 tab Pantoprazole Sodium (Pantoprazole 40 Mg Tab) 40 mg PO QAM PINKY Stop: 08/16/22 09:59 Last Admin: 07/19/22 10:33 Dose: 40 mg Polyethylene Glycol (Polyethylene (Miralax) 17 Gm Pack) 17 gm PO DAILY PRN PRN Reason: Constipation Stop: 08/16/22 09:45 Sertraline HCl (Sertraline Hcl 50 Mg Tablet) 25 mg PO QAM [facility] Stop: 08/16/22 13:59 Last Admin: 07/19/22 10:32 Dose: 25 mg Sodium Chloride (Sodium Chloride 0.65% Na Soln 45 Ml ([place])) 1 - 2 sprays NA PRN PRN PRN Reason: Nasal Dryness/Congestion Stop: 08/14/22 16:59 Topiramate (Topiramate 100 Mg Tab) 100 mg PO BID PINKY Stop: 08/16/22 09:59 Last Admin: 07/19/22 10:33 Dose: 100 mg Mental Health & Subst Abuse Tx Psychiatrist Name of Psychiatrist: Della Brush Psychiatrist's Date of Appointment with Psychiatrist: 08/29/21 Time of Appointment with Psychiatrist: 1:30 PM Psychiatric Appointment Comment: [address] [place] [address] Manager English Name of Manager English: Dylan CrenshawNichole Maryanne Phone Number for Manager English: [phone] Post Discharge Appointments Primary Care Physician Name Of Family Doctor: [facility] Primary Care Provider Appointment Comment: [address] [place] [address] Religion Professor Name of Religion Professor: Vipin Saleh Phone Number of Religion Professor: [phone] Contact Information Discharge Discharge Address: [address], [place] [address]
[2022-07-19] MEDS: ARIPiprazole 5 MG TAB PO SCH (20:34)
[2022-07-20] MEDS: TOPIRAMATE 100 MG TAB PO SCH ×2 (02:50→09:50)
[2022-07-20] MEDS: SERTRALINE HCL 50 MG TABLET PO SCH (09:52)
[2022-07-20] MEDS: PANTOprazole 40 MG TAB PO SCH (09:53)
[2022-07-20] MEDS: MULTIVITAMIN TAB PO SCH (09:53)
--- NOTE | 2022-07-20 09:59 | Discharge Summary ---
Date of Service July 20, 2022 History of Present Illness Yehuda was admitted to [facility] in May 2022 and re-presents following suicide rehearsal behavior of gargling Hettinger Delaney and then presenting to the ED for stomach pain. He states "I just feel all alone and like no one cares or understood me" noting this has been happening a lot lately especially over the last month but increasing over the last week. He cannot identify any particular acute stressors or precipitants. He gargled Hettinger Delaney because "I was tired of living" but denies that he drank it noting that his brother might be gone but still loves him so he's a reason for living and helped him choose to spit out the Hettinger Delaney. States he also drank two pinto bombs earlier that evening "because I was tired of people judging me that I'm not good enough for this world" thinking this might help his mood but notes this is likely why he ended up gargling the Hettinger Delaney "my thought process wasn't good that night". He wishes he had a girlfriend and this makes him feel lonely. He stopped his medications a week ago because "I was feeling alone as always". Can't recall his medications but doesn't feel like they were helping. He wishes that medications could help him "think better and not feel so alone and think there's positive stuff in the world I could live for". He can't identify anything he likes to do. Does engage in activities like [employer], plays hockey every two weeks. No longer does psych rehab or [facility]. He feels it's "boring" where he lives so he ends up sleeping a lot. He feels like he sleeps "all the time". Denies any recent self-harm. Denies any hx of eating disorder. Physical Exam Vital Signs (Past 24 Hours) Last Vital Signs Temp 36.3 C L 07/20/22 06:41 Pulse 87 07/20/22 06:41 Resp 16 07/20/22 06:43 BP 107/71 07/20/22 06:43 Pulse Ox 95 07/15/22 13:30 O2 Del Method 07/15/22 12:52 See admission H&P and DOD summary. Principal Diagnosis Major Depressive Disorder Psychiatric Data See daily stay summary. In short, safety was maintained and the patient was coop erative with care. There were no instances of self-harming behavior and he enjoyed participating in the groups. Medication changes included initiation of sertraline 25mg and Abilify 2.5mg qhs and they tolerated this well. Topimax 100mg BID was also restarted for history of seizures and Protonix for GERD. A support session was held and safety plan was completed prior to discharge. Sertraline could be increased to 50mg in 1-2 weeks if he continues to tolerate this well. Will need fasting lipid panel, glucose while on Abilify, he declined baseline bloodwork in the hospital but was agreeable to doing this in the outpatient setting with his outpatient psychiatric provider. ON day of discharge noted his mood was "happy" and he is looking forward to watching the new Avatar movie in theaters, maybe joining a community theater group, and re-engaging with [employer]. He has outpatient psychiatry, case management and ASD support services. Day of Discharge Assessment Today the patient voices readiness for discharge. They note improvement in mood and deny thoughts to harm self or others. Thoughts remain organized and they are improved from admission. There is no evidence of psychosis. They agree to take mediations as prescribed and keep follow-up appointments. They are stable for discharge to outpatient level of care. Transition of Care Transition Of Care Record: was reviewed with the patient Advance Directives Advance Directives Information Provided: Yes Advance Directives: No Mental Health Advance Directive: No Advance Directives on File: No Living Will: No Power of Documentation Specialist: No Advance Directives Reason:: Declines as Mental Health Visit. Suicide Risk Level Suicide Risk Level Comments: Acute risk is low given improvement in mood and denial of SI, lack of access to lethal means, avoidance of substance use, hopefulness, feels less lonely. Chronic risk is moderate given history of impulsive ingestions, psychiatric co- morbid diagnoses, periods of impulsivity, prior attempt, hx self-harm, emotional reactivity, prior psychiatric hospitalizations, poor social support but also with protective factors including extensive outpatient services and addition of [facility], engagement with community activities/sports and good rapport with his providers. Counseled on ways to reduce acute and chronic risk including engaging with outpatient providers, using safety plan if needed, utilizing supports, taking medication, and using coping skills. Modifiable risk factors of SI and depression were addressed during hospitalization through development of new coping skills, support meeting, safety planning, and medication adjustments. Risk Factors Assessment Male: Yes : Yes Do You Have Access To A Gun?: No Health Problems: Yes Mental Health Diagnoses: Yes Substance Use Disorders: No Previous Attempt: Yes Family History of Suicide: No Previous Psychiatric Hospitalization: Yes Hopelessness: No Protective Factors Assessment Employed: No Stable Relationships: Yes Supportive Family: Yes Good Rapport with Provider: Yes Discharge Data Lab Results 07/15/22 07/15/22 07/15/22 13:05 13:05 13:05 WBC 10.61 RBC 5.35 Hgb 16.0 POC Hgb Hct 46.0 POC Hct MCV 86.0 MCH 29.9 MCHC 34.8 RDW Std Deviation 41.4 RDW Coeff of Abilio 13.2 Plt Count 212 MPV 11.7 Immature Gran % (Auto) 0.3 Neut % (Auto) 75.2 Lymph % (Auto) 12.9 [place] % (Auto) 10.0 Eos % (Auto) 0.8 Baso % (Auto) 0.8 Neut # (Auto) 7.97 H Lymph # (Auto) 1.37 [place] # (Auto) 1.06 H Eos # (Auto) 0.09 Baso # (Auto) 0.09 Immature Gran # (Auto) 0.03 H POC Sodium Sodium 137 POC Potassium Potassium 4.5 POC Chloride Chloride 105 Carbon Dioxide 21 POC Total CO2 Anion Gap 11 POC Anion Gap POC BUN BUN 26 H Creatinine 1.21 POC Creatinine Est Cr Clr Drug Dosing Not Reportable Est GFR ( Amer) 91.3 Est GFR (Non-Af Amer) 78.7 BUN/Creatinine Ratio 21.5 H Glucose 92 POC Glucose (other) Calcium 10.6 H POC Ioniz Calcium Paula Total Bilirubin 0.4 AST 24 ALT 16 Alkaline Phosphatase 61 Total Protein 7.5 Albumin 4.7 Globulin 2.8 Albumin/Globulin Ratio 1.7 Lipase 67 TSH 5.464 H Free T4 0.95 Urine Color Urine Appearance Urine pH Ur Specific Mather Urine Protein Urine Glucose (UA) Urine Ketones Urine Blood Urine Nitrite Urine Bilirubin Urine Urobilinogen Ur Leukocyte Esterase Salicylates Urine Opiates Screen Ur Methadone, Qual Acetaminophen Urine Barbiturates Ur Phencyclidine (PCP) U Amphetamin/Meth Scrn MDMA (Ecstasy) Screen U Benzodiazepines Scrn Ur Cocaine Metabolite U Marijuana (THC) Screen Ethyl Alcohol mg/dL SARS-CoV-2, RNA, NAAT 07/15/22 07/15/22 07/15/22 13:05 13:05 13:11 WBC RBC Hgb POC Hgb 16.3 Hct POC Hct 48 MCV MCH MCHC RDW Std Deviation RDW Coeff of Abilio Plt Count MPV Immature Gran % (Auto) Neut % (Auto) Lymph % (Auto) [place] % (Auto) Eos % (Auto) Baso % (Auto) Neut # (Auto) Lymph # (Auto) [place] # (Auto) Eos # (Auto) Baso # (Auto) Immature Gran # (Auto) POC Sodium 139 Sodium POC Potassium 4.3 Potassium POC Chloride 106 Chloride Carbon Dioxide POC Total CO2 21 L Anion Gap POC Anion Gap 17.0 POC BUN 26 H BUN Creatinine POC Creatinine 1.4 H Est Cr Clr Drug Dosing Est GFR ( Amer) Est GFR (Non-Af Amer) BUN/Creatinine Ratio Glucose POC Glucose (other) 94 Calcium POC Ioniz Calcium Paula 1.39 H Total Bilirubin AST ALT Alkaline Phosphatase Total Protein Albumin Globulin Albumin/Globulin Ratio Lipase TSH Free T4 Urine Color Urine Appearance Urine pH Ur Specific Mather Urine Protein Urine Glucose (UA) Urine Ketones Urine Blood Urine Nitrite Urine Bilirubin Urine Urobilinogen Ur Leukocyte Esterase Salicylates < 3.0 L Urine Opiates Screen Ur Methadone, Qual Acetaminophen < 3 L Urine Barbiturates Ur Phencyclidine (PCP) U Amphetamin/Meth Scrn MDMA (Ecstasy) Screen U Benzodiazepines Scrn Ur Cocaine Metabolite U Marijuana (THC) Screen Ethyl Alcohol mg/dL < 10.0 SARS-CoV-2, RNA, NAAT 07/15/22 07/15/22 07/15/22 13:26 14:55 14:55 WBC RBC Hgb POC Hgb Hct POC Hct MCV MCH MCHC RDW Std Deviation RDW Coeff of Abilio Plt Count MPV Immature Gran % (Auto) Neut % (Auto) Lymph % (Auto) [place] % (Auto) Eos % (Auto) Baso % (Auto) Neut # (Auto) Lymph # (Auto) [place] # (Auto) Eos # (Auto) Baso # (Auto) Immature Gran # (Auto) POC Sodium Sodium POC Potassium Potassium POC Chloride Chloride Carbon Dioxide POC Total CO2 Anion Gap POC Anion Gap POC BUN BUN Creatinine POC Creatinine Est Cr Clr Drug Dosing Est GFR ( Amer) Est GFR (Non-Af Amer) BUN/Creatinine Ratio Glucose POC Glucose (other) Calcium POC Ioniz Calcium Paula Total Bilirubin AST ALT Alkaline Phosphatase Total Protein Albumin Globulin Albumin/Globulin Ratio Lipase TSH Free T4 Urine Color Yellow Urine Appearance Clear Urine pH 5.0 Ur Specific Mather 1.027 Urine Protein Negative Urine Glucose (UA) Negative Urine Ketones Negative Urine Blood Negative Urine Nitrite Negative Urine Bilirubin Negative Urine Urobilinogen Negative Ur Leukocyte Esterase Negative Salicylates Urine Opiates Screen Neg Ur Methadone, Qual Neg Acetaminophen Urine Barbiturates Neg Ur Phencyclidine (PCP) Neg U Amphetamin/Meth Scrn Neg MDMA (Ecstasy) Screen Neg U Benzodiazepines Scrn Neg Ur Cocaine Metabolite Neg U Marijuana (THC) Screen Neg Ethyl Alcohol mg/dL SARS-CoV-2, RNA, NAAT NEGATIVE Hospital Course (1) Major depressive disorder, recurrent episode: (2) Autistic spectrum disorder: (3) Seizure disorder: (4) DMDD (disruptive mood dysregulation disorder): Plan 07/19/22: Continue with current medications and tx plan. 07/18/22: Stop clonidine, start abilify 2.5mg qhs. Continue sertraline 25mg qd. 07/17/22: Start sertraline 25mg qd, clonidine 0.1mg qhs. 07/16/22: The patient [facility] inpatient mental health unit) on q15 min checks (behavioral with suicide precautions) for safety. The patient will participate in group, recreational, and milieu therapies and will be offered additional individual and family sessions as clinically appropriate. -Verify recent medications and consider alternative antidepressant options given repeat admission Mental Health & Subst Abuse Tx Psychiatrist Name of Psychiatrist: Della Brush Psychiatrist's Date of Appointment with Psychiatrist: 08/29/21 Time of Appointment with Psychiatrist: 1:30 PM Psychiatric Appointment Comment: [address] [place] [address] Forestry Aide Name of Forestry Aide: Dylan Madden Phone Number for Forestry Aide: [phone] Post Discharge Appointments Primary Care Physician Name Of Family Doctor: GERALDO Primary Care Provider Appointment Comment: [address], [place] [address] Circus Trainer Name of Circus Trainer: Vipin Saleh Phone Number of Circus Trainer: [phone] Other #1: Name of Aftercare Appointment: [employer] Dynam[employer] Repairer: [employer]- Natalie Mcfarland Phone Number of Aftercare Appointment: [phone] ext. [phone] #2: Name of Aftercare Appointment: KEIRA Reyes Contact Information Discharge Discharge Address: [address] [place] [address], [address] [facility], [place] [address] Discharge Plan Discharge Items Patient Disposition: Home - Self-Care Reason For Visit: SI, DEPRESSION, MED MANAGEMENT Discharge Diagnosis: Major Depressive Disorder Activity: Resume your previous activity Non-emergency contact: Primary Care Provider, Psychiatrist and Marketing Financial Analyst Call non-emergency contact if: you have any medication questions and your symptoms worsen Follow-up/Referrals: Clyde Gomez, [Primary Care Provider] - Diet: Regular Addtl Attending Provider Instructions: SPECIAL CARE INSTRUCTIONS: 1. Follow through with your scheduled aftercare appointments. If unable to keep an appointment, please call to reschedule. 2. Take your medication only as prescribed. Medication should not be changed or stopped without the approval of your doctor. In the event of worsening symptoms or concerns about side effects, contact your doctor immediately. 3. Utilize new healthy coping skills, anger management skills, and stress management skills learned during your hospitalization. Journal feelings and process them with a support person. Identify stressors or situations that may result in relapse, deterioration or inappropriate behaviors and develop a plan to deal with those issues. 4. If your coping skills are ineffective and you are in crisis, contact your outpatient providers for direction. If unable to reach your providers, please call the [facility] CRISIS LINE AT , go to the [facility] walk-in center at [address], [address], [place], or go to the closest Emergency Room. 5. Avoid alcohol and un-prescribed drugs. 6. You have been provided with the Mental Health Advance Directives Pamphlet for your review. 7. Your condition is stable for discharge to outpatient level of care, but recovery is an ongoing process. Ifthoughts to harm yourself or others return, follow the safety plan developed during your stay. Planning for a safe return home includes securing weapons. Our treatment team recommends weaponsbe removed from the home until your outpatient provider reassesses your progress. In rare cases where the items themselvescannot be removed, guns and ammunitionshould be secured separatelyand keys stored by a reliable personoutside of the home. If you were admitted on an involuntary commitment, the police or other legal authorities may be involved in this process. AFTERCARE APPOINTMENTS: * Please call your insurance company prior to your scheduled appointment to confirm your aftercare providers are covered. Take your insurance information to your appointments. WHO TO CALL AND WHEN: Medical Emergencies: For questions or emergencies related to your hospital stay, please contact the Inpatient Behavioral Health Unit at [phone]. A field crew chief is on-call 25/02 for the Behavioral Health Unit for emergencies At any time you feel your situation is an emergency, you may also call 911 immediately. Pending Studies at Discharge: No Stand-Alone Forms: My [facility] Medications and DC Order Prescriptions: New aripiprazole [Abilify] 5 mg Tablet 2.5 mg PO HS 30 Days Qty: 15 0RF sertraline 50 mg Tablet 25 mg PO QAM 30 Days Qty: 15 0RF Continued pantoprazole [Protonix] 40 mg tablet,delayed release (DR/EC) 40 mg PO QAM Qty: 30 5RF topiramate 100 mg tablet 100 mg PO BID polyethylene glycol 3350 [Miralax] 17 gram/dose powder 17 g PO DIRECTED PRN (Reason: Constipation) chlorhexidine gluconate 0.12 % mouthwash 15 ml PO 3XWK fluoride (sodium) [SF 5000 Plus] 1.1 % cream 1 applic dental BID multivitamin Tablet 1 tab PO DAILY Discontinued hydroxyzine HCl 25 mg tablet 50 mg PO HS fluoxetine 20 mg capsule 20 mg PO QAM acetaminophen 500 mg Tablet 500 mg PO Q6H PRN (Reason: Fever Or Pain) Rx Instructions: TAKE PER PACKAGE DIRECTIONS aripiprazole [Abilify] 15 mg Tablet 15 mg PO HS prazosin 1 mg capsule 1 mg PO HS fluoxetine 40 mg capsule 40 mg PO DAILY Discharge Orders: Discharge Order (Routine); Ordered 07/20/22 Ordered By: Bing Lowry Admission Data Admit Date/Time: 07/15/22 17:00 Attending Provider: Bing Lowry Admit Provider: Bing Lowry Primary Care Provider: Clyde Gomez Other Interventions: Discharge Summary Assessment (RN) Last Done: 07/20/22 10:47 PSY Interdisciplinary Discharge Planning Last Done: 07/20/22 10:50 Coding Level of Care Code 92909 D/C day mgmt > 30 min Diagnoses Major depressive disorder, recurrent episode F33.9 Autistic spectrum disorder F84.0 Seizure disorder G40.909 DMDD (disruptive mood dysregulation disorder) F34.81 Time Spent (min) 32
== END 2022-07-20 11:58 | disposition home or self-care (01) | DRG 881 ==
LOC: ED 12:42 → 3S 17:00
DX: F25.9 Schizoaffective disorder, unspecified; Z88.2 Allergy status to sulfonamides; Y92.89 Other specified places as the place of occurrence of the external cause; T65.892A Toxic effect of other specified substances, intentional self-harm, initial encounter; F79 Unspecified intellectual disabilities; R11.2 Nausea with vomiting, unspecified; G40.909 Epilepsy, unspecified, not intractable, without status epilepticus; F34.81 Disruptive mood dysregulation disorder; F32.9 Major depressive disorder, single episode, unspecified; F84.0 Autistic disorder; E03.9 Hypothyroidism, unspecified; E86.0 Dehydration

== ENCOUNTER 2022-09-19 21:22 | Inpatient (IN) ==
--- NOTE | 2022-09-19 21:26 | Emergency Department Note ---
History of Present Illness General Stated complaint: [facility] 302 Home Medications Medication Instructions Recorded Confirmed Type polyethylene glycol 3350 17 17 g PO DIRECTED PRN 08/16/20 09/10/22 History gram/dose oral powder (Miralax) Constipation chlorhexidine gluconate 0.12 % 15 ml PO 3XWK 07/05/21 09/10/22 History mouthwash topiramate 100 mg tablet 100 mg PO BID 09/27/21 09/10/22 History multivitamin 1 tab PO DAILY 10/30/21 09/10/22 History pantoprazole 40 mg tablet,delayed 40 mg PO QAM #30 tabs 03/13/22 09/10/22 Rx release (Protonix) fluoride (sodium) 1.1 % dental 1 applic dental BID 05/28/22 09/10/22 History cream (SF 5000 Plus) acetaminophen 500 mg tablet 1,000 mg PO Q6H PRN 09/10/22 09/10/22 History (Tylenol Extra Strength) Allergies Allergy/AdvReac Type Severity Reaction Status Date / Time phenytoin Allergy Mild RASH Verified 09/10/22 14:18 cat dander Allergy Unknown Allergy Verified 09/10/22 14:18 type symptoms chocolate flavor Allergy Unknown Unknown Verified 09/10/22 14:18 dog dander Allergy Unknown Allergy Verified 09/10/22 14:18 type symptoms red dye Allergy Unknown Unknown Verified 09/10/22 14:18 Sulfa (Sulfonamide Allergy Unknown Unknown Verified 09/10/22 14:18 Antibiotics) adhesive AdvReac Mild RASH Verified 09/10/22 14:18 polyester fibers AdvReac Unknown Unknown Verified 09/10/22 14:18 Past Med/Surg History Medical History Abdominal pain, RLQ Acute appendicitis Acute dehydration Anxiety Autistic spectrum disorder Chronic constipation Depression Depression with suicidal ideation DMDD (disruptive mood dysregulation disorder) Encounter for pre-operative examination Enteritis History of suicidal ideation 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 Learning difficulties (11/23/12) Mental retardation (05/12/13) Migraine Mild intellectual disability Nausea & vomiting Overdose by ingestion Schizoaffective disorder Schizoaffective disorder Seizure disorder per pt, was diagnosed as pseudo seizure > last one over a year, no longer has to see neuro Split urinary stream Surgical History History of esophagogastroduodenoscopy (EGD) [place] teeth removed Family History Mother Breast cancer Brother FH: brain cancer Grandmother Dementia Other Diabetes Hypertension Denies family history of Ovarian cancer Prostate cancer Lung cancer Colorectal cancer Social History Smoking Status: Never smoker Second Hand Exposure: No; Hx Alcohol Use: No Hx Substance Use: No Preferred Language: Albanian Communication Ability: limited Visual Impairment: Limited Hearing Ability: Normal Fitness Instructor Required: No Beliefs That Will Affect Care: None marital status: Single Current Living Situation: Other Current Living Situation Comment: independtly lives with roommate current occupational status: unemployed current occupation: Volunte[employer] Feels Safe at Home: Yes Childhood Exposure to Second-Hand Smoke: No caffeine: Yes Dental Care, Regularly: Yes Physical Activity Frequency: Daily Seatbelt Use: always Sunscreen Use: Yes Assistive Devices: None Discharge Plan Visit Data Stated Complaint: [place] [id number] ED Provider: FRIDAED Prescriptions Prescriptions: No Action pantoprazole [Protonix] 40 mg tablet,delayed release (DR/EC) 40 mg PO QAM Qty: 30 5RF acetaminophen [Tylenol Extra Strength] 500 mg tablet 1,000 mg PO Q6H PRN topiramate 100 mg tablet 100 mg PO BID polyethylene glycol 3350 [Miralax] 17 gram/dose powder 17 g PO DIRECTED PRN (Reason: Constipation) chlorhexidine gluconate 0.12 % mouthwash 15 ml PO 3XWK fluoride (sodium) [SF 5000 Plus] 1.1 % cream 1 applic dental BID multivitamin Tablet 1 tab PO DAILY Referrals Referrals: Clyde Gomez DO [Primary Care Provider] -
[2022-09-19 22:22] LABS: Appearance Urine Clear (Clear); Bilirubin Urine Negative (Negative); Blood Urine Negative (Negative); Color Urine Yellow; Glucose Urine UA Negative (Negative); Ketones Urine Negative (Negative); Leukocyte Esterase Urine Negative (Negative); Nitrite Urine Negative (Negative); Protein Urine Negative (Negative); Specific Gravity Urine 1.022 (1.000-1.030); Urobilinogen Urine Negative (Negative)
[2022-09-19 22:40] LABS: Amphetamines+Metham, Urine Neg (Neg); Barbiturates, Urine Neg (Neg); Benzodiazepine, Urine Neg (Neg); Cocaine, Urine Neg (Neg); MDMA (Ecstacy), Urine Neg (Neg); Methadone, Urine Neg (Neg); Opiate, Urine Neg (Neg); Phencyclidine, Urine Neg (Neg)
[2022-09-19 22:46] LABS: Basophils # (auto) 0.05 K/uL (0-0.2); Basophils % (auto) 0.7 %; Eosinophils # (auto) 0.07 K/uL (0-0.50); Hematocrit (blood only) 43.7 % (42.0-52.0); Hemoglobin 14.8 g/dl (14.0-18.0); Immature Granulocytes # (auto) 0.01 K/uL (0.01-0.20); Immature Granulocytes % (auto) 0.1 %; Lymphocytes # (auto) 1.74 K/uL (1.2-3.4); Lymphocytes % (auto) 25.4 %; Mean Corpuscular Hemoglobin 29.4 pg (25.0-34.0); Mean Corpuscular Hgb Conc 33.9 g/dL (32.0-36.0); Mean Corpuscular Volume 86.9 fL (80.0-100.0); Monocytes # (auto) 0.69 K/uL (0.11-0.59); Monocytes % (auto) 10.1 %; Neutrophils # (auto) 4.28 K/uL (1.40-6.50); Neutrophils % (auto) 62.7 %; Platelet Count 150 K/uL (130-400); RDW Coefficient of Variation 13.2 % (11.5-14.5); RDW Standard Deviation 41.1 fL (36.4-46.3); Red Blood Count 5.03 M/uL (4.70-6.10); White Blood Count 6.84 K/ul (4.8-10.8)
[2022-09-19 22:55] LABS: Acetaminophen < 3 ug/ml (10-30); Salicylate < 3.0 mg/dl (3.0-30)
[2022-09-19 22:56] LABS: Albumin Globulin Ratio 1.6 (0.9-2); Albumin Level 4.4 gm/dl (3.4-5.0); BUN Creatinine Ratio 14.8 (10-20); Bilirubin,Total 0.6 mg/dl (0.2-1.0); Calcium 9.4 mg/dl (8.5-10.1); Creatinine Clr Calc Pharmacy 90.9 ml/min; Est GFR (African American) 79.9 ml/min; Globulin 2.8 gm/dl (2.5-4.0); Potassium 3.7 mmol/L (3.5-5.1); Total Protein 7.2 gm/dl (6.0-8.3)
--- NOTE | 2022-09-19 23:44 | Emergency Department Note ---
History of Present Illness General Chief complaint: Mental Health Evaluation Stated complaint: [facility] 302 Time Seen by Provider: 09/19/22 21:37 History of Present Illness Provider complaint: Mental health evaluation 32-year-old male presents emergency department for mental health evaluation. Patient states he has been feeling depressed and been suicidal. Patient reports that he was standing on top of a parking garage and was about to jump tonight 3 stories down but then had to be helped off by people who are also at the garage. Patient denies any alcohol or drug abuse. He denies any access to any firearms. Home Medications Medication Instructions Recorded Confirmed Type polyethylene glycol 3350 17 17 g PO DIRECTED PRN 08/16/20 09/19/22 History gram/dose oral powder (Miralax) Constipation chlorhexidine gluconate 0.12 % 15 ml PO 3XWK 07/05/21 09/19/22 History mouthwash topiramate 100 mg tablet 100 mg PO BID 09/27/21 09/19/22 History multivitamin 1 tab PO DAILY 10/30/21 09/19/22 History pantoprazole 40 mg tablet,delayed 40 mg PO QAM #30 tabs 03/13/22 09/19/22 Rx release (Protonix) fluoride (sodium) 1.1 % dental 1 applic dental BID 05/28/22 09/19/22 History cream (SF 5000 Plus) acetaminophen 500 mg tablet 1,000 mg PO Q6H PRN PAIN/FEVER 09/10/22 09/19/22 History (Tylenol Extra Strength) Allergies Allergy/AdvReac Type Severity Reaction Status Date / Time adhesive Allergy Intermediate RASH Verified 09/19/22 22:12 cat dander Allergy Intermediate SNEEZING, Verified 09/19/22 22:12 CONGESTION dog dander Allergy Intermediate SNEEZING, Verified 09/19/22 22:12 CONGESTION phenytoin Allergy Intermediate RASH Verified 09/19/22 22:12 polyester fibers Allergy Intermediate Rash Verified 09/19/22 22:12 red dye Allergy Intermediate Rash Verified 09/19/22 22:12 Sulfa (Sulfonamide Allergy Intermediate Rash Verified 09/19/22 22:12 Antibiotics) chocolate flavor Allergy Unknown Unknown Verified 09/19/22 22:12 Past Med/Surg History Medical History Abdominal pain, RLQ Acute appendicitis Acute dehydration Anxiety Autistic spectrum disorder Chronic constipation Depression Depression with suicidal ideation DMDD (disruptive mood dysregulation disorder) Encounter for pre-operative examination Enteritis History of suicidal ideation 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 Learning difficulties (11/23/12) Mental retardation (05/12/13) Migraine Mild intellectual disability Nausea & vomiting Overdose by ingestion Schizoaffective disorder Schizoaffective disorder Seizure disorder per pt, was diagnosed as pseudo seizure > last one over a year, no longer has to see neuro Split urinary stream Surgical History History of esophagogastroduodenoscopy (EGD) [place] teeth removed Family History Mother Breast cancer Brother FH: brain cancer Grandmother Dementia Other Diabetes Hypertension Denies family history of Ovarian cancer Prostate cancer Lung cancer Colorectal cancer Social History Smoking Status: Never smoker Second Hand Exposure: No; Hx Alcohol Use: No Hx Substance Use: No Preferred Language: Armenian Communication Ability: limited Visual Impairment: Limited Hearing Ability: Normal Provider Relations Coordinator Required: No Beliefs That Will Affect Care: None marital status: Single Current Living Situation: Other Current Living Situation Comment: independtly lives with roommate current occupational status: unemployed current occupation: Volunte[employer] Feels Safe at Home: Yes Childhood Exposure to Second-Hand Smoke: No caffeine: Yes Dental Care, Regularly: Yes Physical Activity Frequency: Daily Seatbelt Use: always Sunscreen Use: Yes Gender Identity: Male Assistive Devices: None Physical Exam Vital Signs Vital Signs - 24 hr 09/19/22 21:29 09/19/22 21:14 Temperature 36.5 C 36.5 C Temperature Source Oral Oral Pulse Rate 94 H Pulse Rate [Finger] 88 Respiratory Rate 20 18 Respiratory Effort / Characteristics Non-Labored Non-Labored Respiratory Depth Normal Normal Respiratory Pattern Regular Blood Pressure 118/72 Blood Pressure [Right Arm] 118/72 Blood Pressure Mean 87 Blood Pressure Mean [Right Arm] 87 Pulse Oximetry 95 95 Oxygen Delivery Method Room Air Room Air Sepsis Recent Fever Within 48 Hours No Sepsis New/Unexplained Change in Mental Status No Sepsis Action Taken by Nursing No Action Required Physical Exam HENT: Exam performed. - Head: Normocephalic and atraumatic. EYES: Conjunctivae and EOM are normal. Right eye exhibits no discharge. Left eye exhibits no discharge. No scleral icterus. NECK: Normal range of motion. Neck supple. No JVD present. CV: Normal rate, regular rhythm, normal heart sounds and intact distal pulses. There is no peripheral edema. Palpable radial pulses bue. PULM/CHEST: Effort normal and breath sounds normal. No respiratory distress. No stridor. He has no wheezes. He has no rales. ABD: The abdomen is soft. There is no tenderness. NEURO: Motor and sensation grossly intact. SKIN: Skin is warm and dry. He is not diaphoretic. PSYCH: Depression suicidal ideation Course Course 2136: The patient was evaluated in room A5. A complete history and physical exam was performed 2239: Patient medically cleared. Awaiting psychiatric evaluation and placement. 0126: Patient excepted to 3 S. Medical Decision Making Laboratory Data Attestation: I reviewed the patient's lab results. 09/19/22 22:20 09/19/22 22:20 Lab Results 09/19/22 09/19/22 09/19/22 Range/Units 21:36 21:36 22:20 WBC 6.84 (4.8-10.8) K/ul RBC 5.03 (4.70-6.10) M/uL Hgb 14.8 (14.0-18.0) g/dl Hct 43.7 (42.0-52.0) % MCV 86.9 (80.0-100.0) fL MCH 29.4 (25.0-34.0) pg MCHC 33.9 (32.0-36.0) g/dL RDW Std Deviation 41.1 (36.4-46.3) fL RDW Coeff of Abilio 13.2 (11.5-14.5) % Plt Count 150 (130-400) K/uL MPV 12.0 (9.4-12.4) fL Immature Gran % (Auto) 0.1 % Neut % (Auto) 62.7 % Lymph % (Auto) 25.4 % Anson % (Auto) 10.1 % Eos % (Auto) 1.0 % Baso % (Auto) 0.7 % Neut # (Auto) 4.28 (1.40-6.50) K/uL Lymph # (Auto) 1.74 (1.2-3.4) K/uL Anson # (Auto) 0.69 H (0.11-0.59) K/uL Eos # (Auto) 0.07 (0-0.50) K/uL Baso # (Auto) 0.05 (0-0.2) K/uL Immature Gran # (Auto) 0.01 (0.01-0.20) K/uL Sodium (136-145) mmol/L Potassium (3.5-5.1) mmol/L Chloride (98-107) mmol/L Carbon Dioxide (21-32) mmol/L Anion Gap (3-11) BUN (6-23) mg/dl Creatinine (0.6-1.4) mg/dl Est Cr Clr Drug Dosing ml/min Est GFR ( Amer) ml/min Est GFR (Non-Af Amer) ml/min BUN/Creatinine Ratio (10-20) Glucose (70-99(Fasting)) mg/dl Calcium (8.5-10.1) mg/dl Total Bilirubin (0.2-1.0) mg/dl AST (13-39) U/L ALT (7-52) U/L Alkaline Phosphatase (34-104) U/L Total Protein (6.0-8.3) gm/dl Albumin (3.4-5.0) gm/dl Globulin (2.5-4.0) gm/dl Albumin/Globulin Ratio (0.9-2) TSH (0.300-4.500) uIu/ml Urine Color Yellow Urine Appearance Clear (Clear) Urine pH 5.0 (4.5-7.5) Ur Specific [place] 1.022 (1.000-1.030) Urine Protein Negative (Negative) Urine Glucose (UA) Negative (Negative) Urine Ketones Negative (Negative) Urine Blood Negative (Negative) Urine Nitrite Negative (Negative) Urine Bilirubin Negative (Negative) Urine Urobilinogen Negative (Negative) Ur Leukocyte Esterase Negative (Negative) Salicylates (3.0-30) mg/dl Urine Opiates Screen Neg (Neg) Ur Methadone, Qual Neg (Neg) Acetaminophen (10-30) ug/ml Urine Barbiturates Neg (Neg) Ur Phencyclidine (PCP) Neg (Neg) U Amphetamin/Meth Scrn Neg (Neg) MDMA (Ecstasy) Screen Neg (Neg) U Benzodiazepines Scrn Neg (Neg) Ur Cocaine Metabolite Neg (Neg) U Marijuana (THC) Screen Neg (Neg) Ethyl Alcohol mg/dL (<10.0) mg/dl SARS-CoV-2, RNA, NAAT (NEGATIVE) 09/19/22 09/19/22 09/19/22 Range/Units 22:20 22:20 22:20 WBC (4.8-10.8) K/ul RBC (4.70-6.10) M/uL Hgb (14.0-18.0) g/dl Hct (42.0-52.0) % MCV (80.0-100.0) fL MCH (25.0-34.0) pg MCHC (32.0-36.0) g/dL RDW Std Deviation (36.4-46.3) fL RDW Coeff of Abilio (11.5-14.5) % Plt Count (130-400) K/uL MPV (9.4-12.4) fL Immature Gran % (Auto) % Neut % (Auto) % Lymph % (Auto) % Anson % (Auto) % Eos % (Auto) % Baso % (Auto) % Neut # (Auto) (1.40-6.50) K/uL Lymph # (Auto) (1.2-3.4) K/uL Anson # (Auto) (0.11-0.59) K/uL Eos # (Auto) (0-0.50) K/uL Baso # (Auto) (0-0.2) K/uL Immature Gran # (Auto) (0.01-0.20) K/uL Sodium 141 (136-145) mmol/L Potassium 3.7 (3.5-5.1) mmol/L Chloride 110 H (98-107) mmol/L Carbon Dioxide 25 (21-32) mmol/L Anion Gap 6 (3-11) BUN 20 (6-23) mg/dl Creatinine 1.35 (0.6-1.4) mg/dl Est Cr Clr Drug Dosing 90.9 ml/min Est GFR ( Amer) 79.9 ml/min Est GFR (Non-Af Amer) 69.0 ml/min BUN/Creatinine Ratio 14.8 (10-20) Glucose 89 (70-99(Fasting)) mg/dl Calcium 9.4 (8.5-10.1) mg/dl Total Bilirubin 0.6 (0.2-1.0) mg/dl AST 16 (13-39) U/L ALT 12 (7-52) U/L Alkaline Phosphatase 47 (34-104) U/L Total Protein 7.2 (6.0-8.3) gm/dl Albumin 4.4 (3.4-5.0) gm/dl Globulin 2.8 (2.5-4.0) gm/dl Albumin/Globulin Ratio 1.6 (0.9-2) TSH 2.090 (0.300-4.500) uIu/ml Urine Color Urine Appearance (Clear) Urine pH (4.5-7.5) Ur Specific [place] (1.000-1.030) Urine Protein (Negative) Urine Glucose (UA) (Negative) Urine Ketones (Negative) Urine Blood (Negative) Urine Nitrite (Negative) Urine Bilirubin (Negative) Urine Urobilinogen (Negative) Ur Leukocyte Esterase (Negative) Salicylates < 3.0 L (3.0-30) mg/dl Urine Opiates Screen (Neg) Ur Methadone, Qual (Neg) Acetaminophen < 3 L (10-30) ug/ml Urine Barbiturates (Neg) Ur Phencyclidine (PCP) (Neg) U Amphetamin/Meth Scrn (Neg) MDMA (Ecstasy) Screen (Neg) U Benzodiazepines Scrn (Neg) Ur Cocaine Metabolite (Neg) U Marijuana (THC) Screen (Neg) Ethyl Alcohol mg/dL (<10.0) mg/dl SARS-CoV-2, RNA, NAAT (NEGATIVE) 09/19/22 09/19/22 Range/Units 22:20 22:20 WBC (4.8-10.8) K/ul RBC (4.70-6.10) M/uL Hgb (14.0-18.0) g/dl Hct (42.0-52.0) % MCV (80.0-100.0) fL MCH (25.0-34.0) pg MCHC (32.0-36.0) g/dL RDW Std Deviation (36.4-46.3) fL RDW Coeff of Abilio (11.5-14.5) % Plt Count (130-400) K/uL MPV (9.4-12.4) fL Immature Gran % (Auto) % Neut % (Auto) % Lymph % (Auto) % Anson % (Auto) % Eos % (Auto) % Baso % (Auto) % Neut # (Auto) (1.40-6.50) K/uL Lymph # (Auto) (1.2-3.4) K/uL Anson # (Auto) (0.11-0.59) K/uL Eos # (Auto) (0-0.50) K/uL Baso # (Auto) (0-0.2) K/uL Immature Gran # (Auto) (0.01-0.20) K/uL Sodium (136-145) mmol/L Potassium (3.5-5.1) mmol/L Chloride (98-107) mmol/L Carbon Dioxide (21-32) mmol/L Anion Gap (3-11) BUN (6-23) mg/dl Creatinine (0.6-1.4) mg/dl Est Cr Clr Drug Dosing ml/min Est GFR ( Amer) ml/min Est GFR (Non-Af Amer) ml/min BUN/Creatinine Ratio (10-20) Glucose (70-99(Fasting)) mg/dl Calcium (8.5-10.1) mg/dl Total Bilirubin (0.2-1.0) mg/dl AST (13-39) U/L ALT (7-52) U/L Alkaline Phosphatase (34-104) U/L Total Protein (6.0-8.3) gm/dl Albumin (3.4-5.0) gm/dl Globulin (2.5-4.0) gm/dl Albumin/Globulin Ratio (0.9-2) TSH (0.300-4.500) uIu/ml Urine Color Urine Appearance (Clear) Urine pH (4.5-7.5) Ur Specific [place] (1.000-1.030) Urine Protein (Negative) Urine Glucose (UA) (Negative) Urine Ketones (Negative) Urine Blood (Negative) Urine Nitrite (Negative) Urine Bilirubin (Negative) Urine Urobilinogen (Negative) Ur Leukocyte Esterase (Negative) Salicylates (3.0-30) mg/dl Urine Opiates Screen (Neg) Ur Methadone, Qual (Neg) Acetaminophen (10-30) ug/ml Urine Barbiturates (Neg) Ur Phencyclidine (PCP) (Neg) U Amphetamin/Meth Scrn (Neg) MDMA (Ecstasy) Screen (Neg) U Benzodiazepines Scrn (Neg) Ur Cocaine Metabolite (Neg) U Marijuana (THC) Screen (Neg) Ethyl Alcohol mg/dL < 10.0 (<10.0) mg/dl SARS-CoV-2, RNA, NAAT NEGATIVE (NEGATIVE) MDM Narrative 2136: The patient was evaluated in room A5. A complete history and physical exam was performed 2240: Patient medically cleared. Awaiting psychiatric evaluation and placement. 0126: Patient excepted to 3 S. Impression & Plan Depression with suicidal ideation Discharge Plan Visit Data Chief Complaint: Mental Health Evaluation Stated Complaint: [facility] 302 ED Provider: Ray Perez Discharge Problem: Depression with suicidal ideation Patient Disposition: Admitted As Inpatient Forms Stand Alone Forms: [facility], Suicide Prevention Resources Prescriptions Prescriptions: No Action pantoprazole [Protonix] 40 mg tablet,delayed release (DR/EC) 40 mg PO QAM Qty: 30 5RF Rx Instructions: PER PT "HAVEN'T TAKEN MEDS FOR WEEKS/MONTHS". acetaminophen [Tylenol Extra Strength] 500 mg tablet 1,000 mg PO Q6H PRN (Reason: PAIN/FEVER) Rx Instructions: PER PT "HAVEN'T TAKEN MEDS FOR WEEKS/MONTHS". topiramate 100 mg tablet 100 mg PO BID Rx Instructions: PER PT "HAVEN'T TAKEN MEDS FOR WEEKS/MONTHS". polyethylene glycol 3350 [Miralax] 17 gram/dose powder 17 g PO DIRECTED PRN (Reason: Constipation) Rx Instructions: PER PT "HAVEN'T TAKEN MEDS FOR WEEKS/MONTHS". chlorhexidine gluconate 0.12 % mouthwash 15 ml PO 3XWK Rx Instructions: PER PT "HAVEN'T TAKEN MEDS FOR WEEKS/MONTHS". fluoride (sodium) [SF 5000 Plus] 1.1 % cream 1 applic dental BID Rx Instructions: PER PT "HAVEN'T TAKEN MEDS FOR WEEKS/MONTHS". multivitamin Tablet 1 tab PO DAILY Rx Instructions: PER PT "HAVEN'T TAKEN MEDS FOR WEEKS/MONTHS". Referrals Referrals: Clyde Gomez DO [Primary Care Provider] -
[2022-09-20] MEDS ORDERED: ALUMINUM/MAGNESIUM SUSP 30 ML UDC PO PRN (01:23)
[2022-09-20] MEDS ORDERED: hydrOXYzine HCl 25 MG TAB PO PRN ×2 (01:23)
[2022-09-20] MEDS ORDERED: SODIUM CHLORIDE 0.65% NA SOLN 45 ML (OCEAN) PRN (01:23)
--- NOTE | 2022-09-20 09:30 | History & Physical ---
Date of Service September 20, 2022 Impression / Recommendations Impression 32 year old man with a history of disruptive mood dysregulation disorder, autism spectrum disorder, intellectual disability, and seizure disorder with recent inpatient admission in July 2022 who was admitted for suicide attempt by jumping from a building (from which he had to be restrained) and worsening depression in context of stopping his medication and feeling romantically and socially isolated. He is deemed unstable and requires psychiatric hospitalization for diagnostic clarification, safety and stabilization, medication management and development of further coping skills. (1) DMDD (disruptive mood dysregulation disorder): Present on Admission?: Yes (2) Intellectual disability: Present on Admission?: Yes (3) Autistic spectrum disorder: Present on Admission?: Yes Plan 09/20/2022: * The patient was admitted to the [facility] ([facility] inpatient mental health unit) on q15 min checks (behavioral with suicide precautions) for safety. The patient will participate in group, recreational, and milieu therapies and will be offered additional individual and family sessions as clinically appropriate. * Will resume medications as at last discharge: aripiprazole 5 mg QHS, sertraline 25 mg daily, topiramate 100 mg BID Risk Factors Assessment Male: Yes : Yes Do You Have Access To A Gun?: No Mental Health Diagnoses: Yes Previous Attempt: Yes Previous Psychiatric Hospitalization: Yes Protective Factors Assessment Employed: No Psychiatric History Identifying Data LANA WAGNER is a 32-year-old M who currently lives in [place] in a CCR, has a history of schizoaffective disorder, ASD with intelletual disability and depression, and was admitted on 09/20/22 01:23 on a 201 voluntary commitment for suicdality. Chief Complaint "I scared myself". History of Present Illness Patient arrived in the ED via [place] [employer]. Officer Anna completed [address] which reads: On 09/19/2022, at approximately 2100 hours officers were dispatched to the [facility] deck for a male (Abdon) actively trying to jump off of the deck. Bystanders had to physically pull him off of the ledge. Upon my arrival, Abdon was being restrained by a bystander. Abdon told me he had come to the deck to commit suicide by jumping off of the building. He stated that nobody cared about him and he did not want to live anymore. I was advised that he also sent messages to this effect. Previously diagnosed with schizoaffective disorder, autism spectrum disorder, recurrent major depression and seizure disorder (at one point specified as non- epileptic). His last inpatient stay was 07/15/2022 on this unit. Discharge diagnosis was changed to Disruptive Mood Dysregulation Disorder from Schizoaffective Disorder. He says this was an attempt to end his life and that it was the first time he has "tried to go through with it." As has been the case with previous admission, he says he has been feeling lonely and as though he does not have adequate social supports. He denies auditory or visual hallucinations, homicidal thoughts , or self-injury. He says he's been depressed for "years" and it has worsened "recently" due to not having a girlfriend (though this is a long-standing complaint and often cited as a precipitant for previous admissions). Lana says he has not been taking his medications regularly and can't tell me what they are. He doesn't have any particular reason for not taking them, denying side effects. He is supposed to go to [facility] for medication management. He denies case management or outpatient therapy but does have peer support through [facility]. Lana also typically goes to [facility] a few days per week but has not been attending due to his depression. Lana now says that trying to jump "opened my eyes" and made him realize that he wants to live. He is willing to be admitted for treatment and will sign a 201. Past Psychiatric History Current Psychiatric Diagnosis: DMDD, ID, ASD Previous Psych Admissions: here 2013, 2014, 05/2022, and 07/2022 as well as [facility] Do You Have Access To A Gun?: No History of Previous Suicide Attempt: Yes Describe Attempts in the Past: Over 20, most recent prior to now gargling with [place]. Past Medication Trials: aripiprazole, chlorpromazine, divalproex, fluoxetine, olanzapine, prazosin, topiramate (possibly for seizures), trazodone, Allergies Allergy/AdvReac Type Severity Reaction Status Date / Time adhesive Allergy Intermediate RASH Verified 09/19/22 22:12 cat dander Allergy Intermediate SNEEZING, Verified 09/19/22 22:12 CONGESTION dog dander Allergy Intermediate SNEEZING, Verified 09/19/22 22:12 CONGESTION phenytoin Allergy Intermediate RASH Verified 09/19/22 22:12 polyester fibers Allergy Intermediate Rash Verified 09/19/22 22:12 red dye Allergy Intermediate Rash Verified 09/19/22 22:12 Sulfa (Sulfonamide Allergy Intermediate Rash Verified 09/19/22 22:12 Antibiotics) chocolate flavor Allergy Unknown Unknown Verified 09/19/22 22:12 Home Medications Medication Instructions Recorded Confirmed Type polyethylene glycol 3350 17 17 g PO DIRECTED PRN 08/16/20 09/19/22 History gram/dose oral powder (Miralax) Constipation chlorhexidine gluconate 0.12 % 15 ml PO 3XWK 07/05/21 09/19/22 History mouthwash topiramate 100 mg tablet 100 mg PO BID 09/27/21 09/19/22 History multivitamin 1 tab PO DAILY 10/30/21 09/19/22 History pantoprazole 40 mg tablet,delayed 40 mg PO QAM #30 tabs 03/13/22 09/19/22 Rx release (Protonix) fluoride (sodium) 1.1 % dental 1 applic dental BID 05/28/22 09/19/22 History cream (SF 5000 Plus) acetaminophen 500 mg tablet 1,000 mg PO Q6H PRN PAIN/FEVER 09/10/22 09/19/22 History (Tylenol Extra Strength) aripiprazole 5 mg tablet mg 09/20/22 History sertraline 25 mg tablet mg 09/20/22 History Family History Family Mental Health History Comment: parents with depression and anxiety Alcohol History Hx of Alcohol Use Over the Past 12 Months: No AUDIT Total Score: 0 Smoking Use Have You Smoked or Used Tobacco Products in the Last 30 Days: No Smoking Status: Never smoker Substance History Hx of Prescription Med Misuse Over the Past 12 Months: No Hx of Over the Counter Med Misuse Over the Past 12 Months: No Hx of Inhalent Misuse Over the Past 12 Months: No Hx of Organic Substance Use Over the Past 12 Months: No Hx of Illegal Substances/Street Drug Use Over Past 12 Months: No Problems as a Result of Past Substance Use: None Identified Personal History Living Arrangements: Apartment Highest Grade Completed: High School Graduate Marital Status: Single Number Of Children: 0 Beliefs That Will Affect Care: None Hx Legal Problems: No Hx Traumatic Life Events: Yes (loss) Patient History Medical History (Updated 09/20/22 @ 13:33 by Mu Hope MD) Abdominal pain, RLQ Acute appendicitis Acute dehydration Anxiety Autistic spectrum disorder Chronic constipation Depression Depression with suicidal ideation Depression with suicidal ideation DMDD (disruptive mood dysregulation disorder) Encounter for pre-operative examination Enteritis History of suicidal ideation 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 Learning difficulties (11/23/12) Major depressive disorder, recurrent episode Mental retardation (05/12/13) Migraine Mild intellectual disability Nausea & vomiting Overdose by ingestion Schizoaffective disorder Schizoaffective disorder Seizure disorder per pt, was diagnosed as pseudo seizure > last one over a year, no longer has to see neuro Split urinary stream Surgical History History of esophagogastroduodenoscopy (EGD) [place] teeth removed Family History Mother Breast cancer Brother FH: brain cancer Grandmother Dementia Other Diabetes Hypertension Denies family history of Ovarian cancer Prostate cancer Lung cancer Colorectal cancer Social History Smoking Status: Never smoker Second Hand Exposure: No; Hx Alcohol Use: No Hx Substance Use: No Preferred Language: Swedish Communication Ability: limited Visual Impairment: Limited Hearing Ability: Normal Electrical Sign Wirer Required: No Beliefs That Will Affect Care: None marital status: Single Current Living Situation: Other Current Living Situation Comment: independtly lives with roommate current occupational status: unemployed current occupation: Volunte[employer] Feels Safe at Home: Yes Childhood Exposure to Second-Hand Smoke: No caffeine: Yes Dental Care, Regularly: Yes Physical Activity Frequency: Daily Seatbelt Use: always Sunscreen Use: Yes Gender Identity: Male Assistive Devices: None Physical Exam Vital Signs (Past 24 Hours): Last Vital Signs Temp 36.7 C 09/20/22 06:42 Pulse 73 09/20/22 06:43 Resp 16 09/20/22 06:42 BP 98/61 L 09/20/22 06:43 Pulse Ox 98 09/20/22 03:39 O2 Del Method Room Air 09/20/22 03:39 Exam Statement: A physical exam was performed in the ED by Dr. Perez for the purposes of medical clearance. I accept that physical as correct and adequate for the purposes of the inpatient physical exam. Results & Data ([facility]) Laboratory Results Laboratory Results - last 24 hr 09/19/22 09/19/22 09/19/22 21:36 21:36 22:20 WBC 6.84 RBC 5.03 Hgb 14.8 Hct 43.7 MCV 86.9 MCH 29.4 MCHC 33.9 RDW Std Deviation 41.1 RDW Coeff of Abilio 13.2 Plt Count 150 MPV 12.0 Immature Gran % (Auto) 0.1 Neut % (Auto) 62.7 Lymph % (Auto) 25.4 [place] % (Auto) 10.1 Eos % (Auto) 1.0 Baso % (Auto) 0.7 Neut # (Auto) 4.28 Lymph # (Auto) 1.74 [place] # (Auto) 0.69 H Eos # (Auto) 0.07 Baso # (Auto) 0.05 Immature Gran # (Auto) 0.01 Sodium Potassium Chloride Carbon Dioxide Anion Gap BUN Creatinine Est Cr Clr Drug Dosing Est GFR ( Amer) Est GFR (Non-Af Amer) BUN/Creatinine Ratio Glucose Calcium Total Bilirubin AST ALT Alkaline Phosphatase Total Protein Albumin Globulin Albumin/Globulin Ratio TSH Urine Color Yellow Urine Appearance Clear Urine pH 5.0 Ur Specific [place] 1.022 Urine Protein Negative Urine Glucose (UA) Negative Urine Ketones Negative Urine Blood Negative Urine Nitrite Negative Urine Bilirubin Negative Urine Urobilinogen Negative Ur Leukocyte Esterase Negative Salicylates Urine Opiates Screen Neg Ur Methadone, Qual Neg Acetaminophen Urine Barbiturates Neg Ur Phencyclidine (PCP) Neg U Amphetamin/Meth Scrn Neg MDMA (Ecstasy) Screen Neg U Benzodiazepines Scrn Neg Ur Cocaine Metabolite Neg U Marijuana (THC) Screen Neg Ethyl Alcohol mg/dL SARS-CoV-2, RNA, NAAT 09/19/22 09/19/22 09/19/22 22:20 22:20 22:20 WBC RBC Hgb Hct MCV MCH MCHC RDW Std Deviation RDW Coeff of Abilio Plt Count MPV Immature Gran % (Auto) Neut % (Auto) Lymph % (Auto) [place] % (Auto) Eos % (Auto) Baso % (Auto) Neut # (Auto) Lymph # (Auto) [place] # (Auto) Eos # (Auto) Baso # (Auto) Immature Gran # (Auto) Sodium 141 Potassium 3.7 Chloride 110 H Carbon Dioxide 25 Anion Gap 6 BUN 20 Creatinine 1.35 Est Cr Clr Drug Dosing 90.9 Est GFR ( Amer) 79.9 Est GFR (Non-Af Amer) 69.0 BUN/Creatinine Ratio 14.8 Glucose 89 Calcium 9.4 Total Bilirubin 0.6 AST 16 ALT 12 Alkaline Phosphatase 47 Total Protein 7.2 Albumin 4.4 Globulin 2.8 Albumin/Globulin Ratio 1.6 TSH 2.090 Urine Color Urine Appearance Urine pH Ur Specific [place] Urine Protein Urine Glucose (UA) Urine Ketones Urine Blood Urine Nitrite Urine Bilirubin Urine Urobilinogen Ur Leukocyte Esterase Salicylates < 3.0 L Urine Opiates Screen Ur Methadone, Qual Acetaminophen < 3 L Urine Barbiturates Ur Phencyclidine (PCP) U Amphetamin/Meth Scrn MDMA (Ecstasy) Screen U Benzodiazepines Scrn Ur Cocaine Metabolite U Marijuana (THC) Screen Ethyl Alcohol mg/dL SARS-CoV-2, RNA, NAAT 09/19/22 09/19/22 22:20 22:20 WBC RBC Hgb Hct MCV MCH MCHC RDW Std Deviation RDW Coeff of Abilio Plt Count MPV Immature Gran % (Auto) Neut % (Auto) Lymph % (Auto) [place] % (Auto) Eos % (Auto) Baso % (Auto) Neut # (Auto) Lymph # (Auto) [place] # (Auto) Eos # (Auto) Baso # (Auto) Immature Gran # (Auto) Sodium Potassium Chloride Carbon Dioxide Anion Gap BUN Creatinine Est Cr Clr Drug Dosing Est GFR ( Amer) Est GFR (Non-Af Amer) BUN/Creatinine Ratio Glucose Calcium Total Bilirubin AST ALT Alkaline Phosphatase Total Protein Albumin Globulin Albumin/Globulin Ratio TSH Urine Color Urine Appearance Urine pH Ur Specific [place] Urine Protein Urine Glucose (UA) Urine Ketones Urine Blood Urine Nitrite Urine Bilirubin Urine Urobilinogen Ur Leukocyte Esterase Salicylates Urine Opiates Screen Ur Methadone, Qual Acetaminophen Urine Barbiturates Ur Phencyclidine (PCP) U Amphetamin/Meth Scrn MDMA (Ecstasy) Screen U Benzodiazepines Scrn Ur Cocaine Metabolite U Marijuana (THC) Screen Ethyl Alcohol mg/dL < 10.0 SARS-CoV-2, RNA, NAAT NEGATIVE Current Inpatient Medications Current Inpatient Medications: Current Inpatient Medications Al Hydrox/Mg Hydrox/Simethicone (Aluminum/Magnesium Susp 30 Ml Udc) 30 ml PO Q4H PRN PRN Reason: GI Upset Stop: 10/20/22 01:22 Hydroxyzine HCl (Hydroxyzine Hcl 25 Mg Tab) 25 mg PO Q4H PRN PRN Reason: Anxiety Stop: 10/20/22 01:22 Hydroxyzine HCl (Hydroxyzine Hcl 25 Mg Tab) 50 mg PO HSZ PRN PRN Reason: Insomnia Stop: 10/20/22 01:22 Sodium Chloride (Sodium Chloride 0.65% Na Soln 45 Ml ([place])) 1 - 2 sprays NA PRN PRN PRN Reason: Nasal Dryness/Congestion Stop: 10/20/22 01:22
[2022-09-20] MEDS: TOPIRAMATE 100 MG TAB PO SCH (21:13)
[2022-09-20] MEDS ORDERED: ARIPiprazole 5 MG TAB PO SCH (22:00)
[2022-09-21] MEDS: TOPIRAMATE 100 MG TAB PO SCH (08:49)
[2022-09-21] MEDS ORDERED: PANTOprazole 40 MG TAB PO SCH (09:00)
[2022-09-21] MEDS ORDERED: MULTIVITAMIN TAB PO SCH (09:00)
[2022-09-21] MEDS ORDERED: SERTRALINE HCL 50 MG TABLET PO SCH (09:00)
--- NOTE | 2022-09-21 10:08 | Discharge Summary ---
Date of Service September 21, 2022 History of Present Illness Patient arrived in the ED via [facility]. Officer Anna completed Box [address] 302 which reads: On 09/19/2022, at approximately 2100 hours officers were dispatched to the [facility] deck for a male (Abdon) actively trying to jump off of the deck. Bystanders had to physically pull him off of the ledge. Upon my arrival, Abdon was being restrained by a bystander. Abdon told me he had come to the deck to commit suicide by jumping off of the building. He stated that nobody cared about him and he did not want to live anymore. I was advised that he also sent messages to this effect. Previously diagnosed with schizoaffective disorder, autism spectrum disorder, recurrent major depression and seizure disorder (at one point specified as non- epileptic). His last inpatient stay was 07/15/2022 on this unit. Discharge diagnosis was changed to Disruptive Mood Dysregulation Disorder from Schizoaffective Disorder. He says this was an attempt to end his life and that it was the first time he has "tried to go through with it." As has been the case with previous admission, he says he has been feeling lonely and as though he does not have adequate social supports. He denies auditory or visual hallucinations, homicidal thoughts, or self-injury. He says he's been depressed for "years" and it has worsened "recently" due to not having a girlfriend (though this is a long- standing complaint and often cited as a precipitant for previous admissions). Yehuda says he has not been taking his medications regularly and can't tell me what they are. He doesn't have any particular reason for not taking them, denying side effects. He is supposed to go to [facility] for medication management. He denies case management or outpatient therapy but does have peer support through [facility]. Yehuda also typically goes to the [facility] a few days per week but has not been attending due to his depression. Yehuda now says that trying to jump "opened my eyes" and made him realize that he wants to live. He is willing to be admitted for treatment and will sign a 201. Physical Exam Psychiatric Orientation: alert and oriented x 3 Apperance: appropriately dressed and appropriately groomed Eye Contact: + fair eye contact Motor Behavior: steady gait and station and no abnormal motor movements Speech: normal rate/rhythm/volume of speech Affect: euthymic affect Mood: no depressed mood Thought Process: + concrete thought process Thought Content: + preoccupation (with wanting a girlfriend) Suicidal Thoughts: denies suicidal thoughts, denies suicidal plan and denies suicidal intent Homicidal Thoughts: denies homicidal thoughts Hallucinations: no auditory hallucinations and no visual hallucinations Cognition: recent memory grossly intact and remote memory grossly intact Estimated Intelligence: + below average estimated intelligence Insight: + limited insight Judgment: + limited judgement Vital Signs (Past 24 Hours) Last Vital Signs Temp 36.3 C L 09/21/22 06:43 Pulse 76 09/21/22 06:43 Resp 16 09/21/22 06:43 BP 99/61 L 09/21/22 06:43 Pulse Ox 98 09/20/22 03:39 O2 Del Method Room Air 09/20/22 03:39 Principal Diagnosis Disruptive Mood Dysregulation Disorder Psychiatric Data See daily stay summary. In short, safety was maintained and the patient was cooperative with care. Medication changes included resumption of aripiprazole 5 mg QHS and sertraline 25 mg daily and they tolerated this well. A family session was [held] and safety plan was completed prior to discharge. 09/21/2022: * We learned from [facility] that pt has been being "catfished" by a (possible) woman online and became upset by this and stopped his medication. They recognize his current condition as representing his baseline. Day of Discharge Assessment Today the patient voices readiness for discharge. They note improvement in mood and deny thoughts to harm self or others. Thoughts remain organized and they are improved from admission. There is no evidence of psychosis. They agree to take mediations as prescribed and keep follow-up appointments. They are stable for discharge to outpatient level of care. Advance Directives Advance Directives Information Provided: Yes Advance Directives: No Mental Health Advance Directive: No Advance Directives on File: No Living Will: No Power of Health Care Aide: No Advance Directives Reason:: Declines as Mental Health Visit. Suicide Risk Level Suicide Risk Level: Low (q15 min observation checks) Risk Factors Assessment Male: Yes : Yes Do You Have Access To A Gun?: No Mental Health Diagnoses: Yes Previous Attempt: Yes Previous Psychiatric Hospitalization: Yes Protective Factors Assessment Employed: No Total Time Total Time Spent: Greater Than 30 Minutes Discharge Data Lab Results 09/19/22 09/19/22 09/19/22 21:36 21:36 22:20 WBC 6.84 RBC 5.03 Hgb 14.8 Hct 43.7 MCV 86.9 MCH 29.4 MCHC 33.9 RDW Std Deviation 41.1 RDW Coeff of Abilio 13.2 Plt Count 150 MPV 12.0 Immature Gran % (Auto) 0.1 Neut % (Auto) 62.7 Lymph % (Auto) 25.4 Phillips % (Auto) 10.1 Eos % (Auto) 1.0 Baso % (Auto) 0.7 Neut # (Auto) 4.28 Lymph # (Auto) 1.74 Phillips # (Auto) 0.69 H Eos # (Auto) 0.07 Baso # (Auto) 0.05 Immature Gran # (Auto) 0.01 Sodium Potassium Chloride Carbon Dioxide Anion Gap BUN Creatinine Est Cr Clr Drug Dosing Est GFR ( Amer) Est GFR (Non-Af Amer) BUN/Creatinine Ratio Glucose Calcium Total Bilirubin AST ALT Alkaline Phosphatase Total Protein Albumin Globulin Albumin/Globulin Ratio TSH Urine Color Yellow Urine Appearance Clear Urine pH 5.0 Ur Specific [place] 1.022 Urine Protein Negative Urine Glucose (UA) Negative Urine Ketones Negative Urine Blood Negative Urine Nitrite Negative Urine Bilirubin Negative Urine Urobilinogen Negative Ur Leukocyte Esterase Negative Salicylates Urine Opiates Screen Neg Ur Methadone, Qual Neg Acetaminophen Urine Barbiturates Neg Ur Phencyclidine (PCP) Neg U Amphetamin/Meth Scrn Neg MDMA (Ecstasy) Screen Neg U Benzodiazepines Scrn Neg Ur Cocaine Metabolite Neg U Marijuana (THC) Screen Neg Ethyl Alcohol mg/dL SARS-CoV-2, RNA, NAAT 09/19/22 09/19/22 09/19/22 22:20 22:20 22:20 WBC RBC Hgb Hct MCV MCH MCHC RDW Std Deviation RDW Coeff of Abilio Plt Count MPV Immature Gran % (Auto) Neut % (Auto) Lymph % (Auto) Phillips % (Auto) Eos % (Auto) Baso % (Auto) Neut # (Auto) Lymph # (Auto) Phillips # (Auto) Eos # (Auto) Baso # (Auto) Immature Gran # (Auto) Sodium 141 Potassium 3.7 Chloride 110 H Carbon Dioxide 25 Anion Gap 6 BUN 20 Creatinine 1.35 Est Cr Clr Drug Dosing 90.9 Est GFR ( Amer) 79.9 Est GFR (Non-Af Amer) 69.0 BUN/Creatinine Ratio 14.8 Glucose 89 Calcium 9.4 Total Bilirubin 0.6 AST 16 ALT 12 Alkaline Phosphatase 47 Total Protein 7.2 Albumin 4.4 Globulin 2.8 Albumin/Globulin Ratio 1.6 TSH 2.090 Urine Color Urine Appearance Urine pH Ur Specific [place] Urine Protein Urine Glucose (UA) Urine Ketones Urine Blood Urine Nitrite Urine Bilirubin Urine Urobilinogen Ur Leukocyte Esterase Salicylates < 3.0 L Urine Opiates Screen Ur Methadone, Qual Acetaminophen < 3 L Urine Barbiturates Ur Phencyclidine (PCP) U Amphetamin/Meth Scrn MDMA (Ecstasy) Screen U Benzodiazepines Scrn Ur Cocaine Metabolite U Marijuana (THC) Screen Ethyl Alcohol mg/dL SARS-CoV-2, RNA, NAAT 09/19/22 09/19/22 22:20 22:20 WBC RBC Hgb Hct MCV MCH MCHC RDW Std Deviation RDW Coeff of Abilio Plt Count MPV Immature Gran % (Auto) Neut % (Auto) Lymph % (Auto) Phillips % (Auto) Eos % (Auto) Baso % (Auto) Neut # (Auto) Lymph # (Auto) Phillips # (Auto) Eos # (Auto) Baso # (Auto) Immature Gran # (Auto) Sodium Potassium Chloride Carbon Dioxide Anion Gap BUN Creatinine Est Cr Clr Drug Dosing Est GFR ( Amer) Est GFR (Non-Af Amer) BUN/Creatinine Ratio Glucose Calcium Total Bilirubin AST ALT Alkaline Phosphatase Total Protein Albumin Globulin Albumin/Globulin Ratio TSH Urine Color Urine Appearance Urine pH Ur Specific [place] Urine Protein Urine Glucose (UA) Urine Ketones Urine Blood Urine Nitrite Urine Bilirubin Urine Urobilinogen Ur Leukocyte Esterase Salicylates Urine Opiates Screen Ur Methadone, Qual Acetaminophen Urine Barbiturates Ur Phencyclidine (PCP) U Amphetamin/Meth Scrn MDMA (Ecstasy) Screen U Benzodiazepines Scrn Ur Cocaine Metabolite U Marijuana (THC) Screen Ethyl Alcohol mg/dL < 10.0 SARS-CoV-2, RNA, NAAT NEGATIVE Hospital Course (1) DMDD (disruptive mood dysregulation disorder): (2) Intellectual disability: (3) Autistic spectrum disorder: Plan 09/20/2022: * The patient was admitted to the [facility] (locked inpatient mental health unit) on q15 min checks (behavioral with suicide precautions) for safety. The patient will participate in group, recreational, and milieu therapies and will be offered additional individual and family sessions as clinically appropriate. * Will resume medications as at last discharge: aripiprazole 5 mg QHS, sertraline 25 mg daily, topiramate 100 mg BID Mental Health & Subst Abuse Tx Psychiatrist Name of Psychiatrist: Gracie Brush Psychiatrist's Psychiatric Appointment Comment: [address] [place] [address] Deck Lid Fitter Name of Deck Lid Fitter: Dylan Crenshaw Nichole Maryanne Phone Number for Deck Lid Fitter: [phone] Post Discharge Appointments Primary Care Physician Name Of Family Doctor/PCP: GERALDO Gomez Primary Care Provider Appointment Comment: Please follow-up as needed. Glass Grinder Name of Glass Grinder: Vipin Saleh Phone Number of Glass Grinder: [phone] Other #1: Name of Aftercare Appointment: HALLEY Reyes Discharge Plan Discharge Items Patient Disposition: Home - Self-Care Reason For Visit: SCHIZOAFFECTIVE DISORDER Discharge Diagnosis: Disruptive Mood Dysregulation Disorder Condition on Discharge: Good Activity: Resume your previous activity Non-emergency contact: Primary Care Provider and Psychiatrist Call non-emergency contact if: you have any medication questions and your symptoms worsen Follow-up/Referrals: Clyde Gomez, [Primary Care Provider] - Diet: Regular Addtl Attending Provider Instructions: SPECIAL CARE INSTRUCTIONS: 1. Follow through with your scheduled aftercare appointments. If unable to keep an appointment, please call to reschedule. 2. Take your medication only as prescribed. Medication should not be changed or stopped without the approval of your doctor. In the event of worsening symptoms or concerns about side effects, contact your doctor immediately. 3. Utilize new healthy coping skills, anger management skills, and stress management skills learned during your hospitalization. Journal feelings and process them with a support person. Identify stressors or situations that may result in relapse, deterioration or inappropriate behaviors and develop a plan to deal with those issues. 4. If your coping skills are ineffective and you are in crisis, contact your outpatient providers for direction. If unable to reach your providers, please call the [facility] CRISIS LINE AT , go to the [facility] walk-in center at [address], [address], [place], or go to the closest Emergency Room. 5. Avoid alcohol and un-prescribed drugs. 6. You have been provided with the Mental Health Advance Directives Pamphlet for your review. 7. Your condition is stable for discharge to outpatient level of care, but recovery is an ongoing process. Ifthoughts to harm yourself or others return, follow the safety plan developed during your stay. Planning for a safe return home includes securing weapons. Our treatment team recommends weaponsbe removed from the home until your outpatient provider reassesses your progress. In rare cases where the items themselvescannot be removed, guns and ammunitionshould be secured separatelyand keys stored by a reliable personoutside of the home. If you were admitted on an involuntary commitment, the police or other legal authorities may be involved in this process. AFTERCARE APPOINTMENTS: * Please call your insurance company prior to your scheduled appointment to confirm your aftercare providers are covered. Take your insurance information to your appointments. WHO TO CALL AND WHEN: Medical Emergencies: For questions or emergencies related to your hospital stay, please contact the Inpatient Behavioral Health Unit at [phone]. A custom dressmaker is on-call 25/02 for the Behavioral Health Unit for em ergencies At any time you feel your situation is an emergency, you may also call 911 immediately. Pending Studies at Discharge: No Stand-Alone Forms: My [facility], Smoking Cessation Medications and DC Order Prescriptions: Continued topiramate 100 mg tablet 100 mg PO BID Rx Instructions: PER PT "HAVEN'T TAKEN MEDS FOR WEEKS/MONTHS". sertraline 25 mg tablet aripiprazole 5 mg tablet pantoprazole [Protonix] 40 mg tablet,delayed release (DR/EC) 40 mg PO QAM Qty: 30 5RF Discontinued acetaminophen [Tylenol Extra Strength] 500 mg tablet 1,000 mg PO Q6H PRN (Reason: PAIN/FEVER) Rx Instructions: PER PT "HAVEN'T TAKEN MEDS FOR WEEKS/MONTHS". polyethylene glycol 3350 [Miralax] 17 gram/dose powder 17 g PO DIRECTED PRN (Reason: Constipation) Rx Instructions: PER PT "HAVEN'T TAKEN MEDS FOR WEEKS/MONTHS". chlorhexidine gluconate 0.12 % mouthwash 15 ml PO 3XWK Rx Instructions: PER PT "HAVEN'T TAKEN MEDS FOR WEEKS/MONTHS". fluoride (sodium) [SF 5000 Plus] 1.1 % cream 1 applic dental BID Rx Instructions: PER PT "HAVEN'T TAKEN MEDS FOR WEEKS/MONTHS". multivitamin Tablet 1 tab PO DAILY Rx Instructions: PER PT "HAVEN'T TAKEN MEDS FOR WEEKS/MONTHS". Discharge Orders: Discharge Order (Routine); Ordered 09/21/22 Ordered By: Mu Hope Admission Data Admit Date/Time: 09/20/22 01:23 Attending Provider: Mu Hope Admit Provider: Mu Hope Primary Care Provider: Clyde Gomez Coding Level of Care Code 80447 D/C day mgmt > 30 min Diagnoses DMDD (disruptive mood dysregulation disorder) F34.81 Intellectual disability F79 Autistic spectrum disorder F84.0
[2022-09-21] MEDS ORDERED: ACETAMINOPHEN 500 MG TAB PO PRN (10:45)
[2022-09-21] MEDS ORDERED: CHLORHEXIDINE GLUCONATE 0.12% 480 ML MT SCH (10:45)
[2022-09-21] MEDS ORDERED: POLYETHYLENE (MIRALAX) 17 GM PACK PO PRN (11:11)
[2022-09-22] MEDS ORDERED: NON-FORMULARY MEDICATION (Multivitamin Tablet) PO SCH (09:00)
== END 2022-09-21 11:31 | disposition home or self-care (01) | DRG 885 ==
LOC: ED 21:22 → 3S 09-20 01:23